=== PATIENT | male | born 1950 | race Caucasian/White ===

== ENCOUNTER 2018-02-06 19:15 | Inpatient (IN) | payer MEDICARE ==
[~2018-02-06] VITALS: Ht 188 cm; Wt 98.0 kg
[2018-02-06 19:59] LABS: BASO % 0 % (0-3); EOS % 0 % (0-3); HEMATOCRIT 47.8 % (39.0-53.0); HEMOGLOBIN 16.7 g/dL (13.0-17.5); LYMPH # 1.2 x10^3/uL (1.0-4.8); LYMPH % 8 % (24-48); MEAN CORPUSCULAR HEMOGLOBIN 32 pg (25-35); MEAN CORPUSCULAR HGB CONC 35 g/dL (31-37); MEAN CORPUSCULAR VOLUME 90 fL (79-100); MONO # 1.7 x10^3/uL (0.0-1.1); MONO % 11 % (0-9); NEUT % 81 % (31-73); PLATELET COUNT 239 x10^3/uL (140-400); RED CELL DISTRIBUTION WIDTH 13.9 % (11.5-14.5); WHITE BLOOD COUNT 14.9 x10^3/uL (4.0-11.0)
--- NOTE | 2018-02-06 19:59 | PHYS DOC ---
Past Medical History Past Medical History: Diabetes-Type II, GERD Past Surgical History: Appendectomy Alcohol Use: None Drug Use: Marijuana Adult General Chief Complaint Chief Complaint: BLOOD SUGAR PROBLEM HPI HPI Patient is a 67 year old male who presents with weakness, hypotension. The patient lives in [place] by himself. His neighbor came to check on him and found the patient to be extraordinarily weak and unable to move around his house. The patient states he has been ill over the last 4 days with vomiting. He denies hematemesis. He does not have abdominal pain. Denies fever or chills. Currently, he complains of profound weakness. He is uncertain if he has had fever or chills. The patient states he has "borderline" diabetes but has not been treated with medications. He states he has not seen a doctor in 5 or 6 years. Currently on no meds. Review of Systems Review of Systems Constitutional: Denies fever or chills Eyes: Denies change in visual acuity, redness, or eye pain HENT: Denies nasal congestion or sore throat Respiratory: Denies cough or shortness of breath Cardiovascular: No additional information not addressed in HPI GI: Denies abdominal pain : Denies dysuria Musculoskeletal: Denies back pain Integument: Denies rash or skin lesions Neurologic: Denies headache, or focal neuro complaints Endocrine: Denies polyuria All other systems were reviewed and found to be within normal limits, except as documented in this note. Current Medications Current Medications Current Medications Medications (Trade) Dose Ordered Sig/Gricel Start Time Stop Time Status Last Admin Dose Admin Insulin Human Regular 150 unit/ Sodium Chloride 151.5 ml @ 0 mls/hr CONT PRN PRN 02/06/18 21:00 Potassium Chloride/Water 50 ml @ 25 mls/hr Q1H 02/06/18 21:00 02/06/18 21:16 DC Sodium Chloride 1,000 ml @ 1,000 mls/hr 1X ONCE 02/06/18 20:00 02/06/18 20:59 DC 02/06/18 19:59 1,000 MLS/HR Allergies Allergies Allergies Coded Allergies Type Severity Reaction Last Updated Verified No Known Drug Allergies 02/06/18 No Physical Exam Physical Exam Constitutional: Chronically ill appearing, thin, disheveled male HENT: Sunken eyes, thin face, pale, atraumatic, bilateral external ears normal, dry mucous membranes Eyes: PERRLA, EOMI, conjunctiva pale Neck: Normal range of motion Cardiovascular: regular tachycardic rhythm, early harsh diastolic murmur heard loudest at LSB and apex 3/6 Lungs & Thorax: Bilateral breath sounds clear to auscultation Abdomen: Bowel sounds normal, soft, no tenderness Skin: Warm, dry, no erythema, no rash Extremities: No tenderness, no edema Neurologic: Alert and oriented X 3 Psychologic: Affect normal Current Patient Data Vital Signs Vital Signs Date Time Temp Pulse Resp B/P (MAP) Pulse Ox O2 Delivery O2 Flow Rate FiO2 02/06/18 21:00 113 18 106/68 (81) 95 2.0 02/06/18 19:41 Nasal Cannula 02/06/18 19:28 98.1 98.1 Lab Values Laboratory Tests Test 02/06/18 19:30 02/06/18 21:00 White Blood Count 14.9 x10^3/uL (4.0-11.0) H Red Blood Count 5.30 x10^6/uL (4.30-5.70) Hemoglobin 16.7 g/dL (13.0-17.5) Hematocrit 47.8 % (39.0-53.0) Mean Corpuscular Volume 90 fL (79-100) Mean Corpuscular Hemoglobin 32 pg (25-35) Mean Corpuscular Hemoglobin Concent 35 g/dL (31-37) Red Cell Distribution Width 13.9 % (11.5-14.5) Platelet Count 239 x10^3/uL (140-400) Neutrophils (%) (Auto) 81 % (31-73) H Lymphocytes (%) (Auto) 8 % (24-48) L Monocytes (%) (Auto) 11 % (0-9) H Eosinophils (%) (Auto) 0 % (0-3) Basophils (%) (Auto) 0 % (0-3) Neutrophils # (Auto) 12.0 x10^3uL (1.8-7.7) H Lymphocytes # (Auto) 1.2 x10^3/uL (1.0-4.8) Monocytes # (Auto) 1.7 x10^3/uL (0.0-1.1) H Eosinophils # (Auto) 0.0 x10^3/uL (0.0-0.7) Basophils # (Auto) 0.0 x10^3/uL (0.0-0.2) Segmented Neutrophils % 30 % (35-66) L Band Neutrophils % 44 % (0-9) H Lymphocytes % 7 % (24-48) L Atypical Lymphocytes % (Manual) 1 % (0-0) H Monocytes % 17 % (0-10) H Metamyelocytes % 1 % (0-0) H Toxic Granulation Mod Toxic Vacuolation Slight Platelet Estimate Adequate (ADEQUATE) Sodium Level 130 mmol/L (136-145) L Potassium Level 3.0 mmol/L (3.5-5.1) L Chloride Level 73 mmol/L (98-107) L Carbon Dioxide Level 32 mmol/L (21-32) Anion Gap 25 (6-14) H Blood Urea Nitrogen 97 mg/dL (8-26) H Creatinine 7.5 mg/dL (0.7-1.3) H Estimated GFR (Cockcroft-Gault) 7.3 Glucose Level 569 mg/dL (70-99) *H Lactic Acid Level 11.4 mmol/L (0.4-2.0) *H Calcium Level 9.9 mg/dL (8.5-10.1) Phosphorus Level 12.3 mg/dL (2.6-4.7) H Total Bilirubin 1.0 mg/dL (0.2-1.0) Direct Bilirubin 0.2 mg/dL (0.0-0.2) Aspartate Amino Transferase (AST) 16 U/L (15-37) Alanine Aminotransferase (ALT) 20 U/L (16-63) Alkaline Phosphatase 86 U/L (46-116) Troponin I Quantitative 0.389 ng/mL (0.000-0.055) CV-Ziu-K-Type Natriuretic Peptide 8182 pg/mL (0-124) H Total Protein 9.2 g/dL (6.4-8.2) H Albumin 3.0 g/dL (3.4-5.0) L Lipase 194 U/L (73-393) Glucose (Fingerstick) 474 mg/dL (70-99) H Laboratory Tests 02/06/18 19:30 Laboratory Tests 02/06/18 19:30 EKG EKG Sinus Tachy No STEMI Interpretation Time: 19:25 Radiology/Procedures Radiology/Procedures [] Course & Med Decision Making Course & Med Decision Making Pertinent Labs and Imaging studies reviewed. (See chart for details) 19:40: Patient is seen and examined. He has no acute complaints right now but appears very ill. He is tachycardic. He has had some intermittent hypotension. He received 1 L of normal saline via EMS and route. An additional liter is ordered. Broad workup is ordered. He also had blood glucose reading over 500 per EMS. Patient is not currently treated for diabetes. He is incidentally noted to have a diastolic murmur during the physical exam as well. In the ER, patient was found to have DKA. He also had elevation of his troponin but no acute STEMI on EKG. He had elevated BNP. As noted above he was found to have a diastolic heart murmur. In the ER, he was ordered to have 3 L normal saline. Insulin drip was started. Potassium replacement was also ordered. He was placed on empiric antibiotics, vancomycin and Zosyn. Patient has acute elevation of creatinine that is new. His BUNs was also elevated but the patient was not clinically uremic. No indication at the present time for acute or emergent dialysis. Patient is admitted to the intensive care unit. Consults placed for cardiology and nephrology to evaluate the patient tomorrow morning. I spoke to Dr. Perdomo about admitting this patient and he agreed to admit the patient to the ICU. Prior to admission and I spoke to the patient and explained his diagnoses and answered all of his questions. Dragon Disclaimer Dragon Disclaimer This electronic medical record was generated, in whole or in part, using a voice recognition dictation system. Departure Departure Referrals: UNKNOWN PCP NAME (PCP) MILTON CAGLE DO Feb 06, 2018 19:59
[2018-02-06] MEDS ORDERED: IV NORMAL SALINE 1000ML BAG 1,000 ML IV ONE ×2 (20:00→21:30)
[2018-02-06 20:18] LABS: CALCIUM 9.9 mg/dL (8.5-10.1); CREATININE 7.5 mg/dL (0.7-1.3); DIRECT BILIRUBIN 0.2 mg/dL (0.0-0.2); GFR 7.3; TOTAL PROTEIN 9.2 g/dL (6.4-8.2)
[2018-02-06 20:31] LABS: % ATYL 1 % (0-0); % BANDS 44 % (0-9); % LYMPHS 7 % (24-48); % METAS 1 % (0-0); % MONOS 17 % (0-10); % SEGS 30 % (35-66); PLT ESTIMATE ADEQUATE (ADEQUATE)
[2018-02-06 20:32] LABS: TOXIC GRANULATION MOD
[2018-02-06 20:33] LABS: TOXIC VACUOLATION SLIGHT
[2018-02-06] MEDS ORDERED: POTASSIUM CHLORIDE 20MEQ 50 ML IV SCH (21:00)
[2018-02-06] MEDS ORDERED: INSULIN REGULAR VIAL 150 UNIT in 0.9 % SODIUM CHLORIDE 150ML 150 ML IV PRN (21:00)
[2018-02-06] MEDS ORDERED: ACETAMINOPHEN 325 MG TABLET. PO PRN (21:15)
[2018-02-06] MEDS ORDERED: fentaNYL PF VIAL 100 MCG/2 ML VIAL IV PRN (21:15)
[2018-02-06 21:21] LABS: BASE EXCESS ABG 6 mmol/L (-3-3); CORRECTED PCO2 ABG 36 mmHg; CORRECTED PH ABG 7.53; CORRECTED PO2 ABG 74 mmHg; HCO3 ABG 29 mmol/L (21-28); PCO2 ABG 36 mmHg (35-46); PO2 ABG 75 mmHg (65-108); SAT O2 ABG 94 % (92-99)
[2018-02-06] MEDS: ONDANSETRON PF 4 MG/2 ML VIAL. IV PRN ×2 (21:27→23:49)
[2018-02-06] MEDS ORDERED: POTASSIUM CHLORIDE 20 MEQ/15 ML ORAL LIQUID. PO ONE (21:30)
[2018-02-06] MEDS ORDERED: PIP/TAZO PER PHARMACY MC PRN (21:30)
[2018-02-06] MEDS ORDERED: VANCOMYCIN PER PHARMACY MC PRN (21:30)
[2018-02-06] MEDS ORDERED: INSULIN,REGULAR 150 UNIT DRIP 150 ML IV ONE (21:45)
[2018-02-06] MEDS ORDERED: VANCOMYCIN 1.25 GM in IV NORMAL SALINE 250ML 250 ML IV ONE (22:00)
[2018-02-06] MEDS ORDERED: PIPERACILLIN/TAZOBACTAM 3.375 GM in IV NORMAL SALINE 50ML 50 ML IV ONE (22:00)
[2018-02-06] MEDS ORDERED: POTASSIUM CHLORIDE 40 MEQ in IV 1/2 NORMAL SALINE 500 ML IV ONE (22:00)
[2018-02-06 22:15] VITALS: BP 84/64
[2018-02-06 22:30] VITALS: BP 84/56
[2018-02-06] MEDS ORDERED: SODIUM PHOSPHATE 20 MMOL in IV DEXTROSE 5% 250 ML IV PRN (22:30)
[2018-02-06] MEDS: IV NORMAL SALINE 1000ML BAG 1,000 ML IV SCH (22:30)
[2018-02-06] MEDS: IV 1/2 NORMAL SALINE 1,000 ML IV SCH (22:30)
[2018-02-06] MEDS ORDERED: SODIUM PHOSPHATE 40 MMOL in IV NORMAL SALINE 500ML BAG 500 ML IV PRN (22:30)
[2018-02-06] MEDS ORDERED: SODIUM PHOSPHATE 10 MMOL in IV DEXTROSE 5% 250 ML IV PRN (22:30)
[2018-02-06 22:45] VITALS: BP 97/65
[2018-02-06 23:00] VITALS: BP 93/67
[2018-02-06 23:30] VITALS: BP 91/61
[2018-02-06] MEDS ORDERED: IV DEXTROSE 5% - 0.9 % NACL 1,000 ML IV SCH (23:45)
[2018-02-07] VITALS (24 sets, daily range): BP systolic 83–132; BP diastolic 55–74
--- NOTE | 2018-02-07 00:12 | RAD ---
Indication:weak and short of breath TECHNIQUE:Portable AP chest X-ray COMPARISON:None FINDINGS: Heart is normal in size. Bibasilar patchy opacities are seen. Otherwise, lungs are clear. No pneumothorax or pleural effusion. Visualized bony thorax within normal limits. IMPRESSION: Bibasilar patchy opacities may be secondary to aspiration, pneumonia or subsegmental atelectasis. Electronically signed by: Marcos Thomas DO (02/07/2018 12:09 AM) [facility]
[2018-02-07 01:27] LABS: CALCIUM 8.8 mg/dL (8.5-10.1); CREATININE 6.9 mg/dL (0.7-1.3); MAGNESIUM 2.7 mg/dL (1.8-2.4); POTASSIUM 3.5 mmol/L (3.5-5.1)
[2018-02-07] MEDS ORDERED: POTASSIUM CHLORIDE 40 MEQ in IV 1/2 NORMAL SALINE 500 ML IV ONE (02:00)
[2018-02-07] MEDS ORDERED: DEXTROSE 50% 25 GM / 50ML DISP.SYRIN. IV PRN (02:15)
[2018-02-07] MEDS: IV DEXTROSE 5 %-0.45 % NACL 1,000 ML IV SCH ×2 (02:30→03:15)
[2018-02-07] MEDS: IV 1/2 NORMAL SALINE 1,000 ML IV SCH (02:30)
[2018-02-07] MEDS: IV NORMAL SALINE 1000ML BAG 1,000 ML IV SCH ×5 (02:30→20:42)
[2018-02-07] MEDS ORDERED: INSULIN LISPRO 300 UNITS/3 ML INSULN.PEN. SQ ONE (02:30)
[2018-02-07] MEDS: METOCLOPRAMIDE HCL 10 MG/2 ML VIAL. IV PRN (03:15)
[2018-02-07] MEDS: PIPERACILLIN/TAZOBACTAM 2.25 GM in IV NORMAL SALINE 50ML 50 ML IV SCH ×3 (05:46→21:52)
--- NOTE | 2018-02-07 06:18 | EKG ---
[facility] [address] [place] [address] Test Date: 2018-02-06 Test Time: 19:22:29 Pat Name: SANJIV POPE Department: Room: 107 1 Gender: M Structural Rigger: : 1950 Requested By: MILTON CAGLE Order Number: [id number] Reading MD: Prakash Vasquez Measurements Intervals [place] Rate: 117 P: 62 LA: 134 QRS: 84 QRSD: 118 T: -73 QT: 336 QTc: 473 Interpretive Statements SINUS TACHYCARDIA LEFT ATRIAL ABNORMALITY LVH WITH REPOLARIZATION ABNORMALITY QRS(T) CONTOUR ABNORMALITY CONSIDER ANTEROSEPTAL MYOCARDIAL DAMAGE CONSIDER INFERIOR MYOCARDIAL DAMAGE ABNORMAL ECG RI6.01 No previous ECG available for comparison Electronically Signed On 02-08-2018 11:25:16 CDT by Prakash Vasquez
[2018-02-07 06:28] LABS: BASO % 0 % (0-3); EOS % 0 % (0-3); HEMATOCRIT 42.3 % (39.0-53.0); HEMOGLOBIN 14.6 g/dL (13.0-17.5); LYMPH % 7 % (24-48); MEAN CORPUSCULAR HEMOGLOBIN 31 pg (25-35); MEAN CORPUSCULAR HGB CONC 35 g/dL (31-37); MEAN CORPUSCULAR VOLUME 90 fL (79-100); MONO # 1.3 x10^3/uL (0.0-1.1); MONO % 9 % (0-9); NEUT # 12.2 x10^3uL (1.8-7.7); NEUT % 84 % (31-73); PLATELET COUNT 192 x10^3/uL (140-400); RED BLOOD COUNT 4.72 x10^6/uL (4.30-5.70); RED CELL DISTRIBUTION WIDTH 13.8 % (11.5-14.5); WHITE BLOOD COUNT 14.6 x10^3/uL (4.0-11.0)
[2018-02-07 07:02] LABS: ALBUMIN 2.5 g/dL (3.4-5.0); ALBUMIN/GLOBULIN RATIO 0.6 (1.0-1.7); CALCIUM 8.1 mg/dL (8.5-10.1); CREATININE 6.9 mg/dL (0.7-1.3); PHOSPHORUS 6.9 mg/dL (2.6-4.7); POTASSIUM 4.4 mmol/L (3.5-5.1); TOTAL BILIRUBIN 0.7 mg/dL (0.2-1.0); TOTAL PROTEIN 6.7 g/dL (6.4-8.2)
--- NOTE | 2018-02-07 07:51 | PDOC ---
Infectious Disease Note Vital Sign Vital Signs Vital Signs Date Time Temp Pulse Resp B/P (MAP) Pulse Ox O2 Delivery O2 Flow Rate FiO2 02/07/18 07:00 97 18 105/62 (76) 92 Nasal Cannula 2.0 02/07/18 04:00 98.5 98.5 Labs Lab Laboratory Tests Test 02/06/18 19:23 02/06/18 19:30 02/06/18 21:00 02/06/18 21:20 Glucose (Fingerstick) 510 mg/dL (70-99) 474 mg/dL (70-99) White Blood Count 14.9 x10^3/uL (4.0-11.0) Red Blood Count 5.30 x10^6/uL (4.30-5.70) Hemoglobin 16.7 g/dL (13.0-17.5) Hematocrit 47.8 % (39.0-53.0) Mean Corpuscular Volume 90 fL (79-100) Mean Corpuscular Hemoglobin 32 pg (25-35) Mean Corpuscular Hemoglobin Concent 35 g/dL (31-37) Red Cell Distribution Width 13.9 % (11.5-14.5) Platelet Count 239 x10^3/uL (140-400) Neutrophils (%) (Auto) 81 % (31-73) Lymphocytes (%) (Auto) 8 % (24-48) Monocytes (%) (Auto) 11 % (0-9) Eosinophils (%) (Auto) 0 % (0-3) Basophils (%) (Auto) 0 % (0-3) Neutrophils # (Auto) 12.0 x10^3uL (1.8-7.7) Lymphocytes # (Auto) 1.2 x10^3/uL (1.0-4.8) Monocytes # (Auto) 1.7 x10^3/uL (0.0-1.1) Eosinophils # (Auto) 0.0 x10^3/uL (0.0-0.7) Basophils # (Auto) 0.0 x10^3/uL (0.0-0.2) Segmented Neutrophils % 30 % (35-66) Band Neutrophils % 44 % (0-9) Lymphocytes % 7 % (24-48) Atypical Lymphocytes % (Manual) 1 % (0-0) Monocytes % 17 % (0-10) Metamyelocytes % 1 % (0-0) Toxic Granulation Mod Toxic Vacuolation Slight Platelet Estimate Adequate (ADEQUATE) Sodium Level 130 mmol/L (136-145) Potassium Level 3.0 mmol/L (3.5-5.1) Chloride Level 73 mmol/L (98-107) Carbon Dioxide Level 32 mmol/L (21-32) Anion Gap 25 (6-14) Blood Urea Nitrogen 97 mg/dL (8-26) Creatinine 7.5 mg/dL (0.7-1.3) Estimated GFR (Cockcroft-Gault) 7.3 Glucose Level 569 mg/dL (70-99) Lactic Acid Level 11.4 mmol/L (0.4-2.0) Calcium Level 9.9 mg/dL (8.5-10.1) Phosphorus Level 12.3 mg/dL (2.6-4.7) Total Bilirubin 1.0 mg/dL (0.2-1.0) Direct Bilirubin 0.2 mg/dL (0.0-0.2) Aspartate Amino Transf (AST/SGOT) 16 U/L (15-37) Alanine Aminotransferase (ALT/SGPT) 20 U/L (16-63) Alkaline Phosphatase 86 U/L (46-116) Troponin I Quantitative 0.389 ng/mL (0.000-0.055) ZL-Xko-Z-Type Natriuretic Peptide 8182 pg/mL (0-124) Total Protein 9.2 g/dL (6.4-8.2) Albumin 3.0 g/dL (3.4-5.0) Lipase 194 U/L (73-393) O2 Saturation 94 % (92-99) Arterial Blood pH 7.52 (7.35-7.45) Arterial Blood pH (Temp corrected) 7.53 Arterial Blood pCO2 at Patient Temp 36 mmHg (35-46) Arterial Blood pCO2 (Temp correct) 36 mmHg Arterial Blood pO2 at Patient Temp 75 mmHg (65-108) Arterial Blood pO2 (Temp corrected) 74 mmHg Arterial Blood HCO3 29 mmol/L (21-28) Arterial Blood Base Excess 6 mmol/L (-3-3) FiO2 32.0 Test 02/06/18 22:13 02/06/18 23:14 02/06/18 23:20 02/07/18 00:19 Glucose (Fingerstick) 416 mg/dL (70-99) 294 mg/dL (70-99) 230 mg/dL (70-99) Lactic Acid Level 4.2 mmol/L (0.4-2.0) Test 02/07/18 01:05 02/07/18 02:33 02/07/18 03:59 02/07/18 06:05 Sodium Level 133 mmol/L (136-145) 135 mmol/L (136-145) Potassium Level 3.5 mmol/L (3.5-5.1) 4.4 mmol/L (3.5-5.1) Chloride Level 85 mmol/L (98-107) 89 mmol/L (98-107) Carbon Dioxide Level 34 mmol/L (21-32) 29 mmol/L (21-32) Anion Gap 14 (6-14) 17 (6-14) Blood Urea Nitrogen 96 mg/dL (8-26) 100 mg/dL (8-26) Creatinine 6.9 mg/dL (0.7-1.3) 6.9 mg/dL (0.7-1.3) Estimated GFR (Cockcroft-Gault) 8.0 8.0 Glucose Level 213 mg/dL (70-99) 211 mg/dL (70-99) Calcium Level 8.8 mg/dL (8.5-10.1) 8.1 mg/dL (8.5-10.1) Magnesium Level 2.7 mg/dL (1.8-2.4) Glucose (Fingerstick) 156 mg/dL (70-99) 121 mg/dL (70-99) White Blood Count 14.6 x10^3/uL (4.0-11.0) Red Blood Count 4.72 x10^6/uL (4.30-5.70) Hemoglobin 14.6 g/dL (13.0-17.5) Hematocrit 42.3 % (39.0-53.0) Mean Corpuscular Volume 90 fL (79-100) Mean Corpuscular Hemoglobin 31 pg (25-35) Mean Corpuscular Hemoglobin Concent 35 g/dL (31-37) Red Cell Distribution Width 13.8 % (11.5-14.5) Platelet Count 192 x10^3/uL (140-400) Neutrophils (%) (Auto) 84 % (31-73) Lymphocytes (%) (Auto) 7 % (24-48) Monocytes (%) (Auto) 9 % (0-9) Eosinophils (%) (Auto) 0 % (0-3) Basophils (%) (Auto) 0 % (0-3) Neutrophils # (Auto) 12.2 x10^3uL (1.8-7.7) Lymphocytes # (Auto) 1.0 x10^3/uL (1.0-4.8) Monocytes # (Auto) 1.3 x10^3/uL (0.0-1.1) Eosinophils # (Auto) 0.0 x10^3/uL (0.0-0.7) Basophils # (Auto) 0.0 x10^3/uL (0.0-0.2) BUN/Creatinine Ratio 14 (6-20) Phosphorus Level 6.9 mg/dL (2.6-4.7) Total Bilirubin 0.7 mg/dL (0.2-1.0) Aspartate Amino Transf (AST/SGOT) 18 U/L (15-37) Alanine Aminotransferase (ALT/SGPT) 15 U/L (16-63) Alkaline Phosphatase 67 U/L (46-116) Troponin I Quantitative 0.384 ng/mL (0.000-0.055) Total Protein 6.7 g/dL (6.4-8.2) Albumin 2.5 g/dL (3.4-5.0) Albumin/Globulin Ratio 0.6 (1.0-1.7) Objective Assessment Lactic acidosis Sepsis with hypotension Metabolic alklosis sec to vomiting DM with high anion gap CAR Severe dehydration Leukocytosis Plan Plan of Care bc fluids zosyn vanc x 1 supportive care OCTAVIO GARCIA MD Feb 07, 2018 07:51
[2018-02-07 07:52] LABS: CHOLESTEROL/HDL RATIO 5.3
[2018-02-07] MEDS: INSULIN LISPRO 300 UNITS/3 ML INSULN.PEN. SQ SCH ×3 (07:58→17:29)
[2018-02-07 08:27] LABS: BILIRUBIN,URINE MODERATE (NEG); CLARITY,URINE TURBID; NITRITE,URINE NEGATIVE (NEG); PROTEIN,URINE 30 mg/dL (NEG-TRACE); UROBILINOGEN,URINE 0.2 mg/dL (0.2 mg/dL)
[2018-02-07 08:49] LABS: BACTERIA,URINE MOD /HPF (0-FEW); COLOR,URINE AMBER; SQUAMOUS EPITHELIAL CELL,UR FEW /LPF
[2018-02-07] MEDS ORDERED: MAGNESIUM SULFATE 4GM 100 ML IV SCH (09:00)
--- NOTE | 2018-02-07 09:21 | PDOC2 ---
CARDIAC CONSULT DATE OF CONSULT Date of Consult DATE: 02/07/18 TIME: 0820 REASON FOR CONSULT Reason for Consult: NSTEMI, CHF, diastolic murmur REFERRING PHYSICIAN Referring Physician: Fullbright SOURCE Source: Chart review, Patient HISTORY OF PRESENT ILLNESS HISTORY OF PRESENT ILLNESS This is a pleasant 67 yo male admitted for significant weakness and vomiting. Reports that he has not been feeling good in the last 1-2 weeks. He has been having some chest congestion but no significant coughing and also feeling body aches. No associated recorded fever but has been feeling intermittent chills. This weekend he got so weak that he drops to the floor and takes him 20-30 minutes before he could get up. He tries to eat and drink but he vomits. He initially started having vomiting with initial diarrhea this last weekend but no further diarrhea but his vomiting continues. He does not take any medications but has increased his intake of vit C supplement. He has not seen a physician in the last 6 years. He said that he had the same episode but milder about a yr ago but decided to treat himself and got better. He has DM but does not take any meds for this,. Denies any recreational drug use except marijuana. Denies any palpiations, chest pain or significant SOA. He was so weak yesterday and he was on the floor and was able to get up on his chair. His neighbor finally checked on him and he was noted to be so weak and help was called. Denies any CAD, VTE, or any arrhythmias. PAST MEDICAL HISTORY GI: GERD Endocrine: Diabetes (2) PAST SURGICAL HISTORY Past Surgical History: Other (anal abscess I & D. Left shoulder abscess with I & D) SOCIAL HISTORY Smoke: Quit (remotely) ALCOHOL: none Drugs: Marijuana Lives: Alone CURRENT MEDICATIONS CURRENT MEDICATIONS Current Medications Medications (Trade) Dose Ordered Sig/Gricel Route PRN Reason Start Time Stop Time Status Last Admin Dose Admin Sodium Chloride 1,000 ml @ 1,000 mls/hr 1X ONCE IV 02/06/18 20:00 02/06/18 20:59 DC 02/06/18 19:59 Potassium Chloride (KCl Oral Soln) 40 meq 1X ONCE PO 02/06/18 21:30 02/06/18 21:31 DC 02/06/18 21:22 Insulin Human Regular 150 ml @ 9.1 mls/hr 1X ONCE IV 02/06/18 21:45 02/07/18 14:17 02/06/18 21:24 Potassium Chloride 40 meq/ Sodium Chloride 520 ml @ 130 mls/hr 1X ONCE IV 02/06/18 22:00 02/07/18 02:00 DC 02/06/18 22:30 Potassium Chloride 40 meq/ Sodium Chloride 520 ml @ 130 mls/hr 1X ONCE IV 02/07/18 02:00 02/07/18 05:59 DC 02/07/18 01:39 Ondansetron HCl (Zofran) 4 mg PRN Q8HRS PRN IV NAUSEA/VOMITING 02/06/18 21:15 02/07/18 21:14 02/06/18 23:49 Sodium Chloride 1,000 ml @ 1,000 mls/hr 1X ONCE IV 02/06/18 21:30 02/06/18 22:29 DC 02/06/18 21:32 Piperacillin Sod/ Tazobactam Sod 3.375 gm/Sodium Chloride 50 ml @ 100 mls/hr 1X ONCE IV 02/06/18 22:00 02/06/18 22:29 DC 02/06/18 21:33 Vancomycin HCl 1.25 gm/Sodium Chloride 250 ml @ 166.667 mls/hr 1X ONCE IV 02/06/18 22:00 02/06/18 23:29 DC 02/06/18 22:30 Piperacillin Sod/ Tazobactam Sod 2.25 gm/Sodium Chloride 50 ml @ 100 mls/hr Q8HRS IV 02/07/18 06:00 02/07/18 05:46 Dextrose/Sodium Chloride 1,000 ml @ 250 mls/hr Q4H IV 02/06/18 23:45 02/07/18 03:21 DC 02/06/18 23:30 Sodium Chloride 1,000 ml @ 100 mls/hr Q10H IV 02/07/18 03:00 02/07/18 03:15 Metoclopramide HCl (Reglan Vial) 5 mg PRN Q6HRS PRN IV NAUSEA/VOMITING 02/07/18 03:00 02/07/18 03:15 Insulin Human Lispro (HumaLOG) 0-7 UNITS TIDWMEALS SQ 02/07/18 08:00 02/07/18 07:58 ALLERGIES ALLERGIES: Coded Allergies: No Known Drug Allergies (Unverified , 10/23/18) ROS Review of System 14 point ROS evaluated with pertinent positives noted per HPI PHYSICAL EXAM General: Alert, Oriented X3, Cooperative, No acute distress HEENT: Atraumatic, Mucous membr. moist/pink Lungs: Other (diminished bases) Heart: Regular rate (SR), Normal S1, Normal S2, Other (3/6 systolic murmur to LLS border) Abdomen: Soft, No tenderness Extremities: No cyanosis, No edema Skin: No significant lesion Neuro: Normal speech, Sensation intact Psych/Mental Status: Mental status NL, Mood NL MUSCULOSKELETAL: Osteoarthritic changes both hands VITALS VITALS Vital Signs Date Time Temp Pulse Resp B/P (MAP) Pulse Ox O2 Delivery O2 Flow Rate FiO2 02/07/18 08:00 Nasal Cannula 2.0 02/07/18 08:00 98.1 94 21 94/62 (73) 94 98.1 LABS Lab: Laboratory Tests Test 02/06/18 19:23 02/06/18 19:30 02/06/18 21:00 02/06/18 21:20 Glucose (Fingerstick) 510 mg/dL (70-99) 474 mg/dL (70-99) White Blood Count 14.9 x10^3/uL (4.0-11.0) Red Blood Count 5.30 x10^6/uL (4.30-5.70) Hemoglobin 16.7 g/dL (13.0-17.5) Hematocrit 47.8 % (39.0-53.0) Mean Corpuscular Volume 90 fL (79-100) Mean Corpuscular Hemoglobin 32 pg (25-35) Mean Corpuscular Hemoglobin Concent 35 g/dL (31-37) Red Cell Distribution Width 13.9 % (11.5-14.5) Platelet Count 239 x10^3/uL (140-400) Neutrophils (%) (Auto) 81 % (31-73) Lymphocytes (%) (Auto) 8 % (24-48) Monocytes (%) (Auto) 11 % (0-9) Eosinophils (%) (Auto) 0 % (0-3) Basophils (%) (Auto) 0 % (0-3) Neutrophils # (Auto) 12.0 x10^3uL (1.8-7.7) Lymphocytes # (Auto) 1.2 x10^3/uL (1.0-4.8) Monocytes # (Auto) 1.7 x10^3/uL (0.0-1.1) Eosinophils # (Auto) 0.0 x10^3/uL (0.0-0.7) Basophils # (Auto) 0.0 x10^3/uL (0.0-0.2) Segmented Neutrophils % 30 % (35-66) Band Neutrophils % 44 % (0-9) Lymphocytes % 7 % (24-48) Atypical Lymphocytes % (Manual) 1 % (0-0) Monocytes % 17 % (0-10) Metamyelocytes % 1 % (0-0) Toxic Granulation Mod Toxic Vacuolation Slight Platelet Estimate Adequate (ADEQUATE) Sodium Level 130 mmol/L (136-145) Potassium Level 3.0 mmol/L (3.5-5.1) Chloride Level 73 mmol/L (98-107) Carbon Dioxide Level 32 mmol/L (21-32) Anion Gap 25 (6-14) Blood Urea Nitrogen 97 mg/dL (8-26) Creatinine 7.5 mg/dL (0.7-1.3) Estimated GFR (Cockcroft-Gault) 7.3 Glucose Level 569 mg/dL (70-99) Lactic Acid Level 11.4 mmol/L (0.4-2.0) Calcium Level 9.9 mg/dL (8.5-10.1) Phosphorus Level 12.3 mg/dL (2.6-4.7) Total Bilirubin 1.0 mg/dL (0.2-1.0) Direct Bilirubin 0.2 mg/dL (0.0-0.2) Aspartate Amino Transf (AST/SGOT) 16 U/L (15-37) Alanine Aminotransferase (ALT/SGPT) 20 U/L (16-63) Alkaline Phosphatase 86 U/L (46-116) Troponin I Quantitative 0.389 ng/mL (0.000-0.055) IH-Ibk-Z-Type Natriuretic Peptide 8182 pg/mL (0-124) Total Protein 9.2 g/dL (6.4-8.2) Albumin 3.0 g/dL (3.4-5.0) Lipase 194 U/L (73-393) O2 Saturation 94 % (92-99) Arterial Blood pH 7.52 (7.35-7.45) Arterial Blood pH (Temp corrected) 7.53 Arterial Blood pCO2 at Patient Temp 36 mmHg (35-46) Arterial Blood pCO2 (Temp correct) 36 mmHg Arterial Blood pO2 at Patient Temp 75 mmHg (65-108) Arterial Blood pO2 (Temp corrected) 74 mmHg Arterial Blood HCO3 29 mmol/L (21-28) Arterial Blood Base Excess 6 mmol/L (-3-3) FiO2 32.0 Test 02/06/18 22:13 02/06/18 23:14 02/06/18 23:20 02/07/18 00:19 Glucose (Fingerstick) 416 mg/dL (70-99) 294 mg/dL (70-99) 230 mg/dL (70-99) Lactic Acid Level 4.2 mmol/L (0.4-2.0) Test 02/07/18 01:05 02/07/18 02:33 02/07/18 03:59 02/07/18 06:03 Sodium Level 133 mmol/L (136-145) Potassium Level 3.5 mmol/L (3.5-5.1) Chloride Level 85 mmol/L (98-107) Carbon Dioxide Level 34 mmol/L (21-32) Anion Gap 14 (6-14) Blood Urea Nitrogen 96 mg/dL (8-26) Creatinine 6.9 mg/dL (0.7-1.3) Estimated GFR (Cockcroft-Gault) 8.0 Glucose Level 213 mg/dL (70-99) Calcium Level 8.8 mg/dL (8.5-10.1) Magnesium Level 2.7 mg/dL (1.8-2.4) Glucose (Fingerstick) 156 mg/dL (70-99) 121 mg/dL (70-99) Acetone Level Sm pos (NEG) Test 02/07/18 06:05 02/07/18 07:40 02/07/18 07:55 White Blood Count 14.6 x10^3/uL (4.0-11.0) Red Blood Count 4.72 x10^6/uL (4.30-5.70) Hemoglobin 14.6 g/dL (13.0-17.5) Hematocrit 42.3 % (39.0-53.0) Mean Corpuscular Volume 90 fL (79-100) Mean Corpuscular Hemoglobin 31 pg (25-35) Mean Corpuscular Hemoglobin Concent 35 g/dL (31-37) Red Cell Distribution Width 13.8 % (11.5-14.5) Platelet Count 192 x10^3/uL (140-400) Neutrophils (%) (Auto) 84 % (31-73) Lymphocytes (%) (Auto) 7 % (24-48) Monocytes (%) (Auto) 9 % (0-9) Eosinophils (%) (Auto) 0 % (0-3) Basophils (%) (Auto) 0 % (0-3) Neutrophils # (Auto) 12.2 x10^3uL (1.8-7.7) Lymphocytes # (Auto) 1.0 x10^3/uL (1.0-4.8) Monocytes # (Auto) 1.3 x10^3/uL (0.0-1.1) Eosinophils # (Auto) 0.0 x10^3/uL (0.0-0.7) Basophils # (Auto) 0.0 x10^3/uL (0.0-0.2) Sodium Level 135 mmol/L (136-145) Potassium Level 4.4 mmol/L (3.5-5.1) Chloride Level 89 mmol/L (98-107) Carbon Dioxide Level 29 mmol/L (21-32) Anion Gap 17 (6-14) Blood Urea Nitrogen 100 mg/dL (8-26) Creatinine 6.9 mg/dL (0.7-1.3) Estimated GFR (Cockcroft-Gault) 8.0 BUN/Creatinine Ratio 14 (6-20) Glucose Level 211 mg/dL (70-99) Calcium Level 8.1 mg/dL (8.5-10.1) Phosphorus Level 6.9 mg/dL (2.6-4.7) Total Bilirubin 0.7 mg/dL (0.2-1.0) Aspartate Amino Transf (AST/SGOT) 18 U/L (15-37) Alanine Aminotransferase (ALT/SGPT) 15 U/L (16-63) Alkaline Phosphatase 67 U/L (46-116) Troponin I Quantitative 0.384 ng/mL (0.000-0.055) Total Protein 6.7 g/dL (6.4-8.2) Albumin 2.5 g/dL (3.4-5.0) Albumin/Globulin Ratio 0.6 (1.0-1.7) Triglycerides Level 276 mg/dL (0-150) Cholesterol Level 126 mg/dL (0-200) LDL Cholesterol, Calculated 47 mg/dL (0-100) VLDL Cholesterol, Calculated 55 mg/dL (0-40) Non-HDL Cholesterol Calculated 102 mg/dL (0-129) HDL Cholesterol 24 mg/dL (40-60) Cholesterol/HDL Ratio 5.3 Thyroid Stimulating Hormone (TSH) 3.630 uIU/mL (0.358-3.74) Urine Collection Type Unknown Urine Color [place]ka Urine Clarity Turbid Urine pH 5.0 Urine Specific [place] 1.025 Urine Protein 30 mg/dL (NEG-TRACE) Urine Glucose (UA) 100 mg/dL (NEG) Urine Ketones (Stick) Trace mg/dL (NEG) Urine Blood Large (NEG) Urine Nitrite Negative (NEG) Urine Bilirubin Moderate (NEG) Urine Urobilinogen Dipstick 0.2 mg/dL (0.2 mg/dL) Urine Leukocyte Esterase Trace (NEG) Urine RBC 3-5 /HPF (0-2) Urine WBC 11-20 /HPF (0-4) Urine Squamous Epithelial Cells Few /LPF Urine Bacteria Mod /HPF (0-FEW) Urine Mucus Marked /LPF Glucose (Fingerstick) 245 mg/dL (70-99) ASSESSMENT/PLAN ASSESSMENT/PLAN 1. Sepsis with possible pneumonia 2. Severe CAR; significant volume depletion. No acute CHF 3. Uncontrolled DM2 4. NSTEMI: Trop peaked at 0.38, EKG SR with LVH/LV strain. No cardiac symptoms. Suspect type 2 demand mediated 5. Marijuana use Recommendations 1. Continue with IVF. No significant arrhythmias so far. TTE today 2. ID consult. DM therapy optimization per PCP 3. TSH, lipids, supportive care. 4. Consult nephrology. 5. ASA. Marijuana cessation, Supportive care. CARLOS MOFFETT APRN Feb 07, 2018 09:21
[2018-02-07] MEDS: ASPIRIN ENTERIC COATED 81 MG TABLET.DR. PO SCH (09:26)
--- NOTE | 2018-02-07 11:53 | PDOC2 ---
CONSULT Date of Consult Date of Consult DATE: 02/07/18 TIME: 11:44 Reason for Consult Reason for Consult: CAR Referring Physician Referring Physician: KELSI Identification/Chief Complaint Chief Complaint N/V Source Source: Chart review, Patient History of Present Illness Reason for Visit: THIS IS A 67 YR OLD WITH WEAKNESS AND SEVERAL DAY HX OF N/V. APPARENTLY HAS THIS ISSUE INTERMITTENTLY. HE DOES NOT SEE DOCTORS. HYPERGLYCEMIA NOTED. STATED THAT HE HAS A SEVERAL DAY HX OF INCREASING UO AND THEN HE HAD DECREASED UO WHEN N/V STARTED. CR OF 6.9 WITH SOME HYPOKALEMIA AND ALKALOSIS. NO KNOW CKD HX BUT APPARENTLY HAD GLOMERULONEPHRITIS AT AGE 17. HAS NOT REALLY SEEN ANY DOCTORS SINCE. STATES THAT HIS KIDNEYS RECOVERED. NO OTHER PERTINENT HX NOTED. URINE VERY CONCENTRATED. NO NEPHROTOXIN EXPOSURE Past Medical History Cardiovascular: HTN GI: GERD Endocrine: Diabetes (2) Past Surgical History Past Surgical History: Other (anal abscess I & D. Left shoulder abscess with I & D) Social History Quit (remotely) ALCOHOL: none Drugs: Marijuana Lives: Alone Current Problem List Problem List Problems Medical Problems: (1) Acute renal failure Status: Acute (2) CHF (congestive heart failure) Status: Acute (3) DKA (diabetic ketoacidoses) Status: Acute (4) Heart murmur Status: Acute (5) NSTEMI (non-ST elevated myocardial infarction) Status: Acute Current Medications Current Medications Current Medications Sodium Chloride 1,000 ml @ 1,000 mls/hr 1X ONCE IV Last administered on 02/06at 19:59; Start 02/06/18 at 20:00; Stop 02/06/18 at 20:59; Status DC Insulin Human Regular 150 unit/ Sodium Chloride 151.5 ml @ 0 mls/hr CONT PRN PRN IV PER PROTOCOL; Start 02/06/18 at 21:00 Potassium Chloride (KCl Oral Soln) 40 meq 1X ONCE PO Last administered on at 21:22; Start 02/06/18 at 21:30; Stop 02/06/18 at 21:31; Status DC Potassium Chloride/Water 50 ml @ 25 mls/hr Q1H IV ; Start 02/06/18 at 21:00; Stop 02/06/18 at 21:16; Status DC Insulin Human Regular 150 ml @ 9.1 mls/hr 1X ONCE IV Last administered on at 21:24; Start 02/06/18 at 21:45; Stop 02/07/18 at 14:17 Potassium Chloride 40 meq/ Sodium Chloride 520 ml @ 130 mls/hr 1X ONCE IV Last administered on 02/06/18at 22:30; Start 02/06/18 at 22:00; Stop 02/07/18 at 02:00; Status DC Potassium Chloride 40 meq/ Sodium Chloride 520 ml @ 130 mls/hr 1X ONCE IV Last administered on 02/07/18at 01:39; Start 02/07/18 at 02:00; Stop 02/07/18 at 05:59; Status DC Ondansetron HCl (Zofran) 4 mg PRN Q8HRS PRN IV NAUSEA/VOMITING Last administered on 02/06/18at 23:49; Start 02/06/18 at 21:15; Stop 02/07/18 at 21 :14 Fentanyl Citrate (Fentanyl 2ml Vial) 50 mcg PRN Q2HR PRN IV PAIN; Start at 21:15; Stop 02/07/18 at 21:14 Acetaminophen (Tylenol) 650 mg PRN Q4HRS PRN PO FEVER; Start 02/06/18 at 21:15 ; Stop 02/07/18 at 21:14 Vancomycin HCl (Vanco Per Pharmacy) 1 each PRN DAILY PRN MC SEE COMMENTS; Start 02/06/18 at 21:30; Stop 02/07/18 at 07:52; Status DC Piperacillin Sod/ Tazobactam Sod (Zosyn Per Pharmacy) 1 each PRN DAILY PRN MC SEE COMMENTS; Start 02/06/18 at 21:30 Sodium Chloride 1,000 ml @ 1,000 mls/hr 1X ONCE IV Last administered on 02/06at 21:32; Start 02/06/18 at 21:30; Stop 02/06/18 at 22:29; Status DC Piperacillin Sod/ Tazobactam Sod 3.375 gm/Sodium Chloride 50 ml @ 100 mls/hr 1X ONCE IV Last administered on 02/06/18at 21:33; Start 02/06/18 at 22:00; Stop 02/06/18 at 22:29; Status DC Vancomycin HCl 1.25 gm/Sodium Chloride 250 ml @ 166.667 mls/hr 1X ONCE IV Last administered on 02/06/18at 22:30; Start 02/06/18 at 22:00; Stop 02/06/18 at 23:29; Status DC Piperacillin Sod/ Tazobactam Sod 2.25 gm/Sodium Chloride 50 ml @ 100 mls/hr Q8HRS IV Last administered on 02/07/18at 05:46; Start 02/07/18 at 06:00 Sodium Chloride 1,000 ml @ 250 mls/hr Q4H IV ; Start 02/06/18 at 22:30; Stop 02/07/18 at 03:21; Status DC Sodium Chloride 1,000 ml @ 250 mls/hr Q4H IV ; Start 02/06/18 at 22:30; Stop 02/07/18 at 06:10; Status DC Dextrose/Sodium Chloride 1,000 ml @ 250 mls/hr Q4H IV ; Start 02/06/18 at 22: 30; Stop 02/07/18 at 03:21; Status DC Magnesium Sulfate/ Dextrose 100 ml @ 25 mls/hr DAILY IV ; Start 02/07/18 at 09 :00; Stop 02/10/18 at 08:59 Sodium Phosphate 40 mmol/Sodium Chloride 513.3333 ml @ 83.3 mls/hr 1X PRN PRN IV SEE COMMENTS; Start 02/06/18 at 22:30 Sodium Phosphate 20 mmol/Dextrose 256.6667 ml @ 62.5 mls/hr 1X PRN PRN IV SEE COMMENTS; Start 02/06/18 at 22:30 Sodium Phosphate 10 mmol/Dextrose 253.3333 ml @ 62.5 mls/hr 1X PRN PRN IV SEE COMMENTS; Start 02/06/18 at 22:30 Dextrose/Sodium Chloride 1,000 ml @ 250 mls/hr Q4H IV Last administered on at 23:30; Start 02/06/18 at 23:45; Stop 02/07/18 at 03:21; Status DC Sodium Chloride 1,000 ml @ 200 mls/hr Q5H IV Last administered on 02/07/18at 03:15; Start 02/07/18 at 03:00 Metoclopramide HCl (Reglan Vial) 5 mg PRN Q6HRS PRN IV NAUSEA/VOMITING Last administered on 02/07/18at 03:15; Start 02/07/18 at 03:00 Insulin Human Lispro (HumaLOG) 0-7 UNITS TIDWMEALS SQ Last administered on at 07:58; Start 02/07/18 at 08:00 Dextrose (Dextrose 50%-Water Syringe) 12.5 gm PRN Q15MIN PRN IV SEE COMMENTS; Start 02/07/18 at 02:15 Insulin Human Lispro (HumaLOG) 4 units 1X ONCE SQ ; Start 02/07/18 at 02:30; Stop 02/07/18 at 02:31; Status Cancel Aspirin (Ecotrin) 81 mg DAILYWBKFT PO ; Start 02/07/18 at 10:00 Allergies Allergies: Coded Allergies: No Known Drug Allergies (Unverified , 02/06/18) ROS General: YES: Fatigue, Malaise, Appetite PSYCHOLOGICAL ROS: YES: Anxiety, Depression Eyes: Yes Decreased vision HEENT: YES: Heacaches Respiratory: YES: Cough Cardiovascular: yes Lt Headedness Gastrointestinal: Yes Nausea, Yes Vomiting Genitourinary: YES Frequency Musculoskeletal: Yes Muscular Weakness Neurological: Yes Weakness Skin: Yes Dry Skin Physical Exam General: Alert, Oriented X3, Cooperative, No acute distress HEENT: Atraumatic, PERRLA, Other (DRY ORAL MUCOSA) Lungs: Clear to auscultation, Normal air movement Heart: Regular rate Abdomen: Normal bowel sounds, Soft, No tenderness Extremities: No clubbing, Normal pulses Skin: No breakdown, No significant lesion Neuro: Normal speech, Cranial nerves 3-12 NL Psych/Mental Status: Mental status NL, Mood NL MUSCULOSKELETAL: No joint tenderness, No deformity Vitals VITALS Vital Signs Date Time Temp Pulse Resp B/P (MAP) Pulse Ox O2 Delivery O2 Flow Rate FiO2 02/07/18 11:00 98 11 125/74 (91) 94 Nasal Cannula 2.0 02/07/18 08:00 98.1 98.1 Labs Labs Laboratory Tests Test 02/06/18 19:23 02/06/18 19:30 02/06/18 21:00 02/06/18 21:20 Glucose (Fingerstick) 510 mg/dL (70-99) 474 mg/dL (70-99) White Blood Count 14.9 x10^3/uL (4.0-11.0) Red Blood Count 5.30 x10^6/uL (4.30-5.70) Hemoglobin 16.7 g/dL (13.0-17.5) Hematocrit 47.8 % (39.0-53.0) Mean Corpuscular Volume 90 fL (79-100) Mean Corpuscular Hemoglobin 32 pg (25-35) Mean Corpuscular Hemoglobin Concent 35 g/dL (31-37) Red Cell Distribution Width 13.9 % (11.5-14.5) Platelet Count 239 x10^3/uL (140-400) Neutrophils (%) (Auto) 81 % (31-73) Lymphocytes (%) (Auto) 8 % (24-48) Monocytes (%) (Auto) 11 % (0-9) Eosinophils (%) (Auto) 0 % (0-3) Basophils (%) (Auto) 0 % (0-3) Neutrophils # (Auto) 12.0 x10^3uL (1.8-7.7) Lymphocytes # (Auto) 1.2 x10^3/uL (1.0-4.8) Monocytes # (Auto) 1.7 x10^3/uL (0.0-1.1) Eosinophils # (Auto) 0.0 x10^3/uL (0.0-0.7) Basophils # (Auto) 0.0 x10^3/uL (0.0-0.2) Segmented Neutrophils % 30 % (35-66) Band Neutrophils % 44 % (0-9) Lymphocytes % 7 % (24-48) Atypical Lymphocytes % (Manual) 1 % (0-0) Monocytes % 17 % (0-10) Metamyelocytes % 1 % (0-0) Toxic Granulation Mod Toxic Vacuolation Slight Platelet Estimate Adequate (ADEQUATE) Sodium Level 130 mmol/L (136-145) Potassium Level 3.0 mmol/L (3.5-5.1) Chloride Level 73 mmol/L (98-107) Carbon Dioxide Level 32 mmol/L (21-32) Anion Gap 25 (6-14) Blood Urea Nitrogen 97 mg/dL (8-26) Creatinine 7.5 mg/dL (0.7-1.3) Estimated GFR (Cockcroft-Gault) 7.3 Glucose Level 569 mg/dL (70-99) Lactic Acid Level 11.4 mmol/L (0.4-2.0) Calcium Level 9.9 mg/dL (8.5-10.1) Phosphorus Level 12.3 mg/dL (2.6-4.7) Total Bilirubin 1.0 mg/dL (0.2-1.0) Direct Bilirubin 0.2 mg/dL (0.0-0.2) Aspartate Amino Transf (AST/SGOT) 16 U/L (15-37) Alanine Aminotransferase (ALT/SGPT) 20 U/L (16-63) Alkaline Phosphatase 86 U/L (46-116) Troponin I Quantitative 0.389 ng/mL (0.000-0.055) BF-Unv-N-Type Natriuretic Peptide 8182 pg/mL (0-124) Total Protein 9.2 g/dL (6.4-8.2) Albumin 3.0 g/dL (3.4-5.0) Lipase 194 U/L (73-393) O2 Saturation 94 % (92-99) Arterial Blood pH 7.52 (7.35-7.45) Arterial Blood pH (Temp corrected) 7.53 Arterial Blood pCO2 at Patient Temp 36 mmHg (35-46) Arterial Blood pCO2 (Temp correct) 36 mmHg Arterial Blood pO2 at Patient Temp 75 mmHg (65-108) Arterial Blood pO2 (Temp corrected) 74 mmHg Arterial Blood HCO3 29 mmol/L (21-28) Arterial Blood Base Excess 6 mmol/L (-3-3) FiO2 32.0 Test 02/06/18 22:13 02/06/18 23:14 02/06/18 23:20 02/07/18 00:19 Glucose (Fingerstick) 416 mg/dL (70-99) 294 mg/dL (70-99) 230 mg/dL (70-99) Lactic Acid Level 4.2 mmol/L (0.4-2.0) Test 02/07/18 01:05 02/07/18 02:33 02/07/18 03:59 02/07/18 06:03 Sodium Level 133 mmol/L (136-145) Potassium Level 3.5 mmol/L (3.5-5.1) Chloride Level 85 mmol/L (98-107) Carbon Dioxide Level 34 mmol/L (21-32) Anion Gap 14 (6-14) Blood Urea Nitrogen 96 mg/dL (8-26) Creatinine 6.9 mg/dL (0.7-1.3) Estimated GFR (Cockcroft-Gault) 8.0 Glucose Level 213 mg/dL (70-99) Calcium Level 8.8 mg/dL (8.5-10.1) Magnesium Level 2.7 mg/dL (1.8-2.4) Glucose (Fingerstick) 156 mg/dL (70-99) 121 mg/dL (70-99) Acetone Level Sm pos (NEG) Test 02/07/18 06:05 02/07/18 07:40 02/07/18 07:55 White Blood Count 14.6 x10^3/uL (4.0-11.0) Red Blood Count 4.72 x10^6/uL (4.30-5.70) Hemoglobin 14.6 g/dL (13.0-17.5) Hematocrit 42.3 % (39.0-53.0) Mean Corpuscular Volume 90 fL (79-100) Mean Corpuscular Hemoglobin 31 pg (25-35) Mean Corpuscular Hemoglobin Concent 35 g/dL (31-37) Red Cell Distribution Width 13.8 % (11.5-14.5) Platelet Count 192 x10^3/uL (140-400) Neutrophils (%) (Auto) 84 % (31-73) Lymphocytes (%) (Auto) 7 % (24-48) Monocytes (%) (Auto) 9 % (0-9) Eosinophils (%) (Auto) 0 % (0-3) Basophils (%) (Auto) 0 % (0-3) Neutrophils # (Auto) 12.2 x10^3uL (1.8-7.7) Lymphocytes # (Auto) 1.0 x10^3/uL (1.0-4.8) Monocytes # (Auto) 1.3 x10^3/uL (0.0-1.1) Eosinophils # (Auto) 0.0 x10^3/uL (0.0-0.7) Basophils # (Auto) 0.0 x10^3/uL (0.0-0.2) Sodium Level 135 mmol/L (136-145) Potassium Level 4.4 mmol/L (3.5-5.1) Chloride Level 89 mmol/L (98-107) Carbon Dioxide Level 29 mmol/L (21-32) Anion Gap 17 (6-14) Blood Urea Nitrogen 100 mg/dL (8-26) Creatinine 6.9 mg/dL (0.7-1.3) Estimated GFR (Cockcroft-Gault) 8.0 BUN/Creatinine Ratio 14 (6-20) Glucose Level 211 mg/dL (70-99) Calcium Level 8.1 mg/dL (8.5-10.1) Phosphorus Level 6.9 mg/dL (2.6-4.7) Total Bilirubin 0.7 mg/dL (0.2-1.0) Aspartate Amino Transf (AST/SGOT) 18 U/L (15-37) Alanine Aminotransferase (ALT/SGPT) 15 U/L (16-63) Alkaline Phosphatase 67 U/L (46-116) Creatine Kinase 210 U/L (39-308) Troponin I Quantitative 0.384 ng/mL (0.000-0.055) Total Protein 6.7 g/dL (6.4-8.2) Albumin 2.5 g/dL (3.4-5.0) Albumin/Globulin Ratio 0.6 (1.0-1.7) Triglycerides Level 276 mg/dL (0-150) Cholesterol Level 126 mg/dL (0-200) LDL Cholesterol, Calculated 47 mg/dL (0-100) VLDL Cholesterol, Calculated 55 mg/dL (0-40) Non-HDL Cholesterol Calculated 102 mg/dL (0-129) HDL Cholesterol 24 mg/dL (40-60) Cholesterol/HDL Ratio 5.3 Thyroid Stimulating Hormone (TSH) 3.630 uIU/mL (0.358-3.74) Urine Collection Type Unknown Urine Color Bianka Urine Clarity Turbid Urine pH 5.0 Urine Specific [place] 1.025 Urine Protein 30 mg/dL (NEG-TRACE) Urine Glucose (UA) 100 mg/dL (NEG) Urine Ketones (Stick) Trace mg/dL (NEG) Urine Blood Large (NEG) Urine Nitrite Negative (NEG) Urine Bilirubin Moderate (NEG) Urine Urobilinogen Dipstick 0.2 mg/dL (0.2 mg/dL) Urine Leukocyte Esterase Trace (NEG) Urine RBC 3-5 /HPF (0-2) Urine WBC 11-20 /HPF (0-4) Urine Squamous Epithelial Cells Few /LPF Urine Bacteria Mod /HPF (0-FEW) Urine Mucus Marked /LPF Glucose (Fingerstick) 245 mg/dL (70-99) Laboratory Tests Test 02/06/18 19:23 02/06/18 19:30 02/06/18 21:00 02/06/18 21:20 Glucose (Fingerstick) 510 mg/dL (70-99) 474 mg/dL (70-99) White Blood Count 14.9 x10^3/uL (4.0-11.0) Red Blood Count 5.30 x10^6/uL (4.30-5.70) Hemoglobin 16.7 g/dL (13.0-17.5) Hematocrit 47.8 % (39.0-53.0) Mean Corpuscular Volume 90 fL (79-100) Mean Corpuscular Hemoglobin 32 pg (25-35) Mean Corpuscular Hemoglobin Concent 35 g/dL (31-37) Red Cell Distribution Width 13.9 % (11.5-14.5) Platelet Count 239 x10^3/uL (140-400) Neutrophils (%) (Auto) 81 % (31-73) Lymphocytes (%) (Auto) 8 % (24-48) Monocytes (%) (Auto) 11 % (0-9) Eosinophils (%) (Auto) 0 % (0-3) Basophils (%) (Auto) 0 % (0-3) Neutrophils # (Auto) 12.0 x10^3uL (1.8-7.7) Lymphocytes # (Auto) 1.2 x10^3/uL (1.0-4.8) Monocytes # (Auto) 1.7 x10^3/uL (0.0-1.1) Eosinophils # (Auto) 0.0 x10^3/uL (0.0-0.7) Basophils # (Auto) 0.0 x10^3/uL (0.0-0.2) Segmented Neutrophils % 30 % (35-66) Band Neutrophils % 44 % (0-9) Lymphocytes % 7 % (24-48) Atypical Lymphocytes % (Manual) 1 % (0-0) Monocytes % 17 % (0-10) Metamyelocytes % 1 % (0-0) Toxic Granulation Mod Toxic Vacuolation Slight Platelet Estimate Adequate (ADEQUATE) Sodium Level 130 mmol/L (136-145) Potassium Level 3.0 mmol/L (3.5-5.1) Chloride Level 73 mmol/L (98-107) Carbon Dioxide Level 32 mmol/L (21-32) Anion Gap 25 (6-14) Blood Urea Nitrogen 97 mg/dL (8-26) Creatinine 7.5 mg/dL (0.7-1.3) Estimated GFR (Cockcroft-Gault) 7.3 Glucose Level 569 mg/dL (70-99) Lactic Acid Level 11.4 mmol/L (0.4-2.0) Calcium Level 9.9 mg/dL (8.5-10.1) Phosphorus Level 12.3 mg/dL (2.6-4.7) Total Bilirubin 1.0 mg/dL (0.2-1.0) Direct Bilirubin 0.2 mg/dL (0.0-0.2) Aspartate Amino Transf (AST/SGOT) 16 U/L (15-37) Alanine Aminotransferase (ALT/SGPT) 20 U/L (16-63) Alkaline Phosphatase 86 U/L (46-116) Troponin I Quantitative 0.389 ng/mL (0.000-0.055) XP-Saj-D-Type Natriuretic Peptide 8182 pg/mL (0-124) Total Protein 9.2 g/dL (6.4-8.2) Albumin 3.0 g/dL (3.4-5.0) Lipase 194 U/L (73-393) O2 Saturation 94 % (92-99) Arterial Blood pH 7.52 (7.35-7.45) Arterial Blood pH (Temp corrected) 7.53 Arterial Blood pCO2 at Patient Temp 36 mmHg (35-46) Arterial Blood pCO2 (Temp correct) 36 mmHg Arterial Blood pO2 at Patient Temp 75 mmHg (65-108) Arterial Blood pO2 (Temp corrected) 74 mmHg Arterial Blood HCO3 29 mmol/L (21-28) Arterial Blood Base Excess 6 mmol/L (-3-3) FiO2 32.0 Test 02/06/18 22:13 02/06/18 23:14 02/06/18 23:20 02/07/18 00:19 Glucose (Fingerstick) 416 mg/dL (70-99) 294 mg/dL (70-99) 230 mg/dL (70-99) Lactic Acid Level 4.2 mmol/L (0.4-2.0) Test 02/07/18 01:05 02/07/18 02:33 02/07/18 03:59 02/07/18 06:03 Sodium Level 133 mmol/L (136-145) Potassium Level 3.5 mmol/L (3.5-5.1) Chloride Level 85 mmol/L (98-107) Carbon Dioxide Level 34 mmol/L (21-32) Anion Gap 14 (6-14) Blood Urea Nitrogen 96 mg/dL (8-26) Creatinine 6.9 mg/dL (0.7-1.3) Estimated GFR (Cockcroft-Gault) 8.0 Glucose Level 213 mg/dL (70-99) Calcium Level 8.8 mg/dL (8.5-10.1) Magnesium Level 2.7 mg/dL (1.8-2.4) Glucose (Fingerstick) 156 mg/dL (70-99) 121 mg/dL (70-99) Acetone Level Sm pos (NEG) Test 02/07/18 06:05 02/07/18 07:40 02/07/18 07:55 White Blood Count 14.6 x10^3/uL (4.0-11.0) Red Blood Count 4.72 x10^6/uL (4.30-5.70) Hemoglobin 14.6 g/dL (13.0-17.5) Hematocrit 42.3 % (39.0-53.0) Mean Corpuscular Volume 90 fL (79-100) Mean Corpuscular Hemoglobin 31 pg (25-35) Mean Corpuscular Hemoglobin Concent 35 g/dL (31-37) Red Cell Distribution Width 13.8 % (11.5-14.5) Platelet Count 192 x10^3/uL (140-400) Neutrophils (%) (Auto) 84 % (31-73) Lymphocytes (%) (Auto) 7 % (24-48) Monocytes (%) (Auto) 9 % (0-9) Eosinophils (%) (Auto) 0 % (0-3) Basophils (%) (Auto) 0 % (0-3) Neutrophils # (Auto) 12.2 x10^3uL (1.8-7.7) Lymphocytes # (Auto) 1.0 x10^3/uL (1.0-4.8) Monocytes # (Auto) 1.3 x10^3/uL (0.0-1.1) Eosinophils # (Auto) 0.0 x10^3/uL (0.0-0.7) Basophils # (Auto) 0.0 x10^3/uL (0.0-0.2) Sodium Level 135 mmol/L (136-145) Potassium Level 4.4 mmol/L (3.5-5.1) Chloride Level 89 mmol/L (98-107) Carbon Dioxide Level 29 mmol/L (21-32) Anion Gap 17 (6-14) Blood Urea Nitrogen 100 mg/dL (8-26) Creatinine 6.9 mg/dL (0.7-1.3) Estimated GFR (Cockcroft-Gault) 8.0 BUN/Creatinine Ratio 14 (6-20) Glucose Level 211 mg/dL (70-99) Calcium Level 8.1 mg/dL (8.5-10.1) Phosphorus Level 6.9 mg/dL (2.6-4.7) Total Bilirubin 0.7 mg/dL (0.2-1.0) Aspartate Amino Transf (AST/SGOT) 18 U/L (15-37) Alanine Aminotransferase (ALT/SGPT) 15 U/L (16-63) Alkaline Phosphatase 67 U/L (46-116) Creatine Kinase 210 U/L (39-308) Troponin I Quantitative 0.384 ng/mL (0.000-0.055) Total Protein 6.7 g/dL (6.4-8.2) Albumin 2.5 g/dL (3.4-5.0) Albumin/Globulin Ratio 0.6 (1.0-1.7) Triglycerides Level 276 mg/dL (0-150) Cholesterol Level 126 mg/dL (0-200) LDL Cholesterol, Calculated 47 mg/dL (0-100) VLDL Cholesterol, Calculated 55 mg/dL (0-40) Non-HDL Cholesterol Calculated 102 mg/dL (0-129) HDL Cholesterol 24 mg/dL (40-60) Cholesterol/HDL Ratio 5.3 Thyroid Stimulating Hormone (TSH) 3.630 uIU/mL (0.358-3.74) Urine Collection Type Unknown Urine Color Bianka Urine Clarity Turbid Urine pH 5.0 Urine Specific [place] 1.025 Urine Protein 30 mg/dL (NEG-TRACE) Urine Glucose (UA) 100 mg/dL (NEG) Urine Ketones (Stick) Trace mg/dL (NEG) Urine Blood Large (NEG) Urine Nitrite Negative (NEG) Urine Bilirubin Moderate (NEG) Urine Urobilinogen Dipstick 0.2 mg/dL (0.2 mg/dL) Urine Leukocyte Esterase Trace (NEG) Urine RBC 3-5 /HPF (0-2) Urine WBC 11-20 /HPF (0-4) Urine Squamous Epithelial Cells Few /LPF Urine Bacteria Mod /HPF (0-FEW) Urine Mucus Marked /LPF Glucose (Fingerstick) 245 mg/dL (70-99) Assessment/Plan Assessment/Plan IMP [id number] ANURIA PROB SEPSIS LACTIC ACIDOSIS LEUCOCYTOSIS REMOTE HX OF GN AT AGE 17-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
--- NOTE | 2018-02-07 13:21 | RAD ---
Renal ultrasound History: Acute kidney injury. Comparison: None. Technique: Transabdominal imaging was performed of the kidneys and bladder. Findings: Right kidney measures 12.6 cm in length. Right kidney is without evidence of obstruction or stone. Left kidney measures 11.5 cm in length. Left kidney is without evidence of obstruction or stone. Parenchymal echogenicity of both kidneys appears appropriate. Bladder is collapsed around Melchor catheter, limiting evaluation of bladder wall. Incidental note is made of mildly increased echogenicity of the liver, however with fatty liver disease. Impression: 1. Unremarkable renal ultrasound. 2. Incidental note is made of echogenic liver, likely representing fatty liver disease. Electronically signed by: Ronald Hernández MD (02/07/2018 1:18 PM) [id number]
--- NOTE | 2018-02-07 14:15 | CARD ---
MR#: [id number] Date of Study: 02/07/2018 Ordering Physician: LB DOLAN, Referring Physician: LB DOLAN, Tech: Meg Mendoza APPROVED REPORT EXAM: Two-dimensional and M-mode echocardiogram with Doppler and color Doppler. Other Information Quality : AverageHR: 110bpm INDICATION Elevated Troponin 2D DIMENSIONS RVDd2.6 (2.9-3.5cm)Left Atrium(2D)3.3 (1.6-4.0cm) IVSd2.4 (0.7-1.1cm)Aortic Root(2D)3.6 (2.0-3.7cm) LVDd4.8 (3.9-5.9cm)LVOT Diameter2.1 (1.8-2.4cm) PWd1.2 (0.7-1.1cm)LVDs3.9 (2.5-4.0cm) FS (%) 17.7 %SV38.9 ml Aortic Valve AoV Peak Aden.200.2cm/sAoV VTI33.0cm AO Peak GR.16.0mmHgLVOT VTI 20.90cm AO Mean GR.10mmHg Mitral Valve MV E Ddioqlpz14.0cm/sMV DECEL [id number] MV A Lkmxswnk323.3cm/sE/A Ratio0.7 TDI Lateral E' P. V10.35cm/sMedial E' P. V6.93cm/s E/Lateral E'6.6E/Medial E'9.8 Tricuspid Valve RAP [id number] Pulmonary Vein S1 Kjmvuhpe21.6cm/sS2 Cnevbjhb33.54cm/s D2 Dkroiftz86.5cm/sPVa [id number] LEFT VENTRICLE The left ventricle is normal size. There is borderline concentric left ventricular hypertrophy. The l eft ventricular systolic function is normal. The Ejection Fraction is 55-60%. There is normal LV segm ental wall motion. Transmitral Doppler flow pattern is Grade I-abnormal relaxation pattern. RIGHT VENTRICLE The right ventricle is normal size. There is normal right ventricular wall thickness. The right ventr icular systolic function is normal. ATRIA The left atrium size is normal. The right atrium size is normal. The interatrial septum is intact wit h no evidence for an atrial septal defect or patent foramen ovale as noted on 2-D or Doppler imaging. AORTIC VALVE The aortic valve is normal in structure and function. Doppler and Color Flow revealed trace aortic re gurgitation. There is no significant aortic valvular stenosis. MITRAL VALVE The mitral valve is normal in structure and function. Doppler and Color-flow revealed trace mitral re gurgitation. TRICUSPID VALVE The tricuspid valve is not well visualized. Doppler and Color Flow revealed trace tricuspid regurgita tion. There is no tricuspid valve stenosis. PULMONIC VALVE The pulmonic valve is not well visualized. Doppler and Color Flow revealed no pulmonic valvular regur gitation. GREAT VESSELS The aortic root is normal in size. The IVC is dilated and collapses >50% with inspiration. PERICARDIAL EFFUSION There is small left pleural effusion. There is no evidence of significant pericardial effusion. Critical Notification Critical Value: No <Conclusion> The left ventricular systolic function is normal. The Ejection Fraction is 55-60%. There is normal LV segmental wall motion. Transmitral Doppler flow pattern is Grade I-abnormal relaxation pattern. Trace mitral regurgitation. Trace tricuspid regurgitation. There is no evidence of significant pericardial effusion. Signed by : Prakash Vasquez, Electronically Approved : 02/07/2018 14:14:45
--- NOTE | 2018-02-07 15:56 | PDOC2 ---
GI CONSULT Reason For Consult: N/v, hiccups HPI: HPI: 67 y/o male in ICU. Tells me was ill at home x 4 days with vomiting, weakness, and falls - he thinks precipitated by taking too much vitamin C. Admitted w/ possible sepsis, CAR (Cr 7.5), hyperglycemia (glucose >500, known DM), lactic acidosis (improved), hypotension (better), and NSTEMI. He says he's vomited once since arrival. H/o GERD that is untreated. Sometimes he gets into a "spiral" of increased heartburn, and then had vomiting, and then gets the hiccups. No dysphagia. No hematemesis, hematochezia, or melena. No stools for a few days - last stool was loose but typically no issues w/ diarrhea or constipation. He denies weight loss but other documentation suggests this. No previous EGD or colonoscopy. No GB, liver, pancreas, or PUD history. Fatty liver suspected on renal ultrasound. No regular NSAID use. Does use marijuana daily. Says DM is diet-controlled and he doesn't check glucose at home very often but when he does, it's around 140. Has Reglan IV PRN. PMH: PMH: GERD, DM, I&Ds (shoulder, "around anus") FH: Family History: No pertinent hx (denies GI cancers) Social History: Smoke: Quit ALCOHOL: rare ("one shot a year") Drugs: Marijuana (daily) ROS: GEN: Denies fevers, chills, sweats HEENT: Denies blurred vision, sore throat CV: Denies chest pain RESP: Denies shortness of air, cough GI: Per HPI : Denies hematuria, dysuria ENDO: ?weight loss NEURO: Denies confusion, dizziness MSK: +weakness SKIN: Denies jaundice, pruritus Vitals: Vitals: Vital Signs Date Time Temp Pulse Resp B/P (MAP) Pulse Ox O2 Delivery O2 Flow Rate FiO2 02/07/18 15:01 36 95 02/07/18 15:00 98 117/69 (85) Nasal Cannula 2.0 02/07/18 12:00 98.7 98.7 Labs: Labs: Laboratory Tests Test 02/06/18 19:23 02/06/18 19:30 02/06/18 21:00 02/06/18 21:20 Glucose (Fingerstick) 510 mg/dL (70-99) 474 mg/dL (70-99) White Blood Count 14.9 x10^3/uL (4.0-11.0) Red Blood Count 5.30 x10^6/uL (4.30-5.70) Hemoglobin 16.7 g/dL (13.0-17.5) Hematocrit 47.8 % (39.0-53.0) Mean Corpuscular Volume 90 fL (79-100) Mean Corpuscular Hemoglobin 32 pg (25-35) Mean Corpuscular Hemoglobin Concent 35 g/dL (31-37) Red Cell Distribution Width 13.9 % (11.5-14.5) Platelet Count 239 x10^3/uL (140-400) Neutrophils (%) (Auto) 81 % (31-73) Lymphocytes (%) (Auto) 8 % (24-48) Monocytes (%) (Auto) 11 % (0-9) Eosinophils (%) (Auto) 0 % (0-3) Basophils (%) (Auto) 0 % (0-3) Neutrophils # (Auto) 12.0 x10^3uL (1.8-7.7) Lymphocytes # (Auto) 1.2 x10^3/uL (1.0-4.8) Monocytes # (Auto) 1.7 x10^3/uL (0.0-1.1) Eosinophils # (Auto) 0.0 x10^3/uL (0.0-0.7) Basophils # (Auto) 0.0 x10^3/uL (0.0-0.2) Segmented Neutrophils % 30 % (35-66) Band Neutrophils % 44 % (0-9) Lymphocytes % 7 % (24-48) Atypical Lymphocytes % (Manual) 1 % (0-0) Monocytes % 17 % (0-10) Metamyelocytes % 1 % (0-0) Toxic Granulation Mod Toxic Vacuolation Slight Platelet Estimate Adequate (ADEQUATE) Sodium Level 130 mmol/L (136-145) Potassium Level 3.0 mmol/L (3.5-5.1) Chloride Level 73 mmol/L (98-107) Carbon Dioxide Level 32 mmol/L (21-32) Anion Gap 25 (6-14) Blood Urea Nitrogen 97 mg/dL (8-26) Creatinine 7.5 mg/dL (0.7-1.3) Estimated GFR (Cockcroft-Gault) 7.3 Glucose Level 569 mg/dL (70-99) Lactic Acid Level 11.4 mmol/L (0.4-2.0) Calcium Level 9.9 mg/dL (8.5-10.1) Phosphorus Level 12.3 mg/dL (2.6-4.7) Total Bilirubin 1.0 mg/dL (0.2-1.0) Direct Bilirubin 0.2 mg/dL (0.0-0.2) Aspartate Amino Transf (AST/SGOT) 16 U/L (15-37) Alanine Aminotransferase (ALT/SGPT) 20 U/L (16-63) Alkaline Phosphatase 86 U/L (46-116) Troponin I Quantitative 0.389 ng/mL (0.000-0.055) LK-Akk-W-Type Natriuretic Peptide 8182 pg/mL (0-124) Total Protein 9.2 g/dL (6.4-8.2) Albumin 3.0 g/dL (3.4-5.0) Lipase 194 U/L (73-393) O2 Saturation 94 % (92-99) Arterial Blood pH 7.52 (7.35-7.45) Arterial Blood pH (Temp corrected) 7.53 Arterial Blood pCO2 at Patient Temp 36 mmHg (35-46) Arterial Blood pCO2 (Temp correct) 36 mmHg Arterial Blood pO2 at Patient Temp 75 mmHg (65-108) Arterial Blood pO2 (Temp corrected) 74 mmHg Arterial Blood HCO3 29 mmol/L (21-28) Arterial Blood Base Excess 6 mmol/L (-3-3) FiO2 32.0 Test 02/06/18 22:13 02/06/18 23:14 02/06/18 23:20 02/07/18 00:19 Glucose (Fingerstick) 416 mg/dL (70-99) 294 mg/dL (70-99) 230 mg/dL (70-99) Lactic Acid Level 4.2 mmol/L (0.4-2.0) Test 02/07/18 01:05 02/07/18 02:33 02/07/18 03:59 02/07/18 06:03 Sodium Level 133 mmol/L (136-145) Potassium Level 3.5 mmol/L (3.5-5.1) Chloride Level 85 mmol/L (98-107) Carbon Dioxide Level 34 mmol/L (21-32) Anion Gap 14 (6-14) Blood Urea Nitrogen 96 mg/dL (8-26) Creatinine 6.9 mg/dL (0.7-1.3) Estimated GFR (Cockcroft-Gault) 8.0 Glucose Level 213 mg/dL (70-99) Calcium Level 8.8 mg/dL (8.5-10.1) Magnesium Level 2.7 mg/dL (1.8-2.4) Glucose (Fingerstick) 156 mg/dL (70-99) 121 mg/dL (70-99) Acetone Level Sm pos (NEG) Test 02/07/18 06:05 02/07/18 07:40 02/07/18 07:55 02/07/18 12:53 White Blood Count 14.6 x10^3/uL (4.0-11.0) Red Blood Count 4.72 x10^6/uL (4.30-5.70) Hemoglobin 14.6 g/dL (13.0-17.5) Hematocrit 42.3 % (39.0-53.0) Mean Corpuscular Volume 90 fL (79-100) Mean Corpuscular Hemoglobin 31 pg (25-35) Mean Corpuscular Hemoglobin Concent 35 g/dL (31-37) Red Cell Distribution Width 13.8 % (11.5-14.5) Platelet Count 192 x10^3/uL (140-400) Neutrophils (%) (Auto) 84 % (31-73) Lymphocytes (%) (Auto) 7 % (24-48) Monocytes (%) (Auto) 9 % (0-9) Eosinophils (%) (Auto) 0 % (0-3) Basophils (%) (Auto) 0 % (0-3) Neutrophils # (Auto) 12.2 x10^3uL (1.8-7.7) Lymphocytes # (Auto) 1.0 x10^3/uL (1.0-4.8) Monocytes # (Auto) 1.3 x10^3/uL (0.0-1.1) Eosinophils # (Auto) 0.0 x10^3/uL (0.0-0.7) Basophils # (Auto) 0.0 x10^3/uL (0.0-0.2) Sodium Level 135 mmol/L (136-145) Potassium Level 4.4 mmol/L (3.5-5.1) Chloride Level 89 mmol/L (98-107) Carbon Dioxide Level 29 mmol/L (21-32) Anion Gap 17 (6-14) Blood Urea Nitrogen 100 mg/dL (8-26) Creatinine 6.9 mg/dL (0.7-1.3) Estimated GFR (Cockcroft-Gault) 8.0 BUN/Creatinine Ratio 14 (6-20) Glucose Level 211 mg/dL (70-99) Calcium Level 8.1 mg/dL (8.5-10.1) Phosphorus Level 6.9 mg/dL (2.6-4.7) Total Bilirubin 0.7 mg/dL (0.2-1.0) Aspartate Amino Transf (AST/SGOT) 18 U/L (15-37) Alanine Aminotransferase (ALT/SGPT) 15 U/L (16-63) Alkaline Phosphatase 67 U/L (46-116) Creatine Kinase 210 U/L (39-308) Troponin I Quantitative 0.384 ng/mL (0.000-0.055) Total Protein 6.7 g/dL (6.4-8.2) Albumin 2.5 g/dL (3.4-5.0) Albumin/Globulin Ratio 0.6 (1.0-1.7) Triglycerides Level 276 mg/dL (0-150) Cholesterol Level 126 mg/dL (0-200) LDL Cholesterol, Calculated 47 mg/dL (0-100) VLDL Cholesterol, Calculated 55 mg/dL (0-40) Non-HDL Cholesterol Calculated 102 mg/dL (0-129) HDL Cholesterol 24 mg/dL (40-60) Cholesterol/HDL Ratio 5.3 Thyroid Stimulating Hormone (TSH) 3.630 uIU/mL (0.358-3.74) Urine Collection Type Unknown Urine Color Bianka Urine Clarity Turbid Urine pH 5.0 Urine Specific Hawley 1.025 Urine Protein 30 mg/dL (NEG-TRACE) Urine Glucose (UA) 100 mg/dL (NEG) Urine Ketones (Stick) Trace mg/dL (NEG) Urine Blood Large (NEG) Urine Nitrite Negative (NEG) Urine Bilirubin Moderate (NEG) Urine Urobilinogen Dipstick 0.2 mg/dL (0.2 mg/dL) Urine Leukocyte Esterase Trace (NEG) Urine RBC 3-5 /HPF (0-2) Urine WBC 11-20 /HPF (0-4) Urine Squamous Epithelial Cells Few /LPF Urine Bacteria Mod /HPF (0-FEW) Urine Mucus Marked /LPF Glucose (Fingerstick) 245 mg/dL (70-99) 182 mg/dL (70-99) Allergies: Coded Allergies: No Known Drug Allergies (Unverified , 02/06/18) Medications: Current Medications Medications (Trade) Dose Ordered Sig/Gricel Route PRN Reason Start Time Stop Time Status Last Admin Dose Admin Sodium Chloride 1,000 ml @ 1,000 mls/hr 1X ONCE IV 02/06/18 20:00 02/06/18 20:59 DC 02/06/18 19:59 Potassium Chloride (KCl Oral Soln) 40 meq 1X ONCE PO 02/06/18 21:30 02/06/18 21:31 DC 02/06/18 21:22 Insulin Human Regular 150 ml @ 9.1 mls/hr 1X ONCE IV 02/06/18 21:45 02/07/18 14:17 DC 02/06/18 21:24 Potassium Chloride 40 meq/ Sodium Chloride 520 ml @ 130 mls/hr 1X ONCE IV 02/06/18 22:00 02/07/18 02:00 DC 02/06/18 22:30 Potassium Chloride 40 meq/ Sodium Chloride 520 ml @ 130 mls/hr 1X ONCE IV 02/07/18 02:00 02/07/18 05:59 DC 02/07/18 01:39 Ondansetron HCl (Zofran) 4 mg PRN Q8HRS PRN IV NAUSEA/VOMITING 02/06/18 21:15 02/07/18 21:14 02/06/18 23:49 Fentanyl Citrate (Fentanyl 2ml Vial) 50 mcg PRN Q2HR PRN IV PAIN 02/06/18 21:15 02/07/18 21:14 02/07/18 15:01 Sodium Chloride 1,000 ml @ 1,000 mls/hr 1X ONCE IV 02/06/18 21:30 02/06/18 22:29 DC 02/06/18 21:32 Piperacillin Sod/ Tazobactam Sod 3.375 gm/Sodium Chloride 50 ml @ 100 mls/hr 1X ONCE IV 02/06/18 22:00 02/06/18 22:29 DC 02/06/18 21:33 Vancomycin HCl 1.25 gm/Sodium Chloride 250 ml @ 166.667 mls/hr 1X ONCE IV 02/06/18 22:00 02/06/18 23:29 DC 02/06/18 22:30 Piperacillin Sod/ Tazobactam Sod 2.25 gm/Sodium Chloride 50 ml @ 100 mls/hr Q8HRS IV 02/07/18 06:00 02/07/18 15:01 Dextrose/Sodium Chloride 1,000 ml @ 250 mls/hr Q4H IV 02/06/18 23:45 02/07/18 03:21 DC 02/06/18 23:30 Sodium Chloride 1,000 ml @ 200 mls/hr Q5H IV 02/07/18 03:00 02/07/18 11:57 Metoclopramide HCl (Reglan Vial) 5 mg PRN Q6HRS PRN IV NAUSEA/VOMITING 02/07/18 03:00 02/07/18 03:15 Insulin Human Lispro (HumaLOG) 0-7 UNITS TIDWMEALS SQ 02/07/18 08:00 02/07/18 07:58 Imaging: Imaging: CXR IMPRESSION: Bibasilar patchy opacities may be secondary to aspiration, pneumonia or subsegmental atelectasis. Renal US Impression: 1. Unremarkable renal ultrasound. 2. Incidental note is made of echogenic liver, likely representing fatty liver disease. Echocardiogram <Conclusion> The left ventricular systolic function is normal. The Ejection Fraction is 55-60%. There is normal LV segmental wall motion. Transmitral Doppler flow pattern is Grade I-abnormal relaxation pattern. Trace mitral regurgitation. Trace tricuspid regurgitation. There is no evidence of significant pericardial effusion. PE: GEN: looks ill HEENT: Atraumatic, PERRL LUNGS: NC, tachypneic HEART: tachycardic ABD: quiet, soft, non-tender, ?some distention EXTREMITY: No edema SKIN: No jaundice NEURO/PSYCH: A & O 3 A/P: A/P: Possible sepsis, CAR, NSTEMI Uncontrolled DM w/ n/v and hiccups GERD CRC screen - none Marijuana use -- N/v probably a combination of renal failure, DM, and GERD. Will add PPI. SETH CABELLO Feb 07, 2018 15:56
[2018-02-07] MEDS ORDERED: ZOLPIDEM 5 MG TABLET. PO PRN (17:00)
[2018-02-07] MEDS: PANTOPRAZOLE IV PUSH 40 MG VIAL. IVP SCH (17:27)
--- NOTE | 2018-02-07 22:23 | HP ---
ADMIT DATE: 02/06/2018 CHIEF COMPLAINT: Hyperglycemia, weakness, hypotension. HISTORY OF PRESENT ILLNESS: The patient is a pleasant 67-year-old male who lives in ____ [place] by himself. He has been quite weak. His neighbor came to check and he was found extremely weak and unable to get around the house. This has been occurring for about 4 days. He has been having some vomiting. He tried taking some home meds, but that did not seem to work. Food made it worse. He is not sure whether he had fever. He thinks he is a borderline diabetic, but has not seen a doctor in 6 years. While in the ER, we discovered that the patient is quite diabetic with glucose of 510. He has got an elevated anion gap, metabolic acidosis consistent with diabetic ketoacidosis (his anion gap is 25). The patient has been admitted for acute diabetic ketoacidosis and it should be noted that he also has an acute renal failure with a BUN of greater than 100 and creatinine of 7.5. He also has a bump in his troponin, which we will be consulting Cardiology for. The patient is ____ the ICU. PAST MEDICAL HISTORY: Noncompliance, "borderline diabetes, "GERD, appendectomy. ALLERGIES: None. FAMILY HISTORY: Diabetes. SOCIAL HISTORY: He lives alone. Does not drink, smoke or take drugs. MEDICATIONS: Reviewed, please refer to MRAD. REVIEW OF SYSTEMS: GENERAL: He complains of weakness. SKIN: No bruising, hair changes or rashes. EYES: No blurred, double or loss of vision. NOSE AND THROAT: He complains of little bit of a sore throat. HEART: No history of palpitations, chest pain or shortness of breath on exertion. LUNGS: Denies cough, hemoptysis, wheezing or shortness of breath. GASTROINTESTINAL: He complains of some nausea. GENITOURINARY: No history of frequency, urgency, hesitancy or nocturia. NEUROLOGIC: He complains of some visual changes. PSYCHIATRIC: No history of panic, anxiety or depression. ENDOCRINE: No history of heat or cold intolerance, polyuria or polydipsia. EXTREMITIES: Denies muscle weakness, joint pain, pain on walking or stiffness. PHYSICAL EXAMINATION: VITAL SIGNS: Temperature afebrile, pulse 88, respirations 18, blood pressure 108/63. GENERAL: He is awake, but very weak. HEART: Tachycardic, S1, S2. LUNGS: Demonstrates slight crackles. ABDOMEN: Soft, tender. No organomegaly. EXTREMITIES: 1+ edema. SKIN: No rashes. ENDOCRINE: No thyromegaly. LYMPHATICS: No cervical nodes. HEMATOPOIETIC: No bruising. LABORATORY DATA: Anion gap is 25. Troponin is 0.389. BUN is greater than 100, creatinine 7.9. ASSESSMENT: 1. [id number] renal failure. 2. Diabetic ketoacidosis, 3. Elevated troponin, suspect that is secondary to his creatinine. 4. Leukocytosis. PLAN: The patient has been admitted to the ICU. Insulin drip, IV fluids. Consult Cardiology, consult GI, consult Nephrology. Frequent labs. DKA protocol. LONG-TERM PROGNOSIS: Guarded. POLINA STANFORD DO DR: NATHALIE/blade JOB#: [id number] / [id number]
[2018-02-08] VITALS (14 sets, daily range): BP systolic 97–116; BP diastolic 49–65
[2018-02-08] MEDS: IV NORMAL SALINE 1000ML BAG 1,000 ML IV SCH ×5 (02:16→20:35)
[2018-02-08] MEDS ORDERED: MAGNESIUM SULFATE 4GM 100 ML IV PRN (05:00)
[2018-02-08] MEDS: PIPERACILLIN/TAZOBACTAM 2.25 GM in IV NORMAL SALINE 50ML 50 ML IV SCH ×3 (05:50→21:29)
[2018-02-08 06:32] LABS: BASO % 0 % (0-3); EOS % 0 % (0-3); HEMATOCRIT 35.7 % (39.0-53.0); HEMOGLOBIN 12.2 g/dL (13.0-17.5); LYMPH # 0.8 x10^3/uL (1.0-4.8); LYMPH % 6 % (24-48); MEAN CORPUSCULAR HEMOGLOBIN 31 pg (25-35); MEAN CORPUSCULAR HGB CONC 34 g/dL (31-37); MEAN CORPUSCULAR VOLUME 91 fL (79-100); MONO # 1.2 x10^3/uL (0.0-1.1); MONO % 10 % (0-9); NEUT # 10.1 x10^3uL (1.8-7.7); NEUT % 84 % (31-73); PLATELET COUNT 170 x10^3/uL (140-400); RED BLOOD COUNT 3.91 x10^6/uL (4.30-5.70); RED CELL DISTRIBUTION WIDTH 13.8 % (11.5-14.5); WHITE BLOOD COUNT 12.1 x10^3/uL (4.0-11.0)
[2018-02-08 06:53] LABS: CALCIUM 7.2 mg/dL (8.5-10.1); CREATININE 5.2 mg/dL (0.7-1.3); GFR 11.2; PHOSPHORUS 5.8 mg/dL (2.6-4.7); POTASSIUM 3.5 mmol/L (3.5-5.1)
[2018-02-08] MEDS: PANTOPRAZOLE IV PUSH 40 MG VIAL. IVP SCH (08:02)
[2018-02-08] MEDS: LACTOBACILLUS RHAMNOSUS GG 1 CAPSULE. PO SCH ×2 (08:02→20:35)
[2018-02-08] MEDS: ASPIRIN ENTERIC COATED 81 MG TABLET.DR. PO SCH (08:02)
--- NOTE | 2018-02-08 08:08 | PDOC ---
Infectious Disease Note Subjective Subjective pt is feeling little better ROS ROS no n/v/d/sob Vital Sign Vital Signs Vital Signs Date Time Temp Pulse Resp B/P (MAP) Pulse Ox O2 Delivery O2 Flow Rate FiO2 02/08/18 06:31 85 17 97/49 (65) 94 Nasal Cannula 2.0 02/08/18 01:00 97.8 97.8 Physical Exam PHYSICAL EXAM heent nad neck supple no LN lungs clear heart s1s2 rr abd soft nt , no organomegaly ext nad parts washer nad skin no rash Labs Lab Laboratory Tests Test 02/07/18 12:53 02/07/18 17:08 02/07/18 20:39 02/08/18 05:55 Glucose (Fingerstick) 182 mg/dL (70-99) 173 mg/dL (70-99) 204 mg/dL (70-99) White Blood Count 12.1 x10^3/uL (4.0-11.0) Red Blood Count 3.91 x10^6/uL (4.30-5.70) Hemoglobin 12.2 g/dL (13.0-17.5) Hematocrit 35.7 % (39.0-53.0) Mean Corpuscular Volume 91 fL (79-100) Mean Corpuscular Hemoglobin 31 pg (25-35) Mean Corpuscular Hemoglobin Concent 34 g/dL (31-37) Red Cell Distribution Width 13.8 % (11.5-14.5) Platelet Count 170 x10^3/uL (140-400) Neutrophils (%) (Auto) 84 % (31-73) Lymphocytes (%) (Auto) 6 % (24-48) Monocytes (%) (Auto) 10 % (0-9) Eosinophils (%) (Auto) 0 % (0-3) Basophils (%) (Auto) 0 % (0-3) Neutrophils # (Auto) 10.1 x10^3uL (1.8-7.7) Lymphocytes # (Auto) 0.8 x10^3/uL (1.0-4.8) Monocytes # (Auto) 1.2 x10^3/uL (0.0-1.1) Eosinophils # (Auto) 0.0 x10^3/uL (0.0-0.7) Basophils # (Auto) 0.0 x10^3/uL (0.0-0.2) Sodium Level 138 mmol/L (136-145) Potassium Level 3.5 mmol/L (3.5-5.1) Chloride Level 98 mmol/L (98-107) Carbon Dioxide Level 23 mmol/L (21-32) Anion Gap 17 (6-14) Blood Urea Nitrogen 96 mg/dL (8-26) Creatinine 5.2 mg/dL (0.7-1.3) Estimated GFR (Cockcroft-Gault) 11.2 Glucose Level 218 mg/dL (70-99) Calcium Level 7.2 mg/dL (8.5-10.1) Phosphorus Level 5.8 mg/dL (2.6-4.7) Micro Microbiology 02/06/18 Blood Culture - Preliminary, Resulted NO GROWTH AFTER 1 DAY Objective Assessment Lactic acidosis Sepsis with hypotension Metabolic alklosis sec to vomiting DM with high anion gap CAR Severe dehydration Leukocytosis Plan Plan of Care bc fluids zosyn vanc x 1 supportive care OCTAVIO GARCIA MD Feb 08, 2018 08:08
[2018-02-08] MEDS: INSULIN LISPRO 300 UNITS/3 ML INSULN.PEN. SQ SCH ×3 (08:10→18:08)
[2018-02-08] MEDS: chlorproMAZINE 25 MG in IV DEXTROSE 5% 50 ML IV PRN (08:26)
--- NOTE | 2018-02-08 09:18 | PDOC ---
CARDIO Progress Notes Date and Time Date of Service 02/08/2018 Time of Evaluation 0840 Subjective Subjective: No Chest Pain, No shortness of breath, No Palpitations, Other (was not able to sleep well due to hiccups) Vitals Vitals Vital Signs Date Time Temp Pulse Resp B/P (MAP) Pulse Ox O2 Delivery O2 Flow Rate FiO2 02/08/18 08:00 Room Air 02/08/18 06:31 85 17 97/49 (65) 94 2.0 02/08/18 01:00 97.8 97.8 Weight Weight [ ] Input and Output Intake and Output Intake and Output 02/08/18 07:00 Intake Total 7586.14 ml Output Total 2665 ml Balance 4921.14 ml Intake Oral 1600 ml IV Total 5986.14 ml Output Urine Total 2665 ml Laboratory Labs Laboratory Tests Test 02/07/18 12:53 02/07/18 17:08 02/07/18 20:39 02/08/18 05:55 Glucose (Fingerstick) 182 mg/dL (70-99) 173 mg/dL (70-99) 204 mg/dL (70-99) White Blood Count 12.1 x10^3/uL (4.0-11.0) Red Blood Count 3.91 x10^6/uL (4.30-5.70) Hemoglobin 12.2 g/dL (13.0-17.5) Hematocrit 35.7 % (39.0-53.0) Mean Corpuscular Volume 91 fL (79-100) Mean Corpuscular Hemoglobin 31 pg (25-35) Mean Corpuscular Hemoglobin Concent 34 g/dL (31-37) Red Cell Distribution Width 13.8 % (11.5-14.5) Platelet Count 170 x10^3/uL (140-400) Neutrophils (%) (Auto) 84 % (31-73) Lymphocytes (%) (Auto) 6 % (24-48) Monocytes (%) (Auto) 10 % (0-9) Eosinophils (%) (Auto) 0 % (0-3) Basophils (%) (Auto) 0 % (0-3) Neutrophils # (Auto) 10.1 x10^3uL (1.8-7.7) Lymphocytes # (Auto) 0.8 x10^3/uL (1.0-4.8) Monocytes # (Auto) 1.2 x10^3/uL (0.0-1.1) Eosinophils # (Auto) 0.0 x10^3/uL (0.0-0.7) Basophils # (Auto) 0.0 x10^3/uL (0.0-0.2) Sodium Level 138 mmol/L (136-145) Potassium Level 3.5 mmol/L (3.5-5.1) Chloride Level 98 mmol/L (98-107) Carbon Dioxide Level 23 mmol/L (21-32) Anion Gap 17 (6-14) Blood Urea Nitrogen 96 mg/dL (8-26) Creatinine 5.2 mg/dL (0.7-1.3) Estimated GFR (Cockcroft-Gault) 11.2 Glucose Level 218 mg/dL (70-99) Calcium Level 7.2 mg/dL (8.5-10.1) Phosphorus Level 5.8 mg/dL (2.6-4.7) Test 02/08/18 08:06 Glucose (Fingerstick) 205 mg/dL (70-99) Microbiology Micro Microbiology 02/06/18 Blood Culture - Preliminary, Resulted NO GROWTH AFTER 1 DAY Physical Exam HEENT: Neck Supple W Full Motion Chest: Symmetric LUNGS: Other (diminished bases) Heart: S1S2, RRR (SR without significant ectopies) Abdomen: Soft N/T Extremities: No Calf Tenderness Neurology: alert, oriented, follow commands Assessment Assessment 1. Sepsis with possible pneumonia: ID following 2. severe CAR: nephrology following 3. Uncontrolled DM2: LDL 47, HDL 27 4. NSTEMI: Trop peaked at 0.38, EKG SR with LVH/LV strain. No cardiac symptoms. Suspect type 2 demand mediated. EF and WM nml 5. Marijuana use Recommendations 1. Continue with nephrology recommendation 2. ASA. Marijuana cessation. 3. Follow up in office as outpt and will consider for outpt stress test. Will follow along peripherally CARLOS MOFFETT APRN Feb 08, 2018 09:18
--- NOTE | 2018-02-08 11:28 | PDOC ---
Objective: Objective: Reviewed w/ RN - vomited after hiccups but denies vomiting and abd pain - now on Thorazine and drowsy. Vital Signs: Vital Signs Date Time Temp Pulse Resp B/P (MAP) Pulse Ox O2 Delivery O2 Flow Rate FiO2 02/08/18 09:00 102 18 100/60 (73) 95 Room Air 02/08/18 08:00 98.4 98.4 02/08/18 07:00 2.0 Labs: Laboratory Tests Test 02/07/18 12:53 02/07/18 17:08 02/07/18 20:39 02/08/18 05:55 Glucose (Fingerstick) 182 mg/dL 173 mg/dL 204 mg/dL White Blood Count 12.1 x10^3/uL Red Blood Count 3.91 x10^6/uL Hemoglobin 12.2 g/dL Hematocrit 35.7 % Mean Corpuscular Volume 91 fL Mean Corpuscular Hemoglobin 31 pg Mean Corpuscular Hemoglobin Concent 34 g/dL Red Cell Distribution Width 13.8 % Platelet Count 170 x10^3/uL Neutrophils (%) (Auto) 84 % Lymphocytes (%) (Auto) 6 % Monocytes (%) (Auto) 10 % Eosinophils (%) (Auto) 0 % Basophils (%) (Auto) 0 % Neutrophils # (Auto) 10.1 x10^3uL Lymphocytes # (Auto) 0.8 x10^3/uL Monocytes # (Auto) 1.2 x10^3/uL Eosinophils # (Auto) 0.0 x10^3/uL Basophils # (Auto) 0.0 x10^3/uL Sodium Level 138 mmol/L Potassium Level 3.5 mmol/L Chloride Level 98 mmol/L Carbon Dioxide Level 23 mmol/L Anion Gap 17 Blood Urea Nitrogen 96 mg/dL Creatinine 5.2 mg/dL Estimated GFR (Cockcroft-Gault) 11.2 Glucose Level 218 mg/dL Calcium Level 7.2 mg/dL Phosphorus Level 5.8 mg/dL Test 02/08/18 08:06 Glucose (Fingerstick) 205 mg/dL BLOOD CULTURE Preliminary NO GROWTH AFTER 1 DAY PE: GEN: NAD LUNGS: room air HEART: tachycardic ABD: stable appearance, quiet, non-tender NEURO/PSYCH: did not waken during exam A/P: Vomiting, hiccups ?sepsis, DM (?gastroparesis), CAR (Cr better at 5.2) GERD, +marijuana -- Thorazine helping? Can change to PO PPI when able. Check KUB. Outpt 'scopes. SETH CABELLO Feb 08, 2018 11:28
--- NOTE | 2018-02-08 11:32 | PDOC ---
Renal-Progress Notes Subjective Notes Notes STILL TIRED History of Present Illness Hx of present illness NO CHANGE Vitals Vitals Vital Signs Date Time Temp Pulse Resp B/P (MAP) Pulse Ox O2 Delivery O2 Flow Rate FiO2 02/08/18 09:00 102 18 100/60 (73) 95 Room Air 02/08/18 08:00 98.4 98.4 02/08/18 07:00 2.0 Weight Weight [ ] I.O. Intake and Output Intake and Output 02/08/18 07:00 Intake Total 7586.14 ml Output Total 2665 ml Balance 4921.14 ml Intake Oral 1600 ml IV Total 5986.14 ml Output Urine Total 2665 ml Labs Labs Laboratory Tests Test 02/07/18 12:53 02/07/18 17:08 02/07/18 20:39 02/08/18 05:55 Glucose (Fingerstick) 182 mg/dL (70-99) 173 mg/dL (70-99) 204 mg/dL (70-99) White Blood Count 12.1 x10^3/uL (4.0-11.0) Red Blood Count 3.91 x10^6/uL (4.30-5.70) Hemoglobin 12.2 g/dL (13.0-17.5) Hematocrit 35.7 % (39.0-53.0) Mean Corpuscular Volume 91 fL (79-100) Mean Corpuscular Hemoglobin 31 pg (25-35) Mean Corpuscular Hemoglobin Concent 34 g/dL (31-37) Red Cell Distribution Width 13.8 % (11.5-14.5) Platelet Count 170 x10^3/uL (140-400) Neutrophils (%) (Auto) 84 % (31-73) Lymphocytes (%) (Auto) 6 % (24-48) Monocytes (%) (Auto) 10 % (0-9) Eosinophils (%) (Auto) 0 % (0-3) Basophils (%) (Auto) 0 % (0-3) Neutrophils # (Auto) 10.1 x10^3uL (1.8-7.7) Lymphocytes # (Auto) 0.8 x10^3/uL (1.0-4.8) Monocytes # (Auto) 1.2 x10^3/uL (0.0-1.1) Eosinophils # (Auto) 0.0 x10^3/uL (0.0-0.7) Basophils # (Auto) 0.0 x10^3/uL (0.0-0.2) Sodium Level 138 mmol/L (136-145) Potassium Level 3.5 mmol/L (3.5-5.1) Chloride Level 98 mmol/L (98-107) Carbon Dioxide Level 23 mmol/L (21-32) Anion Gap 17 (6-14) Blood Urea Nitrogen 96 mg/dL (8-26) Creatinine 5.2 mg/dL (0.7-1.3) Estimated GFR (Cockcroft-Gault) 11.2 Glucose Level 218 mg/dL (70-99) Calcium Level 7.2 mg/dL (8.5-10.1) Phosphorus Level 5.8 mg/dL (2.6-4.7) Test 02/08/18 08:06 Glucose (Fingerstick) 205 mg/dL (70-99) Micro Micro Microbiology 02/06/18 Blood Culture - Preliminary, Resulted NO GROWTH AFTER 1 DAY Review of Systems Constitutional: yes: weakness, alert, oriented Ears/Nose/Throat: Yes: no symptom reported Eyes: Yes: no symptom reported Pulmonary: Yes no symptom reported Cardiovascular: Yes no symptom reported Genitourinary: Yes: no symptom reported Skin: Yes no symptom reported Psychiatric/Neurological: Yes: no symptom reported Endocrine: Yes: no symptom reported Physical Exam General Appearance: no apparent distress Skin: warm Respiratory: decreased breath sounds Heart: S1S2 Abdomen: soft, bowel sounds present Genitourinary: bladder flat Neurology: alert, oriented, follow commands Assessment Assessment IMP DEHYDRATION CAR-IMPROVING WITH CR DOWN TO 5.2 SONO NEG FOR MORPHOLOGICAL CHANGES ?SEPSIS HYPOTENSION PLAN ABX CONT WITH IVF'S NGUYỄN ARCE MD Feb 08, 2018 11:32
--- NOTE | 2018-02-08 12:29 | PDOC ---
PROGRESS NOTES Chief Complaint Chief Complaint Lactic acidosis Sepsis with hypotension DKA Metabolic alkalosis secondary to vomiting Elevated troponin, suspect that is secondary to his creatinine Acute on chronic renal failure Severe dehydration Leukocytosis History of Present Illness History of Present Illness Pt seen and examined in ICU Pt sitting upright in bed, ill appearing Discussed with RN Vitals Vitals Vital Signs Date Time Temp Pulse Resp B/P (MAP) Pulse Ox O2 Delivery O2 Flow Rate FiO2 02/08/18 12:00 98.7 95 21 100/55 (70) 94 Room Air 98.7 02/08/18 07:00 2.0 Physical Exam General: Alert, Oriented X3, Cooperative, mild distress Heart: Regular rate, Normal S1, Normal S2, No murmurs Lungs: Clear Abdomen: Normal bowel sounds, Soft, No tenderness Extremities: No clubbing, No cyanosis, No edema, Normal pulses Skin: No rashes, No breakdown, No significant lesion Labs LABS Laboratory Tests Test 02/07/18 12:53 02/07/18 17:08 02/07/18 20:39 02/08/18 05:55 Glucose (Fingerstick) 182 mg/dL (70-99) 173 mg/dL (70-99) 204 mg/dL (70-99) White Blood Count 12.1 x10^3/uL (4.0-11.0) Red Blood Count 3.91 x10^6/uL (4.30-5.70) Hemoglobin 12.2 g/dL (13.0-17.5) Hematocrit 35.7 % (39.0-53.0) Mean Corpuscular Volume 91 fL (79-100) Mean Corpuscular Hemoglobin 31 pg (25-35) Mean Corpuscular Hemoglobin Concent 34 g/dL (31-37) Red Cell Distribution Width 13.8 % (11.5-14.5) Platelet Count 170 x10^3/uL (140-400) Neutrophils (%) (Auto) 84 % (31-73) Lymphocytes (%) (Auto) 6 % (24-48) Monocytes (%) (Auto) 10 % (0-9) Eosinophils (%) (Auto) 0 % (0-3) Basophils (%) (Auto) 0 % (0-3) Neutrophils # (Auto) 10.1 x10^3uL (1.8-7.7) Lymphocytes # (Auto) 0.8 x10^3/uL (1.0-4.8) Monocytes # (Auto) 1.2 x10^3/uL (0.0-1.1) Eosinophils # (Auto) 0.0 x10^3/uL (0.0-0.7) Basophils # (Auto) 0.0 x10^3/uL (0.0-0.2) Sodium Level 138 mmol/L (136-145) Potassium Level 3.5 mmol/L (3.5-5.1) Chloride Level 98 mmol/L (98-107) Carbon Dioxide Level 23 mmol/L (21-32) Anion Gap 17 (6-14) Blood Urea Nitrogen 96 mg/dL (8-26) Creatinine 5.2 mg/dL (0.7-1.3) Estimated GFR (Cockcroft-Gault) 11.2 Glucose Level 218 mg/dL (70-99) Calcium Level 7.2 mg/dL (8.5-10.1) Phosphorus Level 5.8 mg/dL (2.6-4.7) Test 02/08/18 08:06 Glucose (Fingerstick) 205 mg/dL (70-99) Review of Systems Review of Systems Pt c/o hiccups and vomiting secondary to hiccups, as well as fatigue and weakness. Pt denies VALLEJO, fevers, chills, CP, SOB, or N/D. Assessment and Plan Assessmemt and Plan Problems Medical Problems: (1) Acute renal failure Status: Acute (2) CHF (congestive heart failure) Status: Acute (3) DKA (diabetic ketoacidoses) Status: Acute (4) Heart murmur Status: Acute (5) NSTEMI (non-ST elevated myocardial infarction) Status: Acute Assessment: Lactic acidosis Sepsis with hypotension DKA Metabolic alkalosis secondary to vomiting Elevated troponin, suspect that is secondary to his creatinine Acute on chronic renal failure Severe dehydration Leukocytosis Plan: ICU monitoring IVF, follow Cr DKA protocol Home meds Labs Thorazine prn for hiccups Continue PPI per GI Appreciate subspecialist input PT/OT DVT ppx Comment Review of Relevant I have reviewed the following items luz (where applicable) has been applied. Labs Laboratory Tests Test 02/06/18 19:23 02/06/18 19:30 02/06/18 21:00 02/06/18 21:20 Glucose (Fingerstick) 510 mg/dL (70-99) 474 mg/dL (70-99) White Blood Count 14.9 x10^3/uL (4.0-11.0) Red Blood Count 5.30 x10^6/uL (4.30-5.70) Hemoglobin 16.7 g/dL (13.0-17.5) Hematocrit 47.8 % (39.0-53.0) Mean Corpuscular Volume 90 fL (79-100) Mean Corpuscular Hemoglobin 32 pg (25-35) Mean Corpuscular Hemoglobin Concent 35 g/dL (31-37) Red Cell Distribution Width 13.9 % (11.5-14.5) Platelet Count 239 x10^3/uL (140-400) Neutrophils (%) (Auto) 81 % (31-73) Lymphocytes (%) (Auto) 8 % (24-48) Monocytes (%) (Auto) 11 % (0-9) Eosinophils (%) (Auto) 0 % (0-3) Basophils (%) (Auto) 0 % (0-3) Neutrophils # (Auto) 12.0 x10^3uL (1.8-7.7) Lymphocytes # (Auto) 1.2 x10^3/uL (1.0-4.8) Monocytes # (Auto) 1.7 x10^3/uL (0.0-1.1) Eosinophils # (Auto) 0.0 x10^3/uL (0.0-0.7) Basophils # (Auto) 0.0 x10^3/uL (0.0-0.2) Segmented Neutrophils % 30 % (35-66) Band Neutrophils % 44 % (0-9) Lymphocytes % 7 % (24-48) Atypical Lymphocytes % (Manual) 1 % (0-0) Monocytes % 17 % (0-10) Metamyelocytes % 1 % (0-0) Toxic Granulation Mod Toxic Vacuolation Slight Platelet Estimate Adequate (ADEQUATE) Sodium Level 130 mmol/L (136-145) Potassium Level 3.0 mmol/L (3.5-5.1) Chloride Level 73 mmol/L (98-107) Carbon Dioxide Level 32 mmol/L (21-32) Anion Gap 25 (6-14) Blood Urea Nitrogen 97 mg/dL (8-26) Creatinine 7.5 mg/dL (0.7-1.3) Estimated GFR (Cockcroft-Gault) 7.3 Glucose Level 569 mg/dL (70-99) Lactic Acid Level 11.4 mmol/L (0.4-2.0) Calcium Level 9.9 mg/dL (8.5-10.1) Phosphorus Level 12.3 mg/dL (2.6-4.7) Total Bilirubin 1.0 mg/dL (0.2-1.0) Direct Bilirubin 0.2 mg/dL (0.0-0.2) Aspartate Amino Transf (AST/SGOT) 16 U/L (15-37) Alanine Aminotransferase (ALT/SGPT) 20 U/L (16-63) Alkaline Phosphatase 86 U/L (46-116) Troponin I Quantitative 0.389 ng/mL (0.000-0.055) CQ-Dzi-M-Type Natriuretic Peptide 8182 pg/mL (0-124) Total Protein 9.2 g/dL (6.4-8.2) Albumin 3.0 g/dL (3.4-5.0) Lipase 194 U/L (73-393) O2 Saturation 94 % (92-99) Arterial Blood pH 7.52 (7.35-7.45) Arterial Blood pH (Temp corrected) 7.53 Arterial Blood pCO2 at Patient Temp 36 mmHg (35-46) Arterial Blood pCO2 (Temp correct) 36 mmHg Arterial Blood pO2 at Patient Temp 75 mmHg (65-108) Arterial Blood pO2 (Temp corrected) 74 mmHg Arterial Blood HCO3 29 mmol/L (21-28) Arterial Blood Base Excess 6 mmol/L (-3-3) FiO2 32.0 Test 02/06/18 22:13 02/06/18 22:15 02/06/18 23:14 02/06/18 23:20 Glucose (Fingerstick) 416 mg/dL (70-99) 294 mg/dL (70-99) Nasal Screen MRSA (PCR) Negative (Negative) Lactic Acid Level 4.2 mmol/L (0.4-2.0) Test 02/07/18 00:19 02/07/18 01:05 02/07/18 02:33 02/07/18 03:59 Glucose (Fingerstick) 230 mg/dL (70-99) 156 mg/dL (70-99) 121 mg/dL (70-99) Sodium Level 133 mmol/L (136-145) Potassium Level 3.5 mmol/L (3.5-5.1) Chloride Level 85 mmol/L (98-107) Carbon Dioxide Level 34 mmol/L (21-32) Anion Gap 14 (6-14) Blood Urea Nitrogen 96 mg/dL (8-26) Creatinine 6.9 mg/dL (0.7-1.3) Estimated GFR (Cockcroft-Gault) 8.0 Glucose Level 213 mg/dL (70-99) Calcium Level 8.8 mg/dL (8.5-10.1) Magnesium Level 2.7 mg/dL (1.8-2.4) Test 02/07/18 06:03 02/07/18 06:05 02/07/18 07:40 02/07/18 07:55 Acetone Level Sm pos (NEG) White Blood Count 14.6 x10^3/uL (4.0-11.0) Red Blood Count 4.72 x10^6/uL (4.30-5.70) Hemoglobin 14.6 g/dL (13.0-17.5) Hematocrit 42.3 % (39.0-53.0) Mean Corpuscular Volume 90 fL (79-100) Mean Corpuscular Hemoglobin 31 pg (25-35) Mean Corpuscular Hemoglobin Concent 35 g/dL (31-37) Red Cell Distribution Width 13.8 % (11.5-14.5) Platelet Count 192 x10^3/uL (140-400) Neutrophils (%) (Auto) 84 % (31-73) Lymphocytes (%) (Auto) 7 % (24-48) Monocytes (%) (Auto) 9 % (0-9) Eosinophils (%) (Auto) 0 % (0-3) Basophils (%) (Auto) 0 % (0-3) Neutrophils # (Auto) 12.2 x10^3uL (1.8-7.7) Lymphocytes # (Auto) 1.0 x10^3/uL (1.0-4.8) Monocytes # (Auto) 1.3 x10^3/uL (0.0-1.1) Eosinophils # (Auto) 0.0 x10^3/uL (0.0-0.7) Basophils # (Auto) 0.0 x10^3/uL (0.0-0.2) Sodium Level 135 mmol/L (136-145) Potassium Level 4.4 mmol/L (3.5-5.1) Chloride Level 89 mmol/L (98-107) Carbon Dioxide Level 29 mmol/L (21-32) Anion Gap 17 (6-14) Blood Urea Nitrogen 100 mg/dL (8-26) Creatinine 6.9 mg/dL (0.7-1.3) Estimated GFR (Cockcroft-Gault) 8.0 BUN/Creatinine Ratio 14 (6-20) Glucose Level 211 mg/dL (70-99) Calcium Level 8.1 mg/dL (8.5-10.1) Phosphorus Level 6.9 mg/dL (2.6-4.7) Total Bilirubin 0.7 mg/dL (0.2-1.0) Aspartate Amino Transf (AST/SGOT) 18 U/L (15-37) Alanine Aminotransferase (ALT/SGPT) 15 U/L (16-63) Alkaline Phosphatase 67 U/L (46-116) Creatine Kinase 210 U/L (39-308) Troponin I Quantitative 0.384 ng/mL (0.000-0.055) Total Protein 6.7 g/dL (6.4-8.2) Albumin 2.5 g/dL (3.4-5.0) Albumin/Globulin Ratio 0.6 (1.0-1.7) Triglycerides Level 276 mg/dL (0-150) Cholesterol Level 126 mg/dL (0-200) LDL Cholesterol, Calculated 47 mg/dL (0-100) VLDL Cholesterol, Calculated 55 mg/dL (0-40) Non-HDL Cholesterol Calculated 102 mg/dL (0-129) HDL Cholesterol 24 mg/dL (40-60) Cholesterol/HDL Ratio 5.3 Thyroid Stimulating Hormone (TSH) 3.630 uIU/mL (0.358-3.74) Urine Collection Type Unknown Urine Color Bianka Urine Clarity Turbid Urine pH 5.0 Urine Specific [place] 1.025 Urine Protein 30 mg/dL (NEG-TRACE) Urine Glucose (UA) 100 mg/dL (NEG) Urine Ketones (Stick) Trace mg/dL (NEG) Urine Blood Large (NEG) Urine Nitrite Negative (NEG) Urine Bilirubin Moderate (NEG) Urine Urobilinogen Dipstick 0.2 mg/dL (0.2 mg/dL) Urine Leukocyte Esterase Trace (NEG) Urine RBC 3-5 /HPF (0-2) Urine WBC 11-20 /HPF (0-4) Urine Squamous Epithelial Cells Few /LPF Urine Bacteria Mod /HPF (0-FEW) Urine Mucus Marked /LPF Glucose (Fingerstick) 245 mg/dL (70-99) Test 02/07/18 12:53 02/07/18 17:08 02/07/18 20:39 02/08/18 05:55 Glucose (Fingerstick) 182 mg/dL (70-99) 173 mg/dL (70-99) 204 mg/dL (70-99) White Blood Count 12.1 x10^3/uL (4.0-11.0) Red Blood Count 3.91 x10^6/uL (4.30-5.70) Hemoglobin 12.2 g/dL (13.0-17.5) Hematocrit 35.7 % (39.0-53.0) Mean Corpuscular Volume 91 fL (79-100) Mean Corpuscular Hemoglobin 31 pg (25-35) Mean Corpuscular Hemoglobin Concent 34 g/dL (31-37) Red Cell Distribution Width 13.8 % (11.5-14.5) Platelet Count 170 x10^3/uL (140-400) Neutrophils (%) (Auto) 84 % (31-73) Lymphocytes (%) (Auto) 6 % (24-48) Monocytes (%) (Auto) 10 % (0-9) Eosinophils (%) (Auto) 0 % (0-3) Basophils (%) (Auto) 0 % (0-3) Neutrophils # (Auto) 10.1 x10^3uL (1.8-7.7) Lymphocytes # (Auto) 0.8 x10^3/uL (1.0-4.8) Monocytes # (Auto) 1.2 x10^3/uL (0.0-1.1) Eosinophils # (Auto) 0.0 x10^3/uL (0.0-0.7) Basophils # (Auto) 0.0 x10^3/uL (0.0-0.2) Sodium Level 138 mmol/L (136-145) Potassium Level 3.5 mmol/L (3.5-5.1) Chloride Level 98 mmol/L (98-107) Carbon Dioxide Level 23 mmol/L (21-32) Anion Gap 17 (6-14) Blood Urea Nitrogen 96 mg/dL (8-26) Creatinine 5.2 mg/dL (0.7-1.3) Estimated GFR (Cockcroft-Gault) 11.2 Glucose Level 218 mg/dL (70-99) Calcium Level 7.2 mg/dL (8.5-10.1) Phosphorus Level 5.8 mg/dL (2.6-4.7) Test 02/08/18 08:06 Glucose (Fingerstick) 205 mg/dL (70-99) Laboratory Tests Test 02/07/18 12:53 02/07/18 17:08 02/07/18 20:39 02/08/18 05:55 Glucose (Fingerstick) 182 mg/dL (70-99) 173 mg/dL (70-99) 204 mg/dL (70-99) White Blood Count 12.1 x10^3/uL (4.0-11.0) Red Blood Count 3.91 x10^6/uL (4.30-5.70) Hemoglobin 12.2 g/dL (13.0-17.5) Hematocrit 35.7 % (39.0-53.0) Mean Corpuscular Volume 91 fL (79-100) Mean Corpuscular Hemoglobin 31 pg (25-35) Mean Corpuscular Hemoglobin Concent 34 g/dL (31-37) Red Cell Distribution Width 13.8 % (11.5-14.5) Platelet Count 170 x10^3/uL (140-400) Neutrophils (%) (Auto) 84 % (31-73) Lymphocytes (%) (Auto) 6 % (24-48) Monocytes (%) (Auto) 10 % (0-9) Eosinophils (%) (Auto) 0 % (0-3) Basophils (%) (Auto) 0 % (0-3) Neutrophils # (Auto) 10.1 x10^3uL (1.8-7.7) Lymphocytes # (Auto) 0.8 x10^3/uL (1.0-4.8) Monocytes # (Auto) 1.2 x10^3/uL (0.0-1.1) Eosinophils # (Auto) 0.0 x10^3/uL (0.0-0.7) Basophils # (Auto) 0.0 x10^3/uL (0.0-0.2) Sodium Level 138 mmol/L (136-145) Potassium Level 3.5 mmol/L (3.5-5.1) Chloride Level 98 mmol/L (98-107) Carbon Dioxide Level 23 mmol/L (21-32) Anion Gap 17 (6-14) Blood Urea Nitrogen 96 mg/dL (8-26) Creatinine 5.2 mg/dL (0.7-1.3) Estimated GFR (Cockcroft-Gault) 11.2 Glucose Level 218 mg/dL (70-99) Calcium Level 7.2 mg/dL (8.5-10.1) Phosphorus Level 5.8 mg/dL (2.6-4.7) Test 02/08/18 08:06 Glucose (Fingerstick) 205 mg/dL (70-99) Microbiology 02/06/18 Blood Culture - Preliminary, Resulted NO GROWTH AFTER 1 DAY Medications Current Medications Sodium Chloride 1,000 ml @ 1,000 mls/hr 1X ONCE IV Last administered on 02/06at 19:59; Start 02/06/18 at 20:00; Stop 02/06/18 at 20:59; Status DC Insulin Human Regular 150 unit/ Sodium Chloride 151.5 ml @ 0 mls/hr CONT PRN PRN IV PER PROTOCOL; Start 02/06/18 at 21:00 Potassium Chloride (KCl Oral Soln) 40 meq 1X ONCE PO Last administered on at 21:22; Start 02/06/18 at 21:30; Stop 02/06/18 at 21:31; Status DC Potassium Chloride/Water 50 ml @ 25 mls/hr Q1H IV ; Start 02/06/18 at 21:00; Stop 02/06/18 at 21:16; Status DC Insulin Human Regular 150 ml @ 9.1 mls/hr 1X ONCE IV Last administered on at 21:24; Start 02/06/18 at 21:45; Stop 02/07/18 at 14:17; Status DC Potassium Chloride 40 meq/ Sodium Chloride 520 ml @ 130 mls/hr 1X ONCE IV Last administered on 02/06/18at 22:30; Start 02/06/18 at 22:00; Stop 02/07/18 at 02:00; Status DC Potassium Chloride 40 meq/ Sodium Chloride 520 ml @ 130 mls/hr 1X ONCE IV Last administered on 02/07/18at 01:39; Start 02/07/18 at 02:00; Stop 02/07/18 at 05:59; Status DC Ondansetron HCl (Zofran) 4 mg PRN Q8HRS PRN IV NAUSEA/VOMITING Last administered on 02/06/18at 23:49; Start 02/06/18 at 21:15; Stop 02/07/18 at 21 :14; Status DC Fentanyl Citrate (Fentanyl 2ml Vial) 50 mcg PRN Q2HR PRN IV PAIN Last administered on 02/07/18at 15:01; Start 02/06/18 at 21:15; Stop 02/07/18 at 21 :14; Status DC Acetaminophen (Tylenol) 650 mg PRN Q4HRS PRN PO FEVER; Start 02/06/18 at 21:15 ; Stop 02/07/18 at 21:14; Status DC Vancomycin HCl (Vanco Per Pharmacy) 1 each PRN DAILY PRN MC SEE COMMENTS; Start 02/06/18 at 21:30; Stop 02/07/18 at 07:52; Status DC Piperacillin Sod/ Tazobactam Sod (Zosyn Per Pharmacy) 1 each PRN DAILY PRN MC SEE COMMENTS; Start 02/06/18 at 21:30 Sodium Chloride 1,000 ml @ 1,000 mls/hr 1X ONCE IV Last administered on 02/06at 21:32; Start 02/06/18 at 21:30; Stop 02/06/18 at 22:29; Status DC Piperacillin Sod/ Tazobactam Sod 3.375 gm/Sodium Chloride 50 ml @ 100 mls/hr 1X ONCE IV Last administered on 02/06/18at 21:33; Start 02/06/18 at 22:00; Stop 02/06/18 at 22:29; Status DC Vancomycin HCl 1.25 gm/Sodium Chloride 250 ml @ 166.667 mls/hr 1X ONCE IV Last administered on 02/06/18at 22:30; Start 02/06/18 at 22:00; Stop 02/06/18 at 23:29; Status DC Piperacillin Sod/ Tazobactam Sod 2.25 gm/Sodium Chloride 50 ml @ 100 mls/hr Q8HRS IV Last administered on 02/08/18at 05:50; Start 02/07/18 at 06:00 Sodium Chloride 1,000 ml @ 250 mls/hr Q4H IV ; Start 02/06/18 at 22:30; Stop 02/07/18 at 03:21; Status DC Sodium Chloride 1,000 ml @ 250 mls/hr Q4H IV ; Start 02/06/18 at 22:30; Stop 02/07/18 at 06:10; Status DC Dextrose/Sodium Chloride 1,000 ml @ 250 mls/hr Q4H IV ; Start 02/06/18 at 22: 30; Stop 02/07/18 at 03:21; Status DC Magnesium Sulfate/ Dextrose 100 ml @ 25 mls/hr DAILY IV ; Start 02/07/18 at 09 :00; Stop 02/08/18 at 04:48; Status DC Sodium Phosphate 40 mmol/Sodium Chloride 513.3333 ml @ 83.3 mls/hr 1X PRN PRN IV SEE COMMENTS; Start 02/06/18 at 22:30 Sodium Phosphate 20 mmol/Dextrose 256.6667 ml @ 62.5 mls/hr 1X PRN PRN IV SEE COMMENTS; Start 02/06/18 at 22:30 Sodium Phosphate 10 mmol/Dextrose 253.3333 ml @ 62.5 mls/hr 1X PRN PRN IV SEE COMMENTS; Start 02/06/18 at 22:30 Dextrose/Sodium Chloride 1,000 ml @ 250 mls/hr Q4H IV Last administered on at 23:30; Start 02/06/18 at 23:45; Stop 02/07/18 at 03:21; Status DC Sodium Chloride 1,000 ml @ 200 mls/hr Q5H IV Last administered on 02/08/18at 09:31; Start 02/07/18 at 03:00 Metoclopramide HCl (Reglan Vial) 5 mg PRN Q6HRS PRN IV NAUSEA/VOMITING Last administered on 02/07/18at 03:15; Start 02/07/18 at 03:00 Insulin Human Lispro (HumaLOG) 0-7 UNITS TIDWMEALS SQ Last administered on at 08:10; Start 02/07/18 at 08:00 Dextrose (Dextrose 50%-Water Syringe) 12.5 gm PRN Q15MIN PRN IV SEE COMMENTS; Start 02/07/18 at 02:15 Insulin Human Lispro (HumaLOG) 4 units 1X ONCE SQ ; Start 02/07/18 at 02:30; Stop 02/07/18 at 02:31; Status Cancel Aspirin (Ecotrin) 81 mg DAILYWBKFT PO Last administered on 02/08/18at 08:02; Start 02/07/18 at 10:00 Pantoprazole Sodium (PROTONIX VIAL for IV PUSH) 40 mg DAILYAC IVP Last administered on 02/08/18at 08:02; Start 02/07/18 at 16:30 Chlorpromazine HCl (Thorazine) 25 mg PRN Q6HRS PRN IV HICCUPS Last administered on 02/08/18at 02:08; Start 02/07/18 at 17:00; Stop 02/08/18 at 05 :07; Status DC Zolpidem Tartrate (Ambien) 5 mg PRN QHS PRN PO INSOMNIA, MAY REPEAT IN 1HR; Start 02/07/18 at 17:00 Magnesium Sulfate/ Dextrose 100 ml @ 25 mls/hr PRN DAILY PRN IV SEE COMMENTS; Start 02/08/18 at 05:00 Chlorpromazine HCl 25 mg/Dextrose 50 ml @ 100 mls/hr PRN Q6HRS PRN IV HICCUPS Last administered on 02/08/18at 08:26; Start 02/08/18 at 05:15 Lactobacillus Rhamnosus (Culturelle) 1 cap BID PO Last administered on at 08:02; Start 02/08/18 at 09:00 Vitals/I & O Vital Sign - Last 24 Hours 02/07/18 02/07/18 02/07/18 02/07/18 13:00 14:00 15:00 15:01 Pulse 98 98 98 Resp 20 18 31 36 B/P (MAP) 132/68 (89) 110/69 (83) 117/69 (85) Pulse Ox 98 95 95 95 O2 Delivery Nasal Cannula Nasal Cannula Nasal Cannula O2 Flow Rate 2.0 2.0 2.0 02/07/18 02/07/18 02/07/18 02/07/18 15:46 16:00 16:00 17:00 Temp 98.7 98.7 Pulse 78 98 Resp 18 21 33 B/P (MAP) 107/69 (82) 120/70 (87) Pulse Ox 95 94 95 O2 Delivery Nasal Cannula Nasal Cannula Nasal Cannula Nasal Cannula O2 Flow Rate 2.0 2.0 2.0 2.0 02/07/18 02/07/18 02/07/18 02/07/18 18:00 19:40 20:03 20:26 Temp 99.0 99.0 Pulse 125 116 109 Resp 20 24 21 B/P (MAP) 98/60 (73) 108/63 (78) 109/62 (78) Pulse Ox 93 94 94 O2 Delivery Nasal Cannula Nasal Cannula Nasal Cannula Nasal Cannula O2 Flow Rate 2.0 2.0 2.0 2.0 02/07/18 02/07/18 02/07/18 02/07/18 21:11 22:12 23:13 23:52 Pulse 110 107 107 Resp 24 B/P (MAP) 99/60 (73) 107/58 (74) 111/63 (79) Pulse Ox 95 95 95 O2 Delivery Nasal Cannula Nasal Cannula Nasal Cannula Nasal Cannula O2 Flow Rate 2.0 2.0 2.0 2.0 02/08/18 02/08/18 02/08/18 02/08/18 00:03 01:00 02:17 03:23 Temp 97.8 97.8 Pulse 88 100 101 102 Resp 24 14 17 22 B/P (MAP) 112/60 (77) 106/61 (76) 109/65 (80) 116/59 (78) Pulse Ox 96 96 94 95 O2 Delivery Nasal Cannula Nasal Cannula Nasal Cannula Nasal Cannula O2 Flow Rate 2.0 2.0 2.0 2.0 02/08/18 02/08/18 02/08/18 02/08/18 03:33 04:25 05:17 06:31 Pulse 106 98 85 Resp 20 20 17 B/P (MAP) 99/55 (70) 97/56 (70) 97/49 (65) Pulse Ox 96 94 94 O2 Delivery Nasal Cannula Nasal Cannula Nasal Cannula Nasal Cannula O2 Flow Rate 2.0 2.0 2.0 2.0 02/08/18 02/08/18 02/08/18 02/08/18 07:00 08:00 08:00 09:00 Temp 98.4 98.4 Pulse 104 96 102 Resp 22 24 18 B/P (MAP) 98/62 (74) 100/56 (71) 100/60 (73) Pulse Ox 96 93 95 O2 Delivery Nasal Cannula Room Air Room Air Room Air O2 Flow Rate 2.0 02/08/18 12:00 Temp 98.7 98.7 Pulse 95 Resp 21 B/P (MAP) 100/55 (70) Pulse Ox 94 O2 Delivery Room Air Intake and Output 02/07/18 02/07/18 02/08/18 15:00 23:00 07:00 Intake Total 4231.14 ml 3355 ml Output Total 515 ml 850 ml 1300 ml Balance -515 ml 3381.14 ml 2055 ml Nutrition Consultation Dietary Evaluation: Recommendations by RD: Protein supplementation Comments: Advance diet as able to ADA/soft/textures per pt tolerance Add Glucerna TID when diet advanced Expected Outcomes/Goals: diet advancement Malnutrition Findings: Food and Nutrition Intake (Sev: <50% est energy req 5days Weight Status: Overweight POLINA STANFORD III DO Feb 08, 2018 12:29
--- NOTE | 2018-02-08 17:10 | RAD ---
KUB, 02/08/2018: HISTORY: Vomiting, hiccups There is mild gaseous distention of the stomach. There is moderate gaseous distention of multiple small bowel loops. Very little colonic gas is seen. The lower pelvis was not completely included on this study. No abnormal abdominal calcifications are seen. Bibasilar atelectasis/infiltrate is again noted. IMPRESSION: Moderate gaseous distention of multiple small bowel loops suggesting small bowel obstruction. CT scanning is suggested for further evaluation. Electronically signed by: Rebel Candelario MD (02/08/2018 5:07 PM) [facility]
[2018-02-08] MEDS: fentaNYL PF VIAL 100 MCG/2 ML VIAL IV PRN (21:28)
--- NOTE | 2018-02-09 00:25 | CONS ---
DATE OF CONSULTATION: 02/07/2018 REQUESTING PHYSICIAN: Dr. Morataya. REASON FOR CONSULTATION: Sepsis. HISTORY OF PRESENT ILLNESS: This is a 67-year-old gentleman who lives by himself, who has not seen a physician for at least 5-6 years, was found by neighbors to be extremely weak, unable to get up and unable to do anything. The patient says he has been vomiting for the last 3 days and unable to keep anything down. The patient was brought in and was found to have hypotension, leukocytosis and lactic acidosis up to 11.4. The patient had high blood sugar and extremely high BUN and creatinine. The patient has been admitted, started on fluids, supportive care and antibiotics, one dose of vancomycin and Zosyn. The patient is alert, awake. The patient says he does not like to go to the doctor. He denied any chest pain, shortness of breath or abdominal pain. PAST MEDICAL HISTORY: Positive for borderline diabetes and gastroesophageal reflux disease. Has had appendicectomy and noncompliance in terms of, he does not go to see a physician. SOCIAL HISTORY: Negative for alcohol use or drug use or smoking cigarettes. He does smoke marijuana. CURRENT MEDICATIONS: Reviewed. REVIEW OF SYSTEMS: As per the HPI. The patient is on Zosyn and one dose of vancomycin was given. ALLERGIES: No known drug allergies. PHYSICAL EXAMINATION: GENERAL: On examination, alert and oriented gentleman, not in any distress. VITAL SIGNS: Vitals are stable. Afebrile. HEENT: NAD. NECK: Supple. No JVP, no lymphadenopathy. LUNGS: Clear. HEART: S1, S2 regular. ABDOMEN: Benign. EXTREMITIES: No edema or cyanosis. SKIN EXAMINATION: Unremarkable. NEUROLOGIC: The patient is neurologically intact, as he moves all the extremities and able to answer appropriately. LABORATORY DATA: White count is 14.6, platelets are normal. BUN and creatinine are 96 and 6.9. Urinalysis showed 11-20 wbc's. His blood culture was taken. His chest x-ray had shown bibasilar opacity, possible aspiration. IMPRESSION: 1. Lactic acidosis. 2. Sepsis with hypotension. 3. Metabolic alkalosis secondary to vomiting. 4. Diabetes with high anion gap. 5. Acute kidney injury. 6. Severe dehydration. 7. Leukocytosis. RECOMMENDATIONS: We will follow the cultures, fluids. I would not give any more vancomycin, continue Zosyn, supportive care and we will continue to follow. Thank you very much, Dr. Morataya, for giving me the opportunity to participate in this patient's care. OCTAVIO GARCIA MD DR: RASHEL/blade JOB#: [id number] / [id number]
[2018-02-09] MEDS: chlorproMAZINE 25 MG in IV DEXTROSE 5% 50 ML IV PRN ×2 (00:28→23:34)
[2018-02-09 03:00] VITALS: BP 106/59
[2018-02-09] MEDS: IV NORMAL SALINE 1000ML BAG 1,000 ML IV SCH ×4 (03:57→20:31)
[2018-02-09 04:57] LABS: BASO % 0 % (0-3); EOS % 0 % (0-3); HEMOGLOBIN 11.7 g/dL (13.0-17.5); LYMPH # 1.2 x10^3/uL (1.0-4.8); LYMPH % 10 % (24-48); MEAN CORPUSCULAR HEMOGLOBIN 31 pg (25-35); MEAN CORPUSCULAR HGB CONC 34 g/dL (31-37); MEAN CORPUSCULAR VOLUME 91 fL (79-100); MONO # 1.1 x10^3/uL (0.0-1.1); MONO % 9 % (0-9); NEUT # 9.7 x10^3uL (1.8-7.7); NEUT % 81 % (31-73); PLATELET COUNT 170 x10^3/uL (140-400); RED BLOOD COUNT 3.74 x10^6/uL (4.30-5.70); RED CELL DISTRIBUTION WIDTH 13.8 % (11.5-14.5)
[2018-02-09 05:23] LABS: CALCIUM 7.1 mg/dL (8.5-10.1); CREATININE 3.5 mg/dL (0.7-1.3); GFR 17.6; POTASSIUM 3.4 mmol/L (3.5-5.1)
[2018-02-09] MEDS: PIPERACILLIN/TAZOBACTAM 2.25 GM in IV NORMAL SALINE 50ML 50 ML IV SCH ×3 (06:26→21:14)
[2018-02-09 08:00] VITALS: BP 111/59
[2018-02-09] MEDS: PANTOPRAZOLE IV PUSH 40 MG VIAL. IVP SCH (09:16)
[2018-02-09] MEDS: ASPIRIN ENTERIC COATED 81 MG TABLET.DR. PO SCH (09:16)
[2018-02-09] MEDS: LACTOBACILLUS RHAMNOSUS GG 1 CAPSULE. PO SCH ×2 (09:16→21:00)
[2018-02-09] MEDS: INSULIN LISPRO 300 UNITS/3 ML INSULN.PEN. SQ SCH ×3 (09:17→17:00)
[2018-02-09] MEDS ORDERED: DEXTROSE 50% 25 GM / 50ML DISP.SYRIN. IV PRN (09:45)
[2018-02-09] MEDS: GLIMEPIRIDE 2 MG TABLET. PO SCH (09:50)
--- NOTE | 2018-02-09 10:19 | PDOC ---
Infectious Disease Note Subjective Subjective pt is feeling little better ROS ROS no n/v/d/sob Vital Sign Vital Signs Vital Signs Date Time Temp Pulse Resp B/P (MAP) Pulse Ox O2 Delivery O2 Flow Rate FiO2 02/09/18 09:39 Room Air 02/09/18 08:00 99.0 101 20 111/59 (76) 94 99.0 02/08/18 07:00 2.0 Physical Exam PHYSICAL EXAM GENERAL: On examination, alert and oriented gentleman, not in any distress. VITAL SIGNS: Vitals are stable. Afebrile. HEENT: NAD. NECK: Supple. No JVP, no lymphadenopathy. LUNGS: Clear. HEART: S1, S2 regular. ABDOMEN: Benign. EXTREMITIES: No edema or cyanosis. SKIN EXAMINATION: Unremarkable. NEUROLOGIC: The patient is neurologically intact, as he moves all the extremities and able to answer appropriately. Labs Lab Laboratory Tests Test 02/08/18 12:25 02/08/18 16:48 02/08/18 20:39 02/09/18 03:24 Glucose (Fingerstick) 185 mg/dL (70-99) 171 mg/dL (70-99) 128 mg/dL (70-99) Sodium Level 141 mmol/L (136-145) Potassium Level 3.4 mmol/L (3.5-5.1) Chloride Level 103 mmol/L (98-107) Carbon Dioxide Level 23 mmol/L (21-32) Anion Gap 15 (6-14) Blood Urea Nitrogen 77 mg/dL (8-26) Creatinine 3.5 mg/dL (0.7-1.3) Estimated GFR (Cockcroft-Gault) 17.6 Glucose Level 148 mg/dL (70-99) Calcium Level 7.1 mg/dL (8.5-10.1) Test 02/09/18 03:34 02/09/18 08:00 White Blood Count 12.0 x10^3/uL (4.0-11.0) Red Blood Count 3.74 x10^6/uL (4.30-5.70) Hemoglobin 11.7 g/dL (13.0-17.5) Hematocrit 34.0 % (39.0-53.0) Mean Corpuscular Volume 91 fL (79-100) Mean Corpuscular Hemoglobin 31 pg (25-35) Mean Corpuscular Hemoglobin Concent 34 g/dL (31-37) Red Cell Distribution Width 13.8 % (11.5-14.5) Platelet Count 170 x10^3/uL (140-400) Neutrophils (%) (Auto) 81 % (31-73) Lymphocytes (%) (Auto) 10 % (24-48) Monocytes (%) (Auto) 9 % (0-9) Eosinophils (%) (Auto) 0 % (0-3) Basophils (%) (Auto) 0 % (0-3) Neutrophils # (Auto) 9.7 x10^3uL (1.8-7.7) Lymphocytes # (Auto) 1.2 x10^3/uL (1.0-4.8) Monocytes # (Auto) 1.1 x10^3/uL (0.0-1.1) Eosinophils # (Auto) 0.0 x10^3/uL (0.0-0.7) Basophils # (Auto) 0.0 x10^3/uL (0.0-0.2) Glucose (Fingerstick) 147 mg/dL (70-99) Micro Microbiology 02/06/18 Blood Culture - Preliminary, Resulted NO GROWTH AFTER 1 DAY urine culture neg Objective Assessment Lactic acidosis Sepsis with hypotension Metabolic alklosis sec to vomiting DM with high anion gap CAR Severe dehydration Leukocytosis Plan Plan of Care fluids zosyn vanc x 1 supportive care d/c contreras pt/ot OCTAVIO GARCIA MD Feb 09, 2018 10:19
--- NOTE | 2018-02-09 11:25 | PDOC ---
Renal-Progress Notes Subjective Notes Notes BETTER History of Present Illness Hx of present illness STABLE Vitals Vitals Vital Signs Date Time Temp Pulse Resp B/P (MAP) Pulse Ox O2 Delivery O2 Flow Rate FiO2 02/09/18 09:39 Room Air 02/09/18 08:00 99.0 101 20 111/59 (76) 94 99.0 02/08/18 07:00 2.0 Weight Weight [ ] I.O. Intake and Output Intake and Output 02/09/18 07:00 Intake Total 3180 ml Output Total 3100 ml Balance 80 ml Intake Oral 1630 ml IV Total 1550 ml Output Urine Total 3100 ml Labs Labs Laboratory Tests Test 02/08/18 12:25 02/08/18 16:48 02/08/18 20:39 02/09/18 03:24 Glucose (Fingerstick) 185 mg/dL (70-99) 171 mg/dL (70-99) 128 mg/dL (70-99) Sodium Level 141 mmol/L (136-145) Potassium Level 3.4 mmol/L (3.5-5.1) Chloride Level 103 mmol/L (98-107) Carbon Dioxide Level 23 mmol/L (21-32) Anion Gap 15 (6-14) Blood Urea Nitrogen 77 mg/dL (8-26) Creatinine 3.5 mg/dL (0.7-1.3) Estimated GFR (Cockcroft-Gault) 17.6 Glucose Level 148 mg/dL (70-99) Calcium Level 7.1 mg/dL (8.5-10.1) Test 02/09/18 03:34 02/09/18 08:00 White Blood Count 12.0 x10^3/uL (4.0-11.0) Red Blood Count 3.74 x10^6/uL (4.30-5.70) Hemoglobin 11.7 g/dL (13.0-17.5) Hematocrit 34.0 % (39.0-53.0) Mean Corpuscular Volume 91 fL (79-100) Mean Corpuscular Hemoglobin 31 pg (25-35) Mean Corpuscular Hemoglobin Concent 34 g/dL (31-37) Red Cell Distribution Width 13.8 % (11.5-14.5) Platelet Count 170 x10^3/uL (140-400) Neutrophils (%) (Auto) 81 % (31-73) Lymphocytes (%) (Auto) 10 % (24-48) Monocytes (%) (Auto) 9 % (0-9) Eosinophils (%) (Auto) 0 % (0-3) Basophils (%) (Auto) 0 % (0-3) Neutrophils # (Auto) 9.7 x10^3uL (1.8-7.7) Lymphocytes # (Auto) 1.2 x10^3/uL (1.0-4.8) Monocytes # (Auto) 1.1 x10^3/uL (0.0-1.1) Eosinophils # (Auto) 0.0 x10^3/uL (0.0-0.7) Basophils # (Auto) 0.0 x10^3/uL (0.0-0.2) Glucose (Fingerstick) 147 mg/dL (70-99) Micro Micro Microbiology 02/06/18 Blood Culture - Preliminary, Resulted NO GROWTH AFTER 2 DAYS 02/07/18 Urine Culture - Final, Complete 02/07/18 Urine Culture Result 1 (ELIAZAR) - Final, Complete Review of Systems Constitutional: yes: weakness, alert, oriented Ears/Nose/Throat: Yes: no symptom reported Eyes: Yes: no symptom reported Pulmonary: Yes no symptom reported Cardiovascular: Yes no symptom reported Genitourinary: Yes: no symptom reported Skin: Yes no symptom reported Psychiatric/Neurological: Yes: no symptom reported Endocrine: Yes: no symptom reported Physical Exam General Appearance: no apparent distress Skin: warm Respiratory: decreased breath sounds Heart: S1S2 Abdomen: soft, bowel sounds present Genitourinary: bladder flat Neurology: alert, oriented, follow commands Assessment Assessment IMP DEHYDRATION CAR-IMPROVING WITH CR DOWN TO 3.5 SONO NEG FOR MORPHOLOGICAL CHANGES ?SEPSIS HYPOTENSION PLAN ABX CONT WITH IVF'S NGUYỄN ARCE MD Feb 09, 2018 11:25
[2018-02-09] MEDS ORDERED: PANTOPRAZOLE 40 MG TABLET.DR. PO SCH (11:30)
[2018-02-09 11:45] VITALS: BP 125/72
--- NOTE | 2018-02-09 12:45 | PDOC ---
PROGRESS NOTES Chief Complaint Chief Complaint Lactic acidosis sec ot DKA and severe dehydration KNown DM with high likelihood of undiagnosed gastroparesis Sepsis with hypotension - responded to IVF - t.o ICU 02/08 s/p DKA Metabolic alkalosis secondary to vomiting Elevated troponin, NSTEMI, demand ischemia Acute on chronic renal failure - creat 5 on admit Leukocytosis, reactive History of Present Illness History of Present Illness transferred out of ICU 02/08/18, was there because of creatinine 5, severe dehydration with vomiting,and sepsis with HYPOTENSION Known diabetes not on pills or insulin, unknown hemoglobin A1c but was in DKA on admission Creatinine 5 on admission now down to 3. IV fluids running at 200 mL an hour per renal Contreras in for close monitoring of urine output with very good urine output Labs are improving, hemoglobin 11, WBC 12. Potassium 3.4. Anion gap still elevated but down to 15. Hypotension is better. ID on board because of the sepsis, lactic acidosis etc. PLAN: check hemoglobin A1c Would start glimepiride 1 tablet once a day No metformin because of kidney function Avoid nephrotoxins PT OT-I do believe he self-pay We'll continue 200 mL normal saline per renal Recheck BMP again tomorrow IV antibiotics per ID Most likely will just be here over the weekend Troponin peaked at 0.38-N STEMI/demand ischemia by cardiology No further cardiac workup plans Improving overall MAintain contreras for UO monitoring Vitals Vitals Vital Signs Date Time Temp Pulse Resp B/P (MAP) Pulse Ox O2 Delivery O2 Flow Rate FiO2 02/09/18 11:45 97.9 103 24 125/72 (89) 94 Room Air 97.9 02/09/18 08:00 2.0 Physical Exam Physical Exam GENERAL: On examination, alert and oriented gentleman, not in any distress. VITAL SIGNS: Vitals are stable. Afebrile. HEENT: NAD. NECK: Supple. No JVP, no lymphadenopathy. LUNGS: Clear. HEART: S1, S2 regular. ABDOMEN: Benign. EXTREMITIES: No edema or cyanosis. SKIN EXAMINATION: Unremarkable. NEUROLOGIC: The patient is neurologically intact, as he moves all the extremities and able to answer appropriately. General: Alert, Oriented X3, Cooperative, mild distress Heart: Regular rate, Normal S1, Normal S2, No murmurs Lungs: Clear Abdomen: Normal bowel sounds, Soft, No tenderness Extremities: No clubbing, No cyanosis, No edema, Normal pulses Skin: No rashes, No breakdown, No significant lesion Labs LABS Laboratory Tests Test 02/08/18 16:48 02/08/18 20:39 02/09/18 03:24 02/09/18 03:34 Glucose (Fingerstick) 171 mg/dL (70-99) 128 mg/dL (70-99) Sodium Level 141 mmol/L (136-145) Potassium Level 3.4 mmol/L (3.5-5.1) Chloride Level 103 mmol/L (98-107) Carbon Dioxide Level 23 mmol/L (21-32) Anion Gap 15 (6-14) Blood Urea Nitrogen 77 mg/dL (8-26) Creatinine 3.5 mg/dL (0.7-1.3) Estimated GFR (Cockcroft-Gault) 17.6 Glucose Level 148 mg/dL (70-99) Calcium Level 7.1 mg/dL (8.5-10.1) White Blood Count 12.0 x10^3/uL (4.0-11.0) Red Blood Count 3.74 x10^6/uL (4.30-5.70) Hemoglobin 11.7 g/dL (13.0-17.5) Hematocrit 34.0 % (39.0-53.0) Mean Corpuscular Volume 91 fL (79-100) Mean Corpuscular Hemoglobin 31 pg (25-35) Mean Corpuscular Hemoglobin Concent 34 g/dL (31-37) Red Cell Distribution Width 13.8 % (11.5-14.5) Platelet Count 170 x10^3/uL (140-400) Neutrophils (%) (Auto) 81 % (31-73) Lymphocytes (%) (Auto) 10 % (24-48) Monocytes (%) (Auto) 9 % (0-9) Eosinophils (%) (Auto) 0 % (0-3) Basophils (%) (Auto) 0 % (0-3) Neutrophils # (Auto) 9.7 x10^3uL (1.8-7.7) Lymphocytes # (Auto) 1.2 x10^3/uL (1.0-4.8) Monocytes # (Auto) 1.1 x10^3/uL (0.0-1.1) Eosinophils # (Auto) 0.0 x10^3/uL (0.0-0.7) Basophils # (Auto) 0.0 x10^3/uL (0.0-0.2) Test 02/09/18 08:00 02/09/18 11:53 Glucose (Fingerstick) 147 mg/dL (70-99) 199 mg/dL (70-99) Review of Systems Review of Systems A 14 point ROS was completed with the following noted as positive: Other systems reviewed and negative. \CONSTITUTIONAL: No fever or chills EYES: No recent changes SKIN: No rash or itching CARDIOVASCULAR: No chest pain, syncope, palpitations, or edema RESPIRATORY: No SOB or cough GASTROINTESTINAL: No nausea, vomiting or abdominal pain NEUROLOGICAL: No headaches or weakness ENDOCRINE: No cold or heat intolerance GENITOURINARY: No urgency or frequency of urination MUSCULOSKELETAL: No back pain or joint pain LYMPHATICS: No enlarged lymph nodes PSYCHIATRIC: No anxiety or depression Assessment and Plan Assessmemt and Plan Problems Medical Problems: (1) Acute renal failure Status: Acute (2) CHF (congestive heart failure) Status: Acute (3) DKA (diabetic ketoacidoses) Status: Acute (4) Heart murmur Status: Acute (5) NSTEMI (non-ST elevated myocardial infarction) Status: Acute Comment Review of Relevant I have reviewed the following items luz (where applicable) has been applied. Labs Laboratory Tests Test 02/07/18 12:53 02/07/18 17:08 02/07/18 20:39 02/08/18 05:55 Glucose (Fingerstick) 182 mg/dL (70-99) 173 mg/dL (70-99) 204 mg/dL (70-99) White Blood Count 12.1 x10^3/uL (4.0-11.0) Red Blood Count 3.91 x10^6/uL (4.30-5.70) Hemoglobin 12.2 g/dL (13.0-17.5) Hematocrit 35.7 % (39.0-53.0) Mean Corpuscular Volume 91 fL (79-100) Mean Corpuscular Hemoglobin 31 pg (25-35) Mean Corpuscular Hemoglobin Concent 34 g/dL (31-37) Red Cell Distribution Width 13.8 % (11.5-14.5) Platelet Count 170 x10^3/uL (140-400) Neutrophils (%) (Auto) 84 % (31-73) Lymphocytes (%) (Auto) 6 % (24-48) Monocytes (%) (Auto) 10 % (0-9) Eosinophils (%) (Auto) 0 % (0-3) Basophils (%) (Auto) 0 % (0-3) Neutrophils # (Auto) 10.1 x10^3uL (1.8-7.7) Lymphocytes # (Auto) 0.8 x10^3/uL (1.0-4.8) Monocytes # (Auto) 1.2 x10^3/uL (0.0-1.1) Eosinophils # (Auto) 0.0 x10^3/uL (0.0-0.7) Basophils # (Auto) 0.0 x10^3/uL (0.0-0.2) Sodium Level 138 mmol/L (136-145) Potassium Level 3.5 mmol/L (3.5-5.1) Chloride Level 98 mmol/L (98-107) Carbon Dioxide Level 23 mmol/L (21-32) Anion Gap 17 (6-14) Blood Urea Nitrogen 96 mg/dL (8-26) Creatinine 5.2 mg/dL (0.7-1.3) Estimated GFR (Cockcroft-Gault) 11.2 Glucose Level 218 mg/dL (70-99) Calcium Level 7.2 mg/dL (8.5-10.1) Phosphorus Level 5.8 mg/dL (2.6-4.7) Test 02/08/18 08:06 02/08/18 12:25 02/08/18 16:48 02/08/18 20:39 Glucose (Fingerstick) 205 mg/dL (70-99) 185 mg/dL (70-99) 171 mg/dL (70-99) 128 mg/dL (70-99) Test 02/09/18 03:24 02/09/18 03:34 02/09/18 08:00 02/09/18 11:53 Sodium Level 141 mmol/L (136-145) Potassium Level 3.4 mmol/L (3.5-5.1) Chloride Level 103 mmol/L (98-107) Carbon Dioxide Level 23 mmol/L (21-32) Anion Gap 15 (6-14) Blood Urea Nitrogen 77 mg/dL (8-26) Creatinine 3.5 mg/dL (0.7-1.3) Estimated GFR (Cockcroft-Gault) 17.6 Glucose Level 148 mg/dL (70-99) Calcium Level 7.1 mg/dL (8.5-10.1) White Blood Count 12.0 x10^3/uL (4.0-11.0) Red Blood Count 3.74 x10^6/uL (4.30-5.70) Hemoglobin 11.7 g/dL (13.0-17.5) Hematocrit 34.0 % (39.0-53.0) Mean Corpuscular Volume 91 fL (79-100) Mean Corpuscular Hemoglobin 31 pg (25-35) Mean Corpuscular Hemoglobin Concent 34 g/dL (31-37) Red Cell Distribution Width 13.8 % (11.5-14.5) Platelet Count 170 x10^3/uL (140-400) Neutrophils (%) (Auto) 81 % (31-73) Lymphocytes (%) (Auto) 10 % (24-48) Monocytes (%) (Auto) 9 % (0-9) Eosinophils (%) (Auto) 0 % (0-3) Basophils (%) (Auto) 0 % (0-3) Neutrophils # (Auto) 9.7 x10^3uL (1.8-7.7) Lymphocytes # (Auto) 1.2 x10^3/uL (1.0-4.8) Monocytes # (Auto) 1.1 x10^3/uL (0.0-1.1) Eosinophils # (Auto) 0.0 x10^3/uL (0.0-0.7) Basophils # (Auto) 0.0 x10^3/uL (0.0-0.2) Glucose (Fingerstick) 147 mg/dL (70-99) 199 mg/dL (70-99) Laboratory Tests Test 02/08/18 16:48 02/08/18 20:39 02/09/18 03:24 02/09/18 03:34 Glucose (Fingerstick) 171 mg/dL (70-99) 128 mg/dL (70-99) Sodium Level 141 mmol/L (136-145) Potassium Level 3.4 mmol/L (3.5-5.1) Chloride Level 103 mmol/L (98-107) Carbon Dioxide Level 23 mmol/L (21-32) Anion Gap 15 (6-14) Blood Urea Nitrogen 77 mg/dL (8-26) Creatinine 3.5 mg/dL (0.7-1.3) Estimated GFR (Cockcroft-Gault) 17.6 Glucose Level 148 mg/dL (70-99) Calcium Level 7.1 mg/dL (8.5-10.1) White Blood Count 12.0 x10^3/uL (4.0-11.0) Red Blood Count 3.74 x10^6/uL (4.30-5.70) Hemoglobin 11.7 g/dL (13.0-17.5) Hematocrit 34.0 % (39.0-53.0) Mean Corpuscular Volume 91 fL (79-100) Mean Corpuscular Hemoglobin 31 pg (25-35) Mean Corpuscular Hemoglobin Concent 34 g/dL (31-37) Red Cell Distribution Width 13.8 % (11.5-14.5) Platelet Count 170 x10^3/uL (140-400) Neutrophils (%) (Auto) 81 % (31-73) Lymphocytes (%) (Auto) 10 % (24-48) Monocytes (%) (Auto) 9 % (0-9) Eosinophils (%) (Auto) 0 % (0-3) Basophils (%) (Auto) 0 % (0-3) Neutrophils # (Auto) 9.7 x10^3uL (1.8-7.7) Lymphocytes # (Auto) 1.2 x10^3/uL (1.0-4.8) Monocytes # (Auto) 1.1 x10^3/uL (0.0-1.1) Eosinophils # (Auto) 0.0 x10^3/uL (0.0-0.7) Basophils # (Auto) 0.0 x10^3/uL (0.0-0.2) Test 02/09/18 08:00 02/09/18 11:53 Glucose (Fingerstick) 147 mg/dL (70-99) 199 mg/dL (70-99) Microbiology 02/06/18 Blood Culture - Preliminary, Resulted NO GROWTH AFTER 2 DAYS 10/24/18 Urine Culture - Final, Complete 02/07/18 Urine Culture Result 1 (ELIAZAR) - Final, Complete Medications Current Medications Sodium Chloride 1,000 ml @ 1,000 mls/hr 1X ONCE IV Last administered on 02/06at 19:59; Start 02/06/18 at 20:00; Stop 02/06/18 at 20:59; Status DC Insulin Human Regular 150 unit/ Sodium Chloride 151.5 ml @ 0 mls/hr CONT PRN PRN IV PER PROTOCOL; Start 02/06/18 at 21:00; Stop 02/09/18 at 09:34; Status DC Potassium Chloride (KCl Oral Soln) 40 meq 1X ONCE PO Last administered on at 21:22; Start 02/06/18 at 21:30; Stop 02/06/18 at 21:31; Status DC Potassium Chloride/Water 50 ml @ 25 mls/hr Q1H IV ; Start 02/06/18 at 21:00; Stop 02/06/18 at 21:16; Status DC Insulin Human Regular 150 ml @ 9.1 mls/hr 1X ONCE IV Last administered on at 21:24; Start 02/06/18 at 21:45; Stop 02/07/18 at 14:17; Status DC Potassium Chloride 40 meq/ Sodium Chloride 520 ml @ 130 mls/hr 1X ONCE IV Last administered on 02/06/18at 22:30; Start 02/06/18 at 22:00; Stop 02/07/18 at 02:00; Status DC Potassium Chloride 40 meq/ Sodium Chloride 520 ml @ 130 mls/hr 1X ONCE IV Last administered on 02/07/18at 01:39; Start 02/07/18 at 02:00; Stop 02/07/18 at 05:59; Status DC Ondansetron HCl (Zofran) 4 mg PRN Q8HRS PRN IV NAUSEA/VOMITING Last administered on 02/06/18at 23:49; Start 02/06/18 at 21:15; Stop 02/07/18 at 21 :14; Status DC Fentanyl Citrate (Fentanyl 2ml Vial) 50 mcg PRN Q2HR PRN IV PAIN Last administered on 02/07/18at 15:01; Start 02/06/18 at 21:15; Stop 02/07/18 at 21 :14; Status DC Acetaminophen (Tylenol) 650 mg PRN Q4HRS PRN PO FEVER; Start 02/06/18 at 21:15 ; Stop 02/07/18 at 21:14; Status DC Vancomycin HCl (Vanco Per Pharmacy) 1 each PRN DAILY PRN MC SEE COMMENTS; Start 02/06/18 at 21:30; Stop 02/07/18 at 07:52; Status DC Piperacillin Sod/ Tazobactam Sod (Zosyn Per Pharmacy) 1 each PRN DAILY PRN MC SEE COMMENTS; Start 02/06/18 at 21:30 Sodium Chloride 1,000 ml @ 1,000 mls/hr 1X ONCE IV Last administered on 02/06at 21:32; Start 02/06/18 at 21:30; Stop 02/06/18 at 22:29; Status DC Piperacillin Sod/ Tazobactam Sod 3.375 gm/Sodium Chloride 50 ml @ 100 mls/hr 1X ONCE IV Last administered on 02/06/18at 21:33; Start 02/06/18 at 22:00; Stop 02/06/18 at 22:29; Status DC Vancomycin HCl 1.25 gm/Sodium Chloride 250 ml @ 166.667 mls/hr 1X ONCE IV Last administered on 02/06/18at 22:30; Start 02/06/18 at 22:00; Stop 02/06/18 at 23:29; Status DC Piperacillin Sod/ Tazobactam Sod 2.25 gm/Sodium Chloride 50 ml @ 100 mls/hr Q8HRS IV Last administered on 02/09/18at 06:26; Start 02/07/18 at 06:00 Sodium Chloride 1,000 ml @ 250 mls/hr Q4H IV ; Start 02/06/18 at 22:30; Stop 02/07/18 at 03:21; Status DC Sodium Chloride 1,000 ml @ 250 mls/hr Q4H IV ; Start 02/06/18 at 22:30; Stop 02/07/18 at 06:10; Status DC Dextrose/Sodium Chloride 1,000 ml @ 250 mls/hr Q4H IV ; Start 02/06/18 at 22: 30; Stop 02/07/18 at 03:21; Status DC Magnesium Sulfate/ Dextrose 100 ml @ 25 mls/hr DAILY IV ; Start 02/07/18 at 09 :00; Stop 02/08/18 at 04:48; Status DC Sodium Phosphate 40 mmol/Sodium Chloride 513.3333 ml @ 83.3 mls/hr 1X PRN PRN IV SEE COMMENTS; Start 02/06/18 at 22:30 Sodium Phosphate 20 mmol/Dextrose 256.6667 ml @ 62.5 mls/hr 1X PRN PRN IV SEE COMMENTS; Start 02/06/18 at 22:30 Sodium Phosphate 10 mmol/Dextrose 253.3333 ml @ 62.5 mls/hr 1X PRN PRN IV SEE COMMENTS; Start 02/06/18 at 22:30 Dextrose/Sodium Chloride 1,000 ml @ 250 mls/hr Q4H IV Last administered on at 23:30; Start 02/06/18 at 23:45; Stop 02/07/18 at 03:21; Status DC Sodium Chloride 1,000 ml @ 200 mls/hr Q5H IV Last administered on 02/09/18at 09:15; Start 02/07/18 at 03:00 Metoclopramide HCl (Reglan Vial) 5 mg PRN Q6HRS PRN IV NAUSEA/VOMITING Last administered on 02/07/18at 03:15; Start 02/07/18 at 03:00 Insulin Human Lispro (HumaLOG) 0-7 UNITS TIDWMEALS SQ Last administered on at 18:08; Start 02/07/18 at 08:00; Stop 02/09/18 at 09:34; Status DC Dextrose (Dextrose 50%-Water Syringe) 12.5 gm PRN Q15MIN PRN IV SEE COMMENTS; Start 02/07/18 at 02:15 Insulin Human Lispro (HumaLOG) 4 units 1X ONCE SQ ; Start 02/07/18 at 02:30; Stop 02/07/18 at 02:31; Status Cancel Aspirin (Ecotrin) 81 mg DAILYWBKFT PO Last administered on 02/09/18at 09:16; Start 02/07/18 at 10:00 Pantoprazole Sodium (PROTONIX VIAL for IV PUSH) 40 mg DAILYAC IVP Last administered on 02/09/18at 09:16; Start 02/07/18 at 16:30; Stop 02/09/18 at 09 :34; Status DC Chlorpromazine HCl (Thorazine) 25 mg PRN Q6HRS PRN IV HICCUPS Last administered on 02/08/18at 02:08; Start 02/07/18 at 17:00; Stop 02/08/18 at 05 :07; Status DC Zolpidem Tartrate (Ambien) 5 mg PRN QHS PRN PO INSOMNIA, MAY REPEAT IN 1HR; Start 02/07/18 at 17:00 Magnesium Sulfate/ Dextrose 100 ml @ 25 mls/hr PRN DAILY PRN IV SEE COMMENTS; Start 02/08/18 at 05:00 Chlorpromazine HCl 25 mg/Dextrose 50 ml @ 100 mls/hr PRN Q6HRS PRN IV HICCUPS Last administered on 02/09/18at 00:28; Start 02/08/18 at 05:15 Lactobacillus Rhamnosus (Culturelle) 1 cap BID PO Last administered on at 09:16; Start 02/08/18 at 09:00 Fentanyl Citrate (Fentanyl 2ml Vial) 50 mcg PRN Q2HR PRN IV SEVERE PAIN Last administered on 02/08/18at 21:28; Start 02/08/18 at 21:00 Pantoprazole Sodium (Protonix) 40 mg DAILYAC PO ; Start 02/09/18 at 11:30 Insulin Human Lispro (HumaLOG) 0-9 UNITS TIDWMEALS SQ ; Start 02/09/18 at 12:00 Dextrose (Dextrose 50%-Water Syringe) 12.5 gm PRN Q15MIN PRN IV SEE COMMENTS; Start 02/09/18 at 09:45 Glimepiride (Amaryl) 2 mg DAILY PO Last administered on 02/09/18at 09:50; Start 02/09/18 at 09:45 Vitals/I & O Vital Sign - Last 24 Hours 02/08/18 02/08/18 02/08/18 02/08/18 15:51 19:50 20:00 21:28 Temp 97.9 98.7 97.9 98.7 Pulse 91 94 Resp 20 16 B/P (MAP) 111/58 (75) 99/59 (72) Pulse Ox 96 94 O2 Delivery Room Air Room Air Room Air Room Air 02/08/18 02/08/18 02/09/18 02/09/18 23:02 23:31 03:00 08:00 Temp 98.9 99.9 99.0 98.9 99.9 99.0 Pulse 96 101 101 Resp 16 18 20 B/P (MAP) 110/61 (77) 106/59 (75) 111/59 (76) Pulse Ox 94 95 94 O2 Delivery Room Air Room Air Room Air Room Air 02/09/18 02/09/18 02/09/18 08:00 09:39 11:45 Temp 97.9 97.9 Pulse 103 Resp 24 B/P (MAP) 125/72 (89) Pulse Ox 94 O2 Delivery Room Air Room Air Room Air O2 Flow Rate 2.0 Intake and Output 02/08/18 02/08/18 02/09/18 15:00 23:00 07:00 Intake Total 1600 ml 1200 ml 380 ml Output Total 1450 ml 1650 ml Balance 150 ml 1200 ml -1270 ml Nutrition Consultation Dietary Evaluation: Recommendations by RD: Protein supplementation Comments: added renal to diet restrictions - K 3.4, Bun 77, cr 3.5, GF 17.6 changed Glucerna supplement to Nepro bid Expected Outcomes/Goals: diet advancement - met new goal: to meet > 75% est nutr needs Malnutrition Findings: Food and Nutrition Intake (Sev: <50% est energy req 5days Weight Status: Overweight VANESSA OVALLE MD Feb 09, 2018 12:45
--- NOTE | 2018-02-09 14:03 | PDOC ---
Subjective: Subjective: Burning esophagus pain after Glucerna and juice. Still has hiccups. No vomiting or abd pain, also doesn't think more distended. Says sat on the commode for two hours but did not stool. Objective: Objective: Reviewed w/ RN earlier - abd looks distended. Vital Signs: Vital Signs Date Time Temp Pulse Resp B/P (MAP) Pulse Ox O2 Delivery O2 Flow Rate FiO2 02/09/18 11:45 97.9 103 24 125/72 (89) 94 Room Air 97.9 02/09/18 08:00 2.0 Labs: Laboratory Tests Test 02/08/18 16:48 02/08/18 20:39 02/09/18 03:24 02/09/18 03:34 Glucose (Fingerstick) 171 mg/dL 128 mg/dL Sodium Level 141 mmol/L Potassium Level 3.4 mmol/L Chloride Level 103 mmol/L Carbon Dioxide Level 23 mmol/L Anion Gap 15 Blood Urea Nitrogen 77 mg/dL Creatinine 3.5 mg/dL Estimated GFR (Cockcroft-Gault) 17.6 Glucose Level 148 mg/dL Calcium Level 7.1 mg/dL White Blood Count 12.0 x10^3/uL Red Blood Count 3.74 x10^6/uL Hemoglobin 11.7 g/dL Hematocrit 34.0 % Mean Corpuscular Volume 91 fL Mean Corpuscular Hemoglobin 31 pg Mean Corpuscular Hemoglobin Concent 34 g/dL Red Cell Distribution Width 13.8 % Platelet Count 170 x10^3/uL Neutrophils (%) (Auto) 81 % Lymphocytes (%) (Auto) 10 % Monocytes (%) (Auto) 9 % Eosinophils (%) (Auto) 0 % Basophils (%) (Auto) 0 % Neutrophils # (Auto) 9.7 x10^3uL Lymphocytes # (Auto) 1.2 x10^3/uL Monocytes # (Auto) 1.1 x10^3/uL Eosinophils # (Auto) 0.0 x10^3/uL Basophils # (Auto) 0.0 x10^3/uL Test 02/09/18 08:00 02/09/18 11:53 Glucose (Fingerstick) 147 mg/dL 199 mg/dL Blood and urine cultures neg. Imaging: KUB 02/08 IMPRESSION: Moderate gaseous distention of multiple small bowel loops suggesting small bowel obstruction. CT scanning is suggested for further evaluation. PE: GEN: NAD LUNGS: clear HEART: tachycardic ABD: round - more distended? quiet NEURO/PSYCH: A & O 3 A/P: Hiccups GERD Abd distention CAR, DM -- Chest CT A/P r/o SBO. SETH CABELLO Feb 09, 2018 14:03
[2018-02-09 15:31] VITALS: BP 137/66
--- NOTE | 2018-02-09 16:28 | RAD ---
PQRS Compliance statement: One or more of the following individualized dose reduction techniques were utilized for this examination: 1. Automated exposure control. 2. Adjustment of the mA and/or kV according to patient size. 3. Use of iterative reconstruction technique. Indication:ABD DISTENTION, ABD PAIN
NO CONTRAST PER ORDER TECHNIQUE: CT abdomen and pelvis without IV contrast with multiplanar reformats. COMPARISON: None FINDINGS: Limited evaluation of solid abdominal and pelvic organs due to lack of IV contrast. Heart is normal in size. No pericardial or pleural effusion. Patchy consolidations are seen in the left lower lobe with air bronchograms. Subsegmental atelectasis is seen in the right lung base. Small amount of central pneumobilia is seen. 1.7 x 1.4 cm well-circumscribed low attenuating lesion is seen in the segment 2 of the liver demonstrating fluid density. 1 cm subcapsular segment IVb lesion is seen which is too small to characterize. 2.1 x 1.7 cm area of low-attenuation is seen in the segment 4A/4B junction along the ligamentum falciform recess (series 2 image 23). Noncontrast appearance of the spleen, pancreas, adrenals within normal limits. No nephrolithiasis or hydronephrosis. No free pelvic fluid or ascites. The colon is decompressed with diffuse dilation of the small bowel loops with air-fluid levels. The represented to bowel loop measures approximately 6 cm in diameter. There is a 2.8 cm stone in the distal small bowel loops. Gallbladder is decompressed. Trace amount of emphysema is seen in the gallbladder fossa. Shotty mesenteric lymph nodes are seen, nonspecific most likely reactive. Shotty lymph nodes are seen along the right external iliac chain, nonspecific likely reactive. No pneumoperitoneum or pneumatosis intestinalis. Urinary bladder is decompressed Melchor catheter. The prostate and seminal vesicles show no large mass. Small left inguinal fat-containing hernia. No suspicious bony lesion. IMPRESSION: 1. Findings of compatible with gallstone ileus with large gallbladder stone in the distal small bowel loops in the right lower quadrant causing small bowel obstruction. 2. Decompressed gallbladder with trace amount of emphysema in the gallbladder fossa and small amount of central pneumobilia. 3. Patchy opacity with consolidation in the left lower lobe likely subsegmental atelectasis or pneumonia. 4. 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 Nonemergent MRI of the abdomen with IV contrast recommended for better evaluation. Electronically signed by: Marcos Thomas DO (02/09/2018 4:25 PM) [facility]
--- NOTE | 2018-02-09 17:21 | RAD ---
Indication: NG tube placement check TECHNIQUE: Single upright AP view of the abdomen COMPARISON: CT abdomen pelvis from the same day FINDINGS: NG tube is seen with its tear in the body of the stomach. Dilated small bowel loops are redemonstrated. Clear lung bases. Elevated left hemidiaphragm, nonspecific. Visualized bones are within normal limits. IMPRESSION: 1. NG tube with its tip in the body of the stomach. 2. Small bowel obstruction. Electronically signed by: Marcos Thomas DO (02/09/2018 5:18 PM) [facility]
[2018-02-09 18:12] LABS: HEMOGLOBIN A1C 7.6 % (4.8-5.6)
[2018-02-09] MEDS: fentaNYL PF VIAL 100 MCG/2 ML VIAL IV PRN ×2 (20:29→23:14)
[2018-02-09] MEDS: METOCLOPRAMIDE HCL 10 MG/2 ML VIAL. IV PRN (20:29)
[2018-02-09 20:36] VITALS: BP 108/63
--- NOTE | 2018-02-09 22:05 | PDOC2 ---
CONSULT Date of Consult Date of Consult DATE: 02/09/18 TIME: 21:57 Reason for Consult Reason for Consult: gallstone ileus Referring Physician Referring Physician: Propray Identification/Chief Complaint Chief Complaint NGT and abd pain Source Source: Chart review, Patient History of Present Illness Reason for Visit: 67 yo M with severe uncontrolled DM presents with weakness, fatigue, N/V, minimal bowel output. CT scan demonstrates gallstone ileus. Seen in hospital room. Main c/o currently is NGT. Some abd pain. Past Medical History Cardiovascular: HTN GI: GERD Endocrine: Diabetes (2) Past Surgical History Past Surgical History: Other (anal abscess I & D. Left shoulder abscess with I & D) Family History Family History: No Significant Social History Quit ALCOHOL: rare ("one shot a year") Drugs: Marijuana (daily) Lives: Alone Current Problem List Problem List Problems Medical Problems: (1) Acute renal failure Status: Acute (2) CHF (congestive heart failure) Status: Acute (3) DKA (diabetic ketoacidoses) Status: Acute (4) Heart murmur Status: Acute (5) NSTEMI (non-ST elevated myocardial infarction) Status: Acute Current Medications Current Medications Current Medications Sodium Chloride 1,000 ml @ 1,000 mls/hr 1X ONCE IV Last administered on 02/06at 19:59; Start 02/06/18 at 20:00; Stop 02/06/18 at 20:59; Status DC Insulin Human Regular 150 unit/ Sodium Chloride 151.5 ml @ 0 mls/hr CONT PRN PRN IV PER PROTOCOL; Start 02/06/18 at 21:00; Stop 02/09/18 at 09:34; Status DC Potassium Chloride (KCl Oral Soln) 40 meq 1X ONCE PO Last administered on at 21:22; Start 02/06/18 at 21:30; Stop 02/06/18 at 21:31; Status DC Potassium Chloride/Water 50 ml @ 25 mls/hr Q1H IV ; Start 02/06/18 at 21:00; Stop 02/06/18 at 21:16; Status DC Insulin Human Regular 150 ml @ 9.1 mls/hr 1X ONCE IV Last administered on at 21:24; Start 02/06/18 at 21:45; Stop 02/07/18 at 14:17; Status DC Potassium Chloride 40 meq/ Sodium Chloride 520 ml @ 130 mls/hr 1X ONCE IV Last administered on 02/06/18at 22:30; Start 02/06/18 at 22:00; Stop 02/07/18 at 02:00; Status DC Potassium Chloride 40 meq/ Sodium Chloride 520 ml @ 130 mls/hr 1X ONCE IV Last administered on 02/07/18at 01:39; Start 02/07/18 at 02:00; Stop 02/07/18 at 05:59; Status DC Ondansetron HCl (Zofran) 4 mg PRN Q8HRS PRN IV NAUSEA/VOMITING Last administered on 02/06/18at 23:49; Start 02/06/18 at 21:15; Stop 02/07/18 at 21 :14; Status DC Fentanyl Citrate (Fentanyl 2ml Vial) 50 mcg PRN Q2HR PRN IV PAIN Last administered on 02/07/18at 15:01; Start 02/06/18 at 21:15; Stop 02/07/18 at 21 :14; Status DC Acetaminophen (Tylenol) 650 mg PRN Q4HRS PRN PO FEVER; Start 02/06/18 at 21:15 ; Stop 02/07/18 at 21:14; Status DC Vancomycin HCl (Vanco Per Pharmacy) 1 each PRN DAILY PRN MC SEE COMMENTS; Start 02/06/18 at 21:30; Stop 02/07/18 at 07:52; Status DC Piperacillin Sod/ Tazobactam Sod (Zosyn Per Pharmacy) 1 each PRN DAILY PRN MC SEE COMMENTS; Start 02/06/18 at 21:30 Sodium Chloride 1,000 ml @ 1,000 mls/hr 1X ONCE IV Last administered on 02/06at 21:32; Start 02/06/18 at 21:30; Stop 02/06/18 at 22:29; Status DC Piperacillin Sod/ Tazobactam Sod 3.375 gm/Sodium Chloride 50 ml @ 100 mls/hr 1X ONCE IV Last administered on 02/06/18at 21:33; Start 02/06/18 at 22:00; Stop 02/06/18 at 22:29; Status DC Vancomycin HCl 1.25 gm/Sodium Chloride 250 ml @ 166.667 mls/hr 1X ONCE IV Last administered on 02/06/18at 22:30; Start 02/06/18 at 22:00; Stop 02/06/18 at 23:29; Status DC Piperacillin Sod/ Tazobactam Sod 2.25 gm/Sodium Chloride 50 ml @ 100 mls/hr Q8HRS IV Last administered on 02/09/18at 21:14; Start 02/07/18 at 06:00 Sodium Chloride 1,000 ml @ 250 mls/hr Q4H IV ; Start 02/06/18 at 22:30; Stop 02/07/18 at 03:21; Status DC Sodium Chloride 1,000 ml @ 250 mls/hr Q4H IV ; Start 02/06/18 at 22:30; Stop 02/07/18 at 06:10; Status DC Dextrose/Sodium Chloride 1,000 ml @ 250 mls/hr Q4H IV ; Start 02/06/18 at 22: 30; Stop 02/07/18 at 03:21; Status DC Magnesium Sulfate/ Dextrose 100 ml @ 25 mls/hr DAILY IV ; Start 02/07/18 at 09 :00; Stop 02/08/18 at 04:48; Status DC Sodium Phosphate 40 mmol/Sodium Chloride 513.3333 ml @ 83.3 mls/hr 1X PRN PRN IV SEE COMMENTS; Start 02/06/18 at 22:30 Sodium Phosphate 20 mmol/Dextrose 256.6667 ml @ 62.5 mls/hr 1X PRN PRN IV SEE COMMENTS; Start 02/06/18 at 22:30 Sodium Phosphate 10 mmol/Dextrose 253.3333 ml @ 62.5 mls/hr 1X PRN PRN IV SEE COMMENTS; Start 02/06/18 at 22:30 Dextrose/Sodium Chloride 1,000 ml @ 250 mls/hr Q4H IV Last administered on at 23:30; Start 02/06/18 at 23:45; Stop 02/07/18 at 03:21; Status DC Sodium Chloride 1,000 ml @ 200 mls/hr Q5H IV Last administered on 02/09/18at 20:31; Start 02/07/18 at 03:00 Metoclopramide HCl (Reglan Vial) 5 mg PRN Q6HRS PRN IV NAUSEA/VOMITING Last administered on 02/09/18at 20:29; Start 02/07/18 at 03:00 Insulin Human Lispro (HumaLOG) 0-7 UNITS TIDWMEALS SQ Last administered on at 18:08; Start 02/07/18 at 08:00; Stop 02/09/18 at 09:34; Status DC Dextrose (Dextrose 50%-Water Syringe) 12.5 gm PRN Q15MIN PRN IV SEE COMMENTS; Start 02/07/18 at 02:15 Insulin Human Lispro (HumaLOG) 4 units 1X ONCE SQ ; Start 02/07/18 at 02:30; Stop 02/07/18 at 02:31; Status Cancel Aspirin (Ecotrin) 81 mg DAILYWBKFT PO Last administered on 02/09/18at 09:16; Start 02/07/18 at 10:00 Pantoprazole Sodium (PROTONIX VIAL for IV PUSH) 40 mg DAILYAC IVP Last administered on 02/09/18at 09:16; Start 02/07/18 at 16:30; Stop 02/09/18 at 09 :34; Status DC Chlorpromazine HCl (Thorazine) 25 mg PRN Q6HRS PRN IV HICCUPS Last administered on 02/08/18at 02:08; Start 02/07/18 at 17:00; Stop 02/08/18 at 05 :07; Status DC Zolpidem Tartrate (Ambien) 5 mg PRN QHS PRN PO INSOMNIA, MAY REPEAT IN 1HR; Start 02/07/18 at 17:00 Magnesium Sulfate/ Dextrose 100 ml @ 25 mls/hr PRN DAILY PRN IV SEE COMMENTS; Start 02/08/18 at 05:00 Chlorpromazine HCl 25 mg/Dextrose 50 ml @ 100 mls/hr PRN Q6HRS PRN IV HICCUPS Last administered on 02/09/18at 00:28; Start 02/08/18 at 05:15 Lactobacillus Rhamnosus (Culturelle) 1 cap BID PO Last administered on at 09:16; Start 02/08/18 at 09:00 Fentanyl Citrate (Fentanyl 2ml Vial) 50 mcg PRN Q2HR PRN IV SEVERE PAIN Last administered on 02/09/18at 20:29; Start 02/08/18 at 21:00 Pantoprazole Sodium (Protonix) 40 mg DAILYAC PO ; Start 02/09/18 at 11:30; Stop 02/09/18 at 15:51; Status DC Insulin Human Lispro (HumaLOG) 0-9 UNITS TIDWMEALS SQ ; Start 02/09/18 at 12:00 Dextrose (Dextrose 50%-Water Syringe) 12.5 gm PRN Q15MIN PRN IV SEE COMMENTS; Start 02/09/18 at 09:45 Glimepiride (Amaryl) 2 mg DAILY PO Last administered on 02/09/18at 09:50; Start 02/09/18 at 09:45 Pantoprazole Sodium (PROTONIX VIAL for IV PUSH) 40 mg DAILYAC IVP ; Start 02/10 at 07:30 Allergies Allergies: Coded Allergies: No Known Drug Allergies (Unverified , 02/06/18) ROS Gastrointestinal: Yes Nausea, Yes Vomiting, Yes Abdominal Pain, Yes Constipation Physical Exam General: Alert, Cooperative, mild distress HEENT: Atraumatic, Other (NGT in place) Abdomen: Soft, Other (distention, mild TTP) Extremities: No clubbing, No cyanosis Skin: No rashes, No breakdown Neuro: Normal speech, Sensation intact Psych/Mental Status: Mental status NL, Mood NL Vitals VITALS Vital Signs Date Time Temp Pulse Resp B/P (MAP) Pulse Ox O2 Delivery O2 Flow Rate FiO2 02/09/18 21:00 Room Air 02/09/18 20:36 98.1 99 20 108/63 (78) 96 98.1 02/09/18 08:00 2.0 Labs Labs Laboratory Tests Test 02/08/18 05:55 02/08/18 08:06 02/08/18 12:25 02/08/18 16:48 White Blood Count 12.1 x10^3/uL (4.0-11.0) Red Blood Count 3.91 x10^6/uL (4.30-5.70) Hemoglobin 12.2 g/dL (13.0-17.5) Hematocrit 35.7 % (39.0-53.0) Mean Corpuscular Volume 91 fL (79-100) Mean Corpuscular Hemoglobin 31 pg (25-35) Mean Corpuscular Hemoglobin Concent 34 g/dL (31-37) Red Cell Distribution Width 13.8 % (11.5-14.5) Platelet Count 170 x10^3/uL (140-400) Neutrophils (%) (Auto) 84 % (31-73) Lymphocytes (%) (Auto) 6 % (24-48) Monocytes (%) (Auto) 10 % (0-9) Eosinophils (%) (Auto) 0 % (0-3) Basophils (%) (Auto) 0 % (0-3) Neutrophils # (Auto) 10.1 x10^3uL (1.8-7.7) Lymphocytes # (Auto) 0.8 x10^3/uL (1.0-4.8) Monocytes # (Auto) 1.2 x10^3/uL (0.0-1.1) Eosinophils # (Auto) 0.0 x10^3/uL (0.0-0.7) Basophils # (Auto) 0.0 x10^3/uL (0.0-0.2) Sodium Level 138 mmol/L (136-145) Potassium Level 3.5 mmol/L (3.5-5.1) Chloride Level 98 mmol/L (98-107) Carbon Dioxide Level 23 mmol/L (21-32) Anion Gap 17 (6-14) Blood Urea Nitrogen 96 mg/dL (8-26) Creatinine 5.2 mg/dL (0.7-1.3) Estimated GFR (Cockcroft-Gault) 11.2 Glucose Level 218 mg/dL (70-99) Calcium Level 7.2 mg/dL (8.5-10.1) Phosphorus Level 5.8 mg/dL (2.6-4.7) Glucose (Fingerstick) 205 mg/dL (70-99) 185 mg/dL (70-99) 171 mg/dL (70-99) Test 02/08/18 20:39 02/09/18 03:24 02/09/18 03:34 02/09/18 08:00 Glucose (Fingerstick) 128 mg/dL (70-99) 147 mg/dL (70-99) Sodium Level 141 mmol/L (136-145) Potassium Level 3.4 mmol/L (3.5-5.1) Chloride Level 103 mmol/L (98-107) Carbon Dioxide Level 23 mmol/L (21-32) Anion Gap 15 (6-14) Blood Urea Nitrogen 77 mg/dL (8-26) Creatinine 3.5 mg/dL (0.7-1.3) Estimated GFR (Cockcroft-Gault) 17.6 Glucose Level 148 mg/dL (70-99) Calcium Level 7.1 mg/dL (8.5-10.1) White Blood Count 12.0 x10^3/uL (4.0-11.0) Red Blood Count 3.74 x10^6/uL (4.30-5.70) Hemoglobin 11.7 g/dL (13.0-17.5) Hematocrit 34.0 % (39.0-53.0) Mean Corpuscular Volume 91 fL (79-100) Mean Corpuscular Hemoglobin 31 pg (25-35) Mean Corpuscular Hemoglobin Concent 34 g/dL (31-37) Red Cell Distribution Width 13.8 % (11.5-14.5) Platelet Count 170 x10^3/uL (140-400) Neutrophils (%) (Auto) 81 % (31-73) Lymphocytes (%) (Auto) 10 % (24-48) Monocytes (%) (Auto) 9 % (0-9) Eosinophils (%) (Auto) 0 % (0-3) Basophils (%) (Auto) 0 % (0-3) Neutrophils # (Auto) 9.7 x10^3uL (1.8-7.7) Lymphocytes # (Auto) 1.2 x10^3/uL (1.0-4.8) Monocytes # (Auto) 1.1 x10^3/uL (0.0-1.1) Eosinophils # (Auto) 0.0 x10^3/uL (0.0-0.7) Basophils # (Auto) 0.0 x10^3/uL (0.0-0.2) Hemoglobin A1c 7.6 % (4.8-5.6) Test 02/09/18 11:53 02/09/18 16:48 02/09/18 21:31 Glucose (Fingerstick) 199 mg/dL (70-99) 161 mg/dL (70-99) 127 mg/dL (70-99) Laboratory Tests Test 02/09/18 03:24 02/09/18 03:34 02/09/18 08:00 02/09/18 11:53 Sodium Level 141 mmol/L (136-145) Potassium Level 3.4 mmol/L (3.5-5.1) Chloride Level 103 mmol/L (98-107) Carbon Dioxide Level 23 mmol/L (21-32) Anion Gap 15 (6-14) Blood Urea Nitrogen 77 mg/dL (8-26) Creatinine 3.5 mg/dL (0.7-1.3) Estimated GFR (Cockcroft-Gault) 17.6 Glucose Level 148 mg/dL (70-99) Calcium Level 7.1 mg/dL (8.5-10.1) White Blood Count 12.0 x10^3/uL (4.0-11.0) Red Blood Count 3.74 x10^6/uL (4.30-5.70) Hemoglobin 11.7 g/dL (13.0-17.5) Hematocrit 34.0 % (39.0-53.0) Mean Corpuscular Volume 91 fL (79-100) Mean Corpuscular Hemoglobin 31 pg (25-35) Mean Corpuscular Hemoglobin Concent 34 g/dL (31-37) Red Cell Distribution Width 13.8 % (11.5-14.5) Platelet Count 170 x10^3/uL (140-400) Neutrophils (%) (Auto) 81 % (31-73) Lymphocytes (%) (Auto) 10 % (24-48) Monocytes (%) (Auto) 9 % (0-9) Eosinophils (%) (Auto) 0 % (0-3) Basophils (%) (Auto) 0 % (0-3) Neutrophils # (Auto) 9.7 x10^3uL (1.8-7.7) Lymphocytes # (Auto) 1.2 x10^3/uL (1.0-4.8) Monocytes # (Auto) 1.1 x10^3/uL (0.0-1.1) Eosinophils # (Auto) 0.0 x10^3/uL (0.0-0.7) Basophils # (Auto) 0.0 x10^3/uL (0.0-0.2) Hemoglobin A1c 7.6 % (4.8-5.6) Glucose (Fingerstick) 147 mg/dL (70-99) 199 mg/dL (70-99) Test 02/09/18 16:48 02/09/18 21:31 Glucose (Fingerstick) 161 mg/dL (70-99) 127 mg/dL (70-99) Images Images CT c/w gallstone ileus Assessment/Plan Assessment/Plan Gallstone ileus agree with fluid resuscitation and NGT placement will plan laparoscopic versus open enterotomy with removal of gallstone in AM. Will not plan to address biliary system, given patient's multiple other medical issues, including: uncontrolled DM, elevated troponin and renal failure. Pt does represent a poor surgical candidate, but must have bowel obstruction resolved. R/R/B/A d/w pt. Risks, including, but not limited to: bleeding, infection, damage to surrounding structures, risk of anesthesia, risk of open. He appears to understand, his questions are answered and he elects to proceed. Thanks for consult! JAYDEN ROWLEY MD Feb 09, 2018 22:05
[2018-02-10] VITALS (12 sets, daily range): BP systolic 121–160; BP diastolic 58–89
[2018-02-10] MEDS: IV NORMAL SALINE 1000ML BAG 1,000 ML IV SCH ×3 (02:35→15:33)
[2018-02-10 03:36] LABS: BASO % 0 % (0-3); EOS # 0.1 x10^3/uL (0.0-0.7); EOS % 1 % (0-3); HEMATOCRIT 37.2 % (39.0-53.0); HEMOGLOBIN 12.7 g/dL (13.0-17.5); LYMPH # 1.3 x10^3/uL (1.0-4.8); LYMPH % 12 % (24-48); MEAN CORPUSCULAR HEMOGLOBIN 31 pg (25-35); MEAN CORPUSCULAR HGB CONC 34 g/dL (31-37); MEAN CORPUSCULAR VOLUME 91 fL (79-100); MONO # 1.3 x10^3/uL (0.0-1.1); MONO % 11 % (0-9); NEUT # 8.8 x10^3uL (1.8-7.7); NEUT % 76 % (31-73); PLATELET COUNT 186 x10^3/uL (140-400); RED BLOOD COUNT 4.09 x10^6/uL (4.30-5.70); RED CELL DISTRIBUTION WIDTH 13.7 % (11.5-14.5); WHITE BLOOD COUNT 11.5 x10^3/uL (4.0-11.0)
--- NOTE | 2018-02-10 03:42 | RAD ---
INDICATION: ng placement COMPARISON: February 09, 2018 IMPRESSION: Abdomen: Single view of abdomen obtained. There is a single enteric tube identified with tip at left upper quadrant of the abdomen laterally at expected location of stomach. Air-filled dilated loops of bowel are seen in the partially visualized abdomen and could be from ileus or obstruction. Some patchy opacities are seen at the lung bases. Electronically signed by: Jayden Peters MD (02/10/2018 3:39 AM) [id number]
[2018-02-10 03:52] LABS: ALBUMIN 1.9 g/dL (3.4-5.0); CREATININE 2.2 mg/dL (0.7-1.3); GFR 30.1; PHOSPHORUS 3.4 mg/dL (2.6-4.7); POTASSIUM 3.5 mmol/L (3.5-5.1)
[2018-02-10] MEDS: PIPERACILLIN/TAZOBACTAM 2.25 GM in IV NORMAL SALINE 50ML 50 ML IV SCH ×2 (05:10→14:00)
[2018-02-10] MEDS: INSULIN LISPRO 300 UNITS/3 ML INSULN.PEN. SQ SCH ×3 (08:00→17:00)
[2018-02-10] MEDS: ASPIRIN ENTERIC COATED 81 MG TABLET.DR. PO SCH (08:00)
--- NOTE | 2018-02-10 08:47 | PDOC ---
SURGICAL PROGRESS NOTE Subjective some pain feels miserable no flatus in several days + hiccups Vital Signs Vital Signs Date Time Temp Pulse Resp B/P (MAP) Pulse Ox O2 Delivery O2 Flow Rate FiO2 02/10/18 08:12 98.5 90 19 132/74 (93) 95 Room Air 98.5 02/09/18 08:00 2.0 I&O Intake and Output 02/10/18 07:00 Intake Total 720 ml Output Total 6575 ml Balance -5855 ml Intake Oral 720 ml Output Urine Total 4675 ml Gastric Drainage Total 1800 ml Emesis 100 ml General: Cooperative, No acute distress HEENT: Other (NG present ) Abdomen: Soft, Other (distended, tender across upper abdomen) Labs Laboratory Tests Test 02/08/18 12:25 02/08/18 16:48 02/08/18 20:39 02/09/18 03:24 Glucose (Fingerstick) 185 mg/dL (70-99) 171 mg/dL (70-99) 128 mg/dL (70-99) Sodium Level 141 mmol/L (136-145) Potassium Level 3.4 mmol/L (3.5-5.1) Chloride Level 103 mmol/L (98-107) Carbon Dioxide Level 23 mmol/L (21-32) Anion Gap 15 (6-14) Blood Urea Nitrogen 77 mg/dL (8-26) Creatinine 3.5 mg/dL (0.7-1.3) Estimated GFR (Cockcroft-Gault) 17.6 Glucose Level 148 mg/dL (70-99) Calcium Level 7.1 mg/dL (8.5-10.1) Test 02/09/18 03:34 02/09/18 08:00 02/09/18 11:53 02/09/18 16:48 White Blood Count 12.0 x10^3/uL (4.0-11.0) Red Blood Count 3.74 x10^6/uL (4.30-5.70) Hemoglobin 11.7 g/dL (13.0-17.5) Hematocrit 34.0 % (39.0-53.0) Mean Corpuscular Volume 91 fL (79-100) Mean Corpuscular Hemoglobin 31 pg (25-35) Mean Corpuscular Hemoglobin Concent 34 g/dL (31-37) Red Cell Distribution Width 13.8 % (11.5-14.5) Platelet Count 170 x10^3/uL (140-400) Neutrophils (%) (Auto) 81 % (31-73) Lymphocytes (%) (Auto) 10 % (24-48) Monocytes (%) (Auto) 9 % (0-9) Eosinophils (%) (Auto) 0 % (0-3) Basophils (%) (Auto) 0 % (0-3) Neutrophils # (Auto) 9.7 x10^3uL (1.8-7.7) Lymphocytes # (Auto) 1.2 x10^3/uL (1.0-4.8) Monocytes # (Auto) 1.1 x10^3/uL (0.0-1.1) Eosinophils # (Auto) 0.0 x10^3/uL (0.0-0.7) Basophils # (Auto) 0.0 x10^3/uL (0.0-0.2) Hemoglobin A1c 7.6 % (4.8-5.6) Glucose (Fingerstick) 147 mg/dL (70-99) 199 mg/dL (70-99) 161 mg/dL (70-99) Test 02/09/18 21:31 02/10/18 03:15 02/10/18 07:14 Glucose (Fingerstick) 127 mg/dL (70-99) 114 mg/dL (70-99) White Blood Count 11.5 x10^3/uL (4.0-11.0) Red Blood Count 4.09 x10^6/uL (4.30-5.70) Hemoglobin 12.7 g/dL (13.0-17.5) Hematocrit 37.2 % (39.0-53.0) Mean Corpuscular Volume 91 fL (79-100) Mean Corpuscular Hemoglobin 31 pg (25-35) Mean Corpuscular Hemoglobin Concent 34 g/dL (31-37) Red Cell Distribution Width 13.7 % (11.5-14.5) Platelet Count 186 x10^3/uL (140-400) Neutrophils (%) (Auto) 76 % (31-73) Lymphocytes (%) (Auto) 12 % (24-48) Monocytes (%) (Auto) 11 % (0-9) Eosinophils (%) (Auto) 1 % (0-3) Basophils (%) (Auto) 0 % (0-3) Neutrophils # (Auto) 8.8 x10^3uL (1.8-7.7) Lymphocytes # (Auto) 1.3 x10^3/uL (1.0-4.8) Monocytes # (Auto) 1.3 x10^3/uL (0.0-1.1) Eosinophils # (Auto) 0.1 x10^3/uL (0.0-0.7) Basophils # (Auto) 0.0 x10^3/uL (0.0-0.2) Sodium Level 143 mmol/L (136-145) Potassium Level 3.5 mmol/L (3.5-5.1) Chloride Level 106 mmol/L (98-107) Carbon Dioxide Level 24 mmol/L (21-32) Anion Gap 13 (6-14) Blood Urea Nitrogen 52 mg/dL (8-26) Creatinine 2.2 mg/dL (0.7-1.3) Estimated GFR (Cockcroft-Gault) 30.1 Glucose Level 121 mg/dL (70-99) Calcium Level 8.0 mg/dL (8.5-10.1) Phosphorus Level 3.4 mg/dL (2.6-4.7) Albumin 1.9 g/dL (3.4-5.0) Laboratory Tests Test 02/09/18 11:53 02/09/18 16:48 02/09/18 21:31 02/10/18 03:15 Glucose (Fingerstick) 199 mg/dL (70-99) 161 mg/dL (70-99) 127 mg/dL (70-99) White Blood Count 11.5 x10^3/uL (4.0-11.0) Red Blood Count 4.09 x10^6/uL (4.30-5.70) Hemoglobin 12.7 g/dL (13.0-17.5) Hematocrit 37.2 % (39.0-53.0) Mean Corpuscular Volume 91 fL (79-100) Mean Corpuscular Hemoglobin 31 pg (25-35) Mean Corpuscular Hemoglobin Concent 34 g/dL (31-37) Red Cell Distribution Width 13.7 % (11.5-14.5) Platelet Count 186 x10^3/uL (140-400) Neutrophils (%) (Auto) 76 % (31-73) Lymphocytes (%) (Auto) 12 % (24-48) Monocytes (%) (Auto) 11 % (0-9) Eosinophils (%) (Auto) 1 % (0-3) Basophils (%) (Auto) 0 % (0-3) Neutrophils # (Auto) 8.8 x10^3uL (1.8-7.7) Lymphocytes # (Auto) 1.3 x10^3/uL (1.0-4.8) Monocytes # (Auto) 1.3 x10^3/uL (0.0-1.1) Eosinophils # (Auto) 0.1 x10^3/uL (0.0-0.7) Basophils # (Auto) 0.0 x10^3/uL (0.0-0.2) Sodium Level 143 mmol/L (136-145) Potassium Level 3.5 mmol/L (3.5-5.1) Chloride Level 106 mmol/L (98-107) Carbon Dioxide Level 24 mmol/L (21-32) Anion Gap 13 (6-14) Blood Urea Nitrogen 52 mg/dL (8-26) Creatinine 2.2 mg/dL (0.7-1.3) Estimated GFR (Cockcroft-Gault) 30.1 Glucose Level 121 mg/dL (70-99) Calcium Level 8.0 mg/dL (8.5-10.1) Phosphorus Level 3.4 mg/dL (2.6-4.7) Albumin 1.9 g/dL (3.4-5.0) Test 02/10/18 07:14 Glucose (Fingerstick) 114 mg/dL (70-99) Problem List Problems Medical Problems: (1) Acute renal failure Status: Acute (2) CHF (congestive heart failure) Status: Acute (3) DKA (diabetic ketoacidoses) Status: Acute (4) Heart murmur Status: Acute (5) NSTEMI (non-ST elevated myocardial infarction) Status: Acute Assessment/Plan gallstone ileus plans for surgery today to remove stone NAHUM ALVAREZ APRN Feb 10, 2018 08:47
[2018-02-10] MEDS: LACTOBACILLUS RHAMNOSUS GG 1 CAPSULE. PO SCH ×2 (09:00→21:00)
[2018-02-10] MEDS: GLIMEPIRIDE 2 MG TABLET. PO SCH (09:00)
[2018-02-10] MEDS: PANTOPRAZOLE IV PUSH 40 MG VIAL. IVP SCH (09:01)
[2018-02-10] MEDS ORDERED: ROCURONIUM 50 MG/5 ML VIAL. ONE (09:29)
[2018-02-10] MEDS ORDERED: DEXAMETHASONE SOD PHOS 20 MG/5 ML VIAL. ONE (09:29)
[2018-02-10] MEDS ORDERED: LIDOCAINE 2% PF Vial for OR 5 ML VIAL. ONE (09:29)
[2018-02-10] MEDS ORDERED: fentaNYL PF VIAL 100 MCG/2 ML VIAL ONE ×3 (09:29→15:03)
[2018-02-10] MEDS ORDERED: PROPOFOL 20 ML IV ONE (09:29)
[2018-02-10] MEDS ORDERED: ONDANSETRON PF 4 MG/2 ML VIAL. ONE (09:29)
--- NOTE | 2018-02-10 09:57 | PDOC ---
Infectious Disease Note Subjective Subjective Not feeling well NPO for surgery N/V and hiccups have settled down for the moment NGT in place Mild abdominal pain No flatus or BM No F/C/S ROS ROS per HPI otherwise neg Vital Sign Vital Signs Vital Signs Date Time Temp Pulse Resp B/P (MAP) Pulse Ox O2 Delivery O2 Flow Rate FiO2 02/10/18 08:12 98.5 90 19 132/74 (93) 95 Room Air 98.5 02/09/18 08:00 2.0 Physical Exam PHYSICAL EXAM GENERAL: Lying down, NAD HEENT: NGT. Oral cavity pink, dry LUNGS: Clear. HEART: S1, S2 regular. ABDOMEN: Obese, hypoactive BS, soft EXTREMITIES: No edema or cyanosis. SKIN: without rash NEUROLOGIC: Awake and responds appropriately PIV Labs Lab Laboratory Tests Test 02/09/18 11:53 02/09/18 16:48 02/09/18 21:31 02/10/18 03:15 Glucose (Fingerstick) 199 mg/dL (70-99) 161 mg/dL (70-99) 127 mg/dL (70-99) White Blood Count 11.5 x10^3/uL (4.0-11.0) Red Blood Count 4.09 x10^6/uL (4.30-5.70) Hemoglobin 12.7 g/dL (13.0-17.5) Hematocrit 37.2 % (39.0-53.0) Mean Corpuscular Volume 91 fL (79-100) Mean Corpuscular Hemoglobin 31 pg (25-35) Mean Corpuscular Hemoglobin Concent 34 g/dL (31-37) Red Cell Distribution Width 13.7 % (11.5-14.5) Platelet Count 186 x10^3/uL (140-400) Neutrophils (%) (Auto) 76 % (31-73) Lymphocytes (%) (Auto) 12 % (24-48) Monocytes (%) (Auto) 11 % (0-9) Eosinophils (%) (Auto) 1 % (0-3) Basophils (%) (Auto) 0 % (0-3) Neutrophils # (Auto) 8.8 x10^3uL (1.8-7.7) Lymphocytes # (Auto) 1.3 x10^3/uL (1.0-4.8) Monocytes # (Auto) 1.3 x10^3/uL (0.0-1.1) Eosinophils # (Auto) 0.1 x10^3/uL (0.0-0.7) Basophils # (Auto) 0.0 x10^3/uL (0.0-0.2) Sodium Level 143 mmol/L (136-145) Potassium Level 3.5 mmol/L (3.5-5.1) Chloride Level 106 mmol/L (98-107) Carbon Dioxide Level 24 mmol/L (21-32) Anion Gap 13 (6-14) Blood Urea Nitrogen 52 mg/dL (8-26) Creatinine 2.2 mg/dL (0.7-1.3) Estimated GFR (Cockcroft-Gault) 30.1 Glucose Level 121 mg/dL (70-99) Calcium Level 8.0 mg/dL (8.5-10.1) Phosphorus Level 3.4 mg/dL (2.6-4.7) Albumin 1.9 g/dL (3.4-5.0) Test 02/10/18 07:14 Glucose (Fingerstick) 114 mg/dL (70-99) IMPRESSION: 1. Findings of compatible with gallstone ileus with large gallbladder stone in the distal small bowel loops in the right lower quadrant causing small bowel obstruction. 2. Decompressed gallbladder with trace amount of emphysema in the gallbladder fossa and small amount of central pneumobilia. 3. Patchy opacity with consolidation in the left lower lobe likely subsegmental atelectasis or pneumonia. 4. 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 Nonemergent MRI of the abdomen with IV contrast recommended for better evaluation. Micro 02/06/18 Blood Culture - Preliminary, Resulted NO GROWTH AFTER 3 DAYS URINE CULTURE RES 1 Final No growth Objective Assessment Gallstone ileus Lactic acidosis Sepsis with hypotension Metabolic alkalosis sec to vomiting DM with high anion gap CAR - improving Severe dehydration Leukocytosis - trending down Plan Plan of Care Continue Zosyn One time dose vanc 02/06 Await surgery Patient seen and examined. Chart reviewed in detail.case discussed with [employer]LET [employer]> Agree with above plan. HELEN HEATH APRN Feb 10, 2018 09:57 SOL KAPADIA MD Feb 10, 2018 22:44
--- NOTE | 2018-02-10 09:59 | PDOC ---
SUBJECTIVE ROS Not feeling good, Constant Hiccups, plans for surgery today for gallstone ileus OBJECTIVE Vital Signs Vital Signs Date Time Temp Pulse Resp B/P (MAP) Pulse Ox O2 Delivery O2 Flow Rate FiO2 02/10/18 08:12 98.5 90 19 132/74 (93) 95 Room Air 98.5 02/09/18 08:00 2.0 I & 0 Intake and Output 02/10/18 07:00 Intake Total 720 ml Output Total 6575 ml Balance -5855 ml Intake Oral 720 ml Output Urine Total 4675 ml Gastric Drainage Total 1800 ml Emesis 100 ml PHYSICAL EXAM Physical Exam General Appearance: Mild distress, Continuous Hiccups HEENT- NGT + Skin: No rash Respiratory: decreased breath sounds Heart: S1S2 Abdomen: soft, Genitourinary: Melchor+ Neurology: alert, oriented, follow commands DIAGNOSIS/ASSESSMENT Assessment & Plan CAR-Likely Dehydration / Improving ftrom 7.5--.2.2 E-Lytes stable, UOP Good US Unremarkable Sepsis with hypotension/Metabolic alkalosis sec to vomiting Resolved DM - managed by primary Gallstone ileus plans for surgery today to remove stone DW Pt and RN at bedside COMMENT/RELEVANT DATA Meds Current Medications Medications (Trade) Dose Ordered Sig/Gricel Start Time Stop Time Status Last Admin Dose Admin Acetaminophen (Tylenol) 650 mg PRN Q4HRS PRN 02/06/18 21:15 02/07/18 21:14 DC Aspirin (Ecotrin) 81 mg [id number] 02/07/18 10:00 02/09/18 09:16 81 MG Chlorpromazine HCl 25 mg/Dextrose 50 ml @ 100 mls/hr PRN Q6HRS PRN 02/08/18 05:15 02/09/18 23:34 100 MLS/HR Chlorpromazine HCl (Thorazine) 25 mg PRN Q6HRS PRN 02/07/18 17:00 02/08/18 05:07 DC 02/08/18 02:08 25 MG Dexamethasone Sodium Phosphate (Decadron) 20 mg STK-MED ONCE 02/10/18 09:29 02/10/18 09:30 DC Dextrose (Dextrose 50%-Water Syringe) 12.5 gm PRN Q15MIN PRN 02/09/18 09:45 Dextrose/Sodium Chloride 1,000 ml @ 250 mls/hr Q4H 02/06/18 23:45 02/07/18 03:21 DC 02/06/18 23:30 250 MLS/HR Fentanyl Citrate (Fentanyl 2ml Vial) 100 mcg STK-MED ONCE 02/10/18 09:29 02/10/18 09:30 DC Glimepiride (Amaryl) 2 mg DAILY 02/09/18 09:45 02/09/18 09:50 2 MG Insulin Human Lispro (HumaLOG) 0-9 UNITS TIDWMEALS 02/09/18 12:00 Insulin Human Regular 150 ml @ 9.1 mls/hr 1X ONCE 02/06/18 21:45 02/07/18 14:17 DC 02/06/18 21:24 8.3 MLS/HR Insulin Human Regular 150 unit/ Sodium Chloride 151.5 ml @ 0 mls/hr CONT PRN PRN 02/06/18 21:00 02/09/18 09:34 DC Lactobacillus Rhamnosus (Culturelle) 1 cap BID 02/08/18 09:00 02/09/18 09:16 1 CAP Lidocaine HCl (Lidocaine Pf 2% Vial) 5 ml STK-MED ONCE 02/10/18 09:29 02/10/18 09:30 DC Magnesium Sulfate/ Dextrose 100 ml @ 25 mls/hr PRN DAILY PRN 02/08/18 05:00 Metoclopramide HCl (Reglan Vial) 5 mg PRN Q6HRS PRN 02/07/18 03:00 02/09/18 20:29 5 MG Ondansetron HCl (Zofran) 4 mg STK-MED ONCE 02/10/18 09:29 02/10/18 09:30 DC Pantoprazole Sodium (PROTONIX VIAL for IV PUSH) 40 mg DAILYAC 02/10/18 07:30 02/10/18 09:01 40 MG Pantoprazole Sodium (Protonix) 40 mg DAILYAC 02/09/18 11:30 02/09/18 15:51 DC Piperacillin Sod/ Tazobactam Sod (Zosyn Per Pharmacy) 1 each PRN DAILY PRN 02/06/18 21:30 Piperacillin Sod/ Tazobactam Sod 2.25 gm/Sodium Chloride 50 ml @ 100 mls/hr Q8HRS 02/07/18 06:00 02/10/18 05:10 100 MLS/HR Piperacillin Sod/ Tazobactam Sod 3.375 gm/Sodium Chloride 50 ml @ 100 mls/hr 1X ONCE 02/06/18 22:00 02/06/18 22:29 DC 02/06/18 21:33 100 MLS/HR Potassium Chloride 40 meq/ Sodium Chloride 520 ml @ 130 mls/hr 1X ONCE 02/07/18 02:00 02/07/18 05:59 DC 02/07/18 01:39 130 MLS/HR Potassium Chloride/Water 50 ml @ 25 mls/hr Q1H 02/06/18 21:00 02/06/18 21:16 DC Potassium Chloride (KCl Oral Soln) 40 meq 1X ONCE 02/06/18 21:30 02/06/18 21:31 DC 02/06/18 21:22 40 MEQ Propofol 20 ml @ As Directed STK-MED ONCE 02/10/18 09:29 02/10/18 09:30 DC Rocuronium [place] (Zemuron) 50 mg STK-MED ONCE 02/10/18 09:29 02/10/18 09:30 DC Sodium Chloride 1,000 ml @ 200 mls/hr Q5H 02/07/18 03:00 02/10/18 09:01 200 MLS/HR Sodium Phosphate 10 mmol/Dextrose 253.3333 ml @ 62.5 mls/hr 1X PRN PRN 02/06/18 22:30 Sodium Phosphate 20 mmol/Dextrose 256.6667 ml @ 62.5 mls/hr 1X PRN PRN 02/06/18 22:30 Sodium Phosphate 40 mmol/Sodium Chloride 513.3333 ml @ 83.3 mls/hr 1X PRN PRN 02/06/18 22:30 Vancomycin HCl (Vanco Per Pharmacy) 1 each PRN DAILY PRN 02/06/18 21:30 02/07/18 07:52 DC Vancomycin HCl 1.25 gm/Sodium Chloride 250 ml @ 166.667 mls/hr 1X ONCE 02/06/18 22:00 02/06/18 23:29 DC 02/06/18 22:30 166.667 MLS/HR Zolpidem Tartrate (Ambien) 5 mg PRN QHS PRN 02/07/18 17:00 Lab Laboratory Tests Test 02/09/18 11:53 02/09/18 16:48 02/09/18 21:31 02/10/18 03:15 Glucose (Fingerstick) 199 mg/dL (70-99) 161 mg/dL (70-99) 127 mg/dL (70-99) White Blood Count 11.5 x10^3/uL (4.0-11.0) Red Blood Count 4.09 x10^6/uL (4.30-5.70) Hemoglobin 12.7 g/dL (13.0-17.5) Hematocrit 37.2 % (39.0-53.0) Mean Corpuscular Volume 91 fL (79-100) Mean Corpuscular Hemoglobin 31 pg (25-35) Mean Corpuscular Hemoglobin Concent 34 g/dL (31-37) Red Cell Distribution Width 13.7 % (11.5-14.5) Platelet Count 186 x10^3/uL (140-400) Neutrophils (%) (Auto) 76 % (31-73) Lymphocytes (%) (Auto) 12 % (24-48) Monocytes (%) (Auto) 11 % (0-9) Eosinophils (%) (Auto) 1 % (0-3) Basophils (%) (Auto) 0 % (0-3) Neutrophils # (Auto) 8.8 x10^3uL (1.8-7.7) Lymphocytes # (Auto) 1.3 x10^3/uL (1.0-4.8) Monocytes # (Auto) 1.3 x10^3/uL (0.0-1.1) Eosinophils # (Auto) 0.1 x10^3/uL (0.0-0.7) Basophils # (Auto) 0.0 x10^3/uL (0.0-0.2) Sodium Level 143 mmol/L (136-145) Potassium Level 3.5 mmol/L (3.5-5.1) Chloride Level 106 mmol/L (98-107) Carbon Dioxide Level 24 mmol/L (21-32) Anion Gap 13 (6-14) Blood Urea Nitrogen 52 mg/dL (8-26) Creatinine 2.2 mg/dL (0.7-1.3) Estimated GFR (Cockcroft-Gault) 30.1 Glucose Level 121 mg/dL (70-99) Calcium Level 8.0 mg/dL (8.5-10.1) Phosphorus Level 3.4 mg/dL (2.6-4.7) Albumin 1.9 g/dL (3.4-5.0) Test 02/10/18 07:14 Glucose (Fingerstick) 114 mg/dL (70-99) Results All relevant outside records, renal labs, imaging studies, telemetry/EKG's were reviewed. GWYN HONG MD Feb 10, 2018 09:59
[2018-02-10] MEDS ORDERED: LIDOCAINE 2% PF 2ML VIAL. ONE (10:29)
[2018-02-10] MEDS ORDERED: BUPIVAC MPF-EPI 0.5%-1:200000 30 ML VIAL. ONE (10:31)
[2018-02-10] MEDS ORDERED: SUCCINYLCHOLINE 200 MG/10 ML VIAL. ONE (10:38)
[2018-02-10] MEDS ORDERED: chlorproMAZINE 12.5 MG in IV DEXTROSE 5% 50 ML IV ONE (10:45)
--- NOTE | 2018-02-10 12:24 | PDOC ---
PROGRESS NOTES Chief Complaint Chief Complaint GAll stone ileus Lactic acidosis sec ot DKA and severe dehydration KNown DM with high likelihood of undiagnosed gastroparesis Sepsis with hypotension - responded to IVF - t.o ICU 02/08 s/p DKA Metabolic alkalosis secondary to vomiting Elevated troponin, NSTEMI, demand ischemia Acute on chronic renal failure - creat 5 on admit Leukocytosis, reactive History of Present Illness History of Present Illness NOw having gallstone surgery to remove stones Most likely will transfer to ICU postop Sugars much better Earlier entry transferred out of ICU 02/08/18, was there because of creatinine 5, severe dehydration with vomiting,and sepsis with HYPOTENSION Known diabetes not on pills or insulin, unknown hemoglobin A1c but was in DKA on admission Creatinine 5 on admission now down to 3. IV fluids running at 200 mL an hour per renal Contreras in for close monitoring of urine output with very good urine output Labs are improving, hemoglobin 11, WBC 12. Potassium 3.4. Anion gap still elevated but down to 15. Hypotension is better. ID on board because of the sepsis, lactic acidosis etc. PLAN: ICU ost op Check post op labs check hemoglobin A1c I did start glimepiride 1 tablet once a day No metformin because of kidney function Avoid nephrotoxins PT OT-I do believe he self-pay IV antibiotics per ID Troponin peaked at 0.38-N STEMI/demand ischemia by cardiology No further cardiac workup plans MAintain contreras for UO monitoring Vitals Vitals Vital Signs Date Time Temp Pulse Resp B/P (MAP) Pulse Ox O2 Delivery O2 Flow Rate FiO2 02/10/18 10:48 98.8 99 20 148/73 94 Room Air 98.8 02/09/18 08:00 2.0 Physical Exam Physical Exam GENERAL: Lying down, NAD HEENT: NGT. Oral cavity pink, dry LUNGS: Clear. HEART: S1, S2 regular. ABDOMEN: Obese, hypoactive BS, soft EXTREMITIES: No edema or cyanosis. SKIN: without rash NEUROLOGIC: Awake and responds appropriately PIV General: Cooperative, No acute distress Heart: Regular rate, Normal S1, Normal S2, No murmurs Lungs: Clear Abdomen: Soft, Other (distended, tender across upper abdomen) Extremities: No clubbing, No cyanosis Skin: No rashes, No breakdown Labs LABS Laboratory Tests Test 02/09/18 16:48 02/09/18 21:31 02/10/18 03:15 02/10/18 07:14 Glucose (Fingerstick) 161 mg/dL (70-99) 127 mg/dL (70-99) 114 mg/dL (70-99) White Blood Count 11.5 x10^3/uL (4.0-11.0) Red Blood Count 4.09 x10^6/uL (4.30-5.70) Hemoglobin 12.7 g/dL (13.0-17.5) Hematocrit 37.2 % (39.0-53.0) Mean Corpuscular Volume 91 fL (79-100) Mean Corpuscular Hemoglobin 31 pg (25-35) Mean Corpuscular Hemoglobin Concent 34 g/dL (31-37) Red Cell Distribution Width 13.7 % (11.5-14.5) Platelet Count 186 x10^3/uL (140-400) Neutrophils (%) (Auto) 76 % (31-73) Lymphocytes (%) (Auto) 12 % (24-48) Monocytes (%) (Auto) 11 % (0-9) Eosinophils (%) (Auto) 1 % (0-3) Basophils (%) (Auto) 0 % (0-3) Neutrophils # (Auto) 8.8 x10^3uL (1.8-7.7) Lymphocytes # (Auto) 1.3 x10^3/uL (1.0-4.8) Monocytes # (Auto) 1.3 x10^3/uL (0.0-1.1) Eosinophils # (Auto) 0.1 x10^3/uL (0.0-0.7) Basophils # (Auto) 0.0 x10^3/uL (0.0-0.2) Sodium Level 143 mmol/L (136-145) Potassium Level 3.5 mmol/L (3.5-5.1) Chloride Level 106 mmol/L (98-107) Carbon Dioxide Level 24 mmol/L (21-32) Anion Gap 13 (6-14) Blood Urea Nitrogen 52 mg/dL (8-26) Creatinine 2.2 mg/dL (0.7-1.3) Estimated GFR (Cockcroft-Gault) 30.1 Glucose Level 121 mg/dL (70-99) Calcium Level 8.0 mg/dL (8.5-10.1) Phosphorus Level 3.4 mg/dL (2.6-4.7) Albumin 1.9 g/dL (3.4-5.0) Review of Systems Review of Systems Out having surgery Assessment and Plan Assessmemt and Plan Problems Medical Problems: (1) Acute renal failure Status: Acute (2) CHF (congestive heart failure) Status: Acute (3) DKA (diabetic ketoacidoses) Status: Acute (4) Heart murmur Status: Acute (5) NSTEMI (non-ST elevated myocardial infarction) Status: Acute Comment Review of Relevant I have reviewed the following items luz (where applicable) has been applied. Labs Laboratory Tests Test 02/08/18 12:25 02/08/18 16:48 02/08/18 20:39 02/09/18 03:24 Glucose (Fingerstick) 185 mg/dL (70-99) 171 mg/dL (70-99) 128 mg/dL (70-99) Sodium Level 141 mmol/L (136-145) Potassium Level 3.4 mmol/L (3.5-5.1) Chloride Level 103 mmol/L (98-107) Carbon Dioxide Level 23 mmol/L (21-32) Anion Gap 15 (6-14) Blood Urea Nitrogen 77 mg/dL (8-26) Creatinine 3.5 mg/dL (0.7-1.3) Estimated GFR (Cockcroft-Gault) 17.6 Glucose Level 148 mg/dL (70-99) Calcium Level 7.1 mg/dL (8.5-10.1) Test 02/09/18 03:34 02/09/18 08:00 02/09/18 11:53 02/09/18 16:48 White Blood Count 12.0 x10^3/uL (4.0-11.0) Red Blood Count 3.74 x10^6/uL (4.30-5.70) Hemoglobin 11.7 g/dL (13.0-17.5) Hematocrit 34.0 % (39.0-53.0) Mean Corpuscular Volume 91 fL (79-100) Mean Corpuscular Hemoglobin 31 pg (25-35) Mean Corpuscular Hemoglobin Concent 34 g/dL (31-37) Red Cell Distribution Width 13.8 % (11.5-14.5) Platelet Count 170 x10^3/uL (140-400) Neutrophils (%) (Auto) 81 % (31-73) Lymphocytes (%) (Auto) 10 % (24-48) Monocytes (%) (Auto) 9 % (0-9) Eosinophils (%) (Auto) 0 % (0-3) Basophils (%) (Auto) 0 % (0-3) Neutrophils # (Auto) 9.7 x10^3uL (1.8-7.7) Lymphocytes # (Auto) 1.2 x10^3/uL (1.0-4.8) Monocytes # (Auto) 1.1 x10^3/uL (0.0-1.1) Eosinophils # (Auto) 0.0 x10^3/uL (0.0-0.7) Basophils # (Auto) 0.0 x10^3/uL (0.0-0.2) Hemoglobin A1c 7.6 % (4.8-5.6) Glucose (Fingerstick) 147 mg/dL (70-99) 199 mg/dL (70-99) 161 mg/dL (70-99) Test 02/09/18 21:31 02/10/18 03:15 02/10/18 07:14 Glucose (Fingerstick) 127 mg/dL (70-99) 114 mg/dL (70-99) White Blood Count 11.5 x10^3/uL (4.0-11.0) Red Blood Count 4.09 x10^6/uL (4.30-5.70) Hemoglobin 12.7 g/dL (13.0-17.5) Hematocrit 37.2 % (39.0-53.0) Mean Corpuscular Volume 91 fL (79-100) Mean Corpuscular Hemoglobin 31 pg (25-35) Mean Corpuscular Hemoglobin Concent 34 g/dL (31-37) Red Cell Distribution Width 13.7 % (11.5-14.5) Platelet Count 186 x10^3/uL (140-400) Neutrophils (%) (Auto) 76 % (31-73) Lymphocytes (%) (Auto) 12 % (24-48) Monocytes (%) (Auto) 11 % (0-9) Eosinophils (%) (Auto) 1 % (0-3) Basophils (%) (Auto) 0 % (0-3) Neutrophils # (Auto) 8.8 x10^3uL (1.8-7.7) Lymphocytes # (Auto) 1.3 x10^3/uL (1.0-4.8) Monocytes # (Auto) 1.3 x10^3/uL (0.0-1.1) Eosinophils # (Auto) 0.1 x10^3/uL (0.0-0.7) Basophils # (Auto) 0.0 x10^3/uL (0.0-0.2) Sodium Level 143 mmol/L (136-145) Potassium Level 3.5 mmol/L (3.5-5.1) Chloride Level 106 mmol/L (98-107) Carbon Dioxide Level 24 mmol/L (21-32) Anion Gap 13 (6-14) Blood Urea Nitrogen 52 mg/dL (8-26) Creatinine 2.2 mg/dL (0.7-1.3) Estimated GFR (Cockcroft-Gault) 30.1 Glucose Level 121 mg/dL (70-99) Calcium Level 8.0 mg/dL (8.5-10.1) Phosphorus Level 3.4 mg/dL (2.6-4.7) Albumin 1.9 g/dL (3.4-5.0) Laboratory Tests Test 02/09/18 16:48 02/09/18 21:31 02/10/18 03:15 02/10/18 07:14 Glucose (Fingerstick) 161 mg/dL (70-99) 127 mg/dL (70-99) 114 mg/dL (70-99) White Blood Count 11.5 x10^3/uL (4.0-11.0) Red Blood Count 4.09 x10^6/uL (4.30-5.70) Hemoglobin 12.7 g/dL (13.0-17.5) Hematocrit 37.2 % (39.0-53.0) Mean Corpuscular Volume 91 fL (79-100) Mean Corpuscular Hemoglobin 31 pg (25-35) Mean Corpuscular Hemoglobin Concent 34 g/dL (31-37) Red Cell Distribution Width 13.7 % (11.5-14.5) Platelet Count 186 x10^3/uL (140-400) Neutrophils (%) (Auto) 76 % (31-73) Lymphocytes (%) (Auto) 12 % (24-48) Monocytes (%) (Auto) 11 % (0-9) Eosinophils (%) (Auto) 1 % (0-3) Basophils (%) (Auto) 0 % (0-3) Neutrophils # (Auto) 8.8 x10^3uL (1.8-7.7) Lymphocytes # (Auto) 1.3 x10^3/uL (1.0-4.8) Monocytes # (Auto) 1.3 x10^3/uL (0.0-1.1) Eosinophils # (Auto) 0.1 x10^3/uL (0.0-0.7) Basophils # (Auto) 0.0 x10^3/uL (0.0-0.2) Sodium Level 143 mmol/L (136-145) Potassium Level 3.5 mmol/L (3.5-5.1) Chloride Level 106 mmol/L (98-107) Carbon Dioxide Level 24 mmol/L (21-32) Anion Gap 13 (6-14) Blood Urea Nitrogen 52 mg/dL (8-26) Creatinine 2.2 mg/dL (0.7-1.3) Estimated GFR (Cockcroft-Gault) 30.1 Glucose Level 121 mg/dL (70-99) Calcium Level 8.0 mg/dL (8.5-10.1) Phosphorus Level 3.4 mg/dL (2.6-4.7) Albumin 1.9 g/dL (3.4-5.0) Microbiology 02/06/18 Blood Culture - Preliminary, Resulted NO GROWTH AFTER 3 DAYS 02/07/18 Urine Culture - Final, Complete 02/07/18 Urine Culture Result 1 (ELIAZAR) - Final, Complete Medications Current Medications Sodium Chloride 1,000 ml @ 1,000 mls/hr 1X ONCE IV Last administered on 02/06at 19:59; Start 02/06/18 at 20:00; Stop 02/06/18 at 20:59; Status DC Insulin Human Regular 150 unit/ Sodium Chloride 151.5 ml @ 0 mls/hr CONT PRN PRN IV PER PROTOCOL; Start 02/06/18 at 21:00; Stop 02/09/18 at 09:34; Status DC Potassium Chloride (KCl Oral Soln) 40 meq 1X ONCE PO Last administered on at 21:22; Start 02/06/18 at 21:30; Stop 02/06/18 at 21:31; Status DC Potassium Chloride/Water 50 ml @ 25 mls/hr Q1H IV ; Start 02/06/18 at 21:00; Stop 02/06/18 at 21:16; Status DC Insulin Human Regular 150 ml @ 9.1 mls/hr 1X ONCE IV Last administered on at 21:24; Start 02/06/18 at 21:45; Stop 02/07/18 at 14:17; Status DC Potassium Chloride 40 meq/ Sodium Chloride 520 ml @ 130 mls/hr 1X ONCE IV Last administered on 02/06/18at 22:30; Start 02/06/18 at 22:00; Stop 02/07/18 at 02:00; Status DC Potassium Chloride 40 meq/ Sodium Chloride 520 ml @ 130 mls/hr 1X ONCE IV Last administered on 02/07/18at 01:39; Start 02/07/18 at 02:00; Stop 02/07/18 at 05:59; Status DC Ondansetron HCl (Zofran) 4 mg PRN Q8HRS PRN IV NAUSEA/VOMITING Last administered on 02/06/18at 23:49; Start 02/06/18 at 21:15; Stop 02/07/18 at 21 :14; Status DC Fentanyl Citrate (Fentanyl 2ml Vial) 50 mcg PRN Q2HR PRN IV PAIN Last administered on 02/07/18at 15:01; Start 02/06/18 at 21:15; Stop 02/07/18 at 21 :14; Status DC Acetaminophen (Tylenol) 650 mg PRN Q4HRS PRN PO FEVER; Start 02/06/18 at 21:15 ; Stop 02/07/18 at 21:14; Status DC Vancomycin HCl (Vanco Per Pharmacy) 1 each PRN DAILY PRN MC SEE COMMENTS; Start 02/06/18 at 21:30; Stop 02/07/18 at 07:52; Status DC Piperacillin Sod/ Tazobactam Sod (Zosyn Per Pharmacy) 1 each PRN DAILY PRN MC SEE COMMENTS; Start 02/06/18 at 21:30 Sodium Chloride 1,000 ml @ 1,000 mls/hr 1X ONCE IV Last administered on 02/06at 21:32; Start 02/06/18 at 21:30; Stop 02/06/18 at 22:29; Status DC Piperacillin Sod/ Tazobactam Sod 3.375 gm/Sodium Chloride 50 ml @ 100 mls/hr 1X ONCE IV Last administered on 02/06/18at 21:33; Start 02/06/18 at 22:00; Stop 02/06/18 at 22:29; Status DC Vancomycin HCl 1.25 gm/Sodium Chloride 250 ml @ 166.667 mls/hr 1X ONCE IV Last administered on 02/06/18at 22:30; Start 02/06/18 at 22:00; Stop 02/06/18 at 23:29; Status DC Piperacillin Sod/ Tazobactam Sod 2.25 gm/Sodium Chloride 50 ml @ 100 mls/hr Q8HRS IV Last administered on 02/10/18at 05:10; Start 02/07/18 at 06:00 Sodium Chloride 1,000 ml @ 250 mls/hr Q4H IV ; Start 02/06/18 at 22:30; Stop 02/07/18 at 03:21; Status DC Sodium Chloride 1,000 ml @ 250 mls/hr Q4H IV ; Start 02/06/18 at 22:30; Stop 02/07/18 at 06:10; Status DC Dextrose/Sodium Chloride 1,000 ml @ 250 mls/hr Q4H IV ; Start 02/06/18 at 22: 30; Stop 02/07/18 at 03:21; Status DC Magnesium Sulfate/ Dextrose 100 ml @ 25 mls/hr DAILY IV ; Start 02/07/18 at 09 :00; Stop 02/08/18 at 04:48; Status DC Sodium Phosphate 40 mmol/Sodium Chloride 513.3333 ml @ 83.3 mls/hr 1X PRN PRN IV SEE COMMENTS; Start 02/06/18 at 22:30 Sodium Phosphate 20 mmol/Dextrose 256.6667 ml @ 62.5 mls/hr 1X PRN PRN IV SEE COMMENTS; Start 02/06/18 at 22:30 Sodium Phosphate 10 mmol/Dextrose 253.3333 ml @ 62.5 mls/hr 1X PRN PRN IV SEE COMMENTS; Start 02/06/18 at 22:30 Dextrose/Sodium Chloride 1,000 ml @ 250 mls/hr Q4H IV Last administered on at 23:30; Start 02/06/18 at 23:45; Stop 02/07/18 at 03:21; Status DC Sodium Chloride 1,000 ml @ 200 mls/hr Q5H IV Last administered on 02/10/18at 09:01; Start 02/07/18 at 03:00 Metoclopramide HCl (Reglan Vial) 5 mg PRN Q6HRS PRN IV NAUSEA/VOMITING Last administered on 02/09/18at 20:29; Start 02/07/18 at 03:00 Insulin Human Lispro (HumaLOG) 0-7 UNITS TIDWMEALS SQ Last administered on at 18:08; Start 02/07/18 at 08:00; Stop 02/09/18 at 09:34; Status DC Dextrose (Dextrose 50%-Water Syringe) 12.5 gm PRN Q15MIN PRN IV SEE COMMENTS; Start 02/07/18 at 02:15 Insulin Human Lispro (HumaLOG) 4 units 1X ONCE SQ ; Start 02/07/18 at 02:30; Stop 02/07/18 at 02:31; Status Cancel Aspirin (Ecotrin) 81 mg DAILYWBKFT PO Last administered on 02/09/18at 09:16; Start 02/07/18 at 10:00 Pantoprazole Sodium (PROTONIX VIAL for IV PUSH) 40 mg DAILYAC IVP Last administered on 02/09/18at 09:16; Start 02/07/18 at 16:30; Stop 02/09/18 at 09 :34; Status DC Chlorpromazine HCl (Thorazine) 25 mg PRN Q6HRS PRN IV HICCUPS Last administered on 02/08/18at 02:08; Start 02/07/18 at 17:00; Stop 02/08/18 at 05 :07; Status DC Zolpidem Tartrate (Ambien) 5 mg PRN QHS PRN PO INSOMNIA, MAY REPEAT IN 1HR; Start 02/07/18 at 17:00 Magnesium Sulfate/ Dextrose 100 ml @ 25 mls/hr PRN DAILY PRN IV SEE COMMENTS; Start 02/08/18 at 05:00 Chlorpromazine HCl 25 mg/Dextrose 50 ml @ 100 mls/hr PRN Q6HRS PRN IV HICCUPS Last administered on 02/09/18at 23:34; Start 02/08/18 at 05:15 Lactobacillus Rhamnosus (Culturelle) 1 cap BID PO Last administered on at 09:16; Start 02/08/18 at 09:00 Fentanyl Citrate (Fentanyl 2ml Vial) 50 mcg PRN Q2HR PRN IV SEVERE PAIN Last administered on 02/09/18at 23:14; Start 02/08/18 at 21:00 Pantoprazole Sodium (Protonix) 40 mg DAILYAC PO ; Start 02/09/18 at 11:30; Stop 02/09/18 at 15:51; Status DC Insulin Human Lispro (HumaLOG) 0-9 UNITS TIDWMEALS SQ ; Start 02/09/18 at 12:00 Dextrose (Dextrose 50%-Water Syringe) 12.5 gm PRN Q15MIN PRN IV SEE COMMENTS; Start 02/09/18 at 09:45 Glimepiride (Amaryl) 2 mg DAILY PO Last administered on 02/09/18at 09:50; Start 02/09/18 at 09:45 Pantoprazole Sodium (PROTONIX VIAL for IV PUSH) 40 mg DAILYAC IVP Last administered on 02/10/18at 09:01; Start 02/10/18 at 07:30 Propofol 20 ml @ As Directed STK-MED ONCE IV ; Start 02/10/18 at 09:29; Stop 02/10/18 at 09:30; Status DC Dexamethasone Sodium Phosphate (Decadron) 20 mg STK-MED ONCE .ROUTE ; Start at 09:29; Stop 02/10/18 at 09:30; Status DC Lidocaine HCl (Lidocaine Pf 2% Vial) 5 ml STK-MED ONCE .ROUTE ; Start 02/10/18 at 09:29; Stop 02/10/18 at 09:30; Status DC Ondansetron HCl (Zofran) 4 mg STK-MED ONCE .ROUTE ; Start 02/10/18 at 09:29; Stop 02/10/18 at 09:30; Status DC Rocuronium [place] (Zemuron) 50 mg STK-MED ONCE .ROUTE ; Start 02/10/18 at 09: 29; Stop 02/10/18 at 09:30; Status DC Fentanyl Citrate (Fentanyl 2ml Vial) 100 mcg STK-MED ONCE .ROUTE ; Start at 09:29; Stop 02/10/18 at 09:30; Status DC Lidocaine HCl (Xylocaine-Mpf 2% Vial) 2 ml STK-MED ONCE .ROUTE ; Start at 10:29; Stop 02/10/18 at 10:30; Status DC Succinylcholine Chloride (Anectine) 200 mg STK-MED ONCE .ROUTE ; Start at 10:38; Stop 02/10/18 at 10:39; Status DC Chlorpromazine HCl 12.5 mg/ Dextrose 50.5 ml @ 100 mls/hr 1X ONCE IV ; Start 02/10/18 at 10:45; Stop 02/10/18 at 11:15; Status DC Bupivacaine HCl/ Epinephrine Bitart (Sensorcain-Mpf Epi 0.5%-[id number]) 30 ml STK -MED ONCE .ROUTE ; Start 02/10/18 at 10:31; Stop 02/10/18 at 11:31; Status DC Vitals/I & O Vital Sign - Last 24 Hours 02/09/18 02/09/18 02/09/18 02/09/18 15:31 20:00 20:29 20:36 Temp 97.7 98.1 97.7 98.1 Pulse 67 99 Resp 20 20 B/P (MAP) 137/66 (89) 108/63 (78) Pulse Ox 96 96 O2 Delivery Room Air Room Air Room Air Room Air 02/09/18 02/09/18 02/10/18 02/10/18 23:14 23:44 00:00 04:00 Temp 98.1 97.8 98.1 97.8 Pulse 103 103 Resp 18 18 B/P (MAP) 126/72 (90) 124/70 (88) Pulse Ox 98 96 O2 Delivery Room Air Room Air Room Air Room Air 02/10/18 02/10/18 02/10/18 08:00 08:12 10:48 Temp 98.5 98.8 98.5 98.8 Pulse 90 99 Resp 19 20 B/P (MAP) 132/74 (93) 148/73 Pulse Ox 95 94 O2 Delivery Room Air Room Air Room Air Intake and Output 02/09/18 02/09/18 02/10/18 15:00 23:00 07:00 Intake Total 720 ml 0 ml Output Total 950 ml 2175 ml 3450 ml Balance -950 ml -1455 ml -3450 ml Nutrition Consultation Dietary Evaluation: Recommendations by RD: Protein supplementation Comments: added renal to diet restrictions - K 3.4, Bun 77, cr 3.5, GF 17.6 changed Glucerna supplement to Nepro bid Expected Outcomes/Goals: diet advancement - met new goal: to meet > 75% est nutr needs Malnutrition Findings: Food and Nutrition Intake (Sev: <50% est energy req 5days Weight Status: Overweight VANESSA OVALLE MD Feb 10, 2018 12:24
--- NOTE | 2018-02-10 12:41 | PDOC ---
SURGICAL PROGRESS NOTE Subjective 67 yo M with gallstone ileus Mild improvement in symptoms NGT with bilious aspirate KUB with SBO D/w pt, risks, benefits and alternatives d/w pt. Risks, including, but not limited to: bleeding, infection, damage to surrounding structures, risk of anesthesia He is at high risk for perioperative complications, given comorbidity. However, given bowel obstruction, need to proceed with surgery. D/w multiple surgeons Pt appears to understand, his questions are answered and he elects to proceed. Vital Signs Vital Signs Date Time Temp Pulse Resp B/P (MAP) Pulse Ox O2 Delivery O2 Flow Rate FiO2 02/10/18 10:48 98.8 99 20 148/73 94 Room Air 98.8 02/09/18 08:00 2.0 I&O Intake and Output 02/10/18 07:00 Intake Total 720 ml Output Total 6575 ml Balance -5855 ml Intake Oral 720 ml Output Urine Total 4675 ml Gastric Drainage Total 1800 ml Emesis 100 ml Labs Laboratory Tests Test 02/08/18 16:48 02/08/18 20:39 02/09/18 03:24 02/09/18 03:34 Glucose (Fingerstick) 171 mg/dL (70-99) 128 mg/dL (70-99) Sodium Level 141 mmol/L (136-145) Potassium Level 3.4 mmol/L (3.5-5.1) Chloride Level 103 mmol/L (98-107) Carbon Dioxide Level 23 mmol/L (21-32) Anion Gap 15 (6-14) Blood Urea Nitrogen 77 mg/dL (8-26) Creatinine 3.5 mg/dL (0.7-1.3) Estimated GFR (Cockcroft-Gault) 17.6 Glucose Level 148 mg/dL (70-99) Calcium Level 7.1 mg/dL (8.5-10.1) White Blood Count 12.0 x10^3/uL (4.0-11.0) Red Blood Count 3.74 x10^6/uL (4.30-5.70) Hemoglobin 11.7 g/dL (13.0-17.5) Hematocrit 34.0 % (39.0-53.0) Mean Corpuscular Volume 91 fL (79-100) Mean Corpuscular Hemoglobin 31 pg (25-35) Mean Corpuscular Hemoglobin Concent 34 g/dL (31-37) Red Cell Distribution Width 13.8 % (11.5-14.5) Platelet Count 170 x10^3/uL (140-400) Neutrophils (%) (Auto) 81 % (31-73) Lymphocytes (%) (Auto) 10 % (24-48) Monocytes (%) (Auto) 9 % (0-9) Eosinophils (%) (Auto) 0 % (0-3) Basophils (%) (Auto) 0 % (0-3) Neutrophils # (Auto) 9.7 x10^3uL (1.8-7.7) Lymphocytes # (Auto) 1.2 x10^3/uL (1.0-4.8) Monocytes # (Auto) 1.1 x10^3/uL (0.0-1.1) Eosinophils # (Auto) 0.0 x10^3/uL (0.0-0.7) Basophils # (Auto) 0.0 x10^3/uL (0.0-0.2) Hemoglobin A1c 7.6 % (4.8-5.6) Test 02/09/18 08:00 02/09/18 11:53 02/09/18 16:48 02/09/18 21:31 Glucose (Fingerstick) 147 mg/dL (70-99) 199 mg/dL (70-99) 161 mg/dL (70-99) 127 mg/dL (70-99) Test 02/10/18 03:15 02/10/18 07:14 White Blood Count 11.5 x10^3/uL (4.0-11.0) Red Blood Count 4.09 x10^6/uL (4.30-5.70) Hemoglobin 12.7 g/dL (13.0-17.5) Hematocrit 37.2 % (39.0-53.0) Mean Corpuscular Volume 91 fL (79-100) Mean Corpuscular Hemoglobin 31 pg (25-35) Mean Corpuscular Hemoglobin Concent 34 g/dL (31-37) Red Cell Distribution Width 13.7 % (11.5-14.5) Platelet Count 186 x10^3/uL (140-400) Neutrophils (%) (Auto) 76 % (31-73) Lymphocytes (%) (Auto) 12 % (24-48) Monocytes (%) (Auto) 11 % (0-9) Eosinophils (%) (Auto) 1 % (0-3) Basophils (%) (Auto) 0 % (0-3) Neutrophils # (Auto) 8.8 x10^3uL (1.8-7.7) Lymphocytes # (Auto) 1.3 x10^3/uL (1.0-4.8) Monocytes # (Auto) 1.3 x10^3/uL (0.0-1.1) Eosinophils # (Auto) 0.1 x10^3/uL (0.0-0.7) Basophils # (Auto) 0.0 x10^3/uL (0.0-0.2) Sodium Level 143 mmol/L (136-145) Potassium Level 3.5 mmol/L (3.5-5.1) Chloride Level 106 mmol/L (98-107) Carbon Dioxide Level 24 mmol/L (21-32) Anion Gap 13 (6-14) Blood Urea Nitrogen 52 mg/dL (8-26) Creatinine 2.2 mg/dL (0.7-1.3) Estimated GFR (Cockcroft-Gault) 30.1 Glucose Level 121 mg/dL (70-99) Calcium Level 8.0 mg/dL (8.5-10.1) Phosphorus Level 3.4 mg/dL (2.6-4.7) Albumin 1.9 g/dL (3.4-5.0) Glucose (Fingerstick) 114 mg/dL (70-99) Laboratory Tests Test 02/09/18 16:48 02/09/18 21:31 02/10/18 03:15 02/10/18 07:14 Glucose (Fingerstick) 161 mg/dL (70-99) 127 mg/dL (70-99) 114 mg/dL (70-99) White Blood Count 11.5 x10^3/uL (4.0-11.0) Red Blood Count 4.09 x10^6/uL (4.30-5.70) Hemoglobin 12.7 g/dL (13.0-17.5) Hematocrit 37.2 % (39.0-53.0) Mean Corpuscular Volume 91 fL (79-100) Mean Corpuscular Hemoglobin 31 pg (25-35) Mean Corpuscular Hemoglobin Concent 34 g/dL (31-37) Red Cell Distribution Width 13.7 % (11.5-14.5) Platelet Count 186 x10^3/uL (140-400) Neutrophils (%) (Auto) 76 % (31-73) Lymphocytes (%) (Auto) 12 % (24-48) Monocytes (%) (Auto) 11 % (0-9) Eosinophils (%) (Auto) 1 % (0-3) Basophils (%) (Auto) 0 % (0-3) Neutrophils # (Auto) 8.8 x10^3uL (1.8-7.7) Lymphocytes # (Auto) 1.3 x10^3/uL (1.0-4.8) Monocytes # (Auto) 1.3 x10^3/uL (0.0-1.1) Eosinophils # (Auto) 0.1 x10^3/uL (0.0-0.7) Basophils # (Auto) 0.0 x10^3/uL (0.0-0.2) Sodium Level 143 mmol/L (136-145) Potassium Level 3.5 mmol/L (3.5-5.1) Chloride Level 106 mmol/L (98-107) Carbon Dioxide Level 24 mmol/L (21-32) Anion Gap 13 (6-14) Blood Urea Nitrogen 52 mg/dL (8-26) Creatinine 2.2 mg/dL (0.7-1.3) Estimated GFR (Cockcroft-Gault) 30.1 Glucose Level 121 mg/dL (70-99) Calcium Level 8.0 mg/dL (8.5-10.1) Phosphorus Level 3.4 mg/dL (2.6-4.7) Albumin 1.9 g/dL (3.4-5.0) Problem List Problems Medical Problems: (1) Acute renal failure Status: Acute (2) CHF (congestive heart failure) Status: Acute (3) DKA (diabetic ketoacidoses) Status: Acute (4) Heart murmur Status: Acute (5) NSTEMI (non-ST elevated myocardial infarction) Status: Acute JAYDEN ROWLEY MD Feb 10, 2018 12:41
[2018-02-10] MEDS ORDERED: cefOXitin SODIUM 2 GM in IV DEXTROSE 5% 100ML 100 ML IV SCH (12:45)
[2018-02-10] MEDS ORDERED: METOPROLOL TARTRATE 5 MG/5 ML VIAL. IVP ONE (12:46)
[2018-02-10] MEDS ORDERED: ePHEDrine PF IN SALINE 50 MG/5 ML DISP.SYRIN IV ONE (13:51)
[2018-02-10] MEDS ORDERED: DESFLURANE 61 TO 120 MINUTES IH ONE ×2 (14:04→14:12)
[2018-02-10] MEDS ORDERED: NEOSTIGMINE METHYLSULFATE 5 MG/5 ML SYRINGE. ONE (14:05)
[2018-02-10] MEDS ORDERED: GLYCOPYRROLATE 1 MG/5 ML VIAL. ONE (14:05)
[2018-02-10] MEDS ORDERED: PHENYLEPHRINE in 0.9% NACL PF 1 MG/10 ML SYRINGE. IV ONE (14:13)
[2018-02-10] MEDS ORDERED: IV RINGERS,LACTATED 1000ML 1,000 ML IV SCH (15:27)
[2018-02-10] MEDS ORDERED: MORPHINE SULFATE 2 MG/ML VIAL. IV PRN (15:30)
[2018-02-10] MEDS ORDERED: PROCHLORPERAZINE 10 MG/2 ML VIAL. IV PRN (15:30)
[2018-02-10] MEDS ORDERED: LIDOCAINE 1% PF 2 ML VIAL. ID PRN (15:30)
[2018-02-10] MEDS ORDERED: HYDROmorphone 2 MG/ML VIAL IV PRN (15:30)
[2018-02-10] MEDS ORDERED: fentaNYL PF VIAL 100 MCG/2 ML VIAL IV PRN ×2 (15:30)
[2018-02-10] MEDS ORDERED: 0.9 % SODIUM CHLORIDE 10 ML DISP.SYRIN. IV PRN (15:45)
[2018-02-10] MEDS ORDERED: NALOXONE 0.4 MG/ML VIAL. IV PRN (15:45)
--- NOTE | 2018-02-10 15:45 | PDOC4 ---
OPERATIVE NOTE Date: Date: Feb 10, 2018 Pre-Op Diagnosis: gallstone ileus Post-Op Diagnosis: same Procedure Performed: laparoscopic assisted adhesiolysis and enterotomy with removal of impacted gallstone in terminal ileum Surgeon: Álvaro Rowley Anesthesia Type: GETA plus local Blood Loss: 60 Specimans Obtained: gallstone Findings: impacted gallstone in terminal ileum associated with previous scar tissue from suspected open appendectomy Complications: none Operative Note: After obtaining informed consent, patient was taken to OR, induced under GETA and prepped in the usual fashion. Patient is noted to have transverse scar in RLQ, c/w open appendectomy. 5 mm port placed LUQ and LLQ under laparoscopic guidance. Abdominal cavity was explored. 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 Small bowel noted to be distended, but completely viable. Extensive adhesions noted in RLQ, c/w open appendectomy. Appendix was not visualized. Adhesions mobilized using laparoscopic sharp technique. Hard mass noted in distal small bowel. Transverse scar reopened using cautery. Additional lysis of adhesions was performed, allowing terminal ileum to be eviscerated. Overlying hard mass was longitudinally opened using cautery and large gallstone evacuated and sent to pathology. Bowel noted to be completely viable. Attempts at closure in a transverse manner unsuccessful, secondary to scarring, but enterotomy closed with 3 0 PDS and 3 0 vicryl. No evidence of leakage and completely viable. Copious irrigation. Bowel returned to abdominal cavity. Posterior fascia closed with 0 vicryl. Anterior fascia closed with 0 looped PDS. Skin repaired with 3 0 vicryl and 4 0 monocryl. Pneumoperitoneum reestablished and laparoscopic identified no additional pathology. Ports removed without bleeding. Skin repaired with 4 0 monocryl. Dressing applied. Patient tolerated procedure well and sent to PACU in stable condition. All counts correct. No immediate complications. Wound class is 3. JAYDEN ROWLEY MD Feb 10, 2018 15:45
[2018-02-10] MEDS: ENOXAPARIN 40 MG/0.4 ML SYRINGE. SQ SCH (16:00)
[2018-02-10] MEDS: IV RINGERS,LACTATED 1000ML 1,000 ML IV SCH (16:18)
[2018-02-10] MEDS: MORPHINE SULFATE/PF 30 ML IV PRN (16:19)
--- NOTE | 2018-02-10 21:50 | PDOC ---
GI PROGRESS NOTES Date Date/Time DATE: 02/10/18 TIME: 21:47 Subjective Subjective in icu- NGT in place- Objective Vitals Vital Signs Date Time Temp Pulse Resp B/P (MAP) Pulse Ox O2 Delivery O2 Flow Rate FiO2 02/10/18 20:00 99.4 109 17 121/89 (100) 96 Room Air 99.4 02/10/18 20:00 02/10/18 19:00 112 18 154/85 (108) 95 Room Air 02/10/18 18:00 106 18 145/58 (87) 95 Room Air 02/10/18 17:00 107 20 160/59 (92) 96 Room Air 02/10/18 16:49 18 Room Air 02/10/18 16:19 20 Room Air 02/10/18 16:00 98.0 105 20 158/70 (99) 95 Room Air 98.0 02/10/18 16:00 105 152/87 (108) 02/10/18 15:09 98.2 92 14 156/62 96 Room Air 98.2 02/10/18 15:05 Non-Rebreather 6.0 02/10/18 14:54 90 12 158/60 95 Room Air 02/10/18 14:39 88 12 162/60 95 Room Air 02/10/18 14:24 98.1 96 12 125/68 98 Simple Mask 8 98.1 02/10/18 14:24 Mask 8 02/10/18 10:48 98.8 99 20 148/73 94 Room Air 98.8 02/10/18 08:12 98.5 90 19 132/74 (93) 95 Room Air 98.5 02/10/18 08:00 Room Air 02/10/18 04:00 97.8 103 18 124/70 (88) 96 Room Air 97.8 02/10/18 00:00 98.1 103 18 126/72 (90) 98 Room Air 98.1 02/09/18 23:44 Room Air 02/09/18 23:14 Room Air Labs Labs Laboratory Tests Test 02/10/18 03:15 02/10/18 07:14 02/10/18 14:51 White Blood Count 11.5 x10^3/uL (4.0-11.0) Red Blood Count 4.09 x10^6/uL (4.30-5.70) Hemoglobin 12.7 g/dL (13.0-17.5) Hematocrit 37.2 % (39.0-53.0) Mean Corpuscular Volume 91 fL (79-100) Mean Corpuscular Hemoglobin 31 pg (25-35) Mean Corpuscular Hemoglobin Concent 34 g/dL (31-37) Red Cell Distribution Width 13.7 % (11.5-14.5) Platelet Count 186 x10^3/uL (140-400) Neutrophils (%) (Auto) 76 % (31-73) Lymphocytes (%) (Auto) 12 % (24-48) Monocytes (%) (Auto) 11 % (0-9) Eosinophils (%) (Auto) 1 % (0-3) Basophils (%) (Auto) 0 % (0-3) Neutrophils # (Auto) 8.8 x10^3uL (1.8-7.7) Lymphocytes # (Auto) 1.3 x10^3/uL (1.0-4.8) Monocytes # (Auto) 1.3 x10^3/uL (0.0-1.1) Eosinophils # (Auto) 0.1 x10^3/uL (0.0-0.7) Basophils # (Auto) 0.0 x10^3/uL (0.0-0.2) Sodium Level 143 mmol/L (136-145) Potassium Level 3.5 mmol/L (3.5-5.1) Chloride Level 106 mmol/L (98-107) Carbon Dioxide Level 24 mmol/L (21-32) Anion Gap 13 (6-14) Blood Urea Nitrogen 52 mg/dL (8-26) Creatinine 2.2 mg/dL (0.7-1.3) Estimated GFR (Cockcroft-Gault) 30.1 Glucose Level 121 mg/dL (70-99) Calcium Level 8.0 mg/dL (8.5-10.1) Phosphorus Level 3.4 mg/dL (2.6-4.7) Albumin 1.9 g/dL (3.4-5.0) Glucose (Fingerstick) 114 mg/dL (70-99) 120 mg/dL (70-99) Physical Exam Physical Exam chest- clear abd- soft mildly tender, decreased bowle sounds Assessment Assessment Gallstone ileus- improved after NGT placed, although he relates it was uncomfortable Continue present plans- will defer to surgery BEHZAD MAGUIRE MD Feb 10, 2018 21:50
[2018-02-11] VITALS (23 sets, daily range): BP systolic 110–171; BP diastolic 49–85
[2018-02-11] MEDS: MORPHINE SULFATE/PF 30 ML IV PRN ×4 (00:14→19:27)
[2018-02-11] MEDS: PIPERACILLIN/TAZOBACTAM 2.25 GM in IV NORMAL SALINE 50ML 50 ML IV SCH ×3 (00:15→13:49)
[2018-02-11] MEDS: IV RINGERS,LACTATED 1000ML 1,000 ML IV SCH ×3 (03:50→22:58)
[2018-02-11 06:22] LABS: BASO % 0 % (0-3); EOS % 0 % (0-3); HEMATOCRIT 35.8 % (39.0-53.0); HEMOGLOBIN 12.2 g/dL (13.0-17.5); LYMPH # 1.1 x10^3/uL (1.0-4.8); LYMPH % 10 % (24-48); MEAN CORPUSCULAR HEMOGLOBIN 31 pg (25-35); MEAN CORPUSCULAR HGB CONC 34 g/dL (31-37); MEAN CORPUSCULAR VOLUME 91 fL (79-100); MONO % 10 % (0-9); NEUT # 8.4 x10^3uL (1.8-7.7); NEUT % 80 % (31-73); PLATELET COUNT 205 x10^3/uL (140-400); RED BLOOD COUNT 3.93 x10^6/uL (4.30-5.70); RED CELL DISTRIBUTION WIDTH 13.7 % (11.5-14.5); WHITE BLOOD COUNT 10.4 x10^3/uL (4.0-11.0)
[2018-02-11 06:35] LABS: ALBUMIN 1.7 g/dL (3.4-5.0); CALCIUM 7.8 mg/dL (8.5-10.1); CREATININE 1.6 mg/dL (0.7-1.3); GFR 43.5; PHOSPHORUS 3.1 mg/dL (2.6-4.7); POTASSIUM 3.6 mmol/L (3.5-5.1)
[2018-02-11] MEDS: INSULIN LISPRO 300 UNITS/3 ML INSULN.PEN. SQ SCH ×3 (07:56→17:00)
[2018-02-11] MEDS: ASPIRIN ENTERIC COATED 81 MG TABLET.DR. PO SCH (08:01)
[2018-02-11] MEDS: PANTOPRAZOLE IV PUSH 40 MG VIAL. IVP SCH (08:01)
[2018-02-11] MEDS: LACTOBACILLUS RHAMNOSUS GG 1 CAPSULE. PO SCH ×2 (08:01→20:12)
[2018-02-11] MEDS: GLIMEPIRIDE 2 MG TABLET. PO SCH (08:11)
--- NOTE | 2018-02-11 08:23 | PDOC ---
Infectious Disease Note Subjective Subjective s/p surgery. 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 Oral cavity pink, dry LUNGS: Clear. HEART: S1, S2 regular, tachy 120s ABDOMEN: Distended, BS quiet, soft, NT to light palpation. Dressing dry. : Melchor EXTREMITIES: No edema or cyanosis. SKIN: without rash NEUROLOGIC: Alert and responds appropriately PIV LUE-art line Labs Lab Laboratory Tests Test 02/10/18 14:51 02/11/18 06:10 Glucose (Fingerstick) 120 mg/dL (70-99) White Blood Count 10.4 x10^3/uL (4.0-11.0) Red Blood Count 3.93 x10^6/uL (4.30-5.70) Hemoglobin 12.2 g/dL (13.0-17.5) Hematocrit 35.8 % (39.0-53.0) Mean Corpuscular Volume 91 fL (79-100) Mean Corpuscular Hemoglobin 31 pg (25-35) Mean Corpuscular Hemoglobin Concent 34 g/dL (31-37) Red Cell Distribution Width 13.7 % (11.5-14.5) Platelet Count 205 x10^3/uL (140-400) Neutrophils (%) (Auto) 80 % (31-73) Lymphocytes (%) (Auto) 10 % (24-48) Monocytes (%) (Auto) 10 % (0-9) Eosinophils (%) (Auto) 0 % (0-3) Basophils (%) (Auto) 0 % (0-3) Neutrophils # (Auto) 8.4 x10^3uL (1.8-7.7) Lymphocytes # (Auto) 1.1 x10^3/uL (1.0-4.8) Monocytes # (Auto) 1.0 x10^3/uL (0.0-1.1) Eosinophils # (Auto) 0.0 x10^3/uL (0.0-0.7) Basophils # (Auto) 0.0 x10^3/uL (0.0-0.2) Sodium Level 146 mmol/L (136-145) Potassium Level 3.6 mmol/L (3.5-5.1) Chloride Level 108 mmol/L (98-107) Carbon Dioxide Level 26 mmol/L (21-32) Anion Gap 12 (6-14) Blood Urea Nitrogen 29 mg/dL (8-26) Creatinine 1.6 mg/dL (0.7-1.3) Estimated GFR (Cockcroft-Gault) 43.5 Glucose Level 135 mg/dL (70-99) Calcium Level 7.8 mg/dL (8.5-10.1) Phosphorus Level 3.1 mg/dL (2.6-4.7) Albumin 1.7 g/dL (3.4-5.0) Micro 02/06/18 Blood Culture - Preliminary, Resulted NO GROWTH AFTER 4 DAYS URINE CULTURE RES 1 Final No growth Objective Assessment Gallstone ileus s/p lap assisted adhesiolysis and enterotomy with removal of impacted gallstone in terminal ileum on 02/10. Lactic acidosis Sepsis with hypotension Metabolic alkalosis sec to vomiting DM with high anion gap CAR - improving Severe dehydration Leukocytosis - trending down Plan Plan of Care Continue Zosyn One time dose vanc 02/06 Dose steroids 02/10 Monitor labs/temp Supportive care D/w RN Patient seen and examined. Chart reviewed in detail. Case discussed with DEGREASING WHEEL OPERATOR. Agree with above Plan. HELEN HEATH APRN Feb 11, 2018 08:23 SOL KAPADIA MD Feb 11, 2018 19:14
--- NOTE | 2018-02-11 09:14 | PDOC ---
SURGICAL PROGRESS NOTE Subjective does feel better than preop no flatus yet NG is bothersome Vital Signs Vital Signs Date Time Temp Pulse Resp B/P (MAP) Pulse Ox O2 Delivery O2 Flow Rate FiO2 02/11/18 08:00 119 16 171/68 (102) 97 Nasal Cannula 2.0 02/11/18 07:00 98.9 98.9 I&O Intake and Output 02/11/18 07:00 Intake Total 2826 ml Output Total 5725 ml Balance -2899 ml Intake Oral 50 ml IV Total 2776 ml Output Urine Total 5125 ml Gastric Drainage Total 500 ml Estimated Blood Loss 100 ml General: Alert, Oriented X3, Cooperative, No acute distress HEENT: Other (NG present ) Abdomen: Soft, Other (dressing dry, abd soft, less distended ) Labs Laboratory Tests Test 02/09/18 11:53 02/09/18 16:48 02/09/18 21:31 02/10/18 03:15 Glucose (Fingerstick) 199 mg/dL (70-99) 161 mg/dL (70-99) 127 mg/dL (70-99) White Blood Count 11.5 x10^3/uL (4.0-11.0) Red Blood Count 4.09 x10^6/uL (4.30-5.70) Hemoglobin 12.7 g/dL (13.0-17.5) Hematocrit 37.2 % (39.0-53.0) Mean Corpuscular Volume 91 fL (79-100) Mean Corpuscular Hemoglobin 31 pg (25-35) Mean Corpuscular Hemoglobin Concent 34 g/dL (31-37) Red Cell Distribution Width 13.7 % (11.5-14.5) Platelet Count 186 x10^3/uL (140-400) Neutrophils (%) (Auto) 76 % (31-73) Lymphocytes (%) (Auto) 12 % (24-48) Monocytes (%) (Auto) 11 % (0-9) Eosinophils (%) (Auto) 1 % (0-3) Basophils (%) (Auto) 0 % (0-3) Neutrophils # (Auto) 8.8 x10^3uL (1.8-7.7) Lymphocytes # (Auto) 1.3 x10^3/uL (1.0-4.8) Monocytes # (Auto) 1.3 x10^3/uL (0.0-1.1) Eosinophils # (Auto) 0.1 x10^3/uL (0.0-0.7) Basophils # (Auto) 0.0 x10^3/uL (0.0-0.2) Sodium Level 143 mmol/L (136-145) Potassium Level 3.5 mmol/L (3.5-5.1) Chloride Level 106 mmol/L (98-107) Carbon Dioxide Level 24 mmol/L (21-32) Anion Gap 13 (6-14) Blood Urea Nitrogen 52 mg/dL (8-26) Creatinine 2.2 mg/dL (0.7-1.3) Estimated GFR (Cockcroft-Gault) 30.1 Glucose Level 121 mg/dL (70-99) Calcium Level 8.0 mg/dL (8.5-10.1) Phosphorus Level 3.4 mg/dL (2.6-4.7) Albumin 1.9 g/dL (3.4-5.0) Test 02/10/18 07:14 02/10/18 14:51 02/11/18 06:10 Glucose (Fingerstick) 114 mg/dL (70-99) 120 mg/dL (70-99) White Blood Count 10.4 x10^3/uL (4.0-11.0) Red Blood Count 3.93 x10^6/uL (4.30-5.70) Hemoglobin 12.2 g/dL (13.0-17.5) Hematocrit 35.8 % (39.0-53.0) Mean Corpuscular Volume 91 fL (79-100) Mean Corpuscular Hemoglobin 31 pg (25-35) Mean Corpuscular Hemoglobin Concent 34 g/dL (31-37) Red Cell Distribution Width 13.7 % (11.5-14.5) Platelet Count 205 x10^3/uL (140-400) Neutrophils (%) (Auto) 80 % (31-73) Lymphocytes (%) (Auto) 10 % (24-48) Monocytes (%) (Auto) 10 % (0-9) Eosinophils (%) (Auto) 0 % (0-3) Basophils (%) (Auto) 0 % (0-3) Neutrophils # (Auto) 8.4 x10^3uL (1.8-7.7) Lymphocytes # (Auto) 1.1 x10^3/uL (1.0-4.8) Monocytes # (Auto) 1.0 x10^3/uL (0.0-1.1) Eosinophils # (Auto) 0.0 x10^3/uL (0.0-0.7) Basophils # (Auto) 0.0 x10^3/uL (0.0-0.2) Sodium Level 146 mmol/L (136-145) Potassium Level 3.6 mmol/L (3.5-5.1) Chloride Level 108 mmol/L (98-107) Carbon Dioxide Level 26 mmol/L (21-32) Anion Gap 12 (6-14) Blood Urea Nitrogen 29 mg/dL (8-26) Creatinine 1.6 mg/dL (0.7-1.3) Estimated GFR (Cockcroft-Gault) 43.5 Glucose Level 135 mg/dL (70-99) Calcium Level 7.8 mg/dL (8.5-10.1) Phosphorus Level 3.1 mg/dL (2.6-4.7) Albumin 1.7 g/dL (3.4-5.0) Laboratory Tests Test 02/10/18 14:51 02/11/18 06:10 Glucose (Fingerstick) 120 mg/dL (70-99) White Blood Count 10.4 x10^3/uL (4.0-11.0) Red Blood Count 3.93 x10^6/uL (4.30-5.70) Hemoglobin 12.2 g/dL (13.0-17.5) Hematocrit 35.8 % (39.0-53.0) Mean Corpuscular Volume 91 fL (79-100) Mean Corpuscular Hemoglobin 31 pg (25-35) Mean Corpuscular Hemoglobin Concent 34 g/dL (31-37) Red Cell Distribution Width 13.7 % (11.5-14.5) Platelet Count 205 x10^3/uL (140-400) Neutrophils (%) (Auto) 80 % (31-73) Lymphocytes (%) (Auto) 10 % (24-48) Monocytes (%) (Auto) 10 % (0-9) Eosinophils (%) (Auto) 0 % (0-3) Basophils (%) (Auto) 0 % (0-3) Neutrophils # (Auto) 8.4 x10^3uL (1.8-7.7) Lymphocytes # (Auto) 1.1 x10^3/uL (1.0-4.8) Monocytes # (Auto) 1.0 x10^3/uL (0.0-1.1) Eosinophils # (Auto) 0.0 x10^3/uL (0.0-0.7) Basophils # (Auto) 0.0 x10^3/uL (0.0-0.2) Sodium Level 146 mmol/L (136-145) Potassium Level 3.6 mmol/L (3.5-5.1) Chloride Level 108 mmol/L (98-107) Carbon Dioxide Level 26 mmol/L (21-32) Anion Gap 12 (6-14) Blood Urea Nitrogen 29 mg/dL (8-26) Creatinine 1.6 mg/dL (0.7-1.3) Estimated GFR (Cockcroft-Gault) 43.5 Glucose Level 135 mg/dL (70-99) Calcium Level 7.8 mg/dL (8.5-10.1) Phosphorus Level 3.1 mg/dL (2.6-4.7) Albumin 1.7 g/dL (3.4-5.0) Problem List Problems Medical Problems: (1) Acute renal failure Status: Acute (2) CHF (congestive heart failure) Status: Acute (3) DKA (diabetic ketoacidoses) Status: Acute (4) Heart murmur Status: Acute (5) NSTEMI (non-ST elevated myocardial infarction) Status: Acute Assessment/Plan await return of bowel function,--NPO, NG for now NAHUM ALVAREZ APRN Feb 11, 2018 09:14
--- NOTE | 2018-02-11 13:28 | PDOC ---
PROGRESS NOTES Chief Complaint Chief Complaint Gall stone ileus Lactic acidosis sec to DKA and severe dehydration Known DM with high likelihood of undiagnosed gastroparesis Sepsis with hypotension - responded to IVF - t.o ICU 02/08 s/p DKA Metabolic alkalosis secondary to vomiting Elevated troponin, NSTEMI, demand ischemia Acute on chronic renal failure - creat 5 on admit Leukocytosis, reactive History of Present Illness History of Present Illness Pt seen and examined in ICU Sitting upright in chair, calm, cooperative, in NAD Discussed with RN Vitals Vitals Vital Signs Date Time Temp Pulse Resp B/P (MAP) Pulse Ox O2 Delivery O2 Flow Rate FiO2 02/11/18 09:44 14 02/11/18 09:00 110 140/59 (86) 94 Nasal Cannula 2.0 02/11/18 07:00 98.9 98.9 Physical Exam Physical Exam GENERAL: Sitting in chair, alert, conversing, NAD HEENT: NGT. Oral cavity pink, dry LUNGS: Clear. HEART: S1, S2 regular, tachy 120s ABDOMEN: Distended, BS quiet, soft, NT to light palpation. Dressing dry. : Melchor EXTREMITIES: No edema or cyanosis. SKIN: without rash NEUROLOGIC: Alert and responds appropriately PIV LUE-art line General: Alert, Oriented X3, Cooperative, No acute distress Heart: Regular rate, Normal S1, Normal S2, No murmurs, Other (tachycardic) Lungs: Clear Abdomen: Soft, No tenderness, Other (dressing dry, abd soft, less distended ) Extremities: No clubbing, No cyanosis Skin: No rashes, No breakdown Labs LABS Laboratory Tests Test 02/10/18 14:51 02/11/18 06:10 02/11/18 12:07 Glucose (Fingerstick) 120 mg/dL (70-99) 120 mg/dL (70-99) White Blood Count 10.4 x10^3/uL (4.0-11.0) Red Blood Count 3.93 x10^6/uL (4.30-5.70) Hemoglobin 12.2 g/dL (13.0-17.5) Hematocrit 35.8 % (39.0-53.0) Mean Corpuscular Volume 91 fL (79-100) Mean Corpuscular Hemoglobin 31 pg (25-35) Mean Corpuscular Hemoglobin Concent 34 g/dL (31-37) Red Cell Distribution Width 13.7 % (11.5-14.5) Platelet Count 205 x10^3/uL (140-400) Neutrophils (%) (Auto) 80 % (31-73) Lymphocytes (%) (Auto) 10 % (24-48) Monocytes (%) (Auto) 10 % (0-9) Eosinophils (%) (Auto) 0 % (0-3) Basophils (%) (Auto) 0 % (0-3) Neutrophils # (Auto) 8.4 x10^3uL (1.8-7.7) Lymphocytes # (Auto) 1.1 x10^3/uL (1.0-4.8) Monocytes # (Auto) 1.0 x10^3/uL (0.0-1.1) Eosinophils # (Auto) 0.0 x10^3/uL (0.0-0.7) Basophils # (Auto) 0.0 x10^3/uL (0.0-0.2) Sodium Level 146 mmol/L (136-145) Potassium Level 3.6 mmol/L (3.5-5.1) Chloride Level 108 mmol/L (98-107) Carbon Dioxide Level 26 mmol/L (21-32) Anion Gap 12 (6-14) Blood Urea Nitrogen 29 mg/dL (8-26) Creatinine 1.6 mg/dL (0.7-1.3) Estimated GFR (Cockcroft-Gault) 43.5 Glucose Level 135 mg/dL (70-99) Calcium Level 7.8 mg/dL (8.5-10.1) Phosphorus Level 3.1 mg/dL (2.6-4.7) Albumin 1.7 g/dL (3.4-5.0) Review of Systems Review of Systems Pt c/o occasional hiccups that are improving and a dry cough. He denies any fevers, chills, VALLEJO, CP, SOA, or N/V/D. Assessment and Plan Assessmemt and Plan Problems Medical Problems: (1) Acute renal failure Status: Acute (2) CHF (congestive heart failure) Status: Acute (3) DKA (diabetic ketoacidoses) Status: Acute (4) Heart murmur Status: Acute (5) NSTEMI (non-ST elevated myocardial infarction) Status: Acute Assessment: Gall stone ileus Lactic acidosis sec to DKA and severe dehydration Known DM with high likelihood of undiagnosed gastroparesis Sepsis with hypotension - responded to IVF - t.o ICU 02/08 s/p DKA Metabolic alkalosis secondary to vomiting Elevated troponin, NSTEMI, demand ischemia Acute on chronic renal failure - creat 5 on admit Leukocytosis, reactive Plan: ICU monitoring Labs PT/OT NG tube Home meds NPO per surgery DVT ppx Comment Review of Relevant I have reviewed the following items luz (where applicable) has been applied. Labs Laboratory Tests Test 02/09/18 16:48 02/09/18 21:31 02/10/18 03:15 02/10/18 07:14 Glucose (Fingerstick) 161 mg/dL (70-99) 127 mg/dL (70-99) 114 mg/dL (70-99) White Blood Count 11.5 x10^3/uL (4.0-11.0) Red Blood Count 4.09 x10^6/uL (4.30-5.70) Hemoglobin 12.7 g/dL (13.0-17.5) Hematocrit 37.2 % (39.0-53.0) Mean Corpuscular Volume 91 fL (79-100) Mean Corpuscular Hemoglobin 31 pg (25-35) Mean Corpuscular Hemoglobin Concent 34 g/dL (31-37) Red Cell Distribution Width 13.7 % (11.5-14.5) Platelet Count 186 x10^3/uL (140-400) Neutrophils (%) (Auto) 76 % (31-73) Lymphocytes (%) (Auto) 12 % (24-48) Monocytes (%) (Auto) 11 % (0-9) Eosinophils (%) (Auto) 1 % (0-3) Basophils (%) (Auto) 0 % (0-3) Neutrophils # (Auto) 8.8 x10^3uL (1.8-7.7) Lymphocytes # (Auto) 1.3 x10^3/uL (1.0-4.8) Monocytes # (Auto) 1.3 x10^3/uL (0.0-1.1) Eosinophils # (Auto) 0.1 x10^3/uL (0.0-0.7) Basophils # (Auto) 0.0 x10^3/uL (0.0-0.2) Sodium Level 143 mmol/L (136-145) Potassium Level 3.5 mmol/L (3.5-5.1) Chloride Level 106 mmol/L (98-107) Carbon Dioxide Level 24 mmol/L (21-32) Anion Gap 13 (6-14) Blood Urea Nitrogen 52 mg/dL (8-26) Creatinine 2.2 mg/dL (0.7-1.3) Estimated GFR (Cockcroft-Gault) 30.1 Glucose Level 121 mg/dL (70-99) Calcium Level 8.0 mg/dL (8.5-10.1) Phosphorus Level 3.4 mg/dL (2.6-4.7) Albumin 1.9 g/dL (3.4-5.0) Test 02/10/18 14:51 02/11/18 06:10 02/11/18 12:07 Glucose (Fingerstick) 120 mg/dL (70-99) 120 mg/dL (70-99) White Blood Count 10.4 x10^3/uL (4.0-11.0) Red Blood Count 3.93 x10^6/uL (4.30-5.70) Hemoglobin 12.2 g/dL (13.0-17.5) Hematocrit 35.8 % (39.0-53.0) Mean Corpuscular Volume 91 fL (79-100) Mean Corpuscular Hemoglobin 31 pg (25-35) Mean Corpuscular Hemoglobin Concent 34 g/dL (31-37) Red Cell Distribution Width 13.7 % (11.5-14.5) Platelet Count 205 x10^3/uL (140-400) Neutrophils (%) (Auto) 80 % (31-73) Lymphocytes (%) (Auto) 10 % (24-48) Monocytes (%) (Auto) 10 % (0-9) Eosinophils (%) (Auto) 0 % (0-3) Basophils (%) (Auto) 0 % (0-3) Neutrophils # (Auto) 8.4 x10^3uL (1.8-7.7) Lymphocytes # (Auto) 1.1 x10^3/uL (1.0-4.8) Monocytes # (Auto) 1.0 x10^3/uL (0.0-1.1) Eosinophils # (Auto) 0.0 x10^3/uL (0.0-0.7) Basophils # (Auto) 0.0 x10^3/uL (0.0-0.2) Sodium Level 146 mmol/L (136-145) Potassium Level 3.6 mmol/L (3.5-5.1) Chloride Level 108 mmol/L (98-107) Carbon Dioxide Level 26 mmol/L (21-32) Anion Gap 12 (6-14) Blood Urea Nitrogen 29 mg/dL (8-26) Creatinine 1.6 mg/dL (0.7-1.3) Estimated GFR (Cockcroft-Gault) 43.5 Glucose Level 135 mg/dL (70-99) Calcium Level 7.8 mg/dL (8.5-10.1) Phosphorus Level 3.1 mg/dL (2.6-4.7) Albumin 1.7 g/dL (3.4-5.0) Laboratory Tests Test 02/10/18 14:51 02/11/18 06:10 02/11/18 12:07 Glucose (Fingerstick) 120 mg/dL (70-99) 120 mg/dL (70-99) White Blood Count 10.4 x10^3/uL (4.0-11.0) Red Blood Count 3.93 x10^6/uL (4.30-5.70) Hemoglobin 12.2 g/dL (13.0-17.5) Hematocrit 35.8 % (39.0-53.0) Mean Corpuscular Volume 91 fL (79-100) Mean Corpuscular Hemoglobin 31 pg (25-35) Mean Corpuscular Hemoglobin Concent 34 g/dL (31-37) Red Cell Distribution Width 13.7 % (11.5-14.5) Platelet Count 205 x10^3/uL (140-400) Neutrophils (%) (Auto) 80 % (31-73) Lymphocytes (%) (Auto) 10 % (24-48) Monocytes (%) (Auto) 10 % (0-9) Eosinophils (%) (Auto) 0 % (0-3) Basophils (%) (Auto) 0 % (0-3) Neutrophils # (Auto) 8.4 x10^3uL (1.8-7.7) Lymphocytes # (Auto) 1.1 x10^3/uL (1.0-4.8) Monocytes # (Auto) 1.0 x10^3/uL (0.0-1.1) Eosinophils # (Auto) 0.0 x10^3/uL (0.0-0.7) Basophils # (Auto) 0.0 x10^3/uL (0.0-0.2) Sodium Level 146 mmol/L (136-145) Potassium Level 3.6 mmol/L (3.5-5.1) Chloride Level 108 mmol/L (98-107) Carbon Dioxide Level 26 mmol/L (21-32) Anion Gap 12 (6-14) Blood Urea Nitrogen 29 mg/dL (8-26) Creatinine 1.6 mg/dL (0.7-1.3) Estimated GFR (Cockcroft-Gault) 43.5 Glucose Level 135 mg/dL (70-99) Calcium Level 7.8 mg/dL (8.5-10.1) Phosphorus Level 3.1 mg/dL (2.6-4.7) Albumin 1.7 g/dL (3.4-5.0) Microbiology 02/06/18 Blood Culture - Preliminary, Resulted NO GROWTH AFTER 4 DAYS 02/07/18 Urine Culture - Final, Complete 02/07/18 Urine Culture Result 1 (ELIAZAR) - Final, Complete Medications Current Medications Sodium Chloride 1,000 ml @ 1,000 mls/hr 1X ONCE IV Last administered on 02/06at 19:59; Start 02/06/18 at 20:00; Stop 02/06/18 at 20:59; Status DC Insulin Human Regular 150 unit/ Sodium Chloride 151.5 ml @ 0 mls/hr CONT PRN PRN IV PER PROTOCOL; Start 02/06/18 at 21:00; Stop 02/09/18 at 09:34; Status DC Potassium Chloride (KCl Oral Soln) 40 meq 1X ONCE PO Last administered on at 21:22; Start 02/06/18 at 21:30; Stop 02/06/18 at 21:31; Status DC Potassium Chloride/Water 50 ml @ 25 mls/hr Q1H IV ; Start 02/06/18 at 21:00; Stop 02/06/18 at 21:16; Status DC Insulin Human Regular 150 ml @ 9.1 mls/hr 1X ONCE IV Last administered on at 21:24; Start 02/06/18 at 21:45; Stop 02/07/18 at 14:17; Status DC Potassium Chloride 40 meq/ Sodium Chloride 520 ml @ 130 mls/hr 1X ONCE IV Last administered on 02/06/18at 22:30; Start 02/06/18 at 22:00; Stop 02/07/18 at 02:00; Status DC Potassium Chloride 40 meq/ Sodium Chloride 520 ml @ 130 mls/hr 1X ONCE IV Last administered on 02/07/18at 01:39; Start 02/07/18 at 02:00; Stop 02/07/18 at 05:59; Status DC Ondansetron HCl (Zofran) 4 mg PRN Q8HRS PRN IV NAUSEA/VOMITING Last administered on 02/06/18at 23:49; Start 02/06/18 at 21:15; Stop 02/07/18 at 21 :14; Status DC Fentanyl Citrate (Fentanyl 2ml Vial) 50 mcg PRN Q2HR PRN IV PAIN Last administered on 02/07/18at 15:01; Start 02/06/18 at 21:15; Stop 02/07/18 at 21 :14; Status DC Acetaminophen (Tylenol) 650 mg PRN Q4HRS PRN PO FEVER; Start 02/06/18 at 21:15 ; Stop 02/07/18 at 21:14; Status DC Vancomycin HCl (Vanco Per Pharmacy) 1 each PRN DAILY PRN MC SEE COMMENTS; Start 02/06/18 at 21:30; Stop 02/07/18 at 07:52; Status DC Piperacillin Sod/ Tazobactam Sod (Zosyn Per Pharmacy) 1 each PRN DAILY PRN MC SEE COMMENTS; Start 02/06/18 at 21:30 Sodium Chloride 1,000 ml @ 1,000 mls/hr 1X ONCE IV Last administered on 02/06at 21:32; Start 02/06/18 at 21:30; Stop 02/06/18 at 22:29; Status DC Piperacillin Sod/ Tazobactam Sod 3.375 gm/Sodium Chloride 50 ml @ 100 mls/hr 1X ONCE IV Last administered on 02/06/18at 21:33; Start 02/06/18 at 22:00; Stop 02/06/18 at 22:29; Status DC Vancomycin HCl 1.25 gm/Sodium Chloride 250 ml @ 166.667 mls/hr 1X ONCE IV Last administered on 02/06/18at 22:30; Start 02/06/18 at 22:00; Stop 02/06/18 at 23:29; Status DC Piperacillin Sod/ Tazobactam Sod 2.25 gm/Sodium Chloride 50 ml @ 100 mls/hr Q8HRS IV Last administered on 02/11/18at 06:02; Start 02/07/18 at 06:00 Sodium Chloride 1,000 ml @ 250 mls/hr Q4H IV ; Start 02/06/18 at 22:30; Stop 02/07/18 at 03:21; Status DC Sodium Chloride 1,000 ml @ 250 mls/hr Q4H IV ; Start 02/06/18 at 22:30; Stop 02/07/18 at 06:10; Status DC Dextrose/Sodium Chloride 1,000 ml @ 250 mls/hr Q4H IV ; Start 02/06/18 at 22: 30; Stop 02/07/18 at 03:21; Status DC Magnesium Sulfate/ Dextrose 100 ml @ 25 mls/hr DAILY IV ; Start 02/07/18 at 09 :00; Stop 02/08/18 at 04:48; Status DC Sodium Phosphate 40 mmol/Sodium Chloride 513.3333 ml @ 83.3 mls/hr 1X PRN PRN IV SEE COMMENTS; Start 02/06/18 at 22:30 Sodium Phosphate 20 mmol/Dextrose 256.6667 ml @ 62.5 mls/hr 1X PRN PRN IV SEE COMMENTS; Start 02/06/18 at 22:30 Sodium Phosphate 10 mmol/Dextrose 253.3333 ml @ 62.5 mls/hr 1X PRN PRN IV SEE COMMENTS; Start 02/06/18 at 22:30 Dextrose/Sodium Chloride 1,000 ml @ 250 mls/hr Q4H IV Last administered on at 23:30; Start 02/06/18 at 23:45; Stop 02/07/18 at 03:21; Status DC Sodium Chloride 1,000 ml @ 200 mls/hr Q5H IV Last administered on 02/10/18at 09:01; Start 02/07/18 at 03:00; Stop 02/10/18 at 15:55; Status DC Metoclopramide HCl (Reglan Vial) 5 mg PRN Q6HRS PRN IV NAUSEA/VOMITING Last administered on 02/09/18at 20:29; Start 02/07/18 at 03:00 Insulin Human Lispro (HumaLOG) 0-7 UNITS TIDWMEALS SQ Last administered on at 18:08; Start 02/07/18 at 08:00; Stop 02/09/18 at 09:34; Status DC Dextrose (Dextrose 50%-Water Syringe) 12.5 gm PRN Q15MIN PRN IV SEE COMMENTS; Start 02/07/18 at 02:15; Stop 02/10/18 at 14:35; Status DC Insulin Human Lispro (HumaLOG) 4 units 1X ONCE SQ ; Start 02/07/18 at 02:30; Stop 02/07/18 at 02:31; Status Cancel Aspirin (Ecotrin) 81 mg DAILYWBKFT PO Last administered on 02/11/18at 08:01; Start 02/07/18 at 10:00 Pantoprazole Sodium (PROTONIX VIAL for IV PUSH) 40 mg DAILYAC IVP Last administered on 02/09/18at 09:16; Start 02/07/18 at 16:30; Stop 02/09/18 at 09 :34; Status DC Chlorpromazine HCl (Thorazine) 25 mg PRN Q6HRS PRN IV HICCUPS Last administered on 02/08/18at 02:08; Start 02/07/18 at 17:00; Stop 02/08/18 at 05 :07; Status DC Zolpidem Tartrate (Ambien) 5 mg PRN QHS PRN PO INSOMNIA, MAY REPEAT IN 1HR; Start 02/07/18 at 17:00 Magnesium Sulfate/ Dextrose 100 ml @ 25 mls/hr PRN DAILY PRN IV SEE COMMENTS; Start 02/08/18 at 05:00 Chlorpromazine HCl 25 mg/Dextrose 50 ml @ 100 mls/hr PRN Q6HRS PRN IV HICCUPS Last administered on 02/09/18at 23:34; Start 02/08/18 at 05:15 Lactobacillus Rhamnosus (Culturelle) 1 cap BID PO Last administered on at 08:01; Start 02/08/18 at 09:00 Fentanyl Citrate (Fentanyl 2ml Vial) 50 mcg PRN Q2HR PRN IV SEVERE PAIN Last administered on 02/09/18at 23:14; Start 02/08/18 at 21:00; Stop 02/10/18 at 15 :41; Status DC Pantoprazole Sodium (Protonix) 40 mg DAILYAC PO ; Start 02/09/18 at 11:30; Stop 02/09/18 at 15:51; Status DC Insulin Human Lispro (HumaLOG) 0-9 UNITS TIDWMEALS SQ ; Start 02/09/18 at 12:00 Dextrose (Dextrose 50%-Water Syringe) 12.5 gm PRN Q15MIN PRN IV SEE COMMENTS; Start 02/09/18 at 09:45 Glimepiride (Amaryl) 2 mg DAILY PO Last administered on 02/11/18at 08:11; Start 02/09/18 at 09:45 Pantoprazole Sodium (PROTONIX VIAL for IV PUSH) 40 mg DAILYAC IVP Last administered on 02/11/18at 08:01; Start 02/10/18 at 07:30 Propofol 20 ml @ As Directed STK-MED ONCE IV ; Start 02/10/18 at 09:29; Stop 02/10/18 at 09:30; Status DC Dexamethasone Sodium Phosphate (Decadron) 20 mg STK-MED ONCE .ROUTE ; Start at 09:29; Stop 02/10/18 at 09:30; Status DC Lidocaine HCl (Lidocaine Pf 2% Vial) 5 ml STK-MED ONCE .ROUTE ; Start 02/10/18 at 09:29; Stop 02/10/18 at 09:30; Status DC Ondansetron HCl (Zofran) 4 mg STK-MED ONCE .ROUTE ; Start 02/10/18 at 09:29; Stop 02/10/18 at 09:30; Status DC Rocuronium [place] (Zemuron) 50 mg STK-MED ONCE .ROUTE ; Start 02/10/18 at 09: 29; Stop 02/10/18 at 09:30; Status DC Fentanyl Citrate (Fentanyl 2ml Vial) 100 mcg STK-MED ONCE .ROUTE ; Start at 09:29; Stop 02/10/18 at 09:30; Status DC Lidocaine HCl (Xylocaine-Mpf 2% Vial) 2 ml STK-MED ONCE .ROUTE ; Start at 10:29; Stop 02/10/18 at 10:30; Status DC Succinylcholine Chloride (Anectine) 200 mg STK-MED ONCE .ROUTE ; Start at 10:38; Stop 02/10/18 at 10:39; Status DC Chlorpromazine HCl 12.5 mg/ Dextrose 50.5 ml @ 100 mls/hr 1X ONCE IV ; Start 02/10/18 at 10:45; Stop 02/10/18 at 11:15; Status DC Bupivacaine HCl/ Epinephrine Bitart (Sensorcain-Mpf Epi 0.5%-[id number]) 30 ml STK -MED ONCE .ROUTE Last administered on 02/10/18at 13:02; Start 02/10/18 at 10: 31; Stop 02/10/18 at 11:31; Status DC Cefoxitin Sodium 2 gm/Dextrose 100 ml @ 200 mls/hr 1X PREOP IV ; Start at 12:45; Status UNV Cefoxitin Sodium 100 ml @ 200 mls/hr ONCE ONCE IV Last administered on at 13:01; Start 02/10/18 at 12:45; Stop 02/10/18 at 13:14; Status DC Metoprolol Tartrate (Lopressor Vial) 5 mg STK-MED ONCE IVP ; Start 02/10/18 at 12:46; Stop 02/10/18 at 12:47; Status DC Ephedrine Sulfate (ePHEDrine PF IN SALINE SYRINGE) 50 mg STK-MED ONCE IV ; Start 02/10/18 at 13:51; Stop 02/10/18 at 13:52; Status DC Desflurane (Suprane) 60 ml STK-MED ONCE IH ; Start 02/10/18 at 14:04; Stop at 14:05; Status DC Glycopyrrolate (Robinul) 1 mg STK-MED ONCE .ROUTE ; Start 02/10/18 at 14:05; Stop 02/10/18 at 14:06; Status DC Neostigmine Methylsulfate (Neostigmine Methylsulfate) 5 mg STK-MED ONCE .ROUTE ; Start 02/10/18 at 14:05; Stop 02/10/18 at 14:06; Status DC Desflurane (Suprane) 60 ml STK-MED ONCE IH ; Start 02/10/18 at 14:12; Stop at 14:13; Status DC Phenylephrine HCl (PHENYLEPHRINE in 0.9% NACL PF) 1 mg STK-MED ONCE IV ; Start 02/10/18 at 14:13; Stop 02/10/18 at 14:14; Status DC Fentanyl Citrate (Fentanyl 2ml Vial) 100 mcg STK-MED ONCE .ROUTE ; Start at 15:03; Stop 02/10/18 at 15:04; Status DC Fentanyl Citrate (Fentanyl 2ml Vial) 25 mcg PRN Q5MIN PRN IV MILD PAIN; Start 02/10/18 at 15:30; Stop 02/10/18 at 15:40; Status DC Fentanyl Citrate (Fentanyl 2ml Vial) 50 mcg PRN Q5MIN PRN IV MODERATE TO SEVERE PAIN; Start 02/10/18 at 15:30; Stop 02/10/18 at 15:40; Status DC Morphine Sulfate (Morphine Sulfate) 1 mg PRN Q10MIN PRN IV SEVERE PAIN; Start 02/10/18 at 15:30; Stop 02/10/18 at 15:42; Status DC Ringer's Solution 1,000 ml @ 30 mls/hr Q24H IV ; Start 02/10/18 at 15:27; Stop 02/10/18 at 15:56; Status DC Lidocaine HCl (Xylocaine-Mpf 1% 2ml Vial) 2 ml PRN 1X PRN ID PRIOR TO IV START ; Start 02/10/18 at 15:30; Stop 02/11/18 at 15:29 Hydromorphone HCl (Dilaudid) 0.5 mg PRN Q10MIN PRN IV SEV PAIN, Second choice; Start 02/10/18 at 15:30; Stop 02/10/18 at 15:41; Status DC Prochlorperazine Edisylate (Compazine) 5 mg PACU PRN PRN IV NAUSEA, MRX1; Start 02/10/18 at 15:30; Stop 02/11/18 at 15:29 Enoxaparin Sodium (Lovenox 40mg Syringe) 40 mg Q24H SQ ; Start 02/10/18 at 16: 00 Sodium Chloride (Normal Saline Flush) 3 ml QSHIFT PRN IV AFTER MEDS AND BLOOD DRAWS; Start 02/10/18 at 15:45 Ringer's Solution 1,000 ml @ 100 mls/hr Q10H IV Last administered on at 09:45; Start 02/10/18 at 15:33 Naloxone HCl (Narcan) 0.4 mg PRN Q2MIN PRN IV SEE INSTRUCTIONS; Start at 15:45 Sodium Chloride 1,000 ml @ 25 mls/hr Q24H IV ; Start 02/10/18 at 15:33 Morphine Sulfate 30 ml @ 0 mls/hr CONT PRN PRN IV PER PROTOCOL Last administered on 02/11/18at 09:44; Start 02/10/18 at 15:45 Vitals/I & O Vital Sign - Last 24 Hours 02/10/18 02/10/18 02/10/18 02/10/18 14:24 14:24 14:39 14:54 Temp 98.1 98.1 Pulse 96 88 90 Resp 12 12 12 B/P (MAP) 125/68 162/60 158/60 Pulse Ox 98 95 95 O2 Delivery Mask Simple Mask Room Air Room Air O2 Flow Rate 8 8 02/10/18 02/10/18 02/10/18 02/10/18 15:05 15:09 16:00 16:00 Temp 98.2 98.0 98.2 98.0 Pulse 92 105 105 Resp 14 20 B/P (MAP) 156/62 152/87 (108) 158/70 (99) Pulse Ox 96 95 O2 Delivery Non-Rebreather Room Air Room Air O2 Flow Rate 6.0 02/10/18 02/10/18 02/10/18 02/10/18 16:19 17:00 18:00 19:00 Pulse 107 106 112 Resp 20 20 18 18 B/P (MAP) 160/59 (92) 145/58 (87) 154/85 (108) Pulse Ox 96 95 95 O2 Delivery Room Air Room Air Room Air Room Air 02/10/18 02/10/18 02/10/18 02/10/18 20:00 20:00 21:00 22:00 Temp 99.4 99.4 Pulse 109 106 113 Resp 17 18 18 B/P (MAP) 121/89 (100) 130/62 (84) 126/62 (83) Pulse Ox 96 95 94 O2 Delivery Room Air Room Air Room Air 02/10/18 02/10/18 02/10/18 02/11/18 23:00 23:59 23:59 01:00 Temp 98.7 98.7 Pulse 110 109 113 Resp 18 17 18 B/P (MAP) 126/60 (82) 121/89 (100) 128/69 (88) Pulse Ox 95 96 94 O2 Delivery Room Air Room Air Room Air 02/11/18 02/11/18 02/11/18 02/11/18 02:00 03:00 03:51 04:06 Pulse 116 114 Resp 18 18 16 B/P (MAP) 121/54 (76) 123/49 (73) Pulse Ox 94 95 92 O2 Delivery Room Air Room Air Nasal Cannula O2 Flow Rate 2.0 02/11/18 02/11/18 02/11/18 02/11/18 04:09 04:21 05:00 06:00 Temp 99.3 99.3 Pulse 120 112 116 Resp 18 23 22 16 B/P (MAP) 131/63 (85) 132/52 (78) 152/60 (90) Pulse Ox 96 96 96 95 O2 Delivery Nasal Cannula Nasal Cannula Nasal Cannula Nasal Cannula O2 Flow Rate 2.0 2.0 2.0 2.0 02/11/18 02/11/18 02/11/18 02/11/18 07:00 08:00 08:00 09:00 Temp 98.9 98.9 Pulse 116 119 110 Resp 16 16 16 B/P (MAP) 150/58 (88) 171/68 (102) 140/59 (86) Pulse Ox 98 97 94 O2 Delivery Nasal Cannula Nasal Cannula Nasal Cannula O2 Flow Rate 2.0 2.0 2.0 02/11/18 09:44 Resp 14 Intake and Output 02/10/18 02/10/18 02/11/18 15:00 23:00 07:00 Intake Total 1300 ml 150 ml 1376 ml Output Total 1300 ml 3050 ml 1375 ml Balance 0 ml -2900 ml 1 ml Nutrition Consultation Dietary Evaluation: Recommendations by RD: Protein supplementation Comments: added renal to diet restrictions - K 3.4, Bun 77, cr 3.5, GF 17.6 changed Glucerna supplement to Nepro bid Expected Outcomes/Goals: diet advancement - met new goal: to meet > 75% est nutr needs Malnutrition Findings: Food and Nutrition Intake (Sev: <50% est energy req 5days Weight Status: Overweight POLINA STANFORD III DO Feb 11, 2018 13:28
--- NOTE | 2018-02-11 13:46 | PDOC ---
SUBJECTIVE ROS s/p gallstone surgery Now in ICU, states feeling better, Mouth feeling dry OBJECTIVE Vital Signs Vital Signs Date Time Temp Pulse Resp B/P (MAP) Pulse Ox O2 Delivery O2 Flow Rate FiO2 02/11/18 09:44 14 02/11/18 09:00 110 140/59 (86) 94 Nasal Cannula 2.0 02/11/18 07:00 98.9 98.9 I & 0 Intake and Output 02/11/18 07:00 Intake Total 2826 ml Output Total 5725 ml Balance -2899 ml Intake Oral 50 ml IV Total 2776 ml Output Urine Total 5125 ml Gastric Drainage Total 500 ml Estimated Blood Loss 100 ml PHYSICAL EXAM Physical Exam General Appearance: NAD HEENT- om dry Skin: No rash Respiratory: decreased breath sounds Heart: S1S2 Abdomen: soft, Genitourinary: Melchor+ Neurology: alert, oriented, follow commands DIAGNOSIS/ASSESSMENT Assessment & Plan CAR-Likely Dehydration / Improving , peaked at 7.5 E-Lytes stable, UOP Good US Unremarkable Sepsis with hypotension/Metabolic alkalosis sec to vomiting Resolved DM - managed by primary Gallstone ileus s/p surgery. Now in ICU, feeling better Hypernatremia Mild Monitor DW Pt and RN COMMENT/RELEVANT DATA Meds Current Medications Medications (Trade) Dose Ordered Sig/Gricel Start Time Stop Time Status Last Admin Dose Admin Acetaminophen (Tylenol) 650 mg PRN Q4HRS PRN 02/06/18 21:15 02/07/18 21:14 DC Aspirin (Ecotrin) 81 mg DAILYWBKFT 02/07/18 10:00 02/11/18 08:01 81 MG Bupivacaine HCl/ Epinephrine Bitart (Sensorcain-Mpf Epi 0.5%-1:584634) 30 ml STK-MED ONCE 02/10/18 10:31 02/10/18 11:31 DC 02/10/18 13:02 6 ML Cefoxitin Sodium 100 ml @ 200 mls/hr ONCE ONCE 02/10/18 12:45 02/10/18 13:14 DC 02/10/18 13:01 200 MLS/HR Cefoxitin Sodium 2 gm/Dextrose 100 ml @ 200 mls/hr 1X PREOP 02/10/18 12:45 UNV Chlorpromazine HCl 12.5 mg/ Dextrose 50.5 ml @ 100 mls/hr 1X ONCE 02/10/18 10:45 10/27/18 11:15 DC Chlorpromazine HCl 25 mg/Dextrose 50 ml @ 100 mls/hr PRN Q6HRS PRN 02/08/18 05:15 02/09/18 23:34 100 MLS/HR Chlorpromazine HCl (Thorazine) 25 mg PRN Q6HRS PRN 02/07/18 17:00 02/08/18 05:07 DC 02/08/18 02:08 25 MG Desflurane (Suprane) 60 ml STK-MED ONCE 02/10/18 14:12 02/10/18 14:13 DC Dexamethasone Sodium Phosphate (Decadron) 20 mg STK-MED ONCE 02/10/18 09:29 02/10/18 09:30 DC Dextrose (Dextrose 50%-Water Syringe) 12.5 gm PRN Q15MIN PRN 02/09/18 09:45 Dextrose/Sodium Chloride 1,000 ml @ 250 mls/hr Q4H 02/06/18 23:45 02/07/18 03:21 DC 02/06/18 23:30 250 MLS/HR Enoxaparin Sodium (Lovenox 40mg Syringe) 40 mg Q24H 02/10/18 16:00 Ephedrine Sulfate (ePHEDrine PF IN SALINE SYRINGE) 50 mg STK-MED ONCE 02/10/18 13:51 02/10/18 13:52 DC Fentanyl Citrate (Fentanyl 2ml Vial) 50 mcg PRN Q5MIN PRN 02/10/18 15:30 02/10/18 15:40 DC Glimepiride (Amaryl) 2 mg DAILY 02/09/18 09:45 02/11/18 08:11 2 MG Glycopyrrolate (Robinul) 1 mg STK-MED ONCE 02/10/18 14:05 02/10/18 14:06 DC Hydromorphone HCl (Dilaudid) 0.5 mg PRN Q10MIN PRN 02/10/18 15:30 02/10/18 15:41 DC Insulin Human Lispro (HumaLOG) 0-9 UNITS TIDWMEALS 02/09/18 12:00 Insulin Human Regular 150 ml @ 9.1 mls/hr 1X ONCE 02/06/18 21:45 02/07/18 14:17 DC 02/06/18 21:24 8.3 MLS/HR Insulin Human Regular 150 unit/ Sodium Chloride 151.5 ml @ 0 mls/hr CONT PRN PRN 02/06/18 21:00 02/09/18 09:34 DC Lactobacillus Rhamnosus (Culturelle) 1 cap BID 02/08/18 09:00 02/11/18 08:01 1 CAP Lidocaine HCl (Lidocaine Pf 2% Vial) 5 ml STK-MED ONCE 02/10/18 09:29 02/10/18 09:30 DC Lidocaine HCl (Xylocaine-Mpf 1% 2ml Vial) 2 ml PRN 1X PRN 02/10/18 15:30 02/11/18 15:29 Lidocaine HCl (Xylocaine-Mpf 2% Vial) 2 ml STK-MED ONCE 02/10/18 10:29 02/10/18 10:30 DC Magnesium Sulfate/ Dextrose 100 ml @ 25 mls/hr PRN DAILY PRN 02/08/18 05:00 Metoclopramide HCl (Reglan Vial) 5 mg PRN Q6HRS PRN 02/07/18 03:00 02/09/18 20:29 5 MG Metoprolol Tartrate (Lopressor Vial) 5 mg STK-MED ONCE 02/10/18 12:46 02/10/18 12:47 DC Morphine Sulfate 30 ml @ 0 mls/hr CONT PRN PRN 02/10/18 15:45 02/11/18 09:44 0 MLS/HR Morphine Sulfate (Morphine Sulfate) 1 mg PRN Q10MIN PRN 02/10/18 15:30 02/10/18 15:42 DC Naloxone HCl (Narcan) 0.4 mg PRN Q2MIN PRN 02/10/18 15:45 Neostigmine Methylsulfate (Neostigmine Methylsulfate) 5 mg STK-MED ONCE 02/10/18 14:05 02/10/18 14:06 DC Ondansetron HCl (Zofran) 4 mg STK-MED ONCE 02/10/18 09:29 02/10/18 09:30 DC Pantoprazole Sodium (PROTONIX VIAL for IV PUSH) 40 mg DAILYAC 02/10/18 07:30 02/11/18 08:01 40 MG Pantoprazole Sodium (Protonix) 40 mg DAILYAC 02/09/18 11:30 02/09/18 15:51 DC Phenylephrine HCl (PHENYLEPHRINE in 0.9% NACL PF) 1 mg STK-MED ONCE 02/10/18 14:13 02/10/18 14:14 DC Piperacillin Sod/ Tazobactam Sod (Zosyn Per Pharmacy) 1 each PRN DAILY PRN 02/06/18 21:30 Piperacillin Sod/ Tazobactam Sod 2.25 gm/Sodium Chloride 50 ml @ 100 mls/hr Q8HRS 02/07/18 06:00 02/11/18 06:02 100 MLS/HR Piperacillin Sod/ Tazobactam Sod 3.375 gm/Sodium Chloride 50 ml @ 100 mls/hr 1X ONCE 02/06/18 22:00 02/06/18 22:29 DC 02/06/18 21:33 100 MLS/HR Potassium Chloride 40 meq/ Sodium Chloride 520 ml @ 130 mls/hr 1X ONCE 02/07/18 02:00 02/07/18 05:59 DC 02/07/18 01:39 130 MLS/HR Potassium Chloride/Water 50 ml @ 25 mls/hr Q1H 02/06/18 21:00 02/06/18 21:16 DC Potassium Chloride (KCl Oral Soln) 40 meq 1X ONCE 02/06/18 21:30 02/06/18 21:31 DC 02/06/18 21:22 40 MEQ Prochlorperazine Edisylate (Compazine) 5 mg PACU PRN PRN 02/10/18 15:30 02/11/18 15:29 Propofol 20 ml @ As Directed STK-MED ONCE 02/10/18 09:29 02/10/18 09:30 DC Ringer's Solution 1,000 ml @ 100 mls/hr Q10H 02/10/18 15:33 02/11/18 09:45 100 MLS/HR Rocuronium Melcroft (Zemuron) 50 mg STK-MED ONCE 02/10/18 09:29 02/10/18 09:30 DC Sodium Chloride 1,000 ml @ 25 mls/hr Q24H 02/10/18 15:33 Sodium Chloride (Normal Saline Flush) 3 ml QSHIFT PRN 02/10/18 15:45 Sodium Phosphate 10 mmol/Dextrose 253.3333 ml @ 62.5 mls/hr 1X PRN PRN 02/06/18 22:30 Sodium Phosphate 20 mmol/Dextrose 256.6667 ml @ 62.5 mls/hr 1X PRN PRN 02/06/18 22:30 Sodium Phosphate 40 mmol/Sodium Chloride 513.3333 ml @ 83.3 mls/hr 1X PRN PRN 02/06/18 22:30 Succinylcholine Chloride (Anectine) 200 mg STK-MED ONCE 02/10/18 10:38 02/10/18 10:39 DC Vancomycin HCl (Vanco Per Pharmacy) 1 each PRN DAILY PRN 02/06/18 21:30 02/07/18 07:52 DC Vancomycin HCl 1.25 gm/Sodium Chloride 250 ml @ 166.667 mls/hr 1X ONCE 02/06/18 22:00 02/06/18 23:29 DC 02/06/18 22:30 166.667 MLS/HR Zolpidem Tartrate (Ambien) 5 mg PRN QHS PRN 02/07/18 17:00 Lab Laboratory Tests Test 02/10/18 14:51 02/11/18 06:10 02/11/18 12:07 Glucose (Fingerstick) 120 mg/dL (70-99) 120 mg/dL (70-99) White Blood Count 10.4 x10^3/uL (4.0-11.0) Red Blood Count 3.93 x10^6/uL (4.30-5.70) Hemoglobin 12.2 g/dL (13.0-17.5) Hematocrit 35.8 % (39.0-53.0) Mean Corpuscular Volume 91 fL (79-100) Mean Corpuscular Hemoglobin 31 pg (25-35) Mean Corpuscular Hemoglobin Concent 34 g/dL (31-37) Red Cell Distribution Width 13.7 % (11.5-14.5) Platelet Count 205 x10^3/uL (140-400) Neutrophils (%) (Auto) 80 % (31-73) Lymphocytes (%) (Auto) 10 % (24-48) Monocytes (%) (Auto) 10 % (0-9) Eosinophils (%) (Auto) 0 % (0-3) Basophils (%) (Auto) 0 % (0-3) Neutrophils # (Auto) 8.4 x10^3uL (1.8-7.7) Lymphocytes # (Auto) 1.1 x10^3/uL (1.0-4.8) Monocytes # (Auto) 1.0 x10^3/uL (0.0-1.1) Eosinophils # (Auto) 0.0 x10^3/uL (0.0-0.7) Basophils # (Auto) 0.0 x10^3/uL (0.0-0.2) Sodium Level 146 mmol/L (136-145) Potassium Level 3.6 mmol/L (3.5-5.1) Chloride Level 108 mmol/L (98-107) Carbon Dioxide Level 26 mmol/L (21-32) Anion Gap 12 (6-14) Blood Urea Nitrogen 29 mg/dL (8-26) Creatinine 1.6 mg/dL (0.7-1.3) Estimated GFR (Cockcroft-Gault) 43.5 Glucose Level 135 mg/dL (70-99) Calcium Level 7.8 mg/dL (8.5-10.1) Phosphorus Level 3.1 mg/dL (2.6-4.7) Albumin 1.7 g/dL (3.4-5.0) Results All relevant outside records, renal labs, imaging studies, telemetry/EKG's were reviewed. GWYN HONG MD Feb 11, 2018 13:46
[2018-02-11] MEDS: ENOXAPARIN 40 MG/0.4 ML SYRINGE. SQ SCH (16:24)
[2018-02-11] MEDS: IV NORMAL SALINE 1000ML BAG 1,000 ML IV SCH (16:24)
[2018-02-11] MEDS: PIPERACILLIN/TAZOBACTAM 3.375 GM in IV NORMAL SALINE 50ML 50 ML IV SCH ×2 (18:03→23:00)
[2018-02-12] VITALS (17 sets, daily range): BP systolic 112–147; BP diastolic 60–79
[2018-02-12] MEDS: MORPHINE SULFATE/PF 30 ML IV PRN (02:29)
[2018-02-12] MEDS: PIPERACILLIN/TAZOBACTAM 3.375 GM in IV NORMAL SALINE 50ML 50 ML IV SCH ×3 (05:41→18:57)
[2018-02-12 05:46] LABS: BASO % 0 % (0-3); EOS # 0.2 x10^3/uL (0.0-0.7); EOS % 1 % (0-3); HEMATOCRIT 36.2 % (39.0-53.0); HEMOGLOBIN 12.4 g/dL (13.0-17.5); LYMPH # 1.3 x10^3/uL (1.0-4.8); LYMPH % 12 % (24-48); MEAN CORPUSCULAR HEMOGLOBIN 31 pg (25-35); MEAN CORPUSCULAR HGB CONC 34 g/dL (31-37); MEAN CORPUSCULAR VOLUME 91 fL (79-100); MONO % 9 % (0-9); NEUT # 8.2 x10^3uL (1.8-7.7); NEUT % 77 % (31-73); PLATELET COUNT 208 x10^3/uL (140-400); RED BLOOD COUNT 3.98 x10^6/uL (4.30-5.70); RED CELL DISTRIBUTION WIDTH 13.7 % (11.5-14.5); WHITE BLOOD COUNT 10.6 x10^3/uL (4.0-11.0)
[2018-02-12 05:59] LABS: ALBUMIN 1.7 g/dL (3.4-5.0); CALCIUM 8.3 mg/dL (8.5-10.1); CREATININE 1.3 mg/dL (0.7-1.3); GFR 55.2; PHOSPHORUS 2.8 mg/dL (2.6-4.7); POTASSIUM 3.7 mmol/L (3.5-5.1)
[2018-02-12] MEDS: IV RINGERS,LACTATED 1000ML 1,000 ML IV SCH ×3 (07:33→21:51)
[2018-02-12] MEDS: INSULIN LISPRO 300 UNITS/3 ML INSULN.PEN. SQ SCH ×3 (08:00→17:00)
[2018-02-12] MEDS: ASPIRIN ENTERIC COATED 81 MG TABLET.DR. PO SCH (08:00)
--- NOTE | 2018-02-12 08:01 | PDOC ---
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 Oral cavity pink, dry LUNGS: Clear. HEART: S1, S2 regular, tachy 120s ABDOMEN: Distended, BS quiet, soft, NT to light palpation. Dressing dry. : Melchor EXTREMITIES: No edema or cyanosis. SKIN: without rash NEUROLOGIC: Alert and responds appropriately PIV LUE-art line Medications: Inpatient Meds: Current Medications Medications (Trade) Dose Ordered Sig/Gricel Start Time Stop Time Status Last Admin Dose Admin Acetaminophen (Tylenol) 650 mg PRN Q4HRS PRN 02/06/18 21:15 02/07/18 21:14 DC Aspirin (Ecotrin) 81 mg DAILYWBKFT 02/07/18 10:00 02/11/18 08:01 81 MG Bupivacaine HCl/ Epinephrine Bitart (Sensorcain-Mpf Epi 0.5%-1:432896) 30 ml STK-MED ONCE 02/10/18 10:31 02/10/18 11:31 DC 02/10/18 13:02 6 ML Cefoxitin Sodium 100 ml @ 200 mls/hr ONCE ONCE 02/10/18 12:45 02/10/18 13:14 DC 02/10/18 13:01 200 MLS/HR Cefoxitin Sodium 2 gm/Dextrose 100 ml @ 200 mls/hr 1X PREOP 02/10/18 12:45 UNV Chlorpromazine HCl 12.5 mg/ Dextrose 50.5 ml @ 100 mls/hr 1X ONCE 02/10/18 10:45 02/10/18 11:15 DC Chlorpromazine HCl 25 mg/Dextrose 50 ml @ 100 mls/hr PRN Q6HRS PRN 02/08/18 05:15 02/09/18 23:34 100 MLS/HR Chlorpromazine HCl (Thorazine) 25 mg PRN Q6HRS PRN 02/07/18 17:00 02/08/18 05:07 DC 02/08/18 02:08 25 MG Desflurane (Suprane) 60 ml STK-MED ONCE 02/10/18 14:12 02/10/18 14:13 DC Dexamethasone Sodium Phosphate (Decadron) 20 mg STK-MED ONCE 02/10/18 09:29 02/10/18 09:30 DC Dextrose (Dextrose 50%-Water Syringe) 12.5 gm PRN Q15MIN PRN 02/09/18 09:45 Dextrose/Sodium Chloride 1,000 ml @ 250 mls/hr Q4H 02/06/18 23:45 02/07/18 03:21 DC 02/06/18 23:30 250 MLS/HR Enoxaparin Sodium (Lovenox 40mg Syringe) 40 mg Q24H 02/10/18 16:00 02/11/18 16:24 40 MG Ephedrine Sulfate (ePHEDrine PF IN SALINE SYRINGE) 50 mg STK-MED ONCE 02/10/18 13:51 02/10/18 13:52 DC Fentanyl Citrate (Fentanyl 2ml Vial) 50 mcg PRN Q5MIN PRN 02/10/18 15:30 02/10/18 15:40 DC Glimepiride (Amaryl) 2 mg DAILY 02/09/18 09:45 02/11/18 08:11 2 MG Glycopyrrolate (Robinul) 1 mg STK-MED ONCE 02/10/18 14:05 02/10/18 14:06 DC Hydromorphone HCl (Dilaudid) 0.5 mg PRN Q10MIN PRN 02/10/18 15:30 02/10/18 15:41 DC Insulin Human Lispro (HumaLOG) 0-9 UNITS TIDWMEALS 02/09/18 12:00 Insulin Human Regular 150 ml @ 9.1 mls/hr 1X ONCE 02/06/18 21:45 02/07/18 14:17 DC 02/06/18 21:24 8.3 MLS/HR Insulin Human Regular 150 unit/ Sodium Chloride 151.5 ml @ 0 mls/hr CONT PRN PRN 02/06/18 21:00 02/09/18 09:34 DC Lactobacillus Rhamnosus (Culturelle) 1 cap BID 02/08/18 09:00 02/11/18 08:01 1 CAP Lidocaine HCl (Lidocaine Pf 2% Vial) 5 ml STK-MED ONCE 02/10/18 09:29 02/10/18 09:30 DC Lidocaine HCl (Xylocaine-Mpf 1% 2ml Vial) 2 ml PRN 1X PRN 02/10/18 15:30 02/11/18 15:29 DC Lidocaine HCl (Xylocaine-Mpf 2% Vial) 2 ml STK-MED ONCE 02/10/18 10:29 02/10/18 10:30 DC Magnesium Sulfate/ Dextrose 100 ml @ 25 mls/hr PRN DAILY PRN 02/08/18 05:00 Metoclopramide HCl (Reglan Vial) 5 mg PRN Q6HRS PRN 02/07/18 03:00 02/09/18 20:29 5 MG Metoprolol Tartrate (Lopressor Vial) 5 mg STK-MED ONCE 02/10/18 12:46 02/10/18 12:47 DC Morphine Sulfate 30 ml @ 0 mls/hr CONT PRN PRN 02/10/18 15:45 02/12/18 02:29 0 MLS/HR Morphine Sulfate (Morphine Sulfate) 1 mg PRN Q10MIN PRN 02/10/18 15:30 02/10/18 15:42 DC Naloxone HCl (Narcan) 0.4 mg PRN Q2MIN PRN 02/10/18 15:45 Neostigmine Methylsulfate (Neostigmine Methylsulfate) 5 mg STK-MED ONCE 02/10/18 14:05 02/10/18 14:06 DC Ondansetron HCl (Zofran) 4 mg STK-MED ONCE 02/10/18 09:29 02/10/18 09:30 DC Pantoprazole Sodium (PROTONIX VIAL for IV PUSH) 40 mg DAILYAC 02/10/18 07:30 02/11/18 08:01 40 MG Pantoprazole Sodium (Protonix) 40 mg DAILYAC 02/09/18 11:30 02/09/18 15:51 DC Phenylephrine HCl (PHENYLEPHRINE in 0.9% NACL PF) 1 mg STK-MED ONCE 02/10/18 14:13 02/10/18 14:14 DC Piperacillin Sod/ Tazobactam Sod (Zosyn Per Pharmacy) 1 each PRN DAILY PRN 02/06/18 21:30 Piperacillin Sod/ Tazobactam Sod 2.25 gm/Sodium Chloride 50 ml @ 100 mls/hr Q8HRS 02/07/18 06:00 02/11/18 16:12 DC 02/11/18 13:49 100 MLS/HR Piperacillin Sod/ Tazobactam Sod 3.375 gm/Sodium Chloride 50 ml @ 100 mls/hr Q6HRS 02/11/18 18:00 02/12/18 05:41 100 MLS/HR Potassium Chloride 40 meq/ Sodium Chloride 520 ml @ 130 mls/hr 1X ONCE 02/07/18 02:00 02/07/18 05:59 DC 02/07/18 01:39 130 MLS/HR Potassium Chloride/Water 50 ml @ 25 mls/hr Q1H 02/06/18 21:00 02/06/18 21:16 DC Potassium Chloride (KCl Oral Soln) 40 meq 1X ONCE 02/06/18 21:30 02/06/18 21:31 DC 02/06/18 21:22 40 MEQ Prochlorperazine Edisylate (Compazine) 5 mg PACU PRN PRN 02/10/18 15:30 02/11/18 15:29 DC Propofol 20 ml @ As Directed STK-MED ONCE 02/10/18 09:29 02/10/18 09:30 DC Ringer's Solution 1,000 ml @ 100 mls/hr Q10H 02/10/18 15:33 02/11/18 22:58 100 MLS/HR Rocuronium Kell (Zemuron) 50 mg STK-MED ONCE 02/10/18 09:29 02/10/18 09:30 DC Sodium Chloride 1,000 ml @ 25 mls/hr Q24H 02/10/18 15:33 02/11/18 16:24 25 MLS/HR Sodium Chloride (Normal Saline Flush) 3 ml QSHIFT PRN 02/10/18 15:45 Sodium Phosphate 10 mmol/Dextrose 253.3333 ml @ 62.5 mls/hr 1X PRN PRN 02/06/18 22:30 Sodium Phosphate 20 mmol/Dextrose 256.6667 ml @ 62.5 mls/hr 1X PRN PRN 02/06/18 22:30 Sodium Phosphate 40 mmol/Sodium Chloride 513.3333 ml @ 83.3 mls/hr 1X PRN PRN 02/06/18 22:30 Succinylcholine Chloride (Anectine) 200 mg STK-MED ONCE 02/10/18 10:38 02/10/18 10:39 DC Vancomycin HCl (Vanco Per Pharmacy) 1 each PRN DAILY PRN 02/06/18 21:30 02/07/18 07:52 DC Vancomycin HCl 1.25 gm/Sodium Chloride 250 ml @ 166.667 mls/hr 1X ONCE 02/06/18 22:00 02/06/18 23:29 DC 02/06/18 22:30 166.667 MLS/HR Zolpidem Tartrate (Ambien) 5 mg PRN QHS PRN 02/07/18 17:00 Labs: Lab Laboratory Tests Test 02/11/18 12:07 02/11/18 17:07 02/11/18 21:15 02/12/18 05:30 Glucose (Fingerstick) 120 mg/dL (70-99) 106 mg/dL (70-99) 95 mg/dL (70-99) White Blood Count 10.6 x10^3/uL (4.0-11.0) Red Blood Count 3.98 x10^6/uL (4.30-5.70) Hemoglobin 12.4 g/dL (13.0-17.5) Hematocrit 36.2 % (39.0-53.0) Mean Corpuscular Volume 91 fL (79-100) Mean Corpuscular Hemoglobin 31 pg (25-35) Mean Corpuscular Hemoglobin Concent 34 g/dL (31-37) Red Cell Distribution Width 13.7 % (11.5-14.5) Platelet Count 208 x10^3/uL (140-400) Neutrophils (%) (Auto) 77 % (31-73) Lymphocytes (%) (Auto) 12 % (24-48) Monocytes (%) (Auto) 9 % (0-9) Eosinophils (%) (Auto) 1 % (0-3) Basophils (%) (Auto) 0 % (0-3) Neutrophils # (Auto) 8.2 x10^3uL (1.8-7.7) Lymphocytes # (Auto) 1.3 x10^3/uL (1.0-4.8) Monocytes # (Auto) 1.0 x10^3/uL (0.0-1.1) Eosinophils # (Auto) 0.2 x10^3/uL (0.0-0.7) Basophils # (Auto) 0.0 x10^3/uL (0.0-0.2) Sodium Level 145 mmol/L (136-145) Potassium Level 3.7 mmol/L (3.5-5.1) Chloride Level 105 mmol/L (98-107) Carbon Dioxide Level 32 mmol/L (21-32) Anion Gap 8 (6-14) Blood Urea Nitrogen 19 mg/dL (8-26) Creatinine 1.3 mg/dL (0.7-1.3) Estimated GFR (Cockcroft-Gault) 55.2 Glucose Level 79 mg/dL (70-99) Calcium Level 8.3 mg/dL (8.5-10.1) Phosphorus Level 2.8 mg/dL (2.6-4.7) Albumin 1.7 g/dL (3.4-5.0) Objective: Assessment: Gallstone ileus s/p lap assisted adhesiolysis and enterotomy with removal of impacted gallstone in terminal ileum on 02/10. Lactic acidosis Sepsis with hypotension Metabolic alkalosis sec to vomiting DM with high anion gap CAR - improving Severe dehydration Leukocytosis - resolved Plan: Plan of Care Continue Zosyn Dose steroids 02/10 Monitor labs/cults Supportive care d/w CAMILO GUTIERREZ MD Feb 12, 2018 08:01
[2018-02-12] MEDS: PANTOPRAZOLE IV PUSH 40 MG VIAL. IVP SCH (08:57)
[2018-02-12] MEDS: GLIMEPIRIDE 2 MG TABLET. PO SCH (09:00)
[2018-02-12] MEDS: LACTOBACILLUS RHAMNOSUS GG 1 CAPSULE. PO SCH ×2 (09:00→21:00)
--- NOTE | 2018-02-12 09:40 | PDOC ---
Subjective: Subjective: Denies pain - says belching and passing flatus. Says some water "went down the wrong pipe" earlier. 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 Wants NG out. Objective: Objective: Reviewed w/ RN - NG w/ 150cc bilious material this morning (but wasn't suctioning overnight). Had some nausea around 5:00 a.m. after ice chips. Vital Signs: Vital Signs Date Time Temp Pulse Resp B/P (MAP) Pulse Ox O2 Delivery O2 Flow Rate FiO2 02/12/18 08:00 98.0 103 20 120/60 (80) 96 Nasal Cannula 2.0 98.0 Labs: Laboratory Tests Test 02/11/18 12:07 02/11/18 17:07 02/11/18 21:15 02/12/18 05:30 Glucose (Fingerstick) 120 mg/dL 106 mg/dL 95 mg/dL White Blood Count 10.6 x10^3/uL Red Blood Count 3.98 x10^6/uL Hemoglobin 12.4 g/dL Hematocrit 36.2 % Mean Corpuscular Volume 91 fL Mean Corpuscular Hemoglobin 31 pg Mean Corpuscular Hemoglobin Concent 34 g/dL Red Cell Distribution Width 13.7 % Platelet Count 208 x10^3/uL Neutrophils (%) (Auto) 77 % Lymphocytes (%) (Auto) 12 % Monocytes (%) (Auto) 9 % Eosinophils (%) (Auto) 1 % Basophils (%) (Auto) 0 % Neutrophils # (Auto) 8.2 x10^3uL Lymphocytes # (Auto) 1.3 x10^3/uL Monocytes # (Auto) 1.0 x10^3/uL Eosinophils # (Auto) 0.2 x10^3/uL Basophils # (Auto) 0.0 x10^3/uL Sodium Level 145 mmol/L Potassium Level 3.7 mmol/L Chloride Level 105 mmol/L Carbon Dioxide Level 32 mmol/L Anion Gap 8 Blood Urea Nitrogen 19 mg/dL Creatinine 1.3 mg/dL Estimated GFR (Cockcroft-Gault) 55.2 Glucose Level 79 mg/dL Calcium Level 8.3 mg/dL Phosphorus Level 2.8 mg/dL Albumin 1.7 g/dL BLOOD CULTURE Final NO GROWTH AFTER 5 DAYS Imaging: CT A/P 02/09 IMPRESSION: 1. Findings of compatible with gallstone ileus with large gallbladder stone in the distal small bowel loops in the right lower quadrant causing small bowel obstruction. 2. Decompressed gallbladder with trace amount of emphysema in the gallbladder fossa and small amount of central pneumobilia. 3. Patchy opacity with consolidation in the left lower lobe likely subsegmental atelectasis or pneumonia. 4. 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 Nonemergent MRI of the abdomen with IV contrast recommended for better evaluation. KUB 02/09 IMPRESSION: 1. NG tube with its tip in the body of the stomach. 2. Small bowel obstruction. PE: GEN: NAD HEENT: NG bilious LUNGS: clear HEART: tachycardic ABD: some distention, non-tender NEURO/PSYCH: A & O 3 A/P: S/p laparoscopic YUNIOR and enterotomy w/ removal of impacted gallstone in TI CAR (resolved), DM (better) GERD - on PPI -- Continue per surgery. SETH CABELLO Feb 12, 2018 09:40
--- NOTE | 2018-02-12 10:08 | PDOC ---
SUBJECTIVE ROS Stable, no new concerns OBJECTIVE Vital Signs Vital Signs Date Time Temp Pulse Resp B/P (MAP) Pulse Ox O2 Delivery O2 Flow Rate FiO2 02/12/18 09:00 100 20 132/60 (84) 96 Nasal Cannula 2.0 02/12/18 08:00 98.0 98.0 I & 0 Intake and Output 02/12/18 07:00 Intake Total 2203 ml Output Total 2390 ml Balance -187 ml Intake Oral 0 ml IV Total 2203 ml Output Urine Total 2390 ml PHYSICAL EXAM Physical Exam General Appearance: NAD HEENT- om dry Skin: No rash Respiratory: decreased breath sounds Heart: S1S2 Abdomen: soft, Genitourinary: Melchor+ Neurology: alert, oriented, follow commands DIAGNOSIS/ASSESSMENT Assessment & Plan DIAGNOSIS/ASSESSMENT CAR-Likely Dehydration / Resolved , peaked at 7.5 E-Lytes stable, UOP Good US Unremarkable Sepsis with hypotension/Metabolic alkalosis sec to vomiting Resolved DM - managed by primary Gallstone ileus S/p laparoscopic YUNIOR and enterotomy w/ removal of impacted gallstone in TI Hypernatremia - resolved Will sign off COMMENT/RELEVANT DATA Meds Current Medications Medications (Trade) Dose Ordered Sig/Gricel Start Time Stop Time Status Last Admin Dose Admin Acetaminophen (Tylenol) 650 mg PRN Q4HRS PRN 02/06/18 21:15 02/07/18 21:14 DC Aspirin (Ecotrin) 81 mg [id number] 02/07/18 10:00 02/11/18 08:01 81 MG Bupivacaine HCl/ Epinephrine Bitart (Sensorcain-Mpf Epi 0.5%-1:[id number]) 30 ml STK-MED ONCE 02/10/18 10:31 02/10/18 11:31 DC 02/10/18 13:02 6 ML Cefoxitin Sodium 100 ml @ 200 mls/hr ONCE ONCE 02/10/18 12:45 02/10/18 13:14 DC 02/10/18 13:01 200 MLS/HR Cefoxitin Sodium 2 gm/Dextrose 100 ml @ 200 mls/hr 1X PREOP 02/10/18 12:45 UNV Chlorpromazine HCl 12.5 mg/ Dextrose 50.5 ml @ 100 mls/hr 1X ONCE 02/10/18 10:45 02/10/18 11:15 DC Chlorpromazine HCl 25 mg/Dextrose 50 ml @ 100 mls/hr PRN Q6HRS PRN 02/08/18 05:15 02/09/18 23:34 100 MLS/HR Chlorpromazine HCl (Thorazine) 25 mg PRN Q6HRS PRN 02/07/18 17:00 02/08/18 05:07 DC 02/08/18 02:08 25 MG Desflurane (Suprane) 60 ml STK-MED ONCE 02/10/18 14:12 02/10/18 14:13 DC Dexamethasone Sodium Phosphate (Decadron) 20 mg STK-MED ONCE 02/10/18 09:29 02/10/18 09:30 DC Dextrose (Dextrose 50%-Water Syringe) 12.5 gm PRN Q15MIN PRN 02/09/18 09:45 Dextrose/Sodium Chloride 1,000 ml @ 250 mls/hr Q4H 02/06/18 23:45 02/07/18 03:21 DC 02/06/18 23:30 250 MLS/HR Enoxaparin Sodium (Lovenox 40mg Syringe) 40 mg Q24H 02/10/18 16:00 02/11/18 16:24 40 MG Ephedrine Sulfate (ePHEDrine PF IN SALINE SYRINGE) 50 mg STK-MED ONCE 02/10/18 13:51 02/10/18 13:52 DC Fentanyl Citrate (Fentanyl 2ml Vial) 100 mcg STK-MED ONCE 02/10/18 15:00 02/12/18 08:17 DC Glimepiride (Amaryl) 2 mg DAILY 02/09/18 09:45 02/11/18 08:11 2 MG Glycopyrrolate (Robinul) 1 mg STK-MED ONCE 02/10/18 14:05 02/10/18 14:06 DC Hydromorphone HCl (Dilaudid) 0.5 mg PRN Q10MIN PRN 02/10/18 15:30 02/10/18 15:41 DC Insulin Human Lispro (HumaLOG) 0-9 UNITS TIDWMEALS 02/09/18 12:00 Insulin Human Regular 150 ml @ 9.1 mls/hr 1X ONCE 02/06/18 21:45 02/07/18 14:17 DC 02/06/18 21:24 8.3 MLS/HR Insulin Human Regular 150 unit/ Sodium Chloride 151.5 ml @ 0 mls/hr CONT PRN PRN 02/06/18 21:00 02/09/18 09:34 DC Lactobacillus Rhamnosus (Culturelle) 1 cap BID 02/08/18 09:00 02/11/18 08:01 1 CAP Lidocaine HCl (Lidocaine Pf 2% Vial) 5 ml STK-MED ONCE 02/10/18 09:29 02/10/18 09:30 DC Lidocaine HCl (Xylocaine-Mpf 1% 2ml Vial) 2 ml PRN 1X PRN 02/10/18 15:30 02/11/18 15:29 DC Lidocaine HCl (Xylocaine-Mpf 2% Vial) 2 ml STK-MED ONCE 02/10/18 10:29 02/10/18 10:30 DC Magnesium Sulfate/ Dextrose 100 ml @ 25 mls/hr PRN DAILY PRN 02/08/18 05:00 Metoclopramide HCl (Reglan Vial) 5 mg PRN Q6HRS PRN 02/07/18 03:00 02/09/18 20:29 5 MG Metoprolol Tartrate (Lopressor Vial) 5 mg STK-MED ONCE 02/10/18 12:46 02/10/18 12:47 DC Morphine Sulfate 30 ml @ 0 mls/hr CONT PRN PRN 02/10/18 15:45 02/12/18 02:29 0 MLS/HR Morphine Sulfate (Morphine Sulfate) 1 mg PRN Q10MIN PRN 02/10/18 15:30 02/10/18 15:42 DC Naloxone HCl (Narcan) 0.4 mg PRN Q2MIN PRN 02/10/18 15:45 Neostigmine Methylsulfate (Neostigmine Methylsulfate) 5 mg STK-MED ONCE 02/10/18 14:05 02/10/18 14:06 DC Ondansetron HCl (Zofran) 4 mg STK-MED ONCE 02/10/18 09:29 02/10/18 09:30 DC Pantoprazole Sodium (PROTONIX VIAL for IV PUSH) 40 mg DAILYAC 02/10/18 07:30 02/12/18 08:57 40 MG Pantoprazole Sodium (Protonix) 40 mg DAILYAC 02/09/18 11:30 02/09/18 15:51 DC Phenylephrine HCl (PHENYLEPHRINE in 0.9% NACL PF) 1 mg STK-MED ONCE 02/10/18 14:13 02/10/18 14:14 DC Piperacillin Sod/ Tazobactam Sod (Zosyn Per Pharmacy) 1 each PRN DAILY PRN 02/06/18 21:30 Piperacillin Sod/ Tazobactam Sod 2.25 gm/Sodium Chloride 50 ml @ 100 mls/hr Q8HRS 02/07/18 06:00 02/11/18 16:12 DC 02/11/18 13:49 100 MLS/HR Piperacillin Sod/ Tazobactam Sod 3.375 gm/Sodium Chloride 50 ml @ 100 mls/hr Q6HRS 02/11/18 18:00 02/12/18 05:41 100 MLS/HR Potassium Chloride 40 meq/ Sodium Chloride 520 ml @ 130 mls/hr 1X ONCE 02/07/18 02:00 02/07/18 05:59 DC 02/07/18 01:39 130 MLS/HR Potassium Chloride/Water 50 ml @ 25 mls/hr Q1H 02/06/18 21:00 02/06/18 21:16 DC Potassium Chloride (KCl Oral Soln) 40 meq 1X ONCE 02/06/18 21:30 02/06/18 21:31 DC 02/06/18 21:22 40 MEQ Prochlorperazine Edisylate (Compazine) 5 mg PACU PRN PRN 02/10/18 15:30 02/11/18 15:29 DC Propofol 20 ml @ As Directed STK-MED ONCE 02/10/18 09:29 02/10/18 09:30 DC Ringer's Solution 1,000 ml @ 100 mls/hr Q10H 02/10/18 15:33 02/12/18 07:33 100 MLS/HR Rocuronium [place] (Zemuron) 50 mg STK-MED ONCE 02/10/18 09:29 02/10/18 09:30 DC Sodium Chloride 1,000 ml @ 25 mls/hr Q24H 02/10/18 15:33 02/11/18 16:24 25 MLS/HR Sodium Chloride (Normal Saline Flush) 3 ml QSHIFT PRN 02/10/18 15:45 Sodium Phosphate 10 mmol/Dextrose 253.3333 ml @ 62.5 mls/hr 1X PRN PRN 02/06/18 22:30 Sodium Phosphate 20 mmol/Dextrose 256.6667 ml @ 62.5 mls/hr 1X PRN PRN 02/06/18 22:30 Sodium Phosphate 40 mmol/Sodium Chloride 513.3333 ml @ 83.3 mls/hr 1X PRN PRN 02/06/18 22:30 Succinylcholine Chloride (Anectine) 200 mg STK-MED ONCE 02/10/18 10:38 02/10/18 10:39 DC Vancomycin HCl (Vanco Per Pharmacy) 1 each PRN DAILY PRN 02/06/18 21:30 02/07/18 07:52 DC Vancomycin HCl 1.25 gm/Sodium Chloride 250 ml @ 166.667 mls/hr 1X ONCE 02/06/18 22:00 02/06/18 23:29 DC 02/06/18 22:30 166.667 MLS/HR Zolpidem Tartrate (Ambien) 5 mg PRN QHS PRN 02/07/18 17:00 Lab Laboratory Tests Test 02/11/18 12:07 02/11/18 17:07 02/11/18 21:15 02/12/18 05:30 Glucose (Fingerstick) 120 mg/dL (70-99) 106 mg/dL (70-99) 95 mg/dL (70-99) White Blood Count 10.6 x10^3/uL (4.0-11.0) Red Blood Count 3.98 x10^6/uL (4.30-5.70) Hemoglobin 12.4 g/dL (13.0-17.5) Hematocrit 36.2 % (39.0-53.0) Mean Corpuscular Volume 91 fL (79-100) Mean Corpuscular Hemoglobin 31 pg (25-35) Mean Corpuscular Hemoglobin Concent 34 g/dL (31-37) Red Cell Distribution Width 13.7 % (11.5-14.5) Platelet Count 208 x10^3/uL (140-400) Neutrophils (%) (Auto) 77 % (31-73) Lymphocytes (%) (Auto) 12 % (24-48) Monocytes (%) (Auto) 9 % (0-9) Eosinophils (%) (Auto) 1 % (0-3) Basophils (%) (Auto) 0 % (0-3) Neutrophils # (Auto) 8.2 x10^3uL (1.8-7.7) Lymphocytes # (Auto) 1.3 x10^3/uL (1.0-4.8) Monocytes # (Auto) 1.0 x10^3/uL (0.0-1.1) Eosinophils # (Auto) 0.2 x10^3/uL (0.0-0.7) Basophils # (Auto) 0.0 x10^3/uL (0.0-0.2) Sodium Level 145 mmol/L (136-145) Potassium Level 3.7 mmol/L (3.5-5.1) Chloride Level 105 mmol/L (98-107) Carbon Dioxide Level 32 mmol/L (21-32) Anion Gap 8 (6-14) Blood Urea Nitrogen 19 mg/dL (8-26) Creatinine 1.3 mg/dL (0.7-1.3) Estimated GFR (Cockcroft-Gault) 55.2 Glucose Level 79 mg/dL (70-99) Calcium Level 8.3 mg/dL (8.5-10.1) Phosphorus Level 2.8 mg/dL (2.6-4.7) Albumin 1.7 g/dL (3.4-5.0) Results All relevant outside records, renal labs, imaging studies, telemetry/EKG's were reviewed. GWYN HONG MD Feb 12, 2018 10:08
--- NOTE | 2018-02-12 10:43 | PDOC ---
SURGICAL PROGRESS NOTE Subjective resting reports + flatus no emesis Vital Signs Vital Signs Date Time Temp Pulse Resp B/P (MAP) Pulse Ox O2 Delivery O2 Flow Rate FiO2 02/12/18 10:00 100 20 138/60 (86) 96 Nasal Cannula 2.0 02/12/18 08:00 98.0 98.0 I&O Intake and Output 02/12/18 07:00 Intake Total 2203 ml Output Total 2390 ml Balance -187 ml Intake Oral 0 ml IV Total 2203 ml Output Urine Total 2390 ml General: Alert, Oriented X3, Cooperative, No acute distress Abdomen: Soft, Other (dressing dry, NTTP) Labs Laboratory Tests Test 02/10/18 14:51 02/11/18 06:10 02/11/18 12:07 02/11/18 17:07 Glucose (Fingerstick) 120 mg/dL (70-99) 120 mg/dL (70-99) 106 mg/dL (70-99) White Blood Count 10.4 x10^3/uL (4.0-11.0) Red Blood Count 3.93 x10^6/uL (4.30-5.70) Hemoglobin 12.2 g/dL (13.0-17.5) Hematocrit 35.8 % (39.0-53.0) Mean Corpuscular Volume 91 fL (79-100) Mean Corpuscular Hemoglobin 31 pg (25-35) Mean Corpuscular Hemoglobin Concent 34 g/dL (31-37) Red Cell Distribution Width 13.7 % (11.5-14.5) Platelet Count 205 x10^3/uL (140-400) Neutrophils (%) (Auto) 80 % (31-73) Lymphocytes (%) (Auto) 10 % (24-48) Monocytes (%) (Auto) 10 % (0-9) Eosinophils (%) (Auto) 0 % (0-3) Basophils (%) (Auto) 0 % (0-3) Neutrophils # (Auto) 8.4 x10^3uL (1.8-7.7) Lymphocytes # (Auto) 1.1 x10^3/uL (1.0-4.8) Monocytes # (Auto) 1.0 x10^3/uL (0.0-1.1) Eosinophils # (Auto) 0.0 x10^3/uL (0.0-0.7) Basophils # (Auto) 0.0 x10^3/uL (0.0-0.2) Sodium Level 146 mmol/L (136-145) Potassium Level 3.6 mmol/L (3.5-5.1) Chloride Level 108 mmol/L (98-107) Carbon Dioxide Level 26 mmol/L (21-32) Anion Gap 12 (6-14) Blood Urea Nitrogen 29 mg/dL (8-26) Creatinine 1.6 mg/dL (0.7-1.3) Estimated GFR (Cockcroft-Gault) 43.5 Glucose Level 135 mg/dL (70-99) Calcium Level 7.8 mg/dL (8.5-10.1) Phosphorus Level 3.1 mg/dL (2.6-4.7) Albumin 1.7 g/dL (3.4-5.0) Test 02/11/18 21:15 02/12/18 05:30 Glucose (Fingerstick) 95 mg/dL (70-99) White Blood Count 10.6 x10^3/uL (4.0-11.0) Red Blood Count 3.98 x10^6/uL (4.30-5.70) Hemoglobin 12.4 g/dL (13.0-17.5) Hematocrit 36.2 % (39.0-53.0) Mean Corpuscular Volume 91 fL (79-100) Mean Corpuscular Hemoglobin 31 pg (25-35) Mean Corpuscular Hemoglobin Concent 34 g/dL (31-37) Red Cell Distribution Width 13.7 % (11.5-14.5) Platelet Count 208 x10^3/uL (140-400) Neutrophils (%) (Auto) 77 % (31-73) Lymphocytes (%) (Auto) 12 % (24-48) Monocytes (%) (Auto) 9 % (0-9) Eosinophils (%) (Auto) 1 % (0-3) Basophils (%) (Auto) 0 % (0-3) Neutrophils # (Auto) 8.2 x10^3uL (1.8-7.7) Lymphocytes # (Auto) 1.3 x10^3/uL (1.0-4.8) Monocytes # (Auto) 1.0 x10^3/uL (0.0-1.1) Eosinophils # (Auto) 0.2 x10^3/uL (0.0-0.7) Basophils # (Auto) 0.0 x10^3/uL (0.0-0.2) Sodium Level 145 mmol/L (136-145) Potassium Level 3.7 mmol/L (3.5-5.1) Chloride Level 105 mmol/L (98-107) Carbon Dioxide Level 32 mmol/L (21-32) Anion Gap 8 (6-14) Blood Urea Nitrogen 19 mg/dL (8-26) Creatinine 1.3 mg/dL (0.7-1.3) Estimated GFR (Cockcroft-Gault) 55.2 Glucose Level 79 mg/dL (70-99) Calcium Level 8.3 mg/dL (8.5-10.1) Phosphorus Level 2.8 mg/dL (2.6-4.7) Albumin 1.7 g/dL (3.4-5.0) Laboratory Tests Test 02/11/18 12:07 02/11/18 17:07 02/11/18 21:15 02/12/18 05:30 Glucose (Fingerstick) 120 mg/dL (70-99) 106 mg/dL (70-99) 95 mg/dL (70-99) White Blood Count 10.6 x10^3/uL (4.0-11.0) Red Blood Count 3.98 x10^6/uL (4.30-5.70) Hemoglobin 12.4 g/dL (13.0-17.5) Hematocrit 36.2 % (39.0-53.0) Mean Corpuscular Volume 91 fL (79-100) Mean Corpuscular Hemoglobin 31 pg (25-35) Mean Corpuscular Hemoglobin Concent 34 g/dL (31-37) Red Cell Distribution Width 13.7 % (11.5-14.5) Platelet Count 208 x10^3/uL (140-400) Neutrophils (%) (Auto) 77 % (31-73) Lymphocytes (%) (Auto) 12 % (24-48) Monocytes (%) (Auto) 9 % (0-9) Eosinophils (%) (Auto) 1 % (0-3) Basophils (%) (Auto) 0 % (0-3) Neutrophils # (Auto) 8.2 x10^3uL (1.8-7.7) Lymphocytes # (Auto) 1.3 x10^3/uL (1.0-4.8) Monocytes # (Auto) 1.0 x10^3/uL (0.0-1.1) Eosinophils # (Auto) 0.2 x10^3/uL (0.0-0.7) Basophils # (Auto) 0.0 x10^3/uL (0.0-0.2) Sodium Level 145 mmol/L (136-145) Potassium Level 3.7 mmol/L (3.5-5.1) Chloride Level 105 mmol/L (98-107) Carbon Dioxide Level 32 mmol/L (21-32) Anion Gap 8 (6-14) Blood Urea Nitrogen 19 mg/dL (8-26) Creatinine 1.3 mg/dL (0.7-1.3) Estimated GFR (Cockcroft-Gault) 55.2 Glucose Level 79 mg/dL (70-99) Calcium Level 8.3 mg/dL (8.5-10.1) Phosphorus Level 2.8 mg/dL (2.6-4.7) Albumin 1.7 g/dL (3.4-5.0) Problem List Problems Medical Problems: (1) Acute renal failure Status: Acute (2) CHF (congestive heart failure) Status: Acute (3) DKA (diabetic ketoacidoses) Status: Acute (4) Heart murmur Status: Acute (5) NSTEMI (non-ST elevated myocardial infarction) Status: Acute Assessment/Plan s/p removal gallstone, ileus clamp NAHUM Lawrence APRN Feb 12, 2018 10:43
--- NOTE | 2018-02-12 12:12 | PDOC ---
PROGRESS NOTES Chief Complaint Chief Complaint Gall stone ileus s/p impacted gallstone removal and lysis of adhesions 02/10 Lactic acidosis sec to DKA and severe dehydration Known DM with high likelihood of undiagnosed gastroparesis Sepsis with hypotension - responded to IVF - t.o ICU 02/08 s/p DKA Metabolic alkalosis secondary to vomiting Elevated troponin, NSTEMI, demand ischemia Acute on chronic renal failure - creat 5 on admit Leukocytosis, reactive History of Present Illness History of Present Illness Pt seen and examined in ICU Sitting upright in bed with occasional hiccups Discussed with RN Vitals Vitals Vital Signs Date Time Temp Pulse Resp B/P (MAP) Pulse Ox O2 Delivery O2 Flow Rate FiO2 02/12/18 11:00 98 20 147/70 (95) 96 Nasal Cannula 2.0 02/12/18 08:00 98.0 98.0 Physical Exam Physical Exam GENERAL: Sitting upright in bed, alert, conversing, NAD HEENT: NGT. Oral cavity pink, dry LUNGS: Clear. HEART: S1, S2 regular ABDOMEN: Distended, BS quiet, soft, NT to light palpation. Dressing clean dry and intact. : Melchor EXTREMITIES: No edema or cyanosis. SKIN: without rash NEUROLOGIC: Alert and responds appropriately PIV LUE-art line General: Alert, Oriented X3, Cooperative, No acute distress Heart: Regular rate, Normal S1, Normal S2, No murmurs, Other (tachycardic) Lungs: Clear Abdomen: Soft, No tenderness, Other (dressing dry) Extremities: No clubbing, No cyanosis Skin: No rashes, No breakdown Labs LABS Laboratory Tests Test 02/11/18 12:07 02/11/18 17:07 02/11/18 21:15 02/12/18 05:30 Glucose (Fingerstick) 120 mg/dL (70-99) 106 mg/dL (70-99) 95 mg/dL (70-99) White Blood Count 10.6 x10^3/uL (4.0-11.0) Red Blood Count 3.98 x10^6/uL (4.30-5.70) Hemoglobin 12.4 g/dL (13.0-17.5) Hematocrit 36.2 % (39.0-53.0) Mean Corpuscular Volume 91 fL (79-100) Mean Corpuscular Hemoglobin 31 pg (25-35) Mean Corpuscular Hemoglobin Concent 34 g/dL (31-37) Red Cell Distribution Width 13.7 % (11.5-14.5) Platelet Count 208 x10^3/uL (140-400) Neutrophils (%) (Auto) 77 % (31-73) Lymphocytes (%) (Auto) 12 % (24-48) Monocytes (%) (Auto) 9 % (0-9) Eosinophils (%) (Auto) 1 % (0-3) Basophils (%) (Auto) 0 % (0-3) Neutrophils # (Auto) 8.2 x10^3uL (1.8-7.7) Lymphocytes # (Auto) 1.3 x10^3/uL (1.0-4.8) Monocytes # (Auto) 1.0 x10^3/uL (0.0-1.1) Eosinophils # (Auto) 0.2 x10^3/uL (0.0-0.7) Basophils # (Auto) 0.0 x10^3/uL (0.0-0.2) Sodium Level 145 mmol/L (136-145) Potassium Level 3.7 mmol/L (3.5-5.1) Chloride Level 105 mmol/L (98-107) Carbon Dioxide Level 32 mmol/L (21-32) Anion Gap 8 (6-14) Blood Urea Nitrogen 19 mg/dL (8-26) Creatinine 1.3 mg/dL (0.7-1.3) Estimated GFR (Cockcroft-Gault) 55.2 Glucose Level 79 mg/dL (70-99) Calcium Level 8.3 mg/dL (8.5-10.1) Phosphorus Level 2.8 mg/dL (2.6-4.7) Albumin 1.7 g/dL (3.4-5.0) Test 02/12/18 11:13 Glucose (Fingerstick) 82 mg/dL (70-99) Review of Systems Review of Systems Pt c/o occasional hiccups and passing flatus, but denies any fevers, chills, VALLEJO , CP, SOA, abd pain, or N/V. Assessment and Plan Assessmemt and Plan Problems Medical Problems: (1) Acute renal failure Status: Acute (2) CHF (congestive heart failure) Status: Acute (3) DKA (diabetic ketoacidoses) Status: Acute (4) Heart murmur Status: Acute (5) NSTEMI (non-ST elevated myocardial infarction) Status: Acute Assessment: Gall stone ileus s/p impacted gallstone removal and lysis of adhesions 02/10 Lactic acidosis sec to DKA and severe dehydration Known DM with high likelihood of undiagnosed gastroparesis Sepsis with hypotension - responded to IVF - t.o ICU 02/08 s/p DKA Metabolic alkalosis secondary to vomiting Elevated troponin, NSTEMI, demand ischemia Acute on chronic renal failure - creat 5 on admit Leukocytosis, reactive Plan: ICU monitoring Labs PT/OT NG tube Home meds Diet per surgery DVT ppx Comment Review of Relevant I have reviewed the following items luz (where applicable) has been applied. Labs Laboratory Tests Test 02/10/18 14:51 02/11/18 06:10 02/11/18 12:07 02/11/18 17:07 Glucose (Fingerstick) 120 mg/dL (70-99) 120 mg/dL (70-99) 106 mg/dL (70-99) White Blood Count 10.4 x10^3/uL (4.0-11.0) Red Blood Count 3.93 x10^6/uL (4.30-5.70) Hemoglobin 12.2 g/dL (13.0-17.5) Hematocrit 35.8 % (39.0-53.0) Mean Corpuscular Volume 91 fL (79-100) Mean Corpuscular Hemoglobin 31 pg (25-35) Mean Corpuscular Hemoglobin Concent 34 g/dL (31-37) Red Cell Distribution Width 13.7 % (11.5-14.5) Platelet Count 205 x10^3/uL (140-400) Neutrophils (%) (Auto) 80 % (31-73) Lymphocytes (%) (Auto) 10 % (24-48) Monocytes (%) (Auto) 10 % (0-9) Eosinophils (%) (Auto) 0 % (0-3) Basophils (%) (Auto) 0 % (0-3) Neutrophils # (Auto) 8.4 x10^3uL (1.8-7.7) Lymphocytes # (Auto) 1.1 x10^3/uL (1.0-4.8) Monocytes # (Auto) 1.0 x10^3/uL (0.0-1.1) Eosinophils # (Auto) 0.0 x10^3/uL (0.0-0.7) Basophils # (Auto) 0.0 x10^3/uL (0.0-0.2) Sodium Level 146 mmol/L (136-145) Potassium Level 3.6 mmol/L (3.5-5.1) Chloride Level 108 mmol/L (98-107) Carbon Dioxide Level 26 mmol/L (21-32) Anion Gap 12 (6-14) Blood Urea Nitrogen 29 mg/dL (8-26) Creatinine 1.6 mg/dL (0.7-1.3) Estimated GFR (Cockcroft-Gault) 43.5 Glucose Level 135 mg/dL (70-99) Calcium Level 7.8 mg/dL (8.5-10.1) Phosphorus Level 3.1 mg/dL (2.6-4.7) Albumin 1.7 g/dL (3.4-5.0) Test 02/11/18 21:15 02/12/18 05:30 02/12/18 11:13 Glucose (Fingerstick) 95 mg/dL (70-99) 82 mg/dL (70-99) White Blood Count 10.6 x10^3/uL (4.0-11.0) Red Blood Count 3.98 x10^6/uL (4.30-5.70) Hemoglobin 12.4 g/dL (13.0-17.5) Hematocrit 36.2 % (39.0-53.0) Mean Corpuscular Volume 91 fL (79-100) Mean Corpuscular Hemoglobin 31 pg (25-35) Mean Corpuscular Hemoglobin Concent 34 g/dL (31-37) Red Cell Distribution Width 13.7 % (11.5-14.5) Platelet Count 208 x10^3/uL (140-400) Neutrophils (%) (Auto) 77 % (31-73) Lymphocytes (%) (Auto) 12 % (24-48) Monocytes (%) (Auto) 9 % (0-9) Eosinophils (%) (Auto) 1 % (0-3) Basophils (%) (Auto) 0 % (0-3) Neutrophils # (Auto) 8.2 x10^3uL (1.8-7.7) Lymphocytes # (Auto) 1.3 x10^3/uL (1.0-4.8) Monocytes # (Auto) 1.0 x10^3/uL (0.0-1.1) Eosinophils # (Auto) 0.2 x10^3/uL (0.0-0.7) Basophils # (Auto) 0.0 x10^3/uL (0.0-0.2) Sodium Level 145 mmol/L (136-145) Potassium Level 3.7 mmol/L (3.5-5.1) Chloride Level 105 mmol/L (98-107) Carbon Dioxide Level 32 mmol/L (21-32) Anion Gap 8 (6-14) Blood Urea Nitrogen 19 mg/dL (8-26) Creatinine 1.3 mg/dL (0.7-1.3) Estimated GFR (Cockcroft-Gault) 55.2 Glucose Level 79 mg/dL (70-99) Calcium Level 8.3 mg/dL (8.5-10.1) Phosphorus Level 2.8 mg/dL (2.6-4.7) Albumin 1.7 g/dL (3.4-5.0) Laboratory Tests Test 02/11/18 12:07 02/11/18 17:07 02/11/18 21:15 02/12/18 05:30 Glucose (Fingerstick) 120 mg/dL (70-99) 106 mg/dL (70-99) 95 mg/dL (70-99) White Blood Count 10.6 x10^3/uL (4.0-11.0) Red Blood Count 3.98 x10^6/uL (4.30-5.70) Hemoglobin 12.4 g/dL (13.0-17.5) Hematocrit 36.2 % (39.0-53.0) Mean Corpuscular Volume 91 fL (79-100) Mean Corpuscular Hemoglobin 31 pg (25-35) Mean Corpuscular Hemoglobin Concent 34 g/dL (31-37) Red Cell Distribution Width 13.7 % (11.5-14.5) Platelet Count 208 x10^3/uL (140-400) Neutrophils (%) (Auto) 77 % (31-73) Lymphocytes (%) (Auto) 12 % (24-48) Monocytes (%) (Auto) 9 % (0-9) Eosinophils (%) (Auto) 1 % (0-3) Basophils (%) (Auto) 0 % (0-3) Neutrophils # (Auto) 8.2 x10^3uL (1.8-7.7) Lymphocytes # (Auto) 1.3 x10^3/uL (1.0-4.8) Monocytes # (Auto) 1.0 x10^3/uL (0.0-1.1) Eosinophils # (Auto) 0.2 x10^3/uL (0.0-0.7) Basophils # (Auto) 0.0 x10^3/uL (0.0-0.2) Sodium Level 145 mmol/L (136-145) Potassium Level 3.7 mmol/L (3.5-5.1) Chloride Level 105 mmol/L (98-107) Carbon Dioxide Level 32 mmol/L (21-32) Anion Gap 8 (6-14) Blood Urea Nitrogen 19 mg/dL (8-26) Creatinine 1.3 mg/dL (0.7-1.3) Estimated GFR (Cockcroft-Gault) 55.2 Glucose Level 79 mg/dL (70-99) Calcium Level 8.3 mg/dL (8.5-10.1) Phosphorus Level 2.8 mg/dL (2.6-4.7) Albumin 1.7 g/dL (3.4-5.0) Test 02/12/18 11:13 Glucose (Fingerstick) 82 mg/dL (70-99) Microbiology 02/06/18 Blood Culture - Final, Complete NO GROWTH AFTER 5 DAYS 02/07/18 Urine Culture - Final, Complete 02/07/18 Urine Culture Result 1 (ELIAZAR) - Final, Complete Medications Current Medications Sodium Chloride 1,000 ml @ 1,000 mls/hr 1X ONCE IV Last administered on 02/06at 19:59; Start 02/06/18 at 20:00; Stop 02/06/18 at 20:59; Status DC Insulin Human Regular 150 unit/ Sodium Chloride 151.5 ml @ 0 mls/hr CONT PRN PRN IV PER PROTOCOL; Start 02/06/18 at 21:00; Stop 02/09/18 at 09:34; Status DC Potassium Chloride (KCl Oral Soln) 40 meq 1X ONCE PO Last administered on at 21:22; Start 02/06/18 at 21:30; Stop 02/06/18 at 21:31; Status DC Potassium Chloride/Water 50 ml @ 25 mls/hr Q1H IV ; Start 02/06/18 at 21:00; Stop 02/06/18 at 21:16; Status DC Insulin Human Regular 150 ml @ 9.1 mls/hr 1X ONCE IV Last administered on at 21:24; Start 02/06/18 at 21:45; Stop 02/07/18 at 14:17; Status DC Potassium Chloride 40 meq/ Sodium Chloride 520 ml @ 130 mls/hr 1X ONCE IV Last administered on 02/06/18at 22:30; Start 02/06/18 at 22:00; Stop 02/07/18 at 02:00; Status DC Potassium Chloride 40 meq/ Sodium Chloride 520 ml @ 130 mls/hr 1X ONCE IV Last administered on 02/07/18at 01:39; Start 02/07/18 at 02:00; Stop 02/07/18 at 05:59; Status DC Ondansetron HCl (Zofran) 4 mg PRN Q8HRS PRN IV NAUSEA/VOMITING Last administered on 02/06/18at 23:49; Start 02/06/18 at 21:15; Stop 02/07/18 at 21 :14; Status DC Fentanyl Citrate (Fentanyl 2ml Vial) 50 mcg PRN Q2HR PRN IV PAIN Last administered on 02/07/18at 15:01; Start 02/06/18 at 21:15; Stop 02/07/18 at 21 :14; Status DC Acetaminophen (Tylenol) 650 mg PRN Q4HRS PRN PO FEVER; Start 02/06/18 at 21:15 ; Stop 02/07/18 at 21:14; Status DC Vancomycin HCl (Vanco Per Pharmacy) 1 each PRN DAILY PRN MC SEE COMMENTS; Start 02/06/18 at 21:30; Stop 02/07/18 at 07:52; Status DC Piperacillin Sod/ Tazobactam Sod (Zosyn Per Pharmacy) 1 each PRN DAILY PRN MC SEE COMMENTS; Start 02/06/18 at 21:30 Sodium Chloride 1,000 ml @ 1,000 mls/hr 1X ONCE IV Last administered on 02/06at 21:32; Start 02/06/18 at 21:30; Stop 02/06/18 at 22:29; Status DC Piperacillin Sod/ Tazobactam Sod 3.375 gm/Sodium Chloride 50 ml @ 100 mls/hr 1X ONCE IV Last administered on 02/06/18at 21:33; Start 02/06/18 at 22:00; Stop 02/06/18 at 22:29; Status DC Vancomycin HCl 1.25 gm/Sodium Chloride 250 ml @ 166.667 mls/hr 1X ONCE IV Last administered on 02/06/18at 22:30; Start 02/06/18 at 22:00; Stop 02/06/18 at 23:29; Status DC Piperacillin Sod/ Tazobactam Sod 2.25 gm/Sodium Chloride 50 ml @ 100 mls/hr Q8HRS IV Last administered on 02/11/18at 13:49; Start 02/07/18 at 06:00; Stop 02/11/18 at 16:12; Status DC Sodium Chloride 1,000 ml @ 250 mls/hr Q4H IV ; Start 02/06/18 at 22:30; Stop 02/07/18 at 03:21; Status DC Sodium Chloride 1,000 ml @ 250 mls/hr Q4H IV ; Start 02/06/18 at 22:30; Stop 02/07/18 at 06:10; Status DC Dextrose/Sodium Chloride 1,000 ml @ 250 mls/hr Q4H IV ; Start 02/06/18 at 22: 30; Stop 02/07/18 at 03:21; Status DC Magnesium Sulfate/ Dextrose 100 ml @ 25 mls/hr DAILY IV ; Start 02/07/18 at 09 :00; Stop 02/08/18 at 04:48; Status DC Sodium Phosphate 40 mmol/Sodium Chloride 513.3333 ml @ 83.3 mls/hr 1X PRN PRN IV SEE COMMENTS; Start 02/06/18 at 22:30 Sodium Phosphate 20 mmol/Dextrose 256.6667 ml @ 62.5 mls/hr 1X PRN PRN IV SEE COMMENTS; Start 02/06/18 at 22:30 Sodium Phosphate 10 mmol/Dextrose 253.3333 ml @ 62.5 mls/hr 1X PRN PRN IV SEE COMMENTS; Start 02/06/18 at 22:30 Dextrose/Sodium Chloride 1,000 ml @ 250 mls/hr Q4H IV Last administered on at 23:30; Start 02/06/18 at 23:45; Stop 02/07/18 at 03:21; Status DC Sodium Chloride 1,000 ml @ 200 mls/hr Q5H IV Last administered on 02/10/18at 09:01; Start 02/07/18 at 03:00; Stop 02/10/18 at 15:55; Status DC Metoclopramide HCl (Reglan Vial) 5 mg PRN Q6HRS PRN IV NAUSEA/VOMITING Last administered on 02/09/18at 20:29; Start 02/07/18 at 03:00 Insulin Human Lispro (HumaLOG) 0-7 UNITS TIDWMEALS SQ Last administered on at 18:08; Start 02/07/18 at 08:00; Stop 02/09/18 at 09:34; Status DC Dextrose (Dextrose 50%-Water Syringe) 12.5 gm PRN Q15MIN PRN IV SEE COMMENTS; Start 02/07/18 at 02:15; Stop 02/10/18 at 14:35; Status DC Insulin Human Lispro (HumaLOG) 4 units 1X ONCE SQ ; Start 02/07/18 at 02:30; Stop 02/07/18 at 02:31; Status Cancel Aspirin (Ecotrin) 81 mg DAILYWBKFT PO Last administered on 02/11/18at 08:01; Start 02/07/18 at 10:00 Pantoprazole Sodium (PROTONIX VIAL for IV PUSH) 40 mg DAILYAC IVP Last administered on 02/09/18at 09:16; Start 02/07/18 at 16:30; Stop 02/09/18 at 09 :34; Status DC Chlorpromazine HCl (Thorazine) 25 mg PRN Q6HRS PRN IV HICCUPS Last administered on 02/08/18at 02:08; Start 02/07/18 at 17:00; Stop 02/08/18 at 05 :07; Status DC Zolpidem Tartrate (Ambien) 5 mg PRN QHS PRN PO INSOMNIA, MAY REPEAT IN 1HR; Start 02/07/18 at 17:00 Magnesium Sulfate/ Dextrose 100 ml @ 25 mls/hr PRN DAILY PRN IV SEE COMMENTS; Start 02/08/18 at 05:00 Chlorpromazine HCl 25 mg/Dextrose 50 ml @ 100 mls/hr PRN Q6HRS PRN IV HICCUPS Last administered on 02/09/18at 23:34; Start 02/08/18 at 05:15 Lactobacillus Rhamnosus (Culturelle) 1 cap BID PO Last administered on at 08:01; Start 02/08/18 at 09:00 Fentanyl Citrate (Fentanyl 2ml Vial) 50 mcg PRN Q2HR PRN IV SEVERE PAIN Last administered on 02/09/18at 23:14; Start 02/08/18 at 21:00; Stop 02/10/18 at 15 :41; Status DC Pantoprazole Sodium (Protonix) 40 mg DAILYAC PO ; Start 02/09/18 at 11:30; Stop 02/09/18 at 15:51; Status DC Insulin Human Lispro (HumaLOG) 0-9 UNITS TIDWMEALS SQ ; Start 02/09/18 at 12:00 Dextrose (Dextrose 50%-Water Syringe) 12.5 gm PRN Q15MIN PRN IV SEE COMMENTS; Start 02/09/18 at 09:45 Glimepiride (Amaryl) 2 mg DAILY PO Last administered on 02/11/18at 08:11; Start 02/09/18 at 09:45 Pantoprazole Sodium (PROTONIX VIAL for IV PUSH) 40 mg DAILYAC IVP Last administered on 02/12/18at 08:57; Start 02/10/18 at 07:30 Propofol 20 ml @ As Directed STK-MED ONCE IV ; Start 02/10/18 at 09:29; Stop 02/10/18 at 09:30; Status DC Dexamethasone Sodium Phosphate (Decadron) 20 mg STK-MED ONCE .ROUTE ; Start at 09:29; Stop 02/10/18 at 09:30; Status DC Lidocaine HCl (Lidocaine Pf 2% Vial) 5 ml STK-MED ONCE .ROUTE ; Start 02/10/18 at 09:29; Stop 02/10/18 at 09:30; Status DC Ondansetron HCl (Zofran) 4 mg STK-MED ONCE .ROUTE ; Start 02/10/18 at 09:29; Stop 02/10/18 at 09:30; Status DC Rocuronium Orange (Zemuron) 50 mg STK-MED ONCE .ROUTE ; Start 02/10/18 at 09: 29; Stop 02/10/18 at 09:30; Status DC Fentanyl Citrate (Fentanyl 2ml Vial) 100 mcg STK-MED ONCE .ROUTE ; Start at 09:29; Stop 02/10/18 at 09:30; Status DC Lidocaine HCl (Xylocaine-Mpf 2% Vial) 2 ml STK-MED ONCE .ROUTE ; Start at 10:29; Stop 02/10/18 at 10:30; Status DC Succinylcholine Chloride (Anectine) 200 mg STK-MED ONCE .ROUTE ; Start at 10:38; Stop 02/10/18 at 10:39; Status DC Chlorpromazine HCl 12.5 mg/ Dextrose 50.5 ml @ 100 mls/hr 1X ONCE IV ; Start 02/10/18 at 10:45; Stop 02/10/18 at 11:15; Status DC Bupivacaine HCl/ Epinephrine Bitart (Sensorcain-Mpf Epi 0.5%-[id number]) 30 ml STK -MED ONCE .ROUTE Last administered on 02/10/18at 13:02; Start 02/10/18 at 10: 31; Stop 02/10/18 at 11:31; Status DC Cefoxitin Sodium 2 gm/Dextrose 100 ml @ 200 mls/hr 1X PREOP IV ; Start at 12:45; Status UNV Cefoxitin Sodium 100 ml @ 200 mls/hr ONCE ONCE IV Last administered on at 13:01; Start 02/10/18 at 12:45; Stop 02/10/18 at 13:14; Status DC Metoprolol Tartrate (Lopressor Vial) 5 mg STK-MED ONCE IVP ; Start 02/10/18 at 12:46; Stop 02/10/18 at 12:47; Status DC Ephedrine Sulfate (ePHEDrine PF IN SALINE SYRINGE) 50 mg STK-MED ONCE IV ; Start 02/10/18 at 13:51; Stop 02/10/18 at 13:52; Status DC Desflurane (Suprane) 60 ml STK-MED ONCE IH ; Start 02/10/18 at 14:04; Stop at 14:05; Status DC Glycopyrrolate (Robinul) 1 mg STK-MED ONCE .ROUTE ; Start 02/10/18 at 14:05; Stop 02/10/18 at 14:06; Status DC Neostigmine Methylsulfate (Neostigmine Methylsulfate) 5 mg STK-MED ONCE .ROUTE ; Start 02/10/18 at 14:05; Stop 02/10/18 at 14:06; Status DC Desflurane (Suprane) 60 ml STK-MED ONCE IH ; Start 02/10/18 at 14:12; Stop at 14:13; Status DC Phenylephrine HCl (PHENYLEPHRINE in 0.9% NACL PF) 1 mg STK-MED ONCE IV ; Start 02/10/18 at 14:13; Stop 02/10/18 at 14:14; Status DC Fentanyl Citrate (Fentanyl 2ml Vial) 100 mcg STK-MED ONCE .ROUTE ; Start at 15:03; Stop 02/10/18 at 15:04; Status DC Fentanyl Citrate (Fentanyl 2ml Vial) 25 mcg PRN Q5MIN PRN IV MILD PAIN; Start 02/10/18 at 15:30; Stop 02/10/18 at 15:40; Status DC Fentanyl Citrate (Fentanyl 2ml Vial) 50 mcg PRN Q5MIN PRN IV MODERATE TO SEVERE PAIN; Start 02/10/18 at 15:30; Stop 02/10/18 at 15:40; Status DC Morphine Sulfate (Morphine Sulfate) 1 mg PRN Q10MIN PRN IV SEVERE PAIN; Start 02/10/18 at 15:30; Stop 02/10/18 at 15:42; Status DC Ringer's Solution 1,000 ml @ 30 mls/hr Q24H IV ; Start 02/10/18 at 15:27; Stop 02/10/18 at 15:56; Status DC Lidocaine HCl (Xylocaine-Mpf 1% 2ml Vial) 2 ml PRN 1X PRN ID PRIOR TO IV START ; Start 02/10/18 at 15:30; Stop 02/11/18 at 15:29; Status DC Hydromorphone HCl (Dilaudid) 0.5 mg PRN Q10MIN PRN IV SEV PAIN, Second choice; Start 02/10/18 at 15:30; Stop 02/10/18 at 15:41; Status DC Prochlorperazine Edisylate (Compazine) 5 mg PACU PRN PRN IV NAUSEA, MRX1; Start 02/10/18 at 15:30; Stop 02/11/18 at 15:29; Status DC Enoxaparin Sodium (Lovenox 40mg Syringe) 40 mg Q24H SQ Last administered on at 16:24; Start 02/10/18 at 16:00 Sodium Chloride (Normal Saline Flush) 3 ml QSHIFT PRN IV AFTER MEDS AND BLOOD DRAWS; Start 02/10/18 at 15:45 Ringer's Solution 1,000 ml @ 100 mls/hr Q10H IV Last administered on at 07:33; Start 02/10/18 at 15:33 Naloxone HCl (Narcan) 0.4 mg PRN Q2MIN PRN IV SEE INSTRUCTIONS; Start at 15:45 Sodium Chloride 1,000 ml @ 25 mls/hr Q24H IV Last administered on 02/11/18at 16:24; Start 02/10/18 at 15:33 Morphine Sulfate 30 ml @ 0 mls/hr CONT PRN PRN IV PER PROTOCOL Last administered on 02/12/18at 02:29; Start 02/10/18 at 15:45 Piperacillin Sod/ Tazobactam Sod 3.375 gm/Sodium Chloride 50 ml @ 100 mls/hr Q6HRS IV Last administered on 02/12/18at 05:41; Start 02/11/18 at 18:00 Fentanyl Citrate (Fentanyl 2ml Vial) 100 mcg STK-MED ONCE .ROUTE ; Start at 15:00; Stop 02/12/18 at 08:17; Status DC Vitals/I & O Vital Sign - Last 24 Hours 02/11/18 02/11/18 02/11/18 02/11/18 13:00 14:00 15:00 16:00 Temp 98.1 98.1 Pulse 95 108 103 Resp 22 18 18 B/P (MAP) 129/74 (92) 112/68 (83) 119/67 (84) Pulse Ox 98 98 97 O2 Delivery Nasal Cannula Nasal Cannula Nasal Cannula Non-Rebreather O2 Flow Rate 2.0 2.0 2.0 6.0 02/11/18 02/11/18 02/11/18 02/11/18 16:00 17:00 18:00 19:00 Temp 98.1 99.2 98.1 99.2 Pulse 105 95 96 96 Resp 20 24 26 22 B/P (MAP) 138/72 (94) 132/76 (94) 133/77 (95) 132/68 (89) Pulse Ox 99 95 95 96 O2 Delivery Nasal Cannula Nasal Cannula Nasal Cannula Nasal Cannula O2 Flow Rate 2.0 2.0 2.0 2.0 02/11/18 02/11/18 02/11/18 02/11/18 19:20 19:27 20:00 20:00 Pulse 98 Resp 18 30 16 B/P (MAP) 132/70 (90) Pulse Ox 98 O2 Delivery Nasal Cannula Nasal Cannula Nasal Cannula Nasal Cannula O2 Flow Rate 2.0 2.0 2.0 2.0 02/11/18 02/11/18 02/11/18 02/12/18 21:00 22:00 23:00 00:00 Temp 98.4 98.4 Pulse 90 90 88 92 Resp 20 20 20 20 B/P (MAP) 116/70 (85) 110/65 (80) 131/65 (87) 129/79 (96) Pulse Ox 98 98 95 97 O2 Delivery Nasal Cannula Nasal Cannula Nasal Cannula Nasal Cannula O2 Flow Rate 2.0 2.0 2.0 2.0 02/12/18 02/12/18 02/12/18 02/12/18 00:00 01:00 02:00 03:00 Pulse 96 94 98 Resp 20 20 20 B/P (MAP) 115/69 (84) 115/69 (84) 112/75 (87) Pulse Ox 95 97 97 O2 Delivery Nasal Cannula Nasal Cannula Nasal Cannula Nasal Cannula O2 Flow Rate 2.0 2.0 2.0 2.0 02/12/18 02/12/18 02/12/18 02/12/18 04:00 04:06 05:00 06:04 Temp 98.6 98.6 Pulse 92 92 100 Resp 20 20 20 B/P (MAP) 118/62 (80) 116/67 (83) 127/69 (88) Pulse Ox 96 91 96 O2 Delivery Nasal Cannula Nasal Cannula Nasal Cannula Nasal Cannula O2 Flow Rate 2.0 2.0 2.0 2.0 02/12/18 02/12/18 02/12/18 02/12/18 07:00 08:00 08:00 09:00 Temp 98.0 98.0 Pulse 100 103 100 Resp 20 20 20 B/P (MAP) 119/60 (79) 120/60 (80) 132/60 (84) Pulse Ox 96 96 96 O2 Delivery Nasal Cannula Nasal Cannula Nasal Cannula Nasal Cannula O2 Flow Rate 2.0 2.0 2.0 2.0 02/12/18 02/12/18 10:00 11:00 Pulse 100 98 Resp 20 20 B/P (MAP) 138/60 (86) 147/70 (95) Pulse Ox 96 96 O2 Delivery Nasal Cannula Nasal Cannula O2 Flow Rate 2.0 2.0 Intake and Output 02/11/18 02/11/18 02/12/18 15:00 23:00 07:00 Intake Total 0 ml 1173 ml 1030 ml Output Total 1125 ml 580 ml 685 ml Balance -1125 ml 593 ml 345 ml Nutrition Consultation Dietary Evaluation: Recommendations by RD: Protein supplementation Comments: added renal to diet restrictions - K 3.4, Bun 77, cr 3.5, GF 17.6 changed Glucerna supplement to Nepro bid Expected Outcomes/Goals: diet advancement - met new goal: to meet > 75% est nutr needs Malnutrition Findings: Food and Nutrition Intake (Sev: <50% est energy req 5days Weight Status: Overweight POLINA STANFORD III DO Feb 12, 2018 12:12
[2018-02-12] MEDS ORDERED: MORPHINE SULFATE 2 MG/ML VIAL. IV PRN (15:00)
[2018-02-12] MEDS ORDERED: oxyCODONE/APAP 5/325 1 TAB TABLET PO PRN (15:00)
[2018-02-12] MEDS: IV NORMAL SALINE 1000ML BAG 1,000 ML IV SCH (15:33)
[2018-02-12] MEDS: ENOXAPARIN 40 MG/0.4 ML SYRINGE. SQ SCH (16:00)
[2018-02-13] VITALS (10 sets, daily range): BP systolic 103–133; BP diastolic 62–79
[2018-02-13] MEDS: PIPERACILLIN/TAZOBACTAM 3.375 GM in IV NORMAL SALINE 50ML 50 ML IV SCH ×4 (00:25→18:30)
[2018-02-13 05:12] LABS: BASO % 0 % (0-3); EOS # 0.1 x10^3/uL (0.0-0.7); EOS % 1 % (0-3); HEMATOCRIT 33.4 % (39.0-53.0); HEMOGLOBIN 11.7 g/dL (13.0-17.5); LYMPH # 1.4 x10^3/uL (1.0-4.8); LYMPH % 12 % (24-48); MEAN CORPUSCULAR HEMOGLOBIN 32 pg (25-35); MEAN CORPUSCULAR HGB CONC 35 g/dL (31-37); MEAN CORPUSCULAR VOLUME 90 fL (79-100); MONO # 1.1 x10^3/uL (0.0-1.1); MONO % 10 % (0-9); NEUT # 8.7 x10^3uL (1.8-7.7); NEUT % 77 % (31-73); PLATELET COUNT 229 x10^3/uL (140-400); RED BLOOD COUNT 3.71 x10^6/uL (4.30-5.70); RED CELL DISTRIBUTION WIDTH 13.9 % (11.5-14.5); WHITE BLOOD COUNT 11.3 x10^3/uL (4.0-11.0)
[2018-02-13 06:14] LABS: ALBUMIN 1.5 g/dL (3.4-5.0); CALCIUM 7.7 mg/dL (8.5-10.1); CREATININE 1.1 mg/dL (0.7-1.3); PHOSPHORUS 2.6 mg/dL (2.6-4.7); POTASSIUM 3.2 mmol/L (3.5-5.1)
[2018-02-13] MEDS: chlorproMAZINE 25 MG in IV DEXTROSE 5% 50 ML IV PRN (06:15)
--- NOTE | 2018-02-13 07:21 | PDOC ---
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 Vital Signs: Vital Signs Vital Signs Date Time Temp Pulse Resp B/P (MAP) Pulse Ox O2 Delivery O2 Flow Rate FiO2 02/13/18 04:00 99.4 99 120/68 (85) 96 Room Air 99.4 02/12/18 20:00 24 02/12/18 15:00 2.0 Physical Exam: PHYSICAL EXAM GENERAL:axox3 male in nad HEENT: NGT. Oral cavity pink, dry LUNGS: Clear. HEART: S1, S2,tachycardia ABDOMEN: Distended, BS quiet, soft, NT to light palpation. Dressing clean dry and intact. : Mel[place] EXTREMITIES: No edema or cyanosis. SKIN: without rash NEUROLOGIC: Alert and responds appropriately PIV LUE-art line Medications: Inpatient Meds: Current Medications Medications (Trade) Dose Ordered Sig/Gricel Start Time Stop Time Status Last Admin Dose Admin Acetaminophen (Tylenol) 650 mg PRN Q4HRS PRN 02/06/18 21:15 02/07/18 21:14 DC Aspirin (Ecotrin) 81 mg [id number] 02/07/18 10:00 02/11/18 08:01 81 MG Bupivacaine HCl/ Epinephrine Bitart (Sensorcain-Mpf Epi 0.5%-[id number]) 30 ml STK-MED ONCE 02/10/18 10:31 02/10/18 11:31 DC 02/10/18 13:02 6 ML Cefoxitin Sodium 100 ml @ 200 mls/hr ONCE ONCE 02/10/18 12:45 02/10/18 13:14 DC 02/10/18 13:01 200 MLS/HR Cefoxitin Sodium 2 gm/Dextrose 100 ml @ 200 mls/hr 1X PREOP 02/10/18 12:45 UNV Chlorpromazine HCl 12.5 mg/ Dextrose 50.5 ml @ 100 mls/hr 1X ONCE 02/10/18 10:45 02/10/18 11:15 DC Chlorpromazine HCl 25 mg/Dextrose 50 ml @ 100 mls/hr PRN Q6HRS PRN 02/08/18 05:15 02/13/18 06:15 100 MLS/HR Chlorpromazine HCl (Thorazine) 25 mg PRN Q6HRS PRN 02/07/18 17:00 02/08/18 05:07 DC 02/08/18 02:08 25 MG Desflurane (Suprane) 60 ml STK-MED ONCE 02/10/18 14:12 02/10/18 14:13 DC Dexamethasone Sodium Phosphate (Decadron) 20 mg STK-MED ONCE 02/10/18 09:29 02/10/18 09:30 DC Dextrose (Dextrose 50%-Water Syringe) 12.5 gm PRN Q15MIN PRN 02/09/18 09:45 Dextrose/Sodium Chloride 1,000 ml @ 250 mls/hr Q4H 02/06/18 23:45 02/07/18 03:21 DC 02/06/18 23:30 250 MLS/HR Enoxaparin Sodium (Lovenox 40mg Syringe) 40 mg Q24H 02/10/18 16:00 02/12/18 16:00 40 MG Ephedrine Sulfate (ePHEDrine PF IN SALINE SYRINGE) 50 mg STK-MED ONCE 02/10/18 13:51 02/10/18 13:52 DC Fentanyl Citrate (Fentanyl 2ml Vial) 100 mcg STK-MED ONCE 02/10/18 15:00 02/12/18 08:17 DC Glimepiride (Amaryl) 2 mg DAILY 02/09/18 09:45 02/11/18 08:11 2 MG Glycopyrrolate (Robinul) 1 mg STK-MED ONCE 02/10/18 14:05 02/10/18 14:06 DC Hydromorphone HCl (Dilaudid) 0.5 mg PRN Q10MIN PRN 02/10/18 15:30 02/10/18 15:41 DC Insulin Human Lispro (HumaLOG) 0-9 UNITS TIDWMEALS 02/09/18 12:00 Insulin Human Regular 150 ml @ 9.1 mls/hr 1X ONCE 02/06/18 21:45 02/07/18 14:17 DC 02/06/18 21:24 8.3 MLS/HR Insulin Human Regular 150 unit/ Sodium Chloride 151.5 ml @ 0 mls/hr CONT PRN PRN 02/06/18 21:00 02/09/18 09:34 DC Lactobacillus Rhamnosus (Culturelle) 1 cap BID 02/08/18 09:00 02/11/18 08:01 1 CAP Lidocaine HCl (Lidocaine Pf 2% Vial) 5 ml STK-MED ONCE 02/10/18 09:29 02/10/18 09:30 DC Lidocaine HCl (Xylocaine-Mpf 1% 2ml Vial) 2 ml PRN 1X PRN 02/10/18 15:30 02/11/18 15:29 DC Lidocaine HCl (Xylocaine-Mpf 2% Vial) 2 ml STK-MED ONCE 02/10/18 10:29 02/10/18 10:30 DC Magnesium Sulfate/ Dextrose 100 ml @ 25 mls/hr PRN DAILY PRN 02/08/18 05:00 Metoclopramide HCl (Reglan Vial) 5 mg PRN Q6HRS PRN 02/07/18 03:00 02/09/18 20:29 5 MG Metoprolol Tartrate (Lopressor Vial) 5 mg STK-MED ONCE 02/10/18 12:46 02/10/18 12:47 DC Morphine Sulfate (Morphine Sulfate) 0.5 mg PRN Q3HRS PRN 02/12/18 15:00 Naloxone HCl (Narcan) 0.4 mg PRN Q2MIN PRN 02/10/18 15:45 Neostigmine Methylsulfate (Neostigmine Methylsulfate) 5 mg STK-MED ONCE 02/10/18 14:05 02/10/18 14:06 DC Ondansetron HCl (Zofran) 4 mg STK-MED ONCE 02/10/18 09:29 02/10/18 09:30 DC Oxycodone/ Acetaminophen (Percocet 5/325) 1 tab PRN Q4HRS PRN 02/12/18 15:00 Pantoprazole Sodium (PROTONIX VIAL for IV PUSH) 40 mg DAILYAC 02/10/18 07:30 02/12/18 08:57 40 MG Pantoprazole Sodium (Protonix) 40 mg DAILYAC 02/09/18 11:30 02/09/18 15:51 DC Phenylephrine HCl (PHENYLEPHRINE in 0.9% NACL PF) 1 mg STK-MED ONCE 02/10/18 14:13 02/10/18 14:14 DC Piperacillin Sod/ Tazobactam Sod (Zosyn Per Pharmacy) 1 each PRN DAILY PRN 02/06/18 21:30 Piperacillin Sod/ Tazobactam Sod 2.25 gm/Sodium Chloride 50 ml @ 100 mls/hr Q8HRS 02/07/18 06:00 02/11/18 16:12 DC 02/11/18 13:49 100 MLS/HR Piperacillin Sod/ Tazobactam Sod 3.375 gm/Sodium Chloride 50 ml @ 100 mls/hr Q6HRS 02/11/18 18:00 02/13/18 05:33 100 MLS/HR Potassium Chloride 40 meq/ Sodium Chloride 520 ml @ 130 mls/hr 1X ONCE 02/07/18 02:00 02/07/18 05:59 DC 02/07/18 01:39 130 MLS/HR Potassium Chloride/Water 50 ml @ 25 mls/hr Q1H 02/06/18 21:00 02/06/18 21:16 DC Potassium Chloride (KCl Oral Soln) 40 meq 1X ONCE 02/06/18 21:30 02/06/18 21:31 DC 02/06/18 21:22 40 MEQ Prochlorperazine Edisylate (Compazine) 5 mg PACU PRN PRN 02/10/18 15:30 02/11/18 15:29 DC Propofol 20 ml @ As Directed STK-MED ONCE 02/10/18 09:29 02/10/18 09:30 DC Ringer's Solution 1,000 ml @ 100 mls/hr Q10H 02/10/18 15:33 02/12/18 21:51 100 MLS/HR Rocuronium [place] (Zemuron) 50 mg STK-MED ONCE 02/10/18 09:29 02/10/18 09:30 DC Sodium Chloride 1,000 ml @ 25 mls/hr Q24H 02/10/18 15:33 02/12/18 15:33 25 MLS/HR Sodium Chloride (Normal Saline Flush) 3 ml QSHIFT PRN 02/10/18 15:45 Sodium Phosphate 10 mmol/Dextrose 253.3333 ml @ 62.5 mls/hr 1X PRN PRN 02/06/18 22:30 Sodium Phosphate 20 mmol/Dextrose 256.6667 ml @ 62.5 mls/hr 1X PRN PRN 02/06/18 22:30 Sodium Phosphate 40 mmol/Sodium Chloride 513.3333 ml @ 83.3 mls/hr 1X PRN PRN 02/06/18 22:30 Succinylcholine Chloride (Anectine) 200 mg STK-MED ONCE 02/10/18 10:38 02/10/18 10:39 DC Vancomycin HCl (Vanco Per Pharmacy) 1 each PRN DAILY PRN 02/06/18 21:30 02/07/18 07:52 DC Vancomycin HCl 1.25 gm/Sodium Chloride 250 ml @ 166.667 mls/hr 1X ONCE 02/06/18 22:00 02/06/18 23:29 DC 02/06/18 22:30 166.667 MLS/HR Zolpidem Tartrate (Ambien) 5 mg PRN QHS PRN 02/07/18 17:00 Labs: Lab Laboratory Tests Test 02/12/18 11:13 02/13/18 04:50 Glucose (Fingerstick) 82 mg/dL (70-99) White Blood Count 11.3 x10^3/uL (4.0-11.0) Red Blood Count 3.71 x10^6/uL (4.30-5.70) Hemoglobin 11.7 g/dL (13.0-17.5) Hematocrit 33.4 % (39.0-53.0) Mean Corpuscular Volume 90 fL (79-100) Mean Corpuscular Hemoglobin 32 pg (25-35) Mean Corpuscular Hemoglobin Concent 35 g/dL (31-37) Red Cell Distribution Width 13.9 % (11.5-14.5) Platelet Count 229 x10^3/uL (140-400) Neutrophils (%) (Auto) 77 % (31-73) Lymphocytes (%) (Auto) 12 % (24-48) Monocytes (%) (Auto) 10 % (0-9) Eosinophils (%) (Auto) 1 % (0-3) Basophils (%) (Auto) 0 % (0-3) Neutrophils # (Auto) 8.7 x10^3uL (1.8-7.7) Lymphocytes # (Auto) 1.4 x10^3/uL (1.0-4.8) Monocytes # (Auto) 1.1 x10^3/uL (0.0-1.1) Eosinophils # (Auto) 0.1 x10^3/uL (0.0-0.7) Basophils # (Auto) 0.0 x10^3/uL (0.0-0.2) Sodium Level 145 mmol/L (136-145) Potassium Level 3.2 mmol/L (3.5-5.1) Chloride Level 105 mmol/L (98-107) Carbon Dioxide Level 27 mmol/L (21-32) Anion Gap 13 (6-14) Blood Urea Nitrogen 17 mg/dL (8-26) Creatinine 1.1 mg/dL (0.7-1.3) Estimated GFR (Cockcroft-Gault) 67.0 Glucose Level 94 mg/dL (70-99) Calcium Level 7.7 mg/dL (8.5-10.1) Phosphorus Level 2.6 mg/dL (2.6-4.7) Albumin 1.5 g/dL (3.4-5.0) Objective: Assessment: Gallstone and ileus -s/p lap assisted adhesiolysis and enterotomy with removal of impacted gallstone in terminal ileum on 02/10. Lactic acidosis resolved Sepsis with hypotension resolved Pulm infiltrates from atelectasis Metabolic alkalosis sec to vomiting DM with high anion gap CAR - improving Leucocytois improving Plan: Plan of Care Continue Zosyn Dose steroids 02/10 Monitor labs/cults Supportive care d/w CAMILO GUTIERREZ MD Feb 13, 2018 07:20
[2018-02-13] MEDS: INSULIN LISPRO 300 UNITS/3 ML INSULN.PEN. SQ SCH ×3 (08:00→17:00)
[2018-02-13] MEDS ORDERED: POTASSIUM CHLORIDE 20MEQ 50 ML IV SCH (08:15)
[2018-02-13] MEDS: LACTOBACILLUS RHAMNOSUS GG 1 CAPSULE. PO SCH ×2 (09:45→22:24)
[2018-02-13] MEDS: POTASSIUM CHLORIDE 10 MEQ in IV NORMAL SALINE 100ML 100 ML IV SCH ×4 (09:45→15:59)
[2018-02-13] MEDS: PANTOPRAZOLE IV PUSH 40 MG VIAL. IVP SCH (09:45)
[2018-02-13] MEDS: METOCLOPRAMIDE HCL 10 MG/2 ML VIAL. IV PRN (09:45)
[2018-02-13] MEDS: GLIMEPIRIDE 2 MG TABLET. PO SCH (09:46)
[2018-02-13] MEDS: ASPIRIN ENTERIC COATED 81 MG TABLET.DR. PO SCH (09:46)
--- NOTE | 2018-02-13 09:52 | PDOC ---
SURGICAL PROGRESS NOTE Subjective up in chair + large stool today some hiccups Vital Signs Vital Signs Date Time Temp Pulse Resp B/P (MAP) Pulse Ox O2 Delivery O2 Flow Rate FiO2 02/13/18 09:46 14 94 Room Air 02/13/18 08:00 98.8 112 118/67 (84) 98.8 02/12/18 15:00 2.0 I&O Intake and Output 02/13/18 07:00 Intake Total 716 ml Output Total 920 ml Balance -204 ml IV Total 716 ml Output Urine Total 670 ml Oral Regurgitation 250 ml General: Alert, Oriented X3, Cooperative, No acute distress Abdomen: Soft, Other (ND, dressing dry) Labs Laboratory Tests Test 02/11/18 12:07 02/11/18 17:07 02/11/18 21:15 02/12/18 05:30 Glucose (Fingerstick) 120 mg/dL (70-99) 106 mg/dL (70-99) 95 mg/dL (70-99) White Blood Count 10.6 x10^3/uL (4.0-11.0) Red Blood Count 3.98 x10^6/uL (4.30-5.70) Hemoglobin 12.4 g/dL (13.0-17.5) Hematocrit 36.2 % (39.0-53.0) Mean Corpuscular Volume 91 fL (79-100) Mean Corpuscular Hemoglobin 31 pg (25-35) Mean Corpuscular Hemoglobin Concent 34 g/dL (31-37) Red Cell Distribution Width 13.7 % (11.5-14.5) Platelet Count 208 x10^3/uL (140-400) Neutrophils (%) (Auto) 77 % (31-73) Lymphocytes (%) (Auto) 12 % (24-48) Monocytes (%) (Auto) 9 % (0-9) Eosinophils (%) (Auto) 1 % (0-3) Basophils (%) (Auto) 0 % (0-3) Neutrophils # (Auto) 8.2 x10^3uL (1.8-7.7) Lymphocytes # (Auto) 1.3 x10^3/uL (1.0-4.8) Monocytes # (Auto) 1.0 x10^3/uL (0.0-1.1) Eosinophils # (Auto) 0.2 x10^3/uL (0.0-0.7) Basophils # (Auto) 0.0 x10^3/uL (0.0-0.2) Sodium Level 145 mmol/L (136-145) Potassium Level 3.7 mmol/L (3.5-5.1) Chloride Level 105 mmol/L (98-107) Carbon Dioxide Level 32 mmol/L (21-32) Anion Gap 8 (6-14) Blood Urea Nitrogen 19 mg/dL (8-26) Creatinine 1.3 mg/dL (0.7-1.3) Estimated GFR (Cockcroft-Gault) 55.2 Glucose Level 79 mg/dL (70-99) Calcium Level 8.3 mg/dL (8.5-10.1) Phosphorus Level 2.8 mg/dL (2.6-4.7) Albumin 1.7 g/dL (3.4-5.0) Test 02/12/18 11:13 02/13/18 04:50 Glucose (Fingerstick) 82 mg/dL (70-99) White Blood Count 11.3 x10^3/uL (4.0-11.0) Red Blood Count 3.71 x10^6/uL (4.30-5.70) Hemoglobin 11.7 g/dL (13.0-17.5) Hematocrit 33.4 % (39.0-53.0) Mean Corpuscular Volume 90 fL (79-100) Mean Corpuscular Hemoglobin 32 pg (25-35) Mean Corpuscular Hemoglobin Concent 35 g/dL (31-37) Red Cell Distribution Width 13.9 % (11.5-14.5) Platelet Count 229 x10^3/uL (140-400) Neutrophils (%) (Auto) 77 % (31-73) Lymphocytes (%) (Auto) 12 % (24-48) Monocytes (%) (Auto) 10 % (0-9) Eosinophils (%) (Auto) 1 % (0-3) Basophils (%) (Auto) 0 % (0-3) Neutrophils # (Auto) 8.7 x10^3uL (1.8-7.7) Lymphocytes # (Auto) 1.4 x10^3/uL (1.0-4.8) Monocytes # (Auto) 1.1 x10^3/uL (0.0-1.1) Eosinophils # (Auto) 0.1 x10^3/uL (0.0-0.7) Basophils # (Auto) 0.0 x10^3/uL (0.0-0.2) Sodium Level 145 mmol/L (136-145) Potassium Level 3.2 mmol/L (3.5-5.1) Chloride Level 105 mmol/L (98-107) Carbon Dioxide Level 27 mmol/L (21-32) Anion Gap 13 (6-14) Blood Urea Nitrogen 17 mg/dL (8-26) Creatinine 1.1 mg/dL (0.7-1.3) Estimated GFR (Cockcroft-Gault) 67.0 Glucose Level 94 mg/dL (70-99) Calcium Level 7.7 mg/dL (8.5-10.1) Phosphorus Level 2.6 mg/dL (2.6-4.7) Albumin 1.5 g/dL (3.4-5.0) Laboratory Tests Test 02/12/18 11:13 02/13/18 04:50 Glucose (Fingerstick) 82 mg/dL (70-99) White Blood Count 11.3 x10^3/uL (4.0-11.0) Red Blood Count 3.71 x10^6/uL (4.30-5.70) Hemoglobin 11.7 g/dL (13.0-17.5) Hematocrit 33.4 % (39.0-53.0) Mean Corpuscular Volume 90 fL (79-100) Mean Corpuscular Hemoglobin 32 pg (25-35) Mean Corpuscular Hemoglobin Concent 35 g/dL (31-37) Red Cell Distribution Width 13.9 % (11.5-14.5) Platelet Count 229 x10^3/uL (140-400) Neutrophils (%) (Auto) 77 % (31-73) Lymphocytes (%) (Auto) 12 % (24-48) Monocytes (%) (Auto) 10 % (0-9) Eosinophils (%) (Auto) 1 % (0-3) Basophils (%) (Auto) 0 % (0-3) Neutrophils # (Auto) 8.7 x10^3uL (1.8-7.7) Lymphocytes # (Auto) 1.4 x10^3/uL (1.0-4.8) Monocytes # (Auto) 1.1 x10^3/uL (0.0-1.1) Eosinophils # (Auto) 0.1 x10^3/uL (0.0-0.7) Basophils # (Auto) 0.0 x10^3/uL (0.0-0.2) Sodium Level 145 mmol/L (136-145) Potassium Level 3.2 mmol/L (3.5-5.1) Chloride Level 105 mmol/L (98-107) Carbon Dioxide Level 27 mmol/L (21-32) Anion Gap 13 (6-14) Blood Urea Nitrogen 17 mg/dL (8-26) Creatinine 1.1 mg/dL (0.7-1.3) Estimated GFR (Cockcroft-Gault) 67.0 Glucose Level 94 mg/dL (70-99) Calcium Level 7.7 mg/dL (8.5-10.1) Phosphorus Level 2.6 mg/dL (2.6-4.7) Albumin 1.5 g/dL (3.4-5.0) Problem List Problems Medical Problems: (1) Acute renal failure Status: Acute (2) CHF (congestive heart failure) Status: Acute (3) DKA (diabetic ketoacidoses) Status: Acute (4) Heart murmur Status: Acute (5) NSTEMI (non-ST elevated myocardial infarction) Status: Acute Assessment/Plan s/p xlap, removal gallstone dc ng, sips of clears tachy, irregular HR--cards onboard, nurse will d/w them increase activity, PT, OT, IS NAHUM ALVAREZ APRN Feb 13, 2018 09:52
--- NOTE | 2018-02-13 11:32 | PDOC ---
PROGRESS NOTES Chief Complaint Chief Complaint Gall stone ileus s/p impacted gallstone removal and lysis of adhesions 02/10 Lactic acidosis sec to DKA and severe dehydration Known DM with high likelihood of undiagnosed gastroparesis Sepsis with hypotension - responded to IVF - t.o ICU 02/08 s/p DKA Metabolic alkalosis secondary to vomiting Elevated troponin, NSTEMI, demand ischemia Acute on chronic renal failure - creat 5 on admit Leukocytosis, reactive Hypokalemia History of Present Illness History of Present Illness Pt seen and examined in ICU Sitting in chair, calm, cooperative Discussed with RN Vitals Vitals Vital Signs Date Time Temp Pulse Resp B/P (MAP) Pulse Ox O2 Delivery O2 Flow Rate FiO2 02/13/18 10:46 18 97 Room Air 2.0 02/13/18 10:00 103 119/68 (85) 02/13/18 08:00 98.8 98.8 Physical Exam General: Alert, Oriented X3, Cooperative, No acute distress Heart: Normal S1, Normal S2, No murmurs, Other (tachycardic) Lungs: Clear, Other (on 2L NC) Abdomen: Soft, No masses, Other (ND, dressing dry) Extremities: No clubbing, No cyanosis Skin: No rashes, No breakdown Labs LABS Laboratory Tests Test 02/13/18 04:50 White Blood Count 11.3 x10^3/uL (4.0-11.0) Red Blood Count 3.71 x10^6/uL (4.30-5.70) Hemoglobin 11.7 g/dL (13.0-17.5) Hematocrit 33.4 % (39.0-53.0) Mean Corpuscular Volume 90 fL (79-100) Mean Corpuscular Hemoglobin 32 pg (25-35) Mean Corpuscular Hemoglobin Concent 35 g/dL (31-37) Red Cell Distribution Width 13.9 % (11.5-14.5) Platelet Count 229 x10^3/uL (140-400) Neutrophils (%) (Auto) 77 % (31-73) Lymphocytes (%) (Auto) 12 % (24-48) Monocytes (%) (Auto) 10 % (0-9) Eosinophils (%) (Auto) 1 % (0-3) Basophils (%) (Auto) 0 % (0-3) Neutrophils # (Auto) 8.7 x10^3uL (1.8-7.7) Lymphocytes # (Auto) 1.4 x10^3/uL (1.0-4.8) Monocytes # (Auto) 1.1 x10^3/uL (0.0-1.1) Eosinophils # (Auto) 0.1 x10^3/uL (0.0-0.7) Basophils # (Auto) 0.0 x10^3/uL (0.0-0.2) Sodium Level 145 mmol/L (136-145) Potassium Level 3.2 mmol/L (3.5-5.1) Chloride Level 105 mmol/L (98-107) Carbon Dioxide Level 27 mmol/L (21-32) Anion Gap 13 (6-14) Blood Urea Nitrogen 17 mg/dL (8-26) Creatinine 1.1 mg/dL (0.7-1.3) Estimated GFR (Cockcroft-Gault) 67.0 Glucose Level 94 mg/dL (70-99) Calcium Level 7.7 mg/dL (8.5-10.1) Phosphorus Level 2.6 mg/dL (2.6-4.7) Albumin 1.5 g/dL (3.4-5.0) Review of Systems Review of Systems Pt denies any fevers, chills, VALLEJO, CP, abd pain, or N/V. Assessment and Plan Assessmemt and Plan Problems Medical Problems: (1) Acute renal failure Status: Acute (2) CHF (congestive heart failure) Status: Acute (3) DKA (diabetic ketoacidoses) Status: Acute (4) Heart murmur Status: Acute (5) NSTEMI (non-ST elevated myocardial infarction) Status: Acute Assessment: Gall stone ileus s/p impacted gallstone removal and lysis of adhesions 02/10 Lactic acidosis sec to DKA and severe dehydration Known DM with high likelihood of undiagnosed gastroparesis Sepsis with hypotension - responded to IVF - t.o ICU 02/08 s/p DKA Metabolic alkalosis secondary to vomiting Elevated troponin, NSTEMI, demand ischemia Acute on chronic renal failure - creat 5 on admit Leukocytosis, reactive Hypokalemia Plan: ICU monitoring Labs PT/OT IV potassium replacement this morning Home meds Oxygen Diet per surgery DVT ppx Possible discharge home with home health tomorrow Comment Review of Relevant I have reviewed the following items luz (where applicable) has been applied. Labs Laboratory Tests Test 02/11/18 12:07 02/11/18 17:07 02/11/18 21:15 02/12/18 05:30 Glucose (Fingerstick) 120 mg/dL (70-99) 106 mg/dL (70-99) 95 mg/dL (70-99) White Blood Count 10.6 x10^3/uL (4.0-11.0) Red Blood Count 3.98 x10^6/uL (4.30-5.70) Hemoglobin 12.4 g/dL (13.0-17.5) Hematocrit 36.2 % (39.0-53.0) Mean Corpuscular Volume 91 fL (79-100) Mean Corpuscular Hemoglobin 31 pg (25-35) Mean Corpuscular Hemoglobin Concent 34 g/dL (31-37) Red Cell Distribution Width 13.7 % (11.5-14.5) Platelet Count 208 x10^3/uL (140-400) Neutrophils (%) (Auto) 77 % (31-73) Lymphocytes (%) (Auto) 12 % (24-48) Monocytes (%) (Auto) 9 % (0-9) Eosinophils (%) (Auto) 1 % (0-3) Basophils (%) (Auto) 0 % (0-3) Neutrophils # (Auto) 8.2 x10^3uL (1.8-7.7) Lymphocytes # (Auto) 1.3 x10^3/uL (1.0-4.8) Monocytes # (Auto) 1.0 x10^3/uL (0.0-1.1) Eosinophils # (Auto) 0.2 x10^3/uL (0.0-0.7) Basophils # (Auto) 0.0 x10^3/uL (0.0-0.2) Sodium Level 145 mmol/L (136-145) Potassium Level 3.7 mmol/L (3.5-5.1) Chloride Level 105 mmol/L (98-107) Carbon Dioxide Level 32 mmol/L (21-32) Anion Gap 8 (6-14) Blood Urea Nitrogen 19 mg/dL (8-26) Creatinine 1.3 mg/dL (0.7-1.3) Estimated GFR (Cockcroft-Gault) 55.2 Glucose Level 79 mg/dL (70-99) Calcium Level 8.3 mg/dL (8.5-10.1) Phosphorus Level 2.8 mg/dL (2.6-4.7) Albumin 1.7 g/dL (3.4-5.0) Test 02/12/18 11:13 02/13/18 04:50 Glucose (Fingerstick) 82 mg/dL (70-99) White Blood Count 11.3 x10^3/uL (4.0-11.0) Red Blood Count 3.71 x10^6/uL (4.30-5.70) Hemoglobin 11.7 g/dL (13.0-17.5) Hematocrit 33.4 % (39.0-53.0) Mean Corpuscular Volume 90 fL (79-100) Mean Corpuscular Hemoglobin 32 pg (25-35) Mean Corpuscular Hemoglobin Concent 35 g/dL (31-37) Red Cell Distribution Width 13.9 % (11.5-14.5) Platelet Count 229 x10^3/uL (140-400) Neutrophils (%) (Auto) 77 % (31-73) Lymphocytes (%) (Auto) 12 % (24-48) Monocytes (%) (Auto) 10 % (0-9) Eosinophils (%) (Auto) 1 % (0-3) Basophils (%) (Auto) 0 % (0-3) Neutrophils # (Auto) 8.7 x10^3uL (1.8-7.7) Lymphocytes # (Auto) 1.4 x10^3/uL (1.0-4.8) Monocytes # (Auto) 1.1 x10^3/uL (0.0-1.1) Eosinophils # (Auto) 0.1 x10^3/uL (0.0-0.7) Basophils # (Auto) 0.0 x10^3/uL (0.0-0.2) Sodium Level 145 mmol/L (136-145) Potassium Level 3.2 mmol/L (3.5-5.1) Chloride Level 105 mmol/L (98-107) Carbon Dioxide Level 27 mmol/L (21-32) Anion Gap 13 (6-14) Blood Urea Nitrogen 17 mg/dL (8-26) Creatinine 1.1 mg/dL (0.7-1.3) Estimated GFR (Cockcroft-Gault) 67.0 Glucose Level 94 mg/dL (70-99) Calcium Level 7.7 mg/dL (8.5-10.1) Phosphorus Level 2.6 mg/dL (2.6-4.7) Albumin 1.5 g/dL (3.4-5.0) Laboratory Tests Test 02/13/18 04:50 White Blood Count 11.3 x10^3/uL (4.0-11.0) Red Blood Count 3.71 x10^6/uL (4.30-5.70) Hemoglobin 11.7 g/dL (13.0-17.5) Hematocrit 33.4 % (39.0-53.0) Mean Corpuscular Volume 90 fL (79-100) Mean Corpuscular Hemoglobin 32 pg (25-35) Mean Corpuscular Hemoglobin Concent 35 g/dL (31-37) Red Cell Distribution Width 13.9 % (11.5-14.5) Platelet Count 229 x10^3/uL (140-400) Neutrophils (%) (Auto) 77 % (31-73) Lymphocytes (%) (Auto) 12 % (24-48) Monocytes (%) (Auto) 10 % (0-9) Eosinophils (%) (Auto) 1 % (0-3) Basophils (%) (Auto) 0 % (0-3) Neutrophils # (Auto) 8.7 x10^3uL (1.8-7.7) Lymphocytes # (Auto) 1.4 x10^3/uL (1.0-4.8) Monocytes # (Auto) 1.1 x10^3/uL (0.0-1.1) Eosinophils # (Auto) 0.1 x10^3/uL (0.0-0.7) Basophils # (Auto) 0.0 x10^3/uL (0.0-0.2) Sodium Level 145 mmol/L (136-145) Potassium Level 3.2 mmol/L (3.5-5.1) Chloride Level 105 mmol/L (98-107) Carbon Dioxide Level 27 mmol/L (21-32) Anion Gap 13 (6-14) Blood Urea Nitrogen 17 mg/dL (8-26) Creatinine 1.1 mg/dL (0.7-1.3) Estimated GFR (Cockcroft-Gault) 67.0 Glucose Level 94 mg/dL (70-99) Calcium Level 7.7 mg/dL (8.5-10.1) Phosphorus Level 2.6 mg/dL (2.6-4.7) Albumin 1.5 g/dL (3.4-5.0) Microbiology 02/06/18 Blood Culture - Final, Complete NO GROWTH AFTER 5 DAYS 02/07/18 Urine Culture - Final, Complete 02/07/18 Urine Culture Result 1 (ELIAZAR) - Final, Complete Medications Current Medications Sodium Chloride 1,000 ml @ 1,000 mls/hr 1X ONCE IV Last administered on 02/06at 19:59; Start 02/06/18 at 20:00; Stop 02/06/18 at 20:59; Status DC Insulin Human Regular 150 unit/ Sodium Chloride 151.5 ml @ 0 mls/hr CONT PRN PRN IV PER PROTOCOL; Start 02/06/18 at 21:00; Stop 02/09/18 at 09:34; Status DC Potassium Chloride (KCl Oral Soln) 40 meq 1X ONCE PO Last administered on at 21:22; Start 02/06/18 at 21:30; Stop 02/06/18 at 21:31; Status DC Potassium Chloride/Water 50 ml @ 25 mls/hr Q1H IV ; Start 02/06/18 at 21:00; Stop 02/06/18 at 21:16; Status DC Insulin Human Regular 150 ml @ 9.1 mls/hr 1X ONCE IV Last administered on at 21:24; Start 02/06/18 at 21:45; Stop 02/07/18 at 14:17; Status DC Potassium Chloride 40 meq/ Sodium Chloride 520 ml @ 130 mls/hr 1X ONCE IV Last administered on 02/06/18at 22:30; Start 02/06/18 at 22:00; Stop 02/07/18 at 02:00; Status DC Potassium Chloride 40 meq/ Sodium Chloride 520 ml @ 130 mls/hr 1X ONCE IV Last administered on 02/07/18at 01:39; Start 02/07/18 at 02:00; Stop 02/07/18 at 05:59; Status DC Ondansetron HCl (Zofran) 4 mg PRN Q8HRS PRN IV NAUSEA/VOMITING Last administered on 02/06/18at 23:49; Start 02/06/18 at 21:15; Stop 02/07/18 at 21 :14; Status DC Fentanyl Citrate (Fentanyl 2ml Vial) 50 mcg PRN Q2HR PRN IV PAIN Last administered on 02/07/18at 15:01; Start 02/06/18 at 21:15; Stop 02/07/18 at 21 :14; Status DC Acetaminophen (Tylenol) 650 mg PRN Q4HRS PRN PO FEVER; Start 02/06/18 at 21:15 ; Stop 02/07/18 at 21:14; Status DC Vancomycin HCl (Vanco Per Pharmacy) 1 each PRN DAILY PRN MC SEE COMMENTS; Start 02/06/18 at 21:30; Stop 02/07/18 at 07:52; Status DC Piperacillin Sod/ Tazobactam Sod (Zosyn Per Pharmacy) 1 each PRN DAILY PRN MC SEE COMMENTS; Start 02/06/18 at 21:30 Sodium Chloride 1,000 ml @ 1,000 mls/hr 1X ONCE IV Last administered on 02/06at 21:32; Start 02/06/18 at 21:30; Stop 02/06/18 at 22:29; Status DC Piperacillin Sod/ Tazobactam Sod 3.375 gm/Sodium Chloride 50 ml @ 100 mls/hr 1X ONCE IV Last administered on 02/06/18at 21:33; Start 02/06/18 at 22:00; Stop 02/06/18 at 22:29; Status DC Vancomycin HCl 1.25 gm/Sodium Chloride 250 ml @ 166.667 mls/hr 1X ONCE IV Last administered on 02/06/18at 22:30; Start 02/06/18 at 22:00; Stop 02/06/18 at 23:29; Status DC Piperacillin Sod/ Tazobactam Sod 2.25 gm/Sodium Chloride 50 ml @ 100 mls/hr Q8HRS IV Last administered on 02/11/18at 13:49; Start 02/07/18 at 06:00; Stop 02/11/18 at 16:12; Status DC Sodium Chloride 1,000 ml @ 250 mls/hr Q4H IV ; Start 02/06/18 at 22:30; Stop 02/07/18 at 03:21; Status DC Sodium Chloride 1,000 ml @ 250 mls/hr Q4H IV ; Start 02/06/18 at 22:30; Stop 02/07/18 at 06:10; Status DC Dextrose/Sodium Chloride 1,000 ml @ 250 mls/hr Q4H IV ; Start 02/06/18 at 22: 30; Stop 02/07/18 at 03:21; Status DC Magnesium Sulfate/ Dextrose 100 ml @ 25 mls/hr DAILY IV ; Start 02/07/18 at 09 :00; Stop 02/08/18 at 04:48; Status DC Sodium Phosphate 40 mmol/Sodium Chloride 513.3333 ml @ 83.3 mls/hr 1X PRN PRN IV SEE COMMENTS; Start 02/06/18 at 22:30 Sodium Phosphate 20 mmol/Dextrose 256.6667 ml @ 62.5 mls/hr 1X PRN PRN IV SEE COMMENTS; Start 02/06/18 at 22:30 Sodium Phosphate 10 mmol/Dextrose 253.3333 ml @ 62.5 mls/hr 1X PRN PRN IV SEE COMMENTS; Start 02/06/18 at 22:30 Dextrose/Sodium Chloride 1,000 ml @ 250 mls/hr Q4H IV Last administered on at 23:30; Start 02/06/18 at 23:45; Stop 02/07/18 at 03:21; Status DC Sodium Chloride 1,000 ml @ 200 mls/hr Q5H IV Last administered on 02/10/18at 09:01; Start 02/07/18 at 03:00; Stop 02/10/18 at 15:55; Status DC Metoclopramide HCl (Reglan Vial) 5 mg PRN Q6HRS PRN IV NAUSEA/VOMITING Last administered on 02/13/18at 09:45; Start 02/07/18 at 03:00 Insulin Human Lispro (HumaLOG) 0-7 UNITS TIDWMEALS SQ Last administered on at 18:08; Start 02/07/18 at 08:00; Stop 02/09/18 at 09:34; Status DC Dextrose (Dextrose 50%-Water Syringe) 12.5 gm PRN Q15MIN PRN IV SEE COMMENTS; Start 02/07/18 at 02:15; Stop 02/10/18 at 14:35; Status DC Insulin Human Lispro (HumaLOG) 4 units 1X ONCE SQ ; Start 02/07/18 at 02:30; Stop 02/07/18 at 02:31; Status Cancel Aspirin (Ecotrin) 81 mg DAILYWBKFT PO Last administered on 02/13/18at 09:46; Start 02/07/18 at 10:00 Pantoprazole Sodium (PROTONIX VIAL for IV PUSH) 40 mg DAILYAC IVP Last administered on 02/09/18at 09:16; Start 02/07/18 at 16:30; Stop 02/09/18 at 09 :34; Status DC Chlorpromazine HCl (Thorazine) 25 mg PRN Q6HRS PRN IV HICCUPS Last administered on 02/08/18at 02:08; Start 02/07/18 at 17:00; Stop 02/08/18 at 05 :07; Status DC Zolpidem Tartrate (Ambien) 5 mg PRN QHS PRN PO INSOMNIA, MAY REPEAT IN 1HR; Start 02/07/18 at 17:00 Magnesium Sulfate/ Dextrose 100 ml @ 25 mls/hr PRN DAILY PRN IV SEE COMMENTS; Start 02/08/18 at 05:00 Chlorpromazine HCl 25 mg/Dextrose 50 ml @ 100 mls/hr PRN Q6HRS PRN IV HICCUPS Last administered on 02/13/18at 06:15; Start 02/08/18 at 05:15 Lactobacillus Rhamnosus (Culturelle) 1 cap BID PO Last administered on at 09:45; Start 02/08/18 at 09:00 Fentanyl Citrate (Fentanyl 2ml Vial) 50 mcg PRN Q2HR PRN IV SEVERE PAIN Last administered on 02/09/18at 23:14; Start 02/08/18 at 21:00; Stop 02/10/18 at 15 :41; Status DC Pantoprazole Sodium (Protonix) 40 mg DAILYAC PO ; Start 02/09/18 at 11:30; Stop 02/09/18 at 15:51; Status DC Insulin Human Lispro (HumaLOG) 0-9 UNITS TIDWMEALS SQ ; Start 02/09/18 at 12:00 Dextrose (Dextrose 50%-Water Syringe) 12.5 gm PRN Q15MIN PRN IV SEE COMMENTS; Start 02/09/18 at 09:45 Glimepiride (Amaryl) 2 mg DAILY PO Last administered on 02/13/18at 09:46; Start 02/09/18 at 09:45 Pantoprazole Sodium (PROTONIX VIAL for IV PUSH) 40 mg DAILYAC IVP Last administered on 02/13/18at 09:45; Start 02/10/18 at 07:30 Propofol 20 ml @ As Directed STK-MED ONCE IV ; Start 02/10/18 at 09:29; Stop 02/10/18 at 09:30; Status DC Dexamethasone Sodium Phosphate (Decadron) 20 mg STK-MED ONCE .ROUTE ; Start at 09:29; Stop 02/10/18 at 09:30; Status DC Lidocaine HCl (Lidocaine Pf 2% Vial) 5 ml STK-MED ONCE .ROUTE ; Start 02/10/18 at 09:29; Stop 02/10/18 at 09:30; Status DC Ondansetron HCl (Zofran) 4 mg STK-MED ONCE .ROUTE ; Start 02/10/18 at 09:29; Stop 02/10/18 at 09:30; Status DC Rocuronium Herman (Zemuron) 50 mg STK-MED ONCE .ROUTE ; Start 02/10/18 at 09: 29; Stop 02/10/18 at 09:30; Status DC Fentanyl Citrate (Fentanyl 2ml Vial) 100 mcg STK-MED ONCE .ROUTE ; Start at 09:29; Stop 02/10/18 at 09:30; Status DC Lidocaine HCl (Xylocaine-Mpf 2% Vial) 2 ml STK-MED ONCE .ROUTE ; Start at 10:29; Stop 02/10/18 at 10:30; Status DC Succinylcholine Chloride (Anectine) 200 mg STK-MED ONCE .ROUTE ; Start at 10:38; Stop 02/10/18 at 10:39; Status DC Chlorpromazine HCl 12.5 mg/ Dextrose 50.5 ml @ 100 mls/hr 1X ONCE IV ; Start 02/10/18 at 10:45; Stop 02/10/18 at 11:15; Status DC Bupivacaine HCl/ Epinephrine Bitart (Sensorcain-Mpf Epi 0.5%-[id number]) 30 ml STK -MED ONCE .ROUTE Last administered on 02/10/18at 13:02; Start 02/10/18 at 10: 31; Stop 02/10/18 at 11:31; Status DC Cefoxitin Sodium 2 gm/Dextrose 100 ml @ 200 mls/hr 1X PREOP IV ; Start at 12:45; Status UNV Cefoxitin Sodium 100 ml @ 200 mls/hr ONCE ONCE IV Last administered on at 13:01; Start 02/10/18 at 12:45; Stop 02/10/18 at 13:14; Status DC Metoprolol Tartrate (Lopressor Vial) 5 mg STK-MED ONCE IVP ; Start 02/10/18 at 12:46; Stop 02/10/18 at 12:47; Status DC Ephedrine Sulfate (ePHEDrine PF IN SALINE SYRINGE) 50 mg STK-MED ONCE IV ; Start 02/10/18 at 13:51; Stop 02/10/18 at 13:52; Status DC Desflurane (Suprane) 60 ml STK-MED ONCE IH ; Start 02/10/18 at 14:04; Stop at 14:05; Status DC Glycopyrrolate (Robinul) 1 mg STK-MED ONCE .ROUTE ; Start 02/10/18 at 14:05; Stop 02/10/18 at 14:06; Status DC Neostigmine Methylsulfate (Neostigmine Methylsulfate) 5 mg STK-MED ONCE .ROUTE ; Start 02/10/18 at 14:05; Stop 02/10/18 at 14:06; Status DC Desflurane (Suprane) 60 ml STK-MED ONCE IH ; Start 02/10/18 at 14:12; Stop at 14:13; Status DC Phenylephrine HCl (PHENYLEPHRINE in 0.9% NACL PF) 1 mg STK-MED ONCE IV ; Start 02/10/18 at 14:13; Stop 02/10/18 at 14:14; Status DC Fentanyl Citrate (Fentanyl 2ml Vial) 100 mcg STK-MED ONCE .ROUTE ; Start at 15:03; Stop 02/10/18 at 15:04; Status DC Fentanyl Citrate (Fentanyl 2ml Vial) 25 mcg PRN Q5MIN PRN IV MILD PAIN; Start 02/10/18 at 15:30; Stop 02/10/18 at 15:40; Status DC Fentanyl Citrate (Fentanyl 2ml Vial) 50 mcg PRN Q5MIN PRN IV MODERATE TO SEVERE PAIN; Start 02/10/18 at 15:30; Stop 02/10/18 at 15:40; Status DC Morphine Sulfate (Morphine Sulfate) 1 mg PRN Q10MIN PRN IV SEVERE PAIN; Start 02/10/18 at 15:30; Stop 02/10/18 at 15:42; Status DC Ringer's Solution 1,000 ml @ 30 mls/hr Q24H IV ; Start 02/10/18 at 15:27; Stop 02/10/18 at 15:56; Status DC Lidocaine HCl (Xylocaine-Mpf 1% 2ml Vial) 2 ml PRN 1X PRN ID PRIOR TO IV START ; Start 02/10/18 at 15:30; Stop 02/11/18 at 15:29; Status DC Hydromorphone HCl (Dilaudid) 0.5 mg PRN Q10MIN PRN IV SEV PAIN, Second choice; Start 02/10/18 at 15:30; Stop 02/10/18 at 15:41; Status DC Prochlorperazine Edisylate (Compazine) 5 mg PACU PRN PRN IV NAUSEA, MRX1; Start 02/10/18 at 15:30; Stop 02/11/18 at 15:29; Status DC Enoxaparin Sodium (Lovenox 40mg Syringe) 40 mg Q24H SQ Last administered on at 16:00; Start 02/10/18 at 16:00 Sodium Chloride (Normal Saline Flush) 3 ml QSHIFT PRN IV AFTER MEDS AND BLOOD DRAWS; Start 02/10/18 at 15:45 Ringer's Solution 1,000 ml @ 100 mls/hr Q10H IV Last administered on at 21:51; Start 02/10/18 at 15:33 Naloxone HCl (Narcan) 0.4 mg PRN Q2MIN PRN IV SEE INSTRUCTIONS; Start at 15:45 Sodium Chloride 1,000 ml @ 25 mls/hr Q24H IV Last administered on 02/12/18at 15:33; Start 02/10/18 at 15:33 Morphine Sulfate 30 ml @ 0 mls/hr CONT PRN PRN IV PER PROTOCOL Last administered on 02/12/18at 02:29; Start 02/10/18 at 15:45; Stop 02/12/18 at 14 :58; Status DC Piperacillin Sod/ Tazobactam Sod 3.375 gm/Sodium Chloride 50 ml @ 100 mls/hr Q6HRS IV Last administered on 02/13/18at 05:33; Start 02/11/18 at 18:00 Fentanyl Citrate (Fentanyl 2ml Vial) 100 mcg STK-MED ONCE .ROUTE ; Start at 15:00; Stop 02/12/18 at 08:17; Status DC Oxycodone/ Acetaminophen (Percocet 5/325) 1 tab PRN Q4HRS PRN PO PAIN Last administered on 02/13/18at 09:46; Start 02/12/18 at 15:00 Morphine Sulfate (Morphine Sulfate) 0.5 mg PRN Q3HRS PRN IV PAIN; Start at 15:00 Potassium Chloride/Water 50 ml @ 50 mls/hr Q1H IV ; Start 02/13/18 at 08:15; Stop 02/13/18 at 10:14; Status UNV Potassium Chloride 10 meq/ Sodium Chloride 105 ml @ 105 mls/hr Q1H IV Last administered on 02/13/18at 10:00; Start 02/13/18 at 09:00; Stop 02/13/18 at 12 :59 Vitals/I & O Vital Sign - Last 24 Hours 02/12/18 02/12/18 02/12/18 02/12/18 12:00 12:00 13:00 14:00 Temp 98.7 98.7 Pulse 100 105 105 Resp 20 20 18 B/P (MAP) 147/70 (95) 127/70 (89) 140/70 (93) Pulse Ox 96 96 100 O2 Delivery Nasal Cannula Nasal Cannula Nasal Cannula Nasal Cannula O2 Flow Rate 2.0 2.0 2.0 2.0 02/12/18 02/12/18 02/12/18 02/13/18 15:00 20:00 20:00 00:00 Temp 100.0 100.1 100.0 100.1 Pulse 105 105 103 Resp 20 24 B/P (MAP) 133/70 (91) 133/71 (91) 127/70 (89) Pulse Ox 96 96 96 O2 Delivery Nasal Cannula Room Air Room Air Room Air O2 Flow Rate 2.0 02/13/18 02/13/18 02/13/18 02/13/18 04:00 08:00 08:00 09:00 Temp 99.4 98.8 99.4 98.8 Pulse 99 112 114 Resp 20 19 B/P (MAP) 120/68 (85) 118/67 (84) 103/64 (77) Pulse Ox 96 97 96 O2 Delivery Room Air Room Air Room Air Room Air 02/13/18 02/13/18 02/13/18 09:46 10:00 10:46 Pulse 103 Resp 14 19 18 B/P (MAP) 119/68 (85) Pulse Ox 94 97 97 O2 Delivery Room Air Nasal Cannula Room Air O2 Flow Rate 2.0 2.0 Intake and Output 02/12/18 02/12/18 02/13/18 15:00 23:00 07:00 Intake Total 666 ml 50 ml Output Total 670 ml 250 ml Balance -670 ml 416 ml 50 ml Nutrition Consultation Dietary Evaluation: Recommendations by RD: Protein supplementation Comments: added renal to diet restrictions - K 3.4, Bun 77, cr 3.5, GF 17.6 changed Glucerna supplement to Nepro bid Expected Outcomes/Goals: diet advancement - met new goal: to meet > 75% est nutr needs Malnutrition Findings: Food and Nutrition Intake (Sev: <50% est energy req 5days Weight Status: Overweight POLINA STANFORD III DO Feb 13, 2018 11:32
--- NOTE | 2018-02-13 11:40 | PDOC ---
G I PROGRESS NOTE Subjective Did not awaken with exam. Objective Per staff, up all night/no sleep. Large BM today. Physical Exam NG out. Lungs clear anteriorly. RRR w/o murmur. Abdomen soft. Bowel sounds heard. Review of Relevant I have reviewed the following items luz (where applicable) has been applied. Labs Laboratory Tests Test 02/11/18 12:07 02/11/18 17:07 02/11/18 21:15 02/12/18 05:30 Glucose (Fingerstick) 120 mg/dL (70-99) 106 mg/dL (70-99) 95 mg/dL (70-99) White Blood Count 10.6 x10^3/uL (4.0-11.0) Red Blood Count 3.98 x10^6/uL (4.30-5.70) Hemoglobin 12.4 g/dL (13.0-17.5) Hematocrit 36.2 % (39.0-53.0) Mean Corpuscular Volume 91 fL (79-100) Mean Corpuscular Hemoglobin 31 pg (25-35) Mean Corpuscular Hemoglobin Concent 34 g/dL (31-37) Red Cell Distribution Width 13.7 % (11.5-14.5) Platelet Count 208 x10^3/uL (140-400) Neutrophils (%) (Auto) 77 % (31-73) Lymphocytes (%) (Auto) 12 % (24-48) Monocytes (%) (Auto) 9 % (0-9) Eosinophils (%) (Auto) 1 % (0-3) Basophils (%) (Auto) 0 % (0-3) Neutrophils # (Auto) 8.2 x10^3uL (1.8-7.7) Lymphocytes # (Auto) 1.3 x10^3/uL (1.0-4.8) Monocytes # (Auto) 1.0 x10^3/uL (0.0-1.1) Eosinophils # (Auto) 0.2 x10^3/uL (0.0-0.7) Basophils # (Auto) 0.0 x10^3/uL (0.0-0.2) Sodium Level 145 mmol/L (136-145) Potassium Level 3.7 mmol/L (3.5-5.1) Chloride Level 105 mmol/L (98-107) Carbon Dioxide Level 32 mmol/L (21-32) Anion Gap 8 (6-14) Blood Urea Nitrogen 19 mg/dL (8-26) Creatinine 1.3 mg/dL (0.7-1.3) Estimated GFR (Cockcroft-Gault) 55.2 Glucose Level 79 mg/dL (70-99) Calcium Level 8.3 mg/dL (8.5-10.1) Phosphorus Level 2.8 mg/dL (2.6-4.7) Albumin 1.7 g/dL (3.4-5.0) Test 02/12/18 11:13 02/13/18 04:50 Glucose (Fingerstick) 82 mg/dL (70-99) White Blood Count 11.3 x10^3/uL (4.0-11.0) Red Blood Count 3.71 x10^6/uL (4.30-5.70) Hemoglobin 11.7 g/dL (13.0-17.5) Hematocrit 33.4 % (39.0-53.0) Mean Corpuscular Volume 90 fL (79-100) Mean Corpuscular Hemoglobin 32 pg (25-35) Mean Corpuscular Hemoglobin Concent 35 g/dL (31-37) Red Cell Distribution Width 13.9 % (11.5-14.5) Platelet Count 229 x10^3/uL (140-400) Neutrophils (%) (Auto) 77 % (31-73) Lymphocytes (%) (Auto) 12 % (24-48) Monocytes (%) (Auto) 10 % (0-9) Eosinophils (%) (Auto) 1 % (0-3) Basophils (%) (Auto) 0 % (0-3) Neutrophils # (Auto) 8.7 x10^3uL (1.8-7.7) Lymphocytes # (Auto) 1.4 x10^3/uL (1.0-4.8) Monocytes # (Auto) 1.1 x10^3/uL (0.0-1.1) Eosinophils # (Auto) 0.1 x10^3/uL (0.0-0.7) Basophils # (Auto) 0.0 x10^3/uL (0.0-0.2) Sodium Level 145 mmol/L (136-145) Potassium Level 3.2 mmol/L (3.5-5.1) Chloride Level 105 mmol/L (98-107) Carbon Dioxide Level 27 mmol/L (21-32) Anion Gap 13 (6-14) Blood Urea Nitrogen 17 mg/dL (8-26) Creatinine 1.1 mg/dL (0.7-1.3) Estimated GFR (Cockcroft-Gault) 67.0 Glucose Level 94 mg/dL (70-99) Calcium Level 7.7 mg/dL (8.5-10.1) Phosphorus Level 2.6 mg/dL (2.6-4.7) Albumin 1.5 g/dL (3.4-5.0) Laboratory Tests Test 02/13/18 04:50 White Blood Count 11.3 x10^3/uL (4.0-11.0) Red Blood Count 3.71 x10^6/uL (4.30-5.70) Hemoglobin 11.7 g/dL (13.0-17.5) Hematocrit 33.4 % (39.0-53.0) Mean Corpuscular Volume 90 fL (79-100) Mean Corpuscular Hemoglobin 32 pg (25-35) Mean Corpuscular Hemoglobin Concent 35 g/dL (31-37) Red Cell Distribution Width 13.9 % (11.5-14.5) Platelet Count 229 x10^3/uL (140-400) Neutrophils (%) (Auto) 77 % (31-73) Lymphocytes (%) (Auto) 12 % (24-48) Monocytes (%) (Auto) 10 % (0-9) Eosinophils (%) (Auto) 1 % (0-3) Basophils (%) (Auto) 0 % (0-3) Neutrophils # (Auto) 8.7 x10^3uL (1.8-7.7) Lymphocytes # (Auto) 1.4 x10^3/uL (1.0-4.8) Monocytes # (Auto) 1.1 x10^3/uL (0.0-1.1) Eosinophils # (Auto) 0.1 x10^3/uL (0.0-0.7) Basophils # (Auto) 0.0 x10^3/uL (0.0-0.2) Sodium Level 145 mmol/L (136-145) Potassium Level 3.2 mmol/L (3.5-5.1) Chloride Level 105 mmol/L (98-107) Carbon Dioxide Level 27 mmol/L (21-32) Anion Gap 13 (6-14) Blood Urea Nitrogen 17 mg/dL (8-26) Creatinine 1.1 mg/dL (0.7-1.3) Estimated GFR (Cockcroft-Gault) 67.0 Glucose Level 94 mg/dL (70-99) Calcium Level 7.7 mg/dL (8.5-10.1) Phosphorus Level 2.6 mg/dL (2.6-4.7) Albumin 1.5 g/dL (3.4-5.0) Microbiology 02/06/18 Blood Culture - Final, Complete NO GROWTH AFTER 5 DAYS 02/07/18 Urine Culture - Final, Complete 02/07/18 Urine Culture Result 1 (ELIAZAR) - Final, Complete Vitals/I & O Vital Sign - Last 24 Hours 02/12/18 02/12/18 02/12/18 02/12/18 12:00 12:00 13:00 14:00 Temp 98.7 98.7 Pulse 100 105 105 Resp 20 20 18 B/P (MAP) 147/70 (95) 127/70 (89) 140/70 (93) Pulse Ox 96 96 100 O2 Delivery Nasal Cannula Nasal Cannula Nasal Cannula Nasal Cannula O2 Flow Rate 2.0 2.0 2.0 2.0 02/12/18 02/12/18 02/12/18 02/13/18 15:00 20:00 20:00 00:00 Temp 100.0 100.1 100.0 100.1 Pulse 105 105 103 Resp 20 24 B/P (MAP) 133/70 (91) 133/71 (91) 127/70 (89) Pulse Ox 96 96 96 O2 Delivery Nasal Cannula Room Air Room Air Room Air O2 Flow Rate 2.0 02/13/18 02/13/18 02/13/18 02/13/18 04:00 08:00 08:00 09:00 Temp 99.4 98.8 99.4 98.8 Pulse 99 112 114 Resp 20 19 B/P (MAP) 120/68 (85) 118/67 (84) 103/64 (77) Pulse Ox 96 97 96 O2 Delivery Room Air Room Air Room Air Room Air 02/13/18 02/13/18 02/13/18 09:46 10:00 10:46 Pulse 103 Resp 14 19 18 B/P (MAP) 119/68 (85) Pulse Ox 94 97 97 O2 Delivery Room Air Nasal Cannula Room Air O2 Flow Rate 2.0 2.0 Intake and Output 02/12/18 02/12/18 02/13/18 15:00 23:00 07:00 Intake Total 666 ml 50 ml Output Total 670 ml 250 ml Balance -670 ml 416 ml 50 ml Problem List Problems Medical Problems: (1) Acute renal failure Status: Acute (2) CHF (congestive heart failure) Status: Acute (3) DKA (diabetic ketoacidoses) Status: Acute (4) Heart murmur Status: Acute (5) NSTEMI (non-ST elevated myocardial infarction) Status: Acute Assessment Gallstone ileus, s/p laparoscopic stone extraction from TI--progressing. 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 Plan of Care Note Continue post-op care. Ultimately address biliary/duodenal issue though not in condition for this currently. SANJIV DE LUNA MD Feb 13, 2018 11:40
[2018-02-13] MEDS: IV RINGERS,LACTATED 1000ML 1,000 ML IV SCH ×2 (13:33→23:33)
[2018-02-13] MEDS: IV NORMAL SALINE 1000ML BAG 1,000 ML IV SCH (15:33)
[2018-02-13] MEDS: ENOXAPARIN 40 MG/0.4 ML SYRINGE. SQ SCH (18:33)
[2018-02-14] MEDS: PIPERACILLIN/TAZOBACTAM 3.375 GM in IV NORMAL SALINE 50ML 50 ML IV SCH ×4 (00:06→17:56)
[2018-02-14] MEDS: IV RINGERS,LACTATED 1000ML 1,000 ML IV SCH ×2 (02:40→19:33)
[2018-02-14 03:10] VITALS: BP 128/73
[2018-02-14 04:59] LABS: BASO % 0 % (0-3); EOS # 0.1 x10^3/uL (0.0-0.7); EOS % 1 % (0-3); HEMATOCRIT 34.4 % (39.0-53.0); HEMOGLOBIN 11.7 g/dL (13.0-17.5); LYMPH # 1.7 x10^3/uL (1.0-4.8); LYMPH % 15 % (24-48); MEAN CORPUSCULAR HEMOGLOBIN 31 pg (25-35); MEAN CORPUSCULAR HGB CONC 34 g/dL (31-37); MEAN CORPUSCULAR VOLUME 91 fL (79-100); MONO # 0.9 x10^3/uL (0.0-1.1); MONO % 8 % (0-9); NEUT # 8.3 x10^3uL (1.8-7.7); NEUT % 75 % (31-73); PLATELET COUNT 245 x10^3/uL (140-400); RED CELL DISTRIBUTION WIDTH 13.5 % (11.5-14.5)
[2018-02-14 05:29] LABS: CALCIUM 7.2 mg/dL (8.5-10.1); CREATININE 1.1 mg/dL (0.7-1.3)
[2018-02-14 05:32] LABS: POTASSIUM 2.8 mmol/L (3.5-5.1)
[2018-02-14] MEDS: PANTOPRAZOLE IV PUSH 40 MG VIAL. IVP SCH (05:59)
[2018-02-14] MEDS ORDERED: POTASSIUM CHLORIDE 20 MEQ TABLET.ER. PO ONE ×2 (06:00→09:30)
[2018-02-14] MEDS: INSULIN LISPRO 300 UNITS/3 ML INSULN.PEN. SQ SCH ×3 (08:00→17:00)
[2018-02-14 08:23] VITALS: BP 134/66
[2018-02-14] MEDS: GLIMEPIRIDE 2 MG TABLET. PO SCH (09:48)
[2018-02-14] MEDS: ASPIRIN ENTERIC COATED 81 MG TABLET.DR. PO SCH (09:48)
[2018-02-14] MEDS: LACTOBACILLUS RHAMNOSUS GG 1 CAPSULE. PO SCH ×2 (09:48→21:10)
--- NOTE | 2018-02-14 10:04 | PDOC ---
Subjective: Subjective: Tolerating clears w/o n/v, says abd pain "not bad," and reports 6 episodes of diarrhea. "I hiccup every time I eat now." Objective: Objective: Reviewed chart - C Diff ordered. Vital Signs: Vital Signs Date Time Temp Pulse Resp B/P (MAP) Pulse Ox O2 Delivery O2 Flow Rate FiO2 02/14/18 08:23 99.7 87 16 134/66 (88) 97 Room Air 99.7 02/13/18 12:00 2.0 Labs: Laboratory Tests Test 02/13/18 12:13 02/13/18 23:58 02/14/18 04:00 02/14/18 08:19 Glucose (Fingerstick) 110 mg/dL 130 mg/dL 97 mg/dL White Blood Count 11.0 x10^3/uL Red Blood Count 3.80 x10^6/uL Hemoglobin 11.7 g/dL Hematocrit 34.4 % Mean Corpuscular Volume 91 fL Mean Corpuscular Hemoglobin 31 pg Mean Corpuscular Hemoglobin Concent 34 g/dL Red Cell Distribution Width 13.5 % Platelet Count 245 x10^3/uL Neutrophils (%) (Auto) 75 % Lymphocytes (%) (Auto) 15 % Monocytes (%) (Auto) 8 % Eosinophils (%) (Auto) 1 % Basophils (%) (Auto) 0 % Neutrophils # (Auto) 8.3 x10^3uL Lymphocytes # (Auto) 1.7 x10^3/uL Monocytes # (Auto) 0.9 x10^3/uL Eosinophils # (Auto) 0.1 x10^3/uL Basophils # (Auto) 0.0 x10^3/uL Platelet Estimate Pending Sodium Level 144 mmol/L Potassium Level 2.8 mmol/L Chloride Level 104 mmol/L Carbon Dioxide Level 31 mmol/L Anion Gap 9 Blood Urea Nitrogen 11 mg/dL Creatinine 1.1 mg/dL Estimated GFR (Cockcroft-Gault) 67.0 Glucose Level 114 mg/dL Calcium Level 7.2 mg/dL Magnesium Level 1.3 mg/dL PE: GEN: NAD LUNGS: CTAB HEART: RRR ABD: +BS, some distention, non-tender NEURO/PSYCH: A & O 3 A/P: S/p laparoscopic YUNIOR and enterotomy w/ removal of impacted gallstone in TI Diarrhea, hiccups Hypokalemia, hypomagnesemia -- Can change to PO PPI. Diet per surgery. SETH CABELLO Feb 14, 2018 10:04
[2018-02-14 10:30] LABS: % ATYL 2 % (0-0); % BANDS 2 % (0-9); % BASOS 1 % (0-3); % EOS 4 % (0-5); % LYMPHS 16 % (24-48); % MONOS 3 % (0-10); % MYELOS 1 % (0-0); % SEGS 71 % (35-66); PLT ESTIMATE ADEQUATE (ADEQUATE)
--- NOTE | 2018-02-14 11:19 | PDOC ---
Infectious Disease Note Subjective Subjective feeling much better, though has diarrhea ROS ROS no n/v/fever pain better Vital Sign Vital Signs Vital Signs Date Time Temp Pulse Resp B/P (MAP) Pulse Ox O2 Delivery O2 Flow Rate FiO2 02/14/18 08:23 99.7 87 16 134/66 (88) 97 Room Air 99.7 02/13/18 12:00 2.0 Physical Exam PHYSICAL EXAM GENERAL:axox3 male in nad HEENT: NGT. Oral cavity pink, dry LUNGS: Clear. HEART: S1, S2,tachycardia ABDOMEN: Distended, BS quiet, soft, NT to light palpation. Dressing clean dry and intact. : Melchor EXTREMITIES: No edema or cyanosis. SKIN: without rash NEUROLOGIC: Alert and responds appropriately PIV Labs Lab Laboratory Tests Test 02/13/18 12:13 02/13/18 23:58 02/14/18 04:00 02/14/18 08:19 Glucose (Fingerstick) 110 mg/dL (70-99) 130 mg/dL (70-99) 97 mg/dL (70-99) White Blood Count 11.0 x10^3/uL (4.0-11.0) Red Blood Count 3.80 x10^6/uL (4.30-5.70) Hemoglobin 11.7 g/dL (13.0-17.5) Hematocrit 34.4 % (39.0-53.0) Mean Corpuscular Volume 91 fL (79-100) Mean Corpuscular Hemoglobin 31 pg (25-35) Mean Corpuscular Hemoglobin Concent 34 g/dL (31-37) Red Cell Distribution Width 13.5 % (11.5-14.5) Platelet Count 245 x10^3/uL (140-400) Neutrophils (%) (Auto) 75 % (31-73) Lymphocytes (%) (Auto) 15 % (24-48) Monocytes (%) (Auto) 8 % (0-9) Eosinophils (%) (Auto) 1 % (0-3) Basophils (%) (Auto) 0 % (0-3) Neutrophils # (Auto) 8.3 x10^3uL (1.8-7.7) Lymphocytes # (Auto) 1.7 x10^3/uL (1.0-4.8) Monocytes # (Auto) 0.9 x10^3/uL (0.0-1.1) Eosinophils # (Auto) 0.1 x10^3/uL (0.0-0.7) Basophils # (Auto) 0.0 x10^3/uL (0.0-0.2) Segmented Neutrophils % 71 % (35-66) Band Neutrophils % 2 % (0-9) Lymphocytes % 16 % (24-48) Atypical Lymphocytes % (Manual) 2 % (0-0) Monocytes % 3 % (0-10) Eosinophils % 4 % (0-5) Basophils % 1 % (0-3) Myelocytes % 1 % (0-0) Platelet Estimate Adequate (ADEQUATE) Sodium Level 144 mmol/L (136-145) Potassium Level 2.8 mmol/L (3.5-5.1) Chloride Level 104 mmol/L (98-107) Carbon Dioxide Level 31 mmol/L (21-32) Anion Gap 9 (6-14) Blood Urea Nitrogen 11 mg/dL (8-26) Creatinine 1.1 mg/dL (0.7-1.3) Estimated GFR (Cockcroft-Gault) 67.0 Glucose Level 114 mg/dL (70-99) Calcium Level 7.2 mg/dL (8.5-10.1) Magnesium Level 1.3 mg/dL (1.8-2.4) Test 02/14/18 10:51 Glucose (Fingerstick) 124 mg/dL (70-99) Micro Microbiology 02/06/18 Blood Culture - Preliminary, Resulted NO GROWTH AFTER 1 DAY urine culture neg Objective Assessment Gallstone and ileus -s/p lap assisted adhesiolysis and enterotomy with removal of impacted gallstone in terminal ileum on 02/10. Lactic acidosis resolved Sepsis with hypotension resolved Pulm infiltrates from atelectasis Metabolic alkalosis sec to vomiting DM with high anion gap CAR - improving Leucocytois improving Plan Plan of Care Continue Zosyn ,, soon to change to po Dose steroids 02/10 Monitor labs/cults Supportive care check c diff d/w OCTAVIO GUTIERREZ MD Feb 14, 2018 11:19
[2018-02-14 11:36] VITALS: BP 125/73
--- NOTE | 2018-02-14 12:52 | PDOC ---
PROGRESS NOTES Chief Complaint Chief Complaint Gall stone ileus s/p impacted gallstone removal and lysis of adhesions 02/10 Lactic acidosis sec to DKA and severe dehydration Known DM with high likelihood of undiagnosed gastroparesis Sepsis with hypotension - responded to IVF - t.o ICU 02/08 s/p DKA Metabolic alkalosis secondary to vomiting Elevated troponin, NSTEMI, demand ischemia Acute on chronic renal failure - creat 5 on admit Leukocytosis, reactive Hypokalemia hypomagnesemia plan: fu with gi, sx advance diet to full liquid as per sx on ivf replete K, Mag checked was 1.3, 4G IV x1 wound care cont home meds on zosyn, fu with ID, change to po soon dvt, gi ppx ssi PTOT CHECK cdiff History of Present Illness History of Present Illness Pt seen and examined in ICU Sitting in chair, calm, cooperative Discussed with RN has 6 times liquid diarrhea yesterday, abd sx wound tight, no pain on clear liquid diet feels weak k 2.8, Vitals Vitals Vital Signs Date Time Temp Pulse Resp B/P (MAP) Pulse Ox O2 Delivery O2 Flow Rate FiO2 02/14/18 11:36 98.9 93 16 125/73 (90) 96 Room Air 98.9 02/13/18 12:00 2.0 Physical Exam Physical Exam GENERAL:axox3 male in nad HEENT: NGT. Oral cavity pink, dry LUNGS: Clear. HEART: S1, S2,tachycardia ABDOMEN: mild distended+ bs, soft, NT to light palpation. Dressing clean dry and intact. : Melchor EXTREMITIES: No edema or cyanosis. SKIN: without rash NEUROLOGIC: Alert and responds appropriately PIV General: Alert, Oriented X3, Cooperative, No acute distress Heart: Normal S1, Normal S2, No murmurs, Other (tachycardic) Lungs: Clear, Other (on 2L NC) Abdomen: Soft, No masses, Other (ND, dressing dry) Extremities: No clubbing, No cyanosis Skin: No rashes, No breakdown Labs LABS Laboratory Tests Test 02/13/18 23:58 02/14/18 04:00 02/14/18 08:19 02/14/18 10:51 Glucose (Fingerstick) 130 mg/dL (70-99) 97 mg/dL (70-99) 124 mg/dL (70-99) White Blood Count 11.0 x10^3/uL (4.0-11.0) Red Blood Count 3.80 x10^6/uL (4.30-5.70) Hemoglobin 11.7 g/dL (13.0-17.5) Hematocrit 34.4 % (39.0-53.0) Mean Corpuscular Volume 91 fL (79-100) Mean Corpuscular Hemoglobin 31 pg (25-35) Mean Corpuscular Hemoglobin Concent 34 g/dL (31-37) Red Cell Distribution Width 13.5 % (11.5-14.5) Platelet Count 245 x10^3/uL (140-400) Neutrophils (%) (Auto) 75 % (31-73) Lymphocytes (%) (Auto) 15 % (24-48) Monocytes (%) (Auto) 8 % (0-9) Eosinophils (%) (Auto) 1 % (0-3) Basophils (%) (Auto) 0 % (0-3) Neutrophils # (Auto) 8.3 x10^3uL (1.8-7.7) Lymphocytes # (Auto) 1.7 x10^3/uL (1.0-4.8) Monocytes # (Auto) 0.9 x10^3/uL (0.0-1.1) Eosinophils # (Auto) 0.1 x10^3/uL (0.0-0.7) Basophils # (Auto) 0.0 x10^3/uL (0.0-0.2) Segmented Neutrophils % 71 % (35-66) Band Neutrophils % 2 % (0-9) Lymphocytes % 16 % (24-48) Atypical Lymphocytes % (Manual) 2 % (0-0) Monocytes % 3 % (0-10) Eosinophils % 4 % (0-5) Basophils % 1 % (0-3) Myelocytes % 1 % (0-0) Platelet Estimate Adequate (ADEQUATE) Sodium Level 144 mmol/L (136-145) Potassium Level 2.8 mmol/L (3.5-5.1) Chloride Level 104 mmol/L (98-107) Carbon Dioxide Level 31 mmol/L (21-32) Anion Gap 9 (6-14) Blood Urea Nitrogen 11 mg/dL (8-26) Creatinine 1.1 mg/dL (0.7-1.3) Estimated GFR (Cockcroft-Gault) 67.0 Glucose Level 114 mg/dL (70-99) Calcium Level 7.2 mg/dL (8.5-10.1) Magnesium Level 1.3 mg/dL (1.8-2.4) Assessment and Plan Assessmemt and Plan Problems Medical Problems: (1) Acute renal failure Status: Acute (2) CHF (congestive heart failure) Status: Acute (3) DKA (diabetic ketoacidoses) Status: Acute (4) Heart murmur Status: Acute (5) NSTEMI (non-ST elevated myocardial infarction) Status: Acute Comment Review of Relevant I have reviewed the following items luz (where applicable) has been applied. Labs Laboratory Tests Test 02/13/18 04:50 02/13/18 12:13 02/13/18 23:58 02/14/18 04:00 White Blood Count 11.3 x10^3/uL (4.0-11.0) 11.0 x10^3/uL (4.0-11.0) Red Blood Count 3.71 x10^6/uL (4.30-5.70) 3.80 x10^6/uL (4.30-5.70) Hemoglobin 11.7 g/dL (13.0-17.5) 11.7 g/dL (13.0-17.5) Hematocrit 33.4 % (39.0-53.0) 34.4 % (39.0-53.0) Mean Corpuscular Volume 90 fL (79-100) 91 fL (79-100) Mean Corpuscular Hemoglobin 32 pg (25-35) 31 pg (25-35) Mean Corpuscular Hemoglobin Concent 35 g/dL (31-37) 34 g/dL (31-37) Red Cell Distribution Width 13.9 % (11.5-14.5) 13.5 % (11.5-14.5) Platelet Count 229 x10^3/uL (140-400) 245 x10^3/uL (140-400) Neutrophils (%) (Auto) 77 % (31-73) 75 % (31-73) Lymphocytes (%) (Auto) 12 % (24-48) 15 % (24-48) Monocytes (%) (Auto) 10 % (0-9) 8 % (0-9) Eosinophils (%) (Auto) 1 % (0-3) 1 % (0-3) Basophils (%) (Auto) 0 % (0-3) 0 % (0-3) Neutrophils # (Auto) 8.7 x10^3uL (1.8-7.7) 8.3 x10^3uL (1.8-7.7) Lymphocytes # (Auto) 1.4 x10^3/uL (1.0-4.8) 1.7 x10^3/uL (1.0-4.8) Monocytes # (Auto) 1.1 x10^3/uL (0.0-1.1) 0.9 x10^3/uL (0.0-1.1) Eosinophils # (Auto) 0.1 x10^3/uL (0.0-0.7) 0.1 x10^3/uL (0.0-0.7) Basophils # (Auto) 0.0 x10^3/uL (0.0-0.2) 0.0 x10^3/uL (0.0-0.2) Sodium Level 145 mmol/L (136-145) 144 mmol/L (136-145) Potassium Level 3.2 mmol/L (3.5-5.1) 2.8 mmol/L (3.5-5.1) Chloride Level 105 mmol/L (98-107) 104 mmol/L (98-107) Carbon Dioxide Level 27 mmol/L (21-32) 31 mmol/L (21-32) Anion Gap 13 (6-14) 9 (6-14) Blood Urea Nitrogen 17 mg/dL (8-26) 11 mg/dL (8-26) Creatinine 1.1 mg/dL (0.7-1.3) 1.1 mg/dL (0.7-1.3) Estimated GFR (Cockcroft-Gault) 67.0 67.0 Glucose Level 94 mg/dL (70-99) 114 mg/dL (70-99) Calcium Level 7.7 mg/dL (8.5-10.1) 7.2 mg/dL (8.5-10.1) Phosphorus Level 2.6 mg/dL (2.6-4.7) Albumin 1.5 g/dL (3.4-5.0) Glucose (Fingerstick) 110 mg/dL (70-99) 130 mg/dL (70-99) Segmented Neutrophils % 71 % (35-66) Band Neutrophils % 2 % (0-9) Lymphocytes % 16 % (24-48) Atypical Lymphocytes % (Manual) 2 % (0-0) Monocytes % 3 % (0-10) Eosinophils % 4 % (0-5) Basophils % 1 % (0-3) Myelocytes % 1 % (0-0) Platelet Estimate Adequate (ADEQUATE) Magnesium Level 1.3 mg/dL (1.8-2.4) Test 02/14/18 08:19 02/14/18 10:51 Glucose (Fingerstick) 97 mg/dL (70-99) 124 mg/dL (70-99) Laboratory Tests Test 02/13/18 23:58 02/14/18 04:00 02/14/18 08:19 02/14/18 10:51 Glucose (Fingerstick) 130 mg/dL (70-99) 97 mg/dL (70-99) 124 mg/dL (70-99) White Blood Count 11.0 x10^3/uL (4.0-11.0) Red Blood Count 3.80 x10^6/uL (4.30-5.70) Hemoglobin 11.7 g/dL (13.0-17.5) Hematocrit 34.4 % (39.0-53.0) Mean Corpuscular Volume 91 fL (79-100) Mean Corpuscular Hemoglobin 31 pg (25-35) Mean Corpuscular Hemoglobin Concent 34 g/dL (31-37) Red Cell Distribution Width 13.5 % (11.5-14.5) Platelet Count 245 x10^3/uL (140-400) Neutrophils (%) (Auto) 75 % (31-73) Lymphocytes (%) (Auto) 15 % (24-48) Monocytes (%) (Auto) 8 % (0-9) Eosinophils (%) (Auto) 1 % (0-3) Basophils (%) (Auto) 0 % (0-3) Neutrophils # (Auto) 8.3 x10^3uL (1.8-7.7) Lymphocytes # (Auto) 1.7 x10^3/uL (1.0-4.8) Monocytes # (Auto) 0.9 x10^3/uL (0.0-1.1) Eosinophils # (Auto) 0.1 x10^3/uL (0.0-0.7) Basophils # (Auto) 0.0 x10^3/uL (0.0-0.2) Segmented Neutrophils % 71 % (35-66) Band Neutrophils % 2 % (0-9) Lymphocytes % 16 % (24-48) Atypical Lymphocytes % (Manual) 2 % (0-0) Monocytes % 3 % (0-10) Eosinophils % 4 % (0-5) Basophils % 1 % (0-3) Myelocytes % 1 % (0-0) Platelet Estimate Adequate (ADEQUATE) Sodium Level 144 mmol/L (136-145) Potassium Level 2.8 mmol/L (3.5-5.1) Chloride Level 104 mmol/L (98-107) Carbon Dioxide Level 31 mmol/L (21-32) Anion Gap 9 (6-14) Blood Urea Nitrogen 11 mg/dL (8-26) Creatinine 1.1 mg/dL (0.7-1.3) Estimated GFR (Cockcroft-Gault) 67.0 Glucose Level 114 mg/dL (70-99) Calcium Level 7.2 mg/dL (8.5-10.1) Magnesium Level 1.3 mg/dL (1.8-2.4) Microbiology 02/06/18 Blood Culture - Final, Complete NO GROWTH AFTER 5 DAYS 02/07/18 Urine Culture - Final, Complete 02/07/18 Urine Culture Result 1 (ELIAZAR) - Final, Complete Medications Current Medications Sodium Chloride 1,000 ml @ 1,000 mls/hr 1X ONCE IV Last administered on 02/06at 19:59; Start 02/06/18 at 20:00; Stop 02/06/18 at 20:59; Status DC Insulin Human Regular 150 unit/ Sodium Chloride 151.5 ml @ 0 mls/hr CONT PRN PRN IV PER PROTOCOL; Start 02/06/18 at 21:00; Stop 02/09/18 at 09:34; Status DC Potassium Chloride (KCl Oral Soln) 40 meq 1X ONCE PO Last administered on at 21:22; Start 02/06/18 at 21:30; Stop 02/06/18 at 21:31; Status DC Potassium Chloride/Water 50 ml @ 25 mls/hr Q1H IV ; Start 02/06/18 at 21:00; Stop 02/06/18 at 21:16; Status DC Insulin Human Regular 150 ml @ 9.1 mls/hr 1X ONCE IV Last administered on at 21:24; Start 02/06/18 at 21:45; Stop 02/07/18 at 14:17; Status DC Potassium Chloride 40 meq/ Sodium Chloride 520 ml @ 130 mls/hr 1X ONCE IV Last administered on 02/06/18at 22:30; Start 02/06/18 at 22:00; Stop 02/07/18 at 02:00; Status DC Potassium Chloride 40 meq/ Sodium Chloride 520 ml @ 130 mls/hr 1X ONCE IV Last administered on 02/07/18at 01:39; Start 02/07/18 at 02:00; Stop 02/07/18 at 05:59; Status DC Ondansetron HCl (Zofran) 4 mg PRN Q8HRS PRN IV NAUSEA/VOMITING Last administered on 02/06/18at 23:49; Start 02/06/18 at 21:15; Stop 02/07/18 at 21 :14; Status DC Fentanyl Citrate (Fentanyl 2ml Vial) 50 mcg PRN Q2HR PRN IV PAIN Last administered on 02/07/18at 15:01; Start 02/06/18 at 21:15; Stop 02/07/18 at 21 :14; Status DC Acetaminophen (Tylenol) 650 mg PRN Q4HRS PRN PO FEVER; Start 02/06/18 at 21:15 ; Stop 02/07/18 at 21:14; Status DC Vancomycin HCl (Vanco Per Pharmacy) 1 each PRN DAILY PRN MC SEE COMMENTS; Start 02/06/18 at 21:30; Stop 02/07/18 at 07:52; Status DC Piperacillin Sod/ Tazobactam Sod (Zosyn Per Pharmacy) 1 each PRN DAILY PRN MC SEE COMMENTS; Start 02/06/18 at 21:30 Sodium Chloride 1,000 ml @ 1,000 mls/hr 1X ONCE IV Last administered on 02/06at 21:32; Start 02/06/18 at 21:30; Stop 02/06/18 at 22:29; Status DC Piperacillin Sod/ Tazobactam Sod 3.375 gm/Sodium Chloride 50 ml @ 100 mls/hr 1X ONCE IV Last administered on 02/06/18at 21:33; Start 02/06/18 at 22:00; Stop 02/06/18 at 22:29; Status DC Vancomycin HCl 1.25 gm/Sodium Chloride 250 ml @ 166.667 mls/hr 1X ONCE IV Last administered on 02/06/18at 22:30; Start 02/06/18 at 22:00; Stop 02/06/18 at 23:29; Status DC Piperacillin Sod/ Tazobactam Sod 2.25 gm/Sodium Chloride 50 ml @ 100 mls/hr Q8HRS IV Last administered on 02/11/18at 13:49; Start 02/07/18 at 06:00; Stop 02/11/18 at 16:12; Status DC Sodium Chloride 1,000 ml @ 250 mls/hr Q4H IV ; Start 02/06/18 at 22:30; Stop 02/07/18 at 03:21; Status DC Sodium Chloride 1,000 ml @ 250 mls/hr Q4H IV ; Start 02/06/18 at 22:30; Stop 02/07/18 at 06:10; Status DC Dextrose/Sodium Chloride 1,000 ml @ 250 mls/hr Q4H IV ; Start 02/06/18 at 22: 30; Stop 02/07/18 at 03:21; Status DC Magnesium Sulfate/ Dextrose 100 ml @ 25 mls/hr DAILY IV ; Start 02/07/18 at 09 :00; Stop 02/08/18 at 04:48; Status DC Sodium Phosphate 40 mmol/Sodium Chloride 513.3333 ml @ 83.3 mls/hr 1X PRN PRN IV SEE COMMENTS; Start 02/06/18 at 22:30 Sodium Phosphate 20 mmol/Dextrose 256.6667 ml @ 62.5 mls/hr 1X PRN PRN IV SEE COMMENTS; Start 02/06/18 at 22:30 Sodium Phosphate 10 mmol/Dextrose 253.3333 ml @ 62.5 mls/hr 1X PRN PRN IV SEE COMMENTS; Start 02/06/18 at 22:30 Dextrose/Sodium Chloride 1,000 ml @ 250 mls/hr Q4H IV Last administered on at 23:30; Start 02/06/18 at 23:45; Stop 02/07/18 at 03:21; Status DC Sodium Chloride 1,000 ml @ 200 mls/hr Q5H IV Last administered on 02/10/18at 09:01; Start 02/07/18 at 03:00; Stop 02/10/18 at 15:55; Status DC Metoclopramide HCl (Reglan Vial) 5 mg PRN Q6HRS PRN IV NAUSEA/VOMITING Last administered on 02/13/18at 09:45; Start 02/07/18 at 03:00 Insulin Human Lispro (HumaLOG) 0-7 UNITS TIDWMEALS SQ Last administered on at 18:08; Start 02/07/18 at 08:00; Stop 02/09/18 at 09:34; Status DC Dextrose (Dextrose 50%-Water Syringe) 12.5 gm PRN Q15MIN PRN IV SEE COMMENTS; Start 02/07/18 at 02:15; Stop 02/10/18 at 14:35; Status DC Insulin Human Lispro (HumaLOG) 4 units 1X ONCE SQ ; Start 02/07/18 at 02:30; Stop 02/07/18 at 02:31; Status Cancel Aspirin (Ecotrin) 81 mg DAILYWBKFT PO Last administered on 02/14/18at 09:48; Start 02/07/18 at 10:00 Pantoprazole Sodium (PROTONIX VIAL for IV PUSH) 40 mg DAILYAC IVP Last administered on 02/09/18at 09:16; Start 02/07/18 at 16:30; Stop 02/09/18 at 09 :34; Status DC Chlorpromazine HCl (Thorazine) 25 mg PRN Q6HRS PRN IV HICCUPS Last administered on 02/08/18at 02:08; Start 02/07/18 at 17:00; Stop 02/08/18 at 05 :07; Status DC Zolpidem Tartrate (Ambien) 5 mg PRN QHS PRN PO INSOMNIA, MAY REPEAT IN 1HR Last administered on 02/14/18at 02:39; Start 02/07/18 at 17:00 Magnesium Sulfate/ Dextrose 100 ml @ 25 mls/hr PRN DAILY PRN IV SEE COMMENTS; Start 02/08/18 at 05:00 Chlorpromazine HCl 25 mg/Dextrose 50 ml @ 100 mls/hr PRN Q6HRS PRN IV HICCUPS Last administered on 02/13/18at 06:15; Start 02/08/18 at 05:15 Lactobacillus Rhamnosus (Culturelle) 1 cap BID PO Last administered on at 09:48; Start 02/08/18 at 09:00 Fentanyl Citrate (Fentanyl 2ml Vial) 50 mcg PRN Q2HR PRN IV SEVERE PAIN Last administered on 02/09/18at 23:14; Start 02/08/18 at 21:00; Stop 02/10/18 at 15 :41; Status DC Pantoprazole Sodium (Protonix) 40 mg DAILYAC PO ; Start 02/09/18 at 11:30; Stop 02/09/18 at 15:51; Status DC Insulin Human Lispro (HumaLOG) 0-9 UNITS TIDWMEALS SQ ; Start 02/09/18 at 12:00 Dextrose (Dextrose 50%-Water Syringe) 12.5 gm PRN Q15MIN PRN IV SEE COMMENTS; Start 02/09/18 at 09:45 Glimepiride (Amaryl) 2 mg DAILY PO Last administered on 02/14/18at 09:48; Start 02/09/18 at 09:45 Pantoprazole Sodium (PROTONIX VIAL for IV PUSH) 40 mg DAILYAC IVP Last administered on 02/14/18at 05:59; Start 02/10/18 at 07:30; Stop 02/14/18 at 10 :02; Status DC Propofol 20 ml @ As Directed STK-MED ONCE IV ; Start 02/10/18 at 09:29; Stop 02/10/18 at 09:30; Status DC Dexamethasone Sodium Phosphate (Decadron) 20 mg STK-MED ONCE .ROUTE ; Start at 09:29; Stop 02/10/18 at 09:30; Status DC Lidocaine HCl (Lidocaine Pf 2% Vial) 5 ml STK-MED ONCE .ROUTE ; Start 02/10/18 at 09:29; Stop 02/10/18 at 09:30; Status DC Ondansetron HCl (Zofran) 4 mg STK-MED ONCE .ROUTE ; Start 02/10/18 at 09:29; Stop 02/10/18 at 09:30; Status DC Rocuronium [place] (Zemuron) 50 mg STK-MED ONCE .ROUTE ; Start 02/10/18 at 09: 29; Stop 02/10/18 at 09:30; Status DC Fentanyl Citrate (Fentanyl 2ml Vial) 100 mcg STK-MED ONCE .ROUTE ; Start at 09:29; Stop 02/10/18 at 09:30; Status DC Lidocaine HCl (Xylocaine-Mpf 2% Vial) 2 ml STK-MED ONCE .ROUTE ; Start at 10:29; Stop 02/10/18 at 10:30; Status DC Succinylcholine Chloride (Anectine) 200 mg STK-MED ONCE .ROUTE ; Start at 10:38; Stop 02/10/18 at 10:39; Status DC Chlorpromazine HCl 12.5 mg/ Dextrose 50.5 ml @ 100 mls/hr 1X ONCE IV ; Start 02/10/18 at 10:45; Stop 02/10/18 at 11:15; Status DC Bupivacaine HCl/ Epinephrine Bitart (Sensorcain-Mpf Epi 0.5%-[id number]) 30 ml STK -MED ONCE .ROUTE Last administered on 02/10/18at 13:02; Start 02/10/18 at 10: 31; Stop 02/10/18 at 11:31; Status DC Cefoxitin Sodium 2 gm/Dextrose 100 ml @ 200 mls/hr 1X PREOP IV ; Start at 12:45; Status UNV Cefoxitin Sodium 100 ml @ 200 mls/hr ONCE ONCE IV Last administered on at 13:01; Start 02/10/18 at 12:45; Stop 02/10/18 at 13:14; Status DC Metoprolol Tartrate (Lopressor Vial) 5 mg STK-MED ONCE IVP ; Start 02/10/18 at 12:46; Stop 02/10/18 at 12:47; Status DC Ephedrine Sulfate (ePHEDrine PF IN SALINE SYRINGE) 50 mg STK-MED ONCE IV ; Start 02/10/18 at 13:51; Stop 02/10/18 at 13:52; Status DC Desflurane (Suprane) 60 ml STK-MED ONCE IH ; Start 02/10/18 at 14:04; Stop at 14:05; Status DC Glycopyrrolate (Robinul) 1 mg STK-MED ONCE .ROUTE ; Start 02/10/18 at 14:05; Stop 02/10/18 at 14:06; Status DC Neostigmine Methylsulfate (Neostigmine Methylsulfate) 5 mg STK-MED ONCE .ROUTE ; Start 02/10/18 at 14:05; Stop 02/10/18 at 14:06; Status DC Desflurane (Suprane) 60 ml STK-MED ONCE IH ; Start 02/10/18 at 14:12; Stop at 14:13; Status DC Phenylephrine HCl (PHENYLEPHRINE in 0.9% NACL PF) 1 mg STK-MED ONCE IV ; Start 02/10/18 at 14:13; Stop 02/10/18 at 14:14; Status DC Fentanyl Citrate (Fentanyl 2ml Vial) 100 mcg STK-MED ONCE .ROUTE ; Start at 15:03; Stop 02/10/18 at 15:04; Status DC Fentanyl Citrate (Fentanyl 2ml Vial) 25 mcg PRN Q5MIN PRN IV MILD PAIN; Start 02/10/18 at 15:30; Stop 02/10/18 at 15:40; Status DC Fentanyl Citrate (Fentanyl 2ml Vial) 50 mcg PRN Q5MIN PRN IV MODERATE TO SEVERE PAIN; Start 02/10/18 at 15:30; Stop 02/10/18 at 15:40; Status DC Morphine Sulfate (Morphine Sulfate) 1 mg PRN Q10MIN PRN IV SEVERE PAIN; Start 02/10/18 at 15:30; Stop 02/10/18 at 15:42; Status DC Ringer's Solution 1,000 ml @ 30 mls/hr Q24H IV ; Start 02/10/18 at 15:27; Stop 02/10/18 at 15:56; Status DC Lidocaine HCl (Xylocaine-Mpf 1% 2ml Vial) 2 ml PRN 1X PRN ID PRIOR TO IV START ; Start 02/10/18 at 15:30; Stop 02/11/18 at 15:29; Status DC Hydromorphone HCl (Dilaudid) 0.5 mg PRN Q10MIN PRN IV SEV PAIN, Second choice; Start 02/10/18 at 15:30; Stop 02/10/18 at 15:41; Status DC Prochlorperazine Edisylate (Compazine) 5 mg PACU PRN PRN IV NAUSEA, MRX1; Start 02/10/18 at 15:30; Stop 02/11/18 at 15:29; Status DC Enoxaparin Sodium (Lovenox 40mg Syringe) 40 mg Q24H SQ Last administered on at 18:33; Start 02/10/18 at 16:00 Sodium Chloride (Normal Saline Flush) 3 ml QSHIFT PRN IV AFTER MEDS AND BLOOD DRAWS; Start 02/10/18 at 15:45 Ringer's Solution 1,000 ml @ 100 mls/hr Q10H IV Last administered on at 02:40; Start 02/10/18 at 15:33 Naloxone HCl (Narcan) 0.4 mg PRN Q2MIN PRN IV SEE INSTRUCTIONS; Start at 15:45 Sodium Chloride 1,000 ml @ 25 mls/hr Q24H IV Last administered on 02/12/18at 15:33; Start 02/10/18 at 15:33 Morphine Sulfate 30 ml @ 0 mls/hr CONT PRN PRN IV PER PROTOCOL Last administered on 02/12/18at 02:29; Start 02/10/18 at 15:45; Stop 02/12/18 at 14 :58; Status DC Piperacillin Sod/ Tazobactam Sod 3.375 gm/Sodium Chloride 50 ml @ 100 mls/hr Q6HRS IV Last administered on 02/14/18at 09:53; Start 02/11/18 at 18:00 Fentanyl Citrate (Fentanyl 2ml Vial) 100 mcg STK-MED ONCE .ROUTE ; Start at 15:00; Stop 02/12/18 at 08:17; Status DC Oxycodone/ Acetaminophen (Percocet 5/325) 1 tab PRN Q4HRS PRN PO PAIN Last administered on 02/13/18at 09:46; Start 02/12/18 at 15:00 Morphine Sulfate (Morphine Sulfate) 0.5 mg PRN Q3HRS PRN IV PAIN; Start at 15:00 Potassium Chloride/Water 50 ml @ 50 mls/hr Q1H IV ; Start 02/13/18 at 08:15; Stop 02/13/18 at 10:14; Status UNV Potassium Chloride 10 meq/ Sodium Chloride 105 ml @ 105 mls/hr Q1H IV Last administered on 02/13/18at 15:59; Start 02/13/18 at 09:00; Stop 02/13/18 at 12 :59; Status DC Potassium Chloride (Klor-Con) 40 meq 1X ONCE PO Last administered on at 05:59; Start 02/14/18 at 06:00; Stop 02/14/18 at 06:01; Status DC Potassium Chloride (Klor-Con) 40 meq 1X ONCE PO Last administered on at 09:52; Start 02/14/18 at 09:30; Stop 02/14/18 at 09:31; Status DC Pantoprazole Sodium (Protonix) 40 mg DAILYAC PO ; Start 02/15/18 at 07:30 Vitals/I & O Vital Sign - Last 24 Hours 02/13/18 02/13/18 02/13/18 02/13/18 16:00 19:15 20:00 23:11 Temp 98.8 97.8 99.8 98.8 97.8 99.8 Pulse 94 100 90 Resp 20 18 18 B/P (MAP) 121/70 (87) 112/79 (90) 133/73 (93) Pulse Ox 93 93 94 O2 Delivery Room Air Room Air Room Air Room Air 02/14/18 02/14/18 02/14/18 03:10 08:23 11:36 Temp 99.7 99.7 98.9 99.7 99.7 98.9 Pulse 95 87 93 Resp 18 16 16 B/P (MAP) 128/73 (91) 134/66 (88) 125/73 (90) Pulse Ox 95 97 96 O2 Delivery Room Air Room Air Room Air Intake and Output 02/13/18 02/13/18 02/14/18 15:00 23:00 07:00 Intake Total 350 ml 1100 ml 1100 ml Output Total 890 ml 900 ml 1200 ml Balance -540 ml 200 ml -100 ml Nutrition Consultation Dietary Evaluation: Recommendations by RD: Protein supplementation Comments: Diet advancement per GI, REC PPN if extended NPO (>7 days) Expected Outcomes/Goals: new goal: to meet > 75% est nutr needs - not met, new goal established New goal 02/13: diet advancement Malnutrition Findings: Food and Nutrition Intake (Sev: <50% est energy req 5days Weight Status: Overweight SHANNAN LIMA MD Feb 14, 2018 12:52
[2018-02-14] MEDS ORDERED: MAGNESIUM SULFATE 4GM 100 ML IV ONE (13:00)
--- NOTE | 2018-02-14 14:09 | PDOC ---
SURGICAL PROGRESS NOTE Subjective Pt without c/o except diarrhea, juan clears, no N/V Vital Signs Vital Signs Date Time Temp Pulse Resp B/P (MAP) Pulse Ox O2 Delivery O2 Flow Rate FiO2 02/14/18 11:36 98.9 93 16 125/73 (90) 96 Room Air 98.9 02/13/18 12:00 2.0 I&O Intake and Output 02/14/18 07:00 Intake Total 2550 ml Output Total 2990 ml Balance -440 ml Intake Oral 2550 ml Output Urine Total 2990 ml # Bowel Movements 3 General: Alert, Oriented X3, Cooperative, No acute distress Abdomen: Soft, No tenderness Labs Laboratory Tests Test 02/13/18 04:50 02/13/18 12:13 02/13/18 23:58 02/14/18 04:00 White Blood Count 11.3 x10^3/uL (4.0-11.0) 11.0 x10^3/uL (4.0-11.0) Red Blood Count 3.71 x10^6/uL (4.30-5.70) 3.80 x10^6/uL (4.30-5.70) Hemoglobin 11.7 g/dL (13.0-17.5) 11.7 g/dL (13.0-17.5) Hematocrit 33.4 % (39.0-53.0) 34.4 % (39.0-53.0) Mean Corpuscular Volume 90 fL (79-100) 91 fL (79-100) Mean Corpuscular Hemoglobin 32 pg (25-35) 31 pg (25-35) Mean Corpuscular Hemoglobin Concent 35 g/dL (31-37) 34 g/dL (31-37) Red Cell Distribution Width 13.9 % (11.5-14.5) 13.5 % (11.5-14.5) Platelet Count 229 x10^3/uL (140-400) 245 x10^3/uL (140-400) Neutrophils (%) (Auto) 77 % (31-73) 75 % (31-73) Lymphocytes (%) (Auto) 12 % (24-48) 15 % (24-48) Monocytes (%) (Auto) 10 % (0-9) 8 % (0-9) Eosinophils (%) (Auto) 1 % (0-3) 1 % (0-3) Basophils (%) (Auto) 0 % (0-3) 0 % (0-3) Neutrophils # (Auto) 8.7 x10^3uL (1.8-7.7) 8.3 x10^3uL (1.8-7.7) Lymphocytes # (Auto) 1.4 x10^3/uL (1.0-4.8) 1.7 x10^3/uL (1.0-4.8) Monocytes # (Auto) 1.1 x10^3/uL (0.0-1.1) 0.9 x10^3/uL (0.0-1.1) Eosinophils # (Auto) 0.1 x10^3/uL (0.0-0.7) 0.1 x10^3/uL (0.0-0.7) Basophils # (Auto) 0.0 x10^3/uL (0.0-0.2) 0.0 x10^3/uL (0.0-0.2) Sodium Level 145 mmol/L (136-145) 144 mmol/L (136-145) Potassium Level 3.2 mmol/L (3.5-5.1) 2.8 mmol/L (3.5-5.1) Chloride Level 105 mmol/L (98-107) 104 mmol/L (98-107) Carbon Dioxide Level 27 mmol/L (21-32) 31 mmol/L (21-32) Anion Gap 13 (6-14) 9 (6-14) Blood Urea Nitrogen 17 mg/dL (8-26) 11 mg/dL (8-26) Creatinine 1.1 mg/dL (0.7-1.3) 1.1 mg/dL (0.7-1.3) Estimated GFR (Cockcroft-Gault) 67.0 67.0 Glucose Level 94 mg/dL (70-99) 114 mg/dL (70-99) Calcium Level 7.7 mg/dL (8.5-10.1) 7.2 mg/dL (8.5-10.1) Phosphorus Level 2.6 mg/dL (2.6-4.7) Albumin 1.5 g/dL (3.4-5.0) Glucose (Fingerstick) 110 mg/dL (70-99) 130 mg/dL (70-99) Segmented Neutrophils % 71 % (35-66) Band Neutrophils % 2 % (0-9) Lymphocytes % 16 % (24-48) Atypical Lymphocytes % (Manual) 2 % (0-0) Monocytes % 3 % (0-10) Eosinophils % 4 % (0-5) Basophils % 1 % (0-3) Myelocytes % 1 % (0-0) Platelet Estimate Adequate (ADEQUATE) Magnesium Level 1.3 mg/dL (1.8-2.4) Test 02/14/18 08:19 02/14/18 10:51 Glucose (Fingerstick) 97 mg/dL (70-99) 124 mg/dL (70-99) Laboratory Tests Test 02/13/18 23:58 02/14/18 04:00 02/14/18 08:19 02/14/18 10:51 Glucose (Fingerstick) 130 mg/dL (70-99) 97 mg/dL (70-99) 124 mg/dL (70-99) White Blood Count 11.0 x10^3/uL (4.0-11.0) Red Blood Count 3.80 x10^6/uL (4.30-5.70) Hemoglobin 11.7 g/dL (13.0-17.5) Hematocrit 34.4 % (39.0-53.0) Mean Corpuscular Volume 91 fL (79-100) Mean Corpuscular Hemoglobin 31 pg (25-35) Mean Corpuscular Hemoglobin Concent 34 g/dL (31-37) Red Cell Distribution Width 13.5 % (11.5-14.5) Platelet Count 245 x10^3/uL (140-400) Neutrophils (%) (Auto) 75 % (31-73) Lymphocytes (%) (Auto) 15 % (24-48) Monocytes (%) (Auto) 8 % (0-9) Eosinophils (%) (Auto) 1 % (0-3) Basophils (%) (Auto) 0 % (0-3) Neutrophils # (Auto) 8.3 x10^3uL (1.8-7.7) Lymphocytes # (Auto) 1.7 x10^3/uL (1.0-4.8) Monocytes # (Auto) 0.9 x10^3/uL (0.0-1.1) Eosinophils # (Auto) 0.1 x10^3/uL (0.0-0.7) Basophils # (Auto) 0.0 x10^3/uL (0.0-0.2) Segmented Neutrophils % 71 % (35-66) Band Neutrophils % 2 % (0-9) Lymphocytes % 16 % (24-48) Atypical Lymphocytes % (Manual) 2 % (0-0) Monocytes % 3 % (0-10) Eosinophils % 4 % (0-5) Basophils % 1 % (0-3) Myelocytes % 1 % (0-0) Platelet Estimate Adequate (ADEQUATE) Sodium Level 144 mmol/L (136-145) Potassium Level 2.8 mmol/L (3.5-5.1) Chloride Level 104 mmol/L (98-107) Carbon Dioxide Level 31 mmol/L (21-32) Anion Gap 9 (6-14) Blood Urea Nitrogen 11 mg/dL (8-26) Creatinine 1.1 mg/dL (0.7-1.3) Estimated GFR (Cockcroft-Gault) 67.0 Glucose Level 114 mg/dL (70-99) Calcium Level 7.2 mg/dL (8.5-10.1) Magnesium Level 1.3 mg/dL (1.8-2.4) Problem List Problems Medical Problems: (1) Acute renal failure Status: Acute (2) CHF (congestive heart failure) Status: Acute (3) DKA (diabetic ketoacidoses) Status: Acute (4) Heart murmur Status: Acute (5) NSTEMI (non-ST elevated myocardial infarction) Status: Acute Assessment/Plan s/p xlap ADAT cont supportive care JAYDEN ROWLEY MD Feb 14, 2018 14:09
[2018-02-14] MEDS: IV NORMAL SALINE 1000ML BAG 1,000 ML IV SCH (14:36)
[2018-02-14] MEDS: ENOXAPARIN 40 MG/0.4 ML SYRINGE. SQ SCH (15:47)
[2018-02-14 16:00] VITALS: BP 117/64
[2018-02-14 19:00] VITALS: BP 124/73
[2018-02-14 23:24] VITALS: BP 128/79
[2018-02-15] MEDS: PIPERACILLIN/TAZOBACTAM 3.375 GM in IV NORMAL SALINE 50ML 50 ML IV SCH ×3 (00:08→12:39)
[2018-02-15 04:00] VITALS: BP 118/77
[2018-02-15] MEDS: IV RINGERS,LACTATED 1000ML 1,000 ML IV SCH ×2 (05:33→15:33)
--- NOTE | 2018-02-15 07:46 | PDOC ---
PROGRESS NOTES Chief Complaint Chief Complaint Gall stone ileus s/p impacted gallstone removal and lysis of adhesions 02/10 Lactic acidosis sec to DKA and severe dehydration Known DM with high likelihood of undiagnosed gastroparesis Sepsis with hypotension - responded to IVF - t.o ICU 02/08 s/p DKA Metabolic alkalosis secondary to vomiting Elevated troponin, NSTEMI, demand ischemia Acute on chronic renal failure - creat 5 on admit Leukocytosis, reactive Hypokalemia hypomagnesemia History of Present Illness History of Present Illness Admitted with DKA, dehydration, ileus with impacted gallstone to ICU. has 6 times liquid diarrhea yesterday, abd sx wound tight, no pain on clear liquid diet feels weak k 2.8, Mag 1.3, replaced Assessment: Gall stone ileus s/p impacted gallstone removal and lysis of adhesions 02/10 Lactic acidosis sec to DKA and severe dehydration Known DM with high likelihood of undiagnosed gastroparesis Sepsis with hypotension - responded to IVF - t.o ICU 02/08 s/p DKA Metabolic alkalosis secondary to vomiting Elevated troponin, NSTEMI, demand ischemia Acute on chronic renal failure - creat 5 on admit Leukocytosis, reactive Hypokalemia hypomagnesemia plan: fu with gi, sx advance diet to full liquid as per sx on ivf replete K, Mag checked was 1.3, 4G IV x1 wound care cont home meds on zosyn, fu with ID, change to po soon dvt, gi ppx ssi PTOT CHECK cdiff Vitals Vitals Vital Signs Date Time Temp Pulse Resp B/P (MAP) Pulse Ox O2 Delivery O2 Flow Rate FiO2 02/15/18 04:00 98.8 95 18 118/77 (91) 98 Room Air 98.8 Physical Exam Physical Exam GENERAL:axox3 male in nad HEENT: NGT. Oral cavity pink, dry LUNGS: Clear. HEART: S1, S2,tachycardia ABDOMEN: mild distended+ bs, soft, NT to light palpation. Dressing clean dry and intact. : Melchor EXTREMITIES: No edema or cyanosis. SKIN: without rash NEUROLOGIC: Alert and responds appropriately PIV General: Alert, Oriented X3, Cooperative, No acute distress Heart: Normal S1, Normal S2, No murmurs, Other (tachycardic) Lungs: Clear, Other (on 2L NC) Abdomen: Soft, No tenderness Extremities: No clubbing, No cyanosis Skin: No rashes, No breakdown Labs LABS Laboratory Tests Test 02/14/18 08:19 02/14/18 10:51 02/14/18 13:15 02/14/18 17:10 Glucose (Fingerstick) 97 mg/dL (70-99) 124 mg/dL (70-99) 134 mg/dL (70-99) Clostridium difficile Toxin (PCR) Negative (Negative) Test 02/14/18 20:45 Glucose (Fingerstick) 127 mg/dL (70-99) Assessment and Plan Assessmemt and Plan Problems Medical Problems: (1) Acute renal failure Status: Acute (2) CHF (congestive heart failure) Status: Acute (3) DKA (diabetic ketoacidoses) Status: Acute (4) Heart murmur Status: Acute (5) NSTEMI (non-ST elevated myocardial infarction) Status: Acute Comment Review of Relevant I have reviewed the following items luz (where applicable) has been applied. Labs Laboratory Tests Test 02/13/18 12:13 02/13/18 23:58 02/14/18 04:00 02/14/18 08:19 Glucose (Fingerstick) 110 mg/dL (70-99) 130 mg/dL (70-99) 97 mg/dL (70-99) White Blood Count 11.0 x10^3/uL (4.0-11.0) Red Blood Count 3.80 x10^6/uL (4.30-5.70) Hemoglobin 11.7 g/dL (13.0-17.5) Hematocrit 34.4 % (39.0-53.0) Mean Corpuscular Volume 91 fL (79-100) Mean Corpuscular Hemoglobin 31 pg (25-35) Mean Corpuscular Hemoglobin Concent 34 g/dL (31-37) Red Cell Distribution Width 13.5 % (11.5-14.5) Platelet Count 245 x10^3/uL (140-400) Neutrophils (%) (Auto) 75 % (31-73) Lymphocytes (%) (Auto) 15 % (24-48) Monocytes (%) (Auto) 8 % (0-9) Eosinophils (%) (Auto) 1 % (0-3) Basophils (%) (Auto) 0 % (0-3) Neutrophils # (Auto) 8.3 x10^3uL (1.8-7.7) Lymphocytes # (Auto) 1.7 x10^3/uL (1.0-4.8) Monocytes # (Auto) 0.9 x10^3/uL (0.0-1.1) Eosinophils # (Auto) 0.1 x10^3/uL (0.0-0.7) Basophils # (Auto) 0.0 x10^3/uL (0.0-0.2) Segmented Neutrophils % 71 % (35-66) Band Neutrophils % 2 % (0-9) Lymphocytes % 16 % (24-48) Atypical Lymphocytes % (Manual) 2 % (0-0) Monocytes % 3 % (0-10) Eosinophils % 4 % (0-5) Basophils % 1 % (0-3) Myelocytes % 1 % (0-0) Platelet Estimate Adequate (ADEQUATE) Sodium Level 144 mmol/L (136-145) Potassium Level 2.8 mmol/L (3.5-5.1) Chloride Level 104 mmol/L (98-107) Carbon Dioxide Level 31 mmol/L (21-32) Anion Gap 9 (6-14) Blood Urea Nitrogen 11 mg/dL (8-26) Creatinine 1.1 mg/dL (0.7-1.3) Estimated GFR (Cockcroft-Gault) 67.0 Glucose Level 114 mg/dL (70-99) Calcium Level 7.2 mg/dL (8.5-10.1) Magnesium Level 1.3 mg/dL (1.8-2.4) Test 02/14/18 10:51 02/14/18 13:15 02/14/18 17:10 02/14/18 20:45 Glucose (Fingerstick) 124 mg/dL (70-99) 134 mg/dL (70-99) 127 mg/dL (70-99) Clostridium difficile Toxin (PCR) Negative (Negative) Laboratory Tests Test 02/14/18 08:19 02/14/18 10:51 02/14/18 13:15 02/14/18 17:10 Glucose (Fingerstick) 97 mg/dL (70-99) 124 mg/dL (70-99) 134 mg/dL (70-99) Clostridium difficile Toxin (PCR) Negative (Negative) Test 02/14/18 20:45 Glucose (Fingerstick) 127 mg/dL (70-99) Microbiology 02/06/18 Blood Culture - Final, Complete NO GROWTH AFTER 5 DAYS 02/07/18 Urine Culture - Final, Complete 02/07/18 Urine Culture Result 1 (ELIAZAR) - Final, Complete Medications Current Medications Sodium Chloride 1,000 ml @ 1,000 mls/hr 1X ONCE IV Last administered on 02/06at 19:59; Start 02/06/18 at 20:00; Stop 02/06/18 at 20:59; Status DC Insulin Human Regular 150 unit/ Sodium Chloride 151.5 ml @ 0 mls/hr CONT PRN PRN IV PER PROTOCOL; Start 02/06/18 at 21:00; Stop 02/09/18 at 09:34; Status DC Potassium Chloride (KCl Oral Soln) 40 meq 1X ONCE PO Last administered on at 21:22; Start 02/06/18 at 21:30; Stop 02/06/18 at 21:31; Status DC Potassium Chloride/Water 50 ml @ 25 mls/hr Q1H IV ; Start 02/06/18 at 21:00; Stop 02/06/18 at 21:16; Status DC Insulin Human Regular 150 ml @ 9.1 mls/hr 1X ONCE IV Last administered on at 21:24; Start 02/06/18 at 21:45; Stop 02/07/18 at 14:17; Status DC Potassium Chloride 40 meq/ Sodium Chloride 520 ml @ 130 mls/hr 1X ONCE IV Last administered on 02/06/18at 22:30; Start 02/06/18 at 22:00; Stop 02/07/18 at 02:00; Status DC Potassium Chloride 40 meq/ Sodium Chloride 520 ml @ 130 mls/hr 1X ONCE IV Last administered on 02/07/18at 01:39; Start 02/07/18 at 02:00; Stop 02/07/18 at 05:59; Status DC Ondansetron HCl (Zofran) 4 mg PRN Q8HRS PRN IV NAUSEA/VOMITING Last administered on 02/06/18at 23:49; Start 02/06/18 at 21:15; Stop 02/07/18 at 21 :14; Status DC Fentanyl Citrate (Fentanyl 2ml Vial) 50 mcg PRN Q2HR PRN IV PAIN Last administered on 02/07/18at 15:01; Start 02/06/18 at 21:15; Stop 02/07/18 at 21 :14; Status DC Acetaminophen (Tylenol) 650 mg PRN Q4HRS PRN PO FEVER; Start 02/06/18 at 21:15 ; Stop 02/07/18 at 21:14; Status DC Vancomycin HCl (Vanco Per Pharmacy) 1 each PRN DAILY PRN MC SEE COMMENTS; Start 02/06/18 at 21:30; Stop 02/07/18 at 07:52; Status DC Piperacillin Sod/ Tazobactam Sod (Zosyn Per Pharmacy) 1 each PRN DAILY PRN MC SEE COMMENTS; Start 02/06/18 at 21:30 Sodium Chloride 1,000 ml @ 1,000 mls/hr 1X ONCE IV Last administered on 02/06at 21:32; Start 02/06/18 at 21:30; Stop 02/06/18 at 22:29; Status DC Piperacillin Sod/ Tazobactam Sod 3.375 gm/Sodium Chloride 50 ml @ 100 mls/hr 1X ONCE IV Last administered on 02/06/18at 21:33; Start 02/06/18 at 22:00; Stop 02/06/18 at 22:29; Status DC Vancomycin HCl 1.25 gm/Sodium Chloride 250 ml @ 166.667 mls/hr 1X ONCE IV Last administered on 02/06/18at 22:30; Start 02/06/18 at 22:00; Stop 02/06/18 at 23:29; Status DC Piperacillin Sod/ Tazobactam Sod 2.25 gm/Sodium Chloride 50 ml @ 100 mls/hr Q8HRS IV Last administered on 02/11/18at 13:49; Start 02/07/18 at 06:00; Stop 02/11/18 at 16:12; Status DC Sodium Chloride 1,000 ml @ 250 mls/hr Q4H IV ; Start 02/06/18 at 22:30; Stop 02/07/18 at 03:21; Status DC Sodium Chloride 1,000 ml @ 250 mls/hr Q4H IV ; Start 02/06/18 at 22:30; Stop 02/07/18 at 06:10; Status DC Dextrose/Sodium Chloride 1,000 ml @ 250 mls/hr Q4H IV ; Start 02/06/18 at 22: 30; Stop 02/07/18 at 03:21; Status DC Magnesium Sulfate/ Dextrose 100 ml @ 25 mls/hr DAILY IV ; Start 02/07/18 at 09 :00; Stop 02/08/18 at 04:48; Status DC Sodium Phosphate 40 mmol/Sodium Chloride 513.3333 ml @ 83.3 mls/hr 1X PRN PRN IV SEE COMMENTS; Start 02/06/18 at 22:30 Sodium Phosphate 20 mmol/Dextrose 256.6667 ml @ 62.5 mls/hr 1X PRN PRN IV SEE COMMENTS; Start 02/06/18 at 22:30 Sodium Phosphate 10 mmol/Dextrose 253.3333 ml @ 62.5 mls/hr 1X PRN PRN IV SEE COMMENTS; Start 02/06/18 at 22:30 Dextrose/Sodium Chloride 1,000 ml @ 250 mls/hr Q4H IV Last administered on at 23:30; Start 02/06/18 at 23:45; Stop 02/07/18 at 03:21; Status DC Sodium Chloride 1,000 ml @ 200 mls/hr Q5H IV Last administered on 02/10/18at 09:01; Start 02/07/18 at 03:00; Stop 02/10/18 at 15:55; Status DC Metoclopramide HCl (Reglan Vial) 5 mg PRN Q6HRS PRN IV NAUSEA/VOMITING Last administered on 02/13/18at 09:45; Start 02/07/18 at 03:00 Insulin Human Lispro (HumaLOG) 0-7 UNITS TIDWMEALS SQ Last administered on at 18:08; Start 02/07/18 at 08:00; Stop 02/09/18 at 09:34; Status DC Dextrose (Dextrose 50%-Water Syringe) 12.5 gm PRN Q15MIN PRN IV SEE COMMENTS; Start 02/07/18 at 02:15; Stop 02/10/18 at 14:35; Status DC Insulin Human Lispro (HumaLOG) 4 units 1X ONCE SQ ; Start 02/07/18 at 02:30; Stop 02/07/18 at 02:31; Status Cancel Aspirin (Ecotrin) 81 mg DAILYWBKFT PO Last administered on 02/14/18at 09:48; Start 02/07/18 at 10:00 Pantoprazole Sodium (PROTONIX VIAL for IV PUSH) 40 mg DAILYAC IVP Last administered on 02/09/18at 09:16; Start 02/07/18 at 16:30; Stop 02/09/18 at 09 :34; Status DC Chlorpromazine HCl (Thorazine) 25 mg PRN Q6HRS PRN IV HICCUPS Last administered on 02/08/18at 02:08; Start 02/07/18 at 17:00; Stop 02/08/18 at 05 :07; Status DC Zolpidem Tartrate (Ambien) 5 mg PRN QHS PRN PO INSOMNIA, MAY REPEAT IN 1HR Last administered on 02/14/18at 02:39; Start 02/07/18 at 17:00 Magnesium Sulfate/ Dextrose 100 ml @ 25 mls/hr PRN DAILY PRN IV SEE COMMENTS; Start 02/08/18 at 05:00 Chlorpromazine HCl 25 mg/Dextrose 50 ml @ 100 mls/hr PRN Q6HRS PRN IV HICCUPS Last administered on 02/13/18at 06:15; Start 02/08/18 at 05:15 Lactobacillus Rhamnosus (Culturelle) 1 cap BID PO Last administered on at 21:10; Start 02/08/18 at 09:00 Fentanyl Citrate (Fentanyl 2ml Vial) 50 mcg PRN Q2HR PRN IV SEVERE PAIN Last administered on 02/09/18at 23:14; Start 02/08/18 at 21:00; Stop 02/10/18 at 15 :41; Status DC Pantoprazole Sodium (Protonix) 40 mg DAILYAC PO ; Start 02/09/18 at 11:30; Stop 02/09/18 at 15:51; Status DC Insulin Human Lispro (HumaLOG) 0-9 UNITS TIDWMEALS SQ ; Start 02/09/18 at 12:00 Dextrose (Dextrose 50%-Water Syringe) 12.5 gm PRN Q15MIN PRN IV SEE COMMENTS; Start 02/09/18 at 09:45 Glimepiride (Amaryl) 2 mg DAILY PO Last administered on 02/14/18at 09:48; Start 02/09/18 at 09:45 Pantoprazole Sodium (PROTONIX VIAL for IV PUSH) 40 mg DAILYAC IVP Last administered on 02/14/18at 05:59; Start 02/10/18 at 07:30; Stop 02/14/18 at 10 :02; Status DC Propofol 20 ml @ As Directed STK-MED ONCE IV ; Start 02/10/18 at 09:29; Stop 02/10/18 at 09:30; Status DC Dexamethasone Sodium Phosphate (Decadron) 20 mg STK-MED ONCE .ROUTE ; Start at 09:29; Stop 02/10/18 at 09:30; Status DC Lidocaine HCl (Lidocaine Pf 2% Vial) 5 ml STK-MED ONCE .ROUTE ; Start 02/10/18 at 09:29; Stop 02/10/18 at 09:30; Status DC Ondansetron HCl (Zofran) 4 mg STK-MED ONCE .ROUTE ; Start 02/10/18 at 09:29; Stop 02/10/18 at 09:30; Status DC Rocuronium [place] (Zemuron) 50 mg STK-MED ONCE .ROUTE ; Start 02/10/18 at 09: 29; Stop 02/10/18 at 09:30; Status DC Fentanyl Citrate (Fentanyl 2ml Vial) 100 mcg STK-MED ONCE .ROUTE ; Start at 09:29; Stop 02/10/18 at 09:30; Status DC Lidocaine HCl (Xylocaine-Mpf 2% Vial) 2 ml STK-MED ONCE .ROUTE ; Start at 10:29; Stop 02/10/18 at 10:30; Status DC Succinylcholine Chloride (Anectine) 200 mg STK-MED ONCE .ROUTE ; Start at 10:38; Stop 02/10/18 at 10:39; Status DC Chlorpromazine HCl 12.5 mg/ Dextrose 50.5 ml @ 100 mls/hr 1X ONCE IV ; Start 02/10/18 at 10:45; Stop 02/10/18 at 11:15; Status DC Bupivacaine HCl/ Epinephrine Bitart (Sensorcain-Mpf Epi 0.5%-[id number]) 30 ml STK -MED ONCE .ROUTE Last administered on 02/10/18at 13:02; Start 02/10/18 at 10: 31; Stop 02/10/18 at 11:31; Status DC Cefoxitin Sodium 2 gm/Dextrose 100 ml @ 200 mls/hr 1X PREOP IV ; Start at 12:45; Status UNV Cefoxitin Sodium 100 ml @ 200 mls/hr ONCE ONCE IV Last administered on at 13:01; Start 02/10/18 at 12:45; Stop 02/10/18 at 13:14; Status DC Metoprolol Tartrate (Lopressor Vial) 5 mg STK-MED ONCE IVP ; Start 02/10/18 at 12:46; Stop 02/10/18 at 12:47; Status DC Ephedrine Sulfate (ePHEDrine PF IN SALINE SYRINGE) 50 mg STK-MED ONCE IV ; Start 02/10/18 at 13:51; Stop 02/10/18 at 13:52; Status DC Desflurane (Suprane) 60 ml STK-MED ONCE IH ; Start 02/10/18 at 14:04; Stop at 14:05; Status DC Glycopyrrolate (Robinul) 1 mg STK-MED ONCE .ROUTE ; Start 02/10/18 at 14:05; Stop 02/10/18 at 14:06; Status DC Neostigmine Methylsulfate (Neostigmine Methylsulfate) 5 mg STK-MED ONCE .ROUTE ; Start 02/10/18 at 14:05; Stop 02/10/18 at 14:06; Status DC Desflurane (Suprane) 60 ml STK-MED ONCE IH ; Start 02/10/18 at 14:12; Stop at 14:13; Status DC Phenylephrine HCl (PHENYLEPHRINE in 0.9% NACL PF) 1 mg STK-MED ONCE IV ; Start 02/10/18 at 14:13; Stop 02/10/18 at 14:14; Status DC Fentanyl Citrate (Fentanyl 2ml Vial) 100 mcg STK-MED ONCE .ROUTE ; Start at 15:03; Stop 02/10/18 at 15:04; Status DC Fentanyl Citrate (Fentanyl 2ml Vial) 25 mcg PRN Q5MIN PRN IV MILD PAIN; Start 02/10/18 at 15:30; Stop 02/10/18 at 15:40; Status DC Fentanyl Citrate (Fentanyl 2ml Vial) 50 mcg PRN Q5MIN PRN IV MODERATE TO SEVERE PAIN; Start 02/10/18 at 15:30; Stop 02/10/18 at 15:40; Status DC Morphine Sulfate (Morphine Sulfate) 1 mg PRN Q10MIN PRN IV SEVERE PAIN; Start 02/10/18 at 15:30; Stop 02/10/18 at 15:42; Status DC Ringer's Solution 1,000 ml @ 30 mls/hr Q24H IV ; Start 02/10/18 at 15:27; Stop 02/10/18 at 15:56; Status DC Lidocaine HCl (Xylocaine-Mpf 1% 2ml Vial) 2 ml PRN 1X PRN ID PRIOR TO IV START ; Start 02/10/18 at 15:30; Stop 02/11/18 at 15:29; Status DC Hydromorphone HCl (Dilaudid) 0.5 mg PRN Q10MIN PRN IV SEV PAIN, Second choice; Start 02/10/18 at 15:30; Stop 02/10/18 at 15:41; Status DC Prochlorperazine Edisylate (Compazine) 5 mg PACU PRN PRN IV NAUSEA, MRX1; Start 02/10/18 at 15:30; Stop 02/11/18 at 15:29; Status DC Enoxaparin Sodium (Lovenox 40mg Syringe) 40 mg Q24H SQ Last administered on at 15:47; Start 02/10/18 at 16:00 Sodium Chloride (Normal Saline Flush) 3 ml QSHIFT PRN IV AFTER MEDS AND BLOOD DRAWS; Start 02/10/18 at 15:45 Ringer's Solution 1,000 ml @ 100 mls/hr Q10H IV Last administered on at 02:40; Start 02/10/18 at 15:33 Naloxone HCl (Narcan) 0.4 mg PRN Q2MIN PRN IV SEE INSTRUCTIONS; Start at 15:45 Sodium Chloride 1,000 ml @ 25 mls/hr Q24H IV Last administered on 02/12/18at 15:33; Start 02/10/18 at 15:33 Morphine Sulfate 30 ml @ 0 mls/hr CONT PRN PRN IV PER PROTOCOL Last administered on 02/12/18at 02:29; Start 02/10/18 at 15:45; Stop 02/12/18 at 14 :58; Status DC Piperacillin Sod/ Tazobactam Sod 3.375 gm/Sodium Chloride 50 ml @ 100 mls/hr Q6HRS IV Last administered on 02/15/18at 05:41; Start 02/11/18 at 18:00 Fentanyl Citrate (Fentanyl 2ml Vial) 100 mcg STK-MED ONCE .ROUTE ; Start at 15:00; Stop 02/12/18 at 08:17; Status DC Oxycodone/ Acetaminophen (Percocet 5/325) 1 tab PRN Q4HRS PRN PO PAIN Last administered on 02/13/18at 09:46; Start 02/12/18 at 15:00 Morphine Sulfate (Morphine Sulfate) 0.5 mg PRN Q3HRS PRN IV PAIN; Start at 15:00 Potassium Chloride/Water 50 ml @ 50 mls/hr Q1H IV ; Start 02/13/18 at 08:15; Stop 02/13/18 at 10:14; Status UNV Potassium Chloride 10 meq/ Sodium Chloride 105 ml @ 105 mls/hr Q1H IV Last administered on 02/13/18at 15:59; Start 02/13/18 at 09:00; Stop 02/13/18 at 12 :59; Status DC Potassium Chloride (Klor-Con) 40 meq 1X ONCE PO Last administered on at 05:59; Start 02/14/18 at 06:00; Stop 02/14/18 at 06:01; Status DC Potassium Chloride (Klor-Con) 40 meq 1X ONCE PO Last administered on at 09:52; Start 02/14/18 at 09:30; Stop 02/14/18 at 09:31; Status DC Pantoprazole Sodium (Protonix) 40 mg DAILYAC PO ; Start 02/15/18 at 07:30 Magnesium Sulfate/ Dextrose 100 ml @ 25 mls/hr 1X ONCE IV Last administered on 02/14/18at 15:28; Start 02/14/18 at 13:00; Stop 02/14/18 at 16:59; Status DC Vitals/I & O Vital Sign - Last 24 Hours 02/14/18 02/14/18 02/14/18 02/14/18 08:23 11:36 16:00 19:00 Temp 99.7 98.9 98.7 97.9 99.7 98.9 98.7 97.9 Pulse 87 93 67 107 Resp 16 18 B/P (MAP) 134/66 (88) 125/73 (90) 117/64 (81) 124/73 (90) Pulse Ox 97 96 98 98 O2 Delivery Room Air Room Air Room Air Room Air 02/14/18 02/14/18 02/15/18 20:00 23:24 04:00 Temp 98.1 98.8 98.1 98.8 Pulse 100 95 Resp 18 18 B/P (MAP) 128/79 (95) 118/77 (91) Pulse Ox 98 98 O2 Delivery Room Air Room Air Room Air Intake and Output 02/14/18 02/14/18 02/15/18 15:00 23:00 07:00 Intake Total 120 ml Output Total 300 ml 120 ml Balance -300 ml 0 ml Nutrition Consultation Dietary Evaluation: Recommendations by RD: Protein supplementation Comments: Diet advancement per MD ALLAN REC PPN if extended NPO (>7 days) Expected Outcomes/Goals: new goal: to meet > 75% est nutr needs - not met, new goal established New goal 02/13: diet advancement Malnutrition Findings: Food and Nutrition Intake (Sev: <50% est energy req 5days Weight Status: Overweight PARISH LIMON MD Feb 15, 2018 07:46
[2018-02-15] MEDS: PANTOPRAZOLE 40 MG TABLET.DR. PO SCH (07:50)
[2018-02-15] MEDS: ASPIRIN ENTERIC COATED 81 MG TABLET.DR. PO SCH (07:50)
[2018-02-15 08:00] VITALS: BP 131/71
[2018-02-15] MEDS: INSULIN LISPRO 300 UNITS/3 ML INSULN.PEN. SQ SCH ×3 (08:00→17:00)
[2018-02-15 08:02] LABS: BASO % 0 % (0-3); EOS # 0.1 x10^3/uL (0.0-0.7); EOS % 1 % (0-3); HEMATOCRIT 35.3 % (39.0-53.0); HEMOGLOBIN 12.1 g/dL (13.0-17.5); LYMPH # 2.1 x10^3/uL (1.0-4.8); LYMPH % 16 % (24-48); MEAN CORPUSCULAR HEMOGLOBIN 31 pg (25-35); MEAN CORPUSCULAR HGB CONC 34 g/dL (31-37); MEAN CORPUSCULAR VOLUME 90 fL (79-100); MONO # 0.9 x10^3/uL (0.0-1.1); MONO % 7 % (0-9); NEUT # 9.9 x10^3uL (1.8-7.7); NEUT % 76 % (31-73); PLATELET COUNT 260 x10^3/uL (140-400); RED BLOOD COUNT 3.93 x10^6/uL (4.30-5.70); WHITE BLOOD COUNT 13.1 x10^3/uL (4.0-11.0)
[2018-02-15 08:14] LABS: CALCIUM 7.6 mg/dL (8.5-10.1); GFR 74.8
[2018-02-15 08:20] LABS: POTASSIUM 2.9 mmol/L (3.5-5.1)
[2018-02-15] MEDS ORDERED: POTASSIUM CHLORIDE 20 MEQ TABLET.ER. PO ONE (08:45)
[2018-02-15] MEDS ORDERED: POTASSIUM CHLORIDE 10MEQ 100 ML IV SCH (09:00)
[2018-02-15] MEDS ORDERED: POTASSIUM CHLORIDE 20MEQ 50 ML IV ONE (09:00)
[2018-02-15] MEDS: POTASSIUM CL 20MEQ D5-0.45NACL 1,000 ML IV SCH ×2 (09:00→23:01)
[2018-02-15] MEDS: GLIMEPIRIDE 2 MG TABLET. PO SCH (09:14)
[2018-02-15] MEDS: LACTOBACILLUS RHAMNOSUS GG 1 CAPSULE. PO SCH ×2 (09:14→20:16)
--- NOTE | 2018-02-15 10:04 | PDOC ---
SURGICAL PROGRESS NOTE Subjective Tolerating diet + flatus some belching Vital Signs Vital Signs Date Time Temp Pulse Resp B/P (MAP) Pulse Ox O2 Delivery O2 Flow Rate FiO2 02/15/18 08:00 99.3 90 18 131/71 (91) 94 Room Air 99.3 I&O Intake and Output 02/15/18 07:00 Intake Total 120 ml Output Total 420 ml Balance -300 ml Intake Oral 120 ml Output Urine Total 420 ml # Voids 5 General: Alert, Oriented X3, Cooperative, No acute distress Abdomen: Soft, Other (incision c/d/i, no erythema) Labs Laboratory Tests Test 02/13/18 12:13 02/13/18 23:58 02/14/18 04:00 02/14/18 08:19 Glucose (Fingerstick) 110 mg/dL (70-99) 130 mg/dL (70-99) 97 mg/dL (70-99) White Blood Count 11.0 x10^3/uL (4.0-11.0) Red Blood Count 3.80 x10^6/uL (4.30-5.70) Hemoglobin 11.7 g/dL (13.0-17.5) Hematocrit 34.4 % (39.0-53.0) Mean Corpuscular Volume 91 fL (79-100) Mean Corpuscular Hemoglobin 31 pg (25-35) Mean Corpuscular Hemoglobin Concent 34 g/dL (31-37) Red Cell Distribution Width 13.5 % (11.5-14.5) Platelet Count 245 x10^3/uL (140-400) Neutrophils (%) (Auto) 75 % (31-73) Lymphocytes (%) (Auto) 15 % (24-48) Monocytes (%) (Auto) 8 % (0-9) Eosinophils (%) (Auto) 1 % (0-3) Basophils (%) (Auto) 0 % (0-3) Neutrophils # (Auto) 8.3 x10^3uL (1.8-7.7) Lymphocytes # (Auto) 1.7 x10^3/uL (1.0-4.8) Monocytes # (Auto) 0.9 x10^3/uL (0.0-1.1) Eosinophils # (Auto) 0.1 x10^3/uL (0.0-0.7) Basophils # (Auto) 0.0 x10^3/uL (0.0-0.2) Segmented Neutrophils % 71 % (35-66) Band Neutrophils % 2 % (0-9) Lymphocytes % 16 % (24-48) Atypical Lymphocytes % (Manual) 2 % (0-0) Monocytes % 3 % (0-10) Eosinophils % 4 % (0-5) Basophils % 1 % (0-3) Myelocytes % 1 % (0-0) Platelet Estimate Adequate (ADEQUATE) Sodium Level 144 mmol/L (136-145) Potassium Level 2.8 mmol/L (3.5-5.1) Chloride Level 104 mmol/L (98-107) Carbon Dioxide Level 31 mmol/L (21-32) Anion Gap 9 (6-14) Blood Urea Nitrogen 11 mg/dL (8-26) Creatinine 1.1 mg/dL (0.7-1.3) Estimated GFR (Cockcroft-Gault) 67.0 Glucose Level 114 mg/dL (70-99) Calcium Level 7.2 mg/dL (8.5-10.1) Magnesium Level 1.3 mg/dL (1.8-2.4) Test 02/14/18 10:51 02/14/18 13:15 02/14/18 17:10 02/14/18 20:45 Glucose (Fingerstick) 124 mg/dL (70-99) 134 mg/dL (70-99) 127 mg/dL (70-99) Clostridium difficile Toxin (PCR) Negative (Negative) Test 02/15/18 07:05 02/15/18 07:47 White Blood Count 13.1 x10^3/uL (4.0-11.0) Red Blood Count 3.93 x10^6/uL (4.30-5.70) Hemoglobin 12.1 g/dL (13.0-17.5) Hematocrit 35.3 % (39.0-53.0) Mean Corpuscular Volume 90 fL (79-100) Mean Corpuscular Hemoglobin 31 pg (25-35) Mean Corpuscular Hemoglobin Concent 34 g/dL (31-37) Red Cell Distribution Width 14.0 % (11.5-14.5) Platelet Count 260 x10^3/uL (140-400) Neutrophils (%) (Auto) 76 % (31-73) Lymphocytes (%) (Auto) 16 % (24-48) Monocytes (%) (Auto) 7 % (0-9) Eosinophils (%) (Auto) 1 % (0-3) Basophils (%) (Auto) 0 % (0-3) Neutrophils # (Auto) 9.9 x10^3uL (1.8-7.7) Lymphocytes # (Auto) 2.1 x10^3/uL (1.0-4.8) Monocytes # (Auto) 0.9 x10^3/uL (0.0-1.1) Eosinophils # (Auto) 0.1 x10^3/uL (0.0-0.7) Basophils # (Auto) 0.0 x10^3/uL (0.0-0.2) Sodium Level 144 mmol/L (136-145) Potassium Level 2.9 mmol/L (3.5-5.1) Chloride Level 105 mmol/L (98-107) Carbon Dioxide Level 29 mmol/L (21-32) Anion Gap 10 (6-14) Blood Urea Nitrogen 7 mg/dL (8-26) Creatinine 1.0 mg/dL (0.7-1.3) Estimated GFR (Cockcroft-Gault) 74.8 Glucose Level 117 mg/dL (70-99) Calcium Level 7.6 mg/dL (8.5-10.1) Glucose (Fingerstick) 125 mg/dL (70-99) Laboratory Tests Test 02/14/18 10:51 02/14/18 13:15 02/14/18 17:10 02/14/18 20:45 Glucose (Fingerstick) 124 mg/dL (70-99) 134 mg/dL (70-99) 127 mg/dL (70-99) Clostridium difficile Toxin (PCR) Negative (Negative) Test 02/15/18 07:05 02/15/18 07:47 White Blood Count 13.1 x10^3/uL (4.0-11.0) Red Blood Count 3.93 x10^6/uL (4.30-5.70) Hemoglobin 12.1 g/dL (13.0-17.5) Hematocrit 35.3 % (39.0-53.0) Mean Corpuscular Volume 90 fL (79-100) Mean Corpuscular Hemoglobin 31 pg (25-35) Mean Corpuscular Hemoglobin Concent 34 g/dL (31-37) Red Cell Distribution Width 14.0 % (11.5-14.5) Platelet Count 260 x10^3/uL (140-400) Neutrophils (%) (Auto) 76 % (31-73) Lymphocytes (%) (Auto) 16 % (24-48) Monocytes (%) (Auto) 7 % (0-9) Eosinophils (%) (Auto) 1 % (0-3) Basophils (%) (Auto) 0 % (0-3) Neutrophils # (Auto) 9.9 x10^3uL (1.8-7.7) Lymphocytes # (Auto) 2.1 x10^3/uL (1.0-4.8) Monocytes # (Auto) 0.9 x10^3/uL (0.0-1.1) Eosinophils # (Auto) 0.1 x10^3/uL (0.0-0.7) Basophils # (Auto) 0.0 x10^3/uL (0.0-0.2) Sodium Level 144 mmol/L (136-145) Potassium Level 2.9 mmol/L (3.5-5.1) Chloride Level 105 mmol/L (98-107) Carbon Dioxide Level 29 mmol/L (21-32) Anion Gap 10 (6-14) Blood Urea Nitrogen 7 mg/dL (8-26) Creatinine 1.0 mg/dL (0.7-1.3) Estimated GFR (Cockcroft-Gault) 74.8 Glucose Level 117 mg/dL (70-99) Calcium Level 7.6 mg/dL (8.5-10.1) Glucose (Fingerstick) 125 mg/dL (70-99) Problem List Problems Medical Problems: (1) Acute renal failure Status: Acute (2) CHF (congestive heart failure) Status: Acute (3) DKA (diabetic ketoacidoses) Status: Acute (4) Heart murmur Status: Acute (5) NSTEMI (non-ST elevated myocardial infarction) Status: Acute Assessment/Plan s/p xlap diet as tolerated PT/OT dc planning NAHUM ALVAREZ APRN Feb 15, 2018 10:04
[2018-02-15 11:00] VITALS: BP 120/78
--- NOTE | 2018-02-15 11:15 | PDOC ---
Subjective: Subjective: Feeling much better - tolerating PO, diarrhea stopped. Objective: Vital Signs: Vital Signs Date Time Temp Pulse Resp B/P (MAP) Pulse Ox O2 Delivery O2 Flow Rate FiO2 02/15/18 08:00 99.3 90 18 131/71 (91) 94 Room Air 99.3 Labs: Laboratory Tests Test 02/14/18 13:15 02/14/18 17:10 02/14/18 20:45 02/15/18 07:05 Clostridium difficile Toxin (PCR) Negative Glucose (Fingerstick) 134 mg/dL 127 mg/dL White Blood Count 13.1 x10^3/uL Red Blood Count 3.93 x10^6/uL Hemoglobin 12.1 g/dL Hematocrit 35.3 % Mean Corpuscular Volume 90 fL Mean Corpuscular Hemoglobin 31 pg Mean Corpuscular Hemoglobin Concent 34 g/dL Red Cell Distribution Width 14.0 % Platelet Count 260 x10^3/uL Neutrophils (%) (Auto) 76 % Lymphocytes (%) (Auto) 16 % Monocytes (%) (Auto) 7 % Eosinophils (%) (Auto) 1 % Basophils (%) (Auto) 0 % Neutrophils # (Auto) 9.9 x10^3uL Lymphocytes # (Auto) 2.1 x10^3/uL Monocytes # (Auto) 0.9 x10^3/uL Eosinophils # (Auto) 0.1 x10^3/uL Basophils # (Auto) 0.0 x10^3/uL Sodium Level 144 mmol/L Potassium Level 2.9 mmol/L Chloride Level 105 mmol/L Carbon Dioxide Level 29 mmol/L Anion Gap 10 Blood Urea Nitrogen 7 mg/dL Creatinine 1.0 mg/dL Estimated GFR (Cockcroft-Gault) 74.8 Glucose Level 117 mg/dL Calcium Level 7.6 mg/dL Test 02/15/18 07:47 Glucose (Fingerstick) 125 mg/dL PE: GEN: NAD - has hiccups LUNGS: CTAB HEART: RRR ABD: non-tender NEURO/PSYCH: A & O 3 A/P: S/p enterotomy w/ removal of impacted gallstone in TI Diarrhea - resolved, C Diff neg Leukocytosis, hypokalemia -- Has orders to [facility]. Continue PPI for h/o GERD. SETH CABELLO Feb 15, 2018 11:15
--- NOTE | 2018-02-15 11:15 | PDOC ---
Infectious Disease Note Subjective Subjective Feeling better No further diarrhea No fevers last 24 hours Pain controlled Tolerating full liquids Denies N/V ROS ROS per HPI otherwise neg Vital Sign Vital Signs Vital Signs Date Time Temp Pulse Resp B/P (MAP) Pulse Ox O2 Delivery O2 Flow Rate FiO2 02/15/18 08:00 99.3 90 18 131/71 (91) 94 Room Air 99.3 Physical Exam PHYSICAL EXAM GENERAL: Propped up in bed, alert, smiling HEENT: Oral cavity clear, edentulous LUNGS: Clear. HEART: S1, S2 ABDOMEN: Distended, BS active, soft, NT to plight palpation. Incision well- approx, no redness, drainage EXTREMITIES: No edema or cyanosis. SKIN: without rash NEUROLOGIC: Alert and and oriented PIV Labs Lab Laboratory Tests Test 02/14/18 13:15 02/14/18 17:10 02/14/18 20:45 02/15/18 07:05 Clostridium difficile Toxin (PCR) Negative (Negative) Glucose (Fingerstick) 134 mg/dL (70-99) 127 mg/dL (70-99) White Blood Count 13.1 x10^3/uL (4.0-11.0) Red Blood Count 3.93 x10^6/uL (4.30-5.70) Hemoglobin 12.1 g/dL (13.0-17.5) Hematocrit 35.3 % (39.0-53.0) Mean Corpuscular Volume 90 fL (79-100) Mean Corpuscular Hemoglobin 31 pg (25-35) Mean Corpuscular Hemoglobin Concent 34 g/dL (31-37) Red Cell Distribution Width 14.0 % (11.5-14.5) Platelet Count 260 x10^3/uL (140-400) Neutrophils (%) (Auto) 76 % (31-73) Lymphocytes (%) (Auto) 16 % (24-48) Monocytes (%) (Auto) 7 % (0-9) Eosinophils (%) (Auto) 1 % (0-3) Basophils (%) (Auto) 0 % (0-3) Neutrophils # (Auto) 9.9 x10^3uL (1.8-7.7) Lymphocytes # (Auto) 2.1 x10^3/uL (1.0-4.8) Monocytes # (Auto) 0.9 x10^3/uL (0.0-1.1) Eosinophils # (Auto) 0.1 x10^3/uL (0.0-0.7) Basophils # (Auto) 0.0 x10^3/uL (0.0-0.2) Sodium Level 144 mmol/L (136-145) Potassium Level 2.9 mmol/L (3.5-5.1) Chloride Level 105 mmol/L (98-107) Carbon Dioxide Level 29 mmol/L (21-32) Anion Gap 10 (6-14) Blood Urea Nitrogen 7 mg/dL (8-26) Creatinine 1.0 mg/dL (0.7-1.3) Estimated GFR (Cockcroft-Gault) 74.8 Glucose Level 117 mg/dL (70-99) Calcium Level 7.6 mg/dL (8.5-10.1) Test 02/15/18 07:47 Glucose (Fingerstick) 125 mg/dL (70-99) Micro 02/06/18 Blood Culture - Preliminary, Resulted NO GROWTH AFTER 4 DAYS URINE CULTURE RES 1 Final No growth Objective Assessment Gallstone ileus s/p lap assisted adhesiolysis and enterotomy with removal of impacted gallstone in terminal ileum on 02/10. Lactic acidosis Sepsis with hypotension Metabolic alkalosis sec to vomiting DM with high anion gap CAR - improving Severe dehydration Leukocytosis - trending up today but all parameters are up Diarrhea - better, c. diff neg 02/14. Plan Plan of Care Disc Zosyn - begin Augmentin for now Dose steroids 02/10 Probiotics Monitor labs Supportive care d/w RN Attending Co-Sign Attending Co-Sign The patient was seen and interviewed as well as examined at the bedside. The chart was reviewed. The case was discussed. Agree with the plan of care. HELEN HEATH APRN Feb 15, 2018 11:15 KINGSTON GRACE MD Feb 15, 2018 14:49
[2018-02-15] MEDS: IV NORMAL SALINE 1000ML BAG 1,000 ML IV SCH (15:33)
[2018-02-15 16:00] VITALS: BP 126/54
[2018-02-15] MEDS: ENOXAPARIN 40 MG/0.4 ML SYRINGE. SQ SCH (17:03)
[2018-02-15 19:30] VITALS: BP 108/55
[2018-02-15] MEDS: AMOXICILLIN/K CLAV 875/125MG TABLET. PO SCH (20:16)
[2018-02-15 23:28] VITALS: BP 135/74
[2018-02-16 03:18] VITALS: BP 134/77
[2018-02-16 05:59] LABS: CALCIUM 7.5 mg/dL (8.5-10.1); GFR 74.8; POTASSIUM 3.3 mmol/L (3.5-5.1)
[2018-02-16] MEDS: PANTOPRAZOLE 40 MG TABLET.DR. PO SCH (06:16)
[2018-02-16 06:28] LABS: BASO # 0.1 x10^3/uL (0.0-0.2); BASO % 0 % (0-3); EOS # 0.1 x10^3/uL (0.0-0.7); EOS % 1 % (0-3); HEMATOCRIT 33.4 % (39.0-53.0); HEMOGLOBIN 11.4 g/dL (13.0-17.5); LYMPH # 2.5 x10^3/uL (1.0-4.8); LYMPH % 20 % (24-48); MEAN CORPUSCULAR HEMOGLOBIN 31 pg (25-35); MEAN CORPUSCULAR HGB CONC 34 g/dL (31-37); MEAN CORPUSCULAR VOLUME 90 fL (79-100); MONO # 0.9 x10^3/uL (0.0-1.1); MONO % 7 % (0-9); NEUT # 9.1 x10^3uL (1.8-7.7); NEUT % 72 % (31-73); PLATELET COUNT 266 x10^3/uL (140-400); RED BLOOD COUNT 3.71 x10^6/uL (4.30-5.70); RED CELL DISTRIBUTION WIDTH 13.7 % (11.5-14.5); WHITE BLOOD COUNT 12.7 x10^3/uL (4.0-11.0)
[2018-02-16] MEDS ORDERED: MAGNESIUM SULFATE 4GM 100 ML IV ONE (06:45)
--- NOTE | 2018-02-16 07:34 | PDOC ---
PROGRESS NOTES Chief Complaint Chief Complaint Gall stone ileus s/p impacted gallstone enterotomy removal and lysis of adhesions 02/10 Lactic acidosis sec to DKA and severe dehydration Known DM with high likelihood of undiagnosed gastroparesis Sepsis with hypotension - responded to IVF - t.o ICU 02/08 s/p DKA Metabolic alkalosis secondary to vomiting Elevated troponin, NSTEMI, demand ischemia Acute on chronic renal failure - creat 5 on admit Leukocytosis, reactive Hypokalemia hypomagnesemia History of Present Illness History of Present Illness Admitted with DKA, dehydration, ileus with impacted gallstone to ICU. Feeling much better today abd sx wound tight, no pain on general diet feels much stronger today potassium and magnesium replaced Assessment: Gall stone ileus s/p impacted gallstone removal and lysis of adhesions 02/10 Lactic acidosis sec to DKA and severe dehydration Known DM with high likelihood of undiagnosed gastroparesis Sepsis with hypotension - responded to IVF - t.o ICU 02/08 s/p DKA Metabolic alkalosis secondary to vomiting Elevated troponin, NSTEMI, demand ischemia Acute on chronic renal failure - creat 5 on admit Leukocytosis, reactive Hypokalemia hypomagnesemia plan: fu with gi, sx F/u with surgery wound care cont home meds Changed to PO augment for 4 days on d/c home PTOT - ok for home with self care Vitals Vitals Vital Signs Date Time Temp Pulse Resp B/P (MAP) Pulse Ox O2 Delivery O2 Flow Rate FiO2 02/16/18 03:18 98.9 98 24 134/77 (96) 95 Room Air 98.9 Physical Exam Physical Exam GENERAL: Propped up in bed, alert, smiling HEENT: Oral cavity clear, edentulous LUNGS: Clear. HEART: S1, S2 ABDOMEN: Distended, BS active, soft, NT to plight palpation. Incision well- approx, no redness, drainage EXTREMITIES: No edema or cyanosis. SKIN: without rash NEUROLOGIC: Alert and and oriented PIV General: Alert, Oriented X3, Cooperative, No acute distress Heart: Normal S1, Normal S2, No murmurs, Other (tachycardic) Lungs: Clear, Other (on 2L NC) Abdomen: Soft, Other (incision c/d/i, no erythema) Extremities: No clubbing, No cyanosis Skin: No rashes, No breakdown Labs LABS Laboratory Tests Test 02/15/18 07:47 02/15/18 11:54 02/15/18 17:12 02/15/18 20:50 Glucose (Fingerstick) 125 mg/dL (70-99) 188 mg/dL (70-99) 173 mg/dL (70-99) 144 mg/dL (70-99) Test 02/16/18 03:09 02/16/18 05:00 Glucose (Fingerstick) 127 mg/dL (70-99) White Blood Count 12.7 x10^3/uL (4.0-11.0) Red Blood Count 3.71 x10^6/uL (4.30-5.70) Hemoglobin 11.4 g/dL (13.0-17.5) Hematocrit 33.4 % (39.0-53.0) Mean Corpuscular Volume 90 fL (79-100) Mean Corpuscular Hemoglobin 31 pg (25-35) Mean Corpuscular Hemoglobin Concent 34 g/dL (31-37) Red Cell Distribution Width 13.7 % (11.5-14.5) Platelet Count 266 x10^3/uL (140-400) Neutrophils (%) (Auto) 72 % (31-73) Lymphocytes (%) (Auto) 20 % (24-48) Monocytes (%) (Auto) 7 % (0-9) Eosinophils (%) (Auto) 1 % (0-3) Basophils (%) (Auto) 0 % (0-3) Neutrophils # (Auto) 9.1 x10^3uL (1.8-7.7) Lymphocytes # (Auto) 2.5 x10^3/uL (1.0-4.8) Monocytes # (Auto) 0.9 x10^3/uL (0.0-1.1) Eosinophils # (Auto) 0.1 x10^3/uL (0.0-0.7) Basophils # (Auto) 0.1 x10^3/uL (0.0-0.2) Sodium Level 141 mmol/L (136-145) Potassium Level 3.3 mmol/L (3.5-5.1) Chloride Level 104 mmol/L (98-107) Carbon Dioxide Level 31 mmol/L (21-32) Anion Gap 6 (6-14) Blood Urea Nitrogen 7 mg/dL (8-26) Creatinine 1.0 mg/dL (0.7-1.3) Estimated GFR (Cockcroft-Gault) 74.8 Glucose Level 129 mg/dL (70-99) Calcium Level 7.5 mg/dL (8.5-10.1) Magnesium Level 1.6 mg/dL (1.8-2.4) Assessment and Plan Assessmemt and Plan Problems Medical Problems: (1) Acute renal failure Status: Acute (2) CHF (congestive heart failure) Status: Acute (3) DKA (diabetic ketoacidoses) Status: Acute (4) Heart murmur Status: Acute (5) NSTEMI (non-ST elevated myocardial infarction) Status: Acute Comment Review of Relevant I have reviewed the following items luz (where applicable) has been applied. Labs Laboratory Tests Test 02/14/18 08:19 02/14/18 10:51 02/14/18 13:15 02/14/18 17:10 Glucose (Fingerstick) 97 mg/dL (70-99) 124 mg/dL (70-99) 134 mg/dL (70-99) Clostridium difficile Toxin (PCR) Negative (Negative) Test 02/14/18 20:45 02/15/18 07:05 02/15/18 07:47 02/15/18 11:54 Glucose (Fingerstick) 127 mg/dL (70-99) 125 mg/dL (70-99) 188 mg/dL (70-99) White Blood Count 13.1 x10^3/uL (4.0-11.0) Red Blood Count 3.93 x10^6/uL (4.30-5.70) Hemoglobin 12.1 g/dL (13.0-17.5) Hematocrit 35.3 % (39.0-53.0) Mean Corpuscular Volume 90 fL (79-100) Mean Corpuscular Hemoglobin 31 pg (25-35) Mean Corpuscular Hemoglobin Concent 34 g/dL (31-37) Red Cell Distribution Width 14.0 % (11.5-14.5) Platelet Count 260 x10^3/uL (140-400) Neutrophils (%) (Auto) 76 % (31-73) Lymphocytes (%) (Auto) 16 % (24-48) Monocytes (%) (Auto) 7 % (0-9) Eosinophils (%) (Auto) 1 % (0-3) Basophils (%) (Auto) 0 % (0-3) Neutrophils # (Auto) 9.9 x10^3uL (1.8-7.7) Lymphocytes # (Auto) 2.1 x10^3/uL (1.0-4.8) Monocytes # (Auto) 0.9 x10^3/uL (0.0-1.1) Eosinophils # (Auto) 0.1 x10^3/uL (0.0-0.7) Basophils # (Auto) 0.0 x10^3/uL (0.0-0.2) Sodium Level 144 mmol/L (136-145) Potassium Level 2.9 mmol/L (3.5-5.1) Chloride Level 105 mmol/L (98-107) Carbon Dioxide Level 29 mmol/L (21-32) Anion Gap 10 (6-14) Blood Urea Nitrogen 7 mg/dL (8-26) Creatinine 1.0 mg/dL (0.7-1.3) Estimated GFR (Cockcroft-Gault) 74.8 Glucose Level 117 mg/dL (70-99) Calcium Level 7.6 mg/dL (8.5-10.1) Test 02/15/18 17:12 02/15/18 20:50 02/16/18 03:09 02/16/18 05:00 Glucose (Fingerstick) 173 mg/dL (70-99) 144 mg/dL (70-99) 127 mg/dL (70-99) White Blood Count 12.7 x10^3/uL (4.0-11.0) Red Blood Count 3.71 x10^6/uL (4.30-5.70) Hemoglobin 11.4 g/dL (13.0-17.5) Hematocrit 33.4 % (39.0-53.0) Mean Corpuscular Volume 90 fL (79-100) Mean Corpuscular Hemoglobin 31 pg (25-35) Mean Corpuscular Hemoglobin Concent 34 g/dL (31-37) Red Cell Distribution Width 13.7 % (11.5-14.5) Platelet Count 266 x10^3/uL (140-400) Neutrophils (%) (Auto) 72 % (31-73) Lymphocytes (%) (Auto) 20 % (24-48) Monocytes (%) (Auto) 7 % (0-9) Eosinophils (%) (Auto) 1 % (0-3) Basophils (%) (Auto) 0 % (0-3) Neutrophils # (Auto) 9.1 x10^3uL (1.8-7.7) Lymphocytes # (Auto) 2.5 x10^3/uL (1.0-4.8) Monocytes # (Auto) 0.9 x10^3/uL (0.0-1.1) Eosinophils # (Auto) 0.1 x10^3/uL (0.0-0.7) Basophils # (Auto) 0.1 x10^3/uL (0.0-0.2) Sodium Level 141 mmol/L (136-145) Potassium Level 3.3 mmol/L (3.5-5.1) Chloride Level 104 mmol/L (98-107) Carbon Dioxide Level 31 mmol/L (21-32) Anion Gap 6 (6-14) Blood Urea Nitrogen 7 mg/dL (8-26) Creatinine 1.0 mg/dL (0.7-1.3) Estimated GFR (Cockcroft-Gault) 74.8 Glucose Level 129 mg/dL (70-99) Calcium Level 7.5 mg/dL (8.5-10.1) Magnesium Level 1.6 mg/dL (1.8-2.4) Laboratory Tests Test 02/15/18 07:47 02/15/18 11:54 02/15/18 17:12 02/15/18 20:50 Glucose (Fingerstick) 125 mg/dL (70-99) 188 mg/dL (70-99) 173 mg/dL (70-99) 144 mg/dL (70-99) Test 02/16/18 03:09 02/16/18 05:00 Glucose (Fingerstick) 127 mg/dL (70-99) White Blood Count 12.7 x10^3/uL (4.0-11.0) Red Blood Count 3.71 x10^6/uL (4.30-5.70) Hemoglobin 11.4 g/dL (13.0-17.5) Hematocrit 33.4 % (39.0-53.0) Mean Corpuscular Volume 90 fL (79-100) Mean Corpuscular Hemoglobin 31 pg (25-35) Mean Corpuscular Hemoglobin Concent 34 g/dL (31-37) Red Cell Distribution Width 13.7 % (11.5-14.5) Platelet Count 266 x10^3/uL (140-400) Neutrophils (%) (Auto) 72 % (31-73) Lymphocytes (%) (Auto) 20 % (24-48) Monocytes (%) (Auto) 7 % (0-9) Eosinophils (%) (Auto) 1 % (0-3) Basophils (%) (Auto) 0 % (0-3) Neutrophils # (Auto) 9.1 x10^3uL (1.8-7.7) Lymphocytes # (Auto) 2.5 x10^3/uL (1.0-4.8) Monocytes # (Auto) 0.9 x10^3/uL (0.0-1.1) Eosinophils # (Auto) 0.1 x10^3/uL (0.0-0.7) Basophils # (Auto) 0.1 x10^3/uL (0.0-0.2) Sodium Level 141 mmol/L (136-145) Potassium Level 3.3 mmol/L (3.5-5.1) Chloride Level 104 mmol/L (98-107) Carbon Dioxide Level 31 mmol/L (21-32) Anion Gap 6 (6-14) Blood Urea Nitrogen 7 mg/dL (8-26) Creatinine 1.0 mg/dL (0.7-1.3) Estimated GFR (Cockcroft-Gault) 74.8 Glucose Level 129 mg/dL (70-99) Calcium Level 7.5 mg/dL (8.5-10.1) Magnesium Level 1.6 mg/dL (1.8-2.4) Microbiology 02/06/18 Blood Culture - Final, Complete NO GROWTH AFTER 5 DAYS 02/07/18 Urine Culture - Final, Complete 02/07/18 Urine Culture Result 1 (ELIAZAR) - Final, Complete Medications Current Medications Sodium Chloride 1,000 ml @ 1,000 mls/hr 1X ONCE IV Last administered on 02/06at 19:59; Start 02/06/18 at 20:00; Stop 02/06/18 at 20:59; Status DC Insulin Human Regular 150 unit/ Sodium Chloride 151.5 ml @ 0 mls/hr CONT PRN PRN IV PER PROTOCOL; Start 02/06/18 at 21:00; Stop 02/09/18 at 09:34; Status DC Potassium Chloride (KCl Oral Soln) 40 meq 1X ONCE PO Last administered on at 21:22; Start 02/06/18 at 21:30; Stop 02/06/18 at 21:31; Status DC Potassium Chloride/Water 50 ml @ 25 mls/hr Q1H IV ; Start 02/06/18 at 21:00; Stop 02/06/18 at 21:16; Status DC Insulin Human Regular 150 ml @ 9.1 mls/hr 1X ONCE IV Last administered on at 21:24; Start 02/06/18 at 21:45; Stop 02/07/18 at 14:17; Status DC Potassium Chloride 40 meq/ Sodium Chloride 520 ml @ 130 mls/hr 1X ONCE IV Last administered on 02/06/18at 22:30; Start 02/06/18 at 22:00; Stop 02/07/18 at 02:00; Status DC Potassium Chloride 40 meq/ Sodium Chloride 520 ml @ 130 mls/hr 1X ONCE IV Last administered on 02/07/18at 01:39; Start 02/07/18 at 02:00; Stop 02/07/18 at 05:59; Status DC Ondansetron HCl (Zofran) 4 mg PRN Q8HRS PRN IV NAUSEA/VOMITING Last administered on 02/06/18at 23:49; Start 02/06/18 at 21:15; Stop 02/07/18 at 21 :14; Status DC Fentanyl Citrate (Fentanyl 2ml Vial) 50 mcg PRN Q2HR PRN IV PAIN Last administered on 02/07/18at 15:01; Start 02/06/18 at 21:15; Stop 02/07/18 at 21 :14; Status DC Acetaminophen (Tylenol) 650 mg PRN Q4HRS PRN PO FEVER; Start 02/06/18 at 21:15 ; Stop 02/07/18 at 21:14; Status DC Vancomycin HCl (Vanco Per Pharmacy) 1 each PRN DAILY PRN MC SEE COMMENTS; Start 02/06/18 at 21:30; Stop 02/07/18 at 07:52; Status DC Piperacillin Sod/ Tazobactam Sod (Zosyn Per Pharmacy) 1 each PRN DAILY PRN MC SEE COMMENTS; Start 02/06/18 at 21:30; Stop 02/15/18 at 14:50; Status DC Sodium Chloride 1,000 ml @ 1,000 mls/hr 1X ONCE IV Last administered on 02/06at 21:32; Start 02/06/18 at 21:30; Stop 02/06/18 at 22:29; Status DC Piperacillin Sod/ Tazobactam Sod 3.375 gm/Sodium Chloride 50 ml @ 100 mls/hr 1X ONCE IV Last administered on 02/06/18at 21:33; Start 02/06/18 at 22:00; Stop 02/06/18 at 22:29; Status DC Vancomycin HCl 1.25 gm/Sodium Chloride 250 ml @ 166.667 mls/hr 1X ONCE IV Last administered on 02/06/18at 22:30; Start 02/06/18 at 22:00; Stop 02/06/18 at 23:29; Status DC Piperacillin Sod/ Tazobactam Sod 2.25 gm/Sodium Chloride 50 ml @ 100 mls/hr Q8HRS IV Last administered on 02/11/18at 13:49; Start 02/07/18 at 06:00; Stop 02/11/18 at 16:12; Status DC Sodium Chloride 1,000 ml @ 250 mls/hr Q4H IV ; Start 02/06/18 at 22:30; Stop 02/07/18 at 03:21; Status DC Sodium Chloride 1,000 ml @ 250 mls/hr Q4H IV ; Start 02/06/18 at 22:30; Stop 02/07/18 at 06:10; Status DC Dextrose/Sodium Chloride 1,000 ml @ 250 mls/hr Q4H IV ; Start 02/06/18 at 22: 30; Stop 02/07/18 at 03:21; Status DC Magnesium Sulfate/ Dextrose 100 ml @ 25 mls/hr DAILY IV ; Start 02/07/18 at 09 :00; Stop 02/08/18 at 04:48; Status DC Sodium Phosphate 40 mmol/Sodium Chloride 513.3333 ml @ 83.3 mls/hr 1X PRN PRN IV SEE COMMENTS; Start 02/06/18 at 22:30 Sodium Phosphate 20 mmol/Dextrose 256.6667 ml @ 62.5 mls/hr 1X PRN PRN IV SEE COMMENTS; Start 02/06/18 at 22:30 Sodium Phosphate 10 mmol/Dextrose 253.3333 ml @ 62.5 mls/hr 1X PRN PRN IV SEE COMMENTS; Start 02/06/18 at 22:30 Dextrose/Sodium Chloride 1,000 ml @ 250 mls/hr Q4H IV Last administered on at 23:30; Start 02/06/18 at 23:45; Stop 02/07/18 at 03:21; Status DC Sodium Chloride 1,000 ml @ 200 mls/hr Q5H IV Last administered on 02/10/18at 09:01; Start 02/07/18 at 03:00; Stop 02/10/18 at 15:55; Status DC Metoclopramide HCl (Reglan Vial) 5 mg PRN Q6HRS PRN IV NAUSEA/VOMITING Last administered on 02/13/18at 09:45; Start 02/07/18 at 03:00 Insulin Human Lispro (HumaLOG) 0-7 UNITS TIDWMEALS SQ Last administered on at 18:08; Start 02/07/18 at 08:00; Stop 02/09/18 at 09:34; Status DC Dextrose (Dextrose 50%-Water Syringe) 12.5 gm PRN Q15MIN PRN IV SEE COMMENTS; Start 02/07/18 at 02:15; Stop 02/10/18 at 14:35; Status DC Insulin Human Lispro (HumaLOG) 4 units 1X ONCE SQ ; Start 02/07/18 at 02:30; Stop 02/07/18 at 02:31; Status Cancel Aspirin (Ecotrin) 81 mg [id number] PO Last administered on 02/15/18at 07:50; Start 02/07/18 at 10:00 Pantoprazole Sodium (PROTONIX VIAL for IV PUSH) 40 mg DAILYAC IVP Last administered on 02/09/18at 09:16; Start 02/07/18 at 16:30; Stop 02/09/18 at 09 :34; Status DC Chlorpromazine HCl (Thorazine) 25 mg PRN Q6HRS PRN IV HICCUPS Last administered on 02/08/18at 02:08; Start 02/07/18 at 17:00; Stop 02/08/18 at 05 :07; Status DC Zolpidem Tartrate (Ambien) 5 mg PRN QHS PRN PO INSOMNIA, MAY REPEAT IN 1HR Last administered on 02/14/18at 02:39; Start 02/07/18 at 17:00 Magnesium Sulfate/ Dextrose 100 ml @ 25 mls/hr PRN DAILY PRN IV SEE COMMENTS; Start 02/08/18 at 05:00 Chlorpromazine HCl 25 mg/Dextrose 50 ml @ 100 mls/hr PRN Q6HRS PRN IV HICCUPS Last administered on 02/13/18at 06:15; Start 02/08/18 at 05:15 Lactobacillus Rhamnosus (Culturelle) 1 cap BID PO Last administered on at 20:16; Start 02/08/18 at 09:00 Fentanyl Citrate (Fentanyl 2ml Vial) 50 mcg PRN Q2HR PRN IV SEVERE PAIN Last administered on 02/09/18at 23:14; Start 02/08/18 at 21:00; Stop 02/10/18 at 15 :41; Status DC Pantoprazole Sodium (Protonix) 40 mg DAILYAC PO ; Start 02/09/18 at 11:30; Stop 02/09/18 at 15:51; Status DC Insulin Human Lispro (HumaLOG) 0-9 UNITS TIDWMEALS SQ ; Start 02/09/18 at 12:00 Dextrose (Dextrose 50%-Water Syringe) 12.5 gm PRN Q15MIN PRN IV SEE COMMENTS; Start 02/09/18 at 09:45 Glimepiride (Amaryl) 2 mg DAILY PO Last administered on 02/15/18at 09:14; Start 02/09/18 at 09:45 Pantoprazole Sodium (PROTONIX VIAL for IV PUSH) 40 mg DAILYAC IVP Last administered on 02/14/18at 05:59; Start 02/10/18 at 07:30; Stop 02/14/18 at 10 :02; Status DC Propofol 20 ml @ As Directed STK-MED ONCE IV ; Start 02/10/18 at 09:29; Stop 02/10/18 at 09:30; Status DC Dexamethasone Sodium Phosphate (Decadron) 20 mg STK-MED ONCE .ROUTE ; Start at 09:29; Stop 02/10/18 at 09:30; Status DC Lidocaine HCl (Lidocaine Pf 2% Vial) 5 ml STK-MED ONCE .ROUTE ; Start 02/10/18 at 09:29; Stop 02/10/18 at 09:30; Status DC Ondansetron HCl (Zofran) 4 mg STK-MED ONCE .ROUTE ; Start 02/10/18 at 09:29; Stop 02/10/18 at 09:30; Status DC Rocuronium [place] (Zemuron) 50 mg STK-MED ONCE .ROUTE ; Start 02/10/18 at 09: 29; Stop 02/10/18 at 09:30; Status DC Fentanyl Citrate (Fentanyl 2ml Vial) 100 mcg STK-MED ONCE .ROUTE ; Start at 09:29; Stop 02/10/18 at 09:30; Status DC Lidocaine HCl (Xylocaine-Mpf 2% Vial) 2 ml STK-MED ONCE .ROUTE ; Start at 10:29; Stop 02/10/18 at 10:30; Status DC Succinylcholine Chloride (Anectine) 200 mg STK-MED ONCE .ROUTE ; Start at 10:38; Stop 02/10/18 at 10:39; Status DC Chlorpromazine HCl 12.5 mg/ Dextrose 50.5 ml @ 100 mls/hr 1X ONCE IV ; Start 02/10/18 at 10:45; Stop 02/10/18 at 11:15; Status DC Bupivacaine HCl/ Epinephrine Bitart (Sensorcain-Mpf Epi 0.5%-[id number]) 30 ml STK -MED ONCE .ROUTE Last administered on 02/10/18at 13:02; Start 02/10/18 at 10: 31; Stop 02/10/18 at 11:31; Status DC Cefoxitin Sodium 2 gm/Dextrose 100 ml @ 200 mls/hr 1X PREOP IV ; Start at 12:45; Status UNV Cefoxitin Sodium 100 ml @ 200 mls/hr ONCE ONCE IV Last administered on at 13:01; Start 02/10/18 at 12:45; Stop 02/10/18 at 13:14; Status DC Metoprolol Tartrate (Lopressor Vial) 5 mg STK-MED ONCE IVP ; Start 02/10/18 at 12:46; Stop 02/10/18 at 12:47; Status DC Ephedrine Sulfate (ePHEDrine PF IN SALINE SYRINGE) 50 mg STK-MED ONCE IV ; Start 02/10/18 at 13:51; Stop 02/10/18 at 13:52; Status DC Desflurane (Suprane) 60 ml STK-MED ONCE IH ; Start 02/10/18 at 14:04; Stop at 14:05; Status DC Glycopyrrolate (Robinul) 1 mg STK-MED ONCE .ROUTE ; Start 02/10/18 at 14:05; Stop 02/10/18 at 14:06; Status DC Neostigmine Methylsulfate (Neostigmine Methylsulfate) 5 mg STK-MED ONCE .ROUTE ; Start 02/10/18 at 14:05; Stop 02/10/18 at 14:06; Status DC Desflurane (Suprane) 60 ml STK-MED ONCE IH ; Start 02/10/18 at 14:12; Stop at 14:13; Status DC Phenylephrine HCl (PHENYLEPHRINE in 0.9% NACL PF) 1 mg STK-MED ONCE IV ; Start 02/10/18 at 14:13; Stop 02/10/18 at 14:14; Status DC Fentanyl Citrate (Fentanyl 2ml Vial) 100 mcg STK-MED ONCE .ROUTE ; Start at 15:03; Stop 02/10/18 at 15:04; Status DC Fentanyl Citrate (Fentanyl 2ml Vial) 25 mcg PRN Q5MIN PRN IV MILD PAIN; Start 02/10/18 at 15:30; Stop 02/10/18 at 15:40; Status DC Fentanyl Citrate (Fentanyl 2ml Vial) 50 mcg PRN Q5MIN PRN IV MODERATE TO SEVERE PAIN; Start 02/10/18 at 15:30; Stop 02/10/18 at 15:40; Status DC Morphine Sulfate (Morphine Sulfate) 1 mg PRN Q10MIN PRN IV SEVERE PAIN; Start 02/10/18 at 15:30; Stop 02/10/18 at 15:42; Status DC Ringer's Solution 1,000 ml @ 30 mls/hr Q24H IV ; Start 02/10/18 at 15:27; Stop 02/10/18 at 15:56; Status DC Lidocaine HCl (Xylocaine-Mpf 1% 2ml Vial) 2 ml PRN 1X PRN ID PRIOR TO IV START ; Start 02/10/18 at 15:30; Stop 02/11/18 at 15:29; Status DC Hydromorphone HCl (Dilaudid) 0.5 mg PRN Q10MIN PRN IV SEV PAIN, Second choice; Start 02/10/18 at 15:30; Stop 02/10/18 at 15:41; Status DC Prochlorperazine Edisylate (Compazine) 5 mg PACU PRN PRN IV NAUSEA, MRX1; Start 02/10/18 at 15:30; Stop 02/11/18 at 15:29; Status DC Enoxaparin Sodium (Lovenox 40mg Syringe) 40 mg Q24H SQ Last administered on 02/15/18at 17:03; Start 02/10/18 at 16:00 Sodium Chloride (Normal Saline Flush) 3 ml QSHIFT PRN IV AFTER MEDS AND BLOOD DRAWS; Start 02/10/18 at 15:45 Ringer's Solution 1,000 ml @ 100 mls/hr Q10H IV Last administered on at 02:40; Start 02/10/18 at 15:33; Stop 02/16/18 at 01:51; Status DC Naloxone HCl (Narcan) 0.4 mg PRN Q2MIN PRN IV SEE INSTRUCTIONS; Start at 15:45 Sodium Chloride 1,000 ml @ 25 mls/hr Q24H IV Last administered on 02/12/18at 15:33; Start 02/10/18 at 15:33; Stop 02/16/18 at 01:51; Status DC Morphine Sulfate 30 ml @ 0 mls/hr CONT PRN PRN IV PER PROTOCOL Last administered on 02/12/18at 02:29; Start 02/10/18 at 15:45; Stop 02/12/18 at 14 :58; Status DC Piperacillin Sod/ Tazobactam Sod 3.375 gm/Sodium Chloride 50 ml @ 100 mls/hr Q6HRS IV Last administered on 02/15/18at 12:39; Start 02/11/18 at 18:00; Stop 02/15/18 at 14:49; Status DC Fentanyl Citrate (Fentanyl 2ml Vial) 100 mcg STK-MED ONCE .ROUTE ; Start at 15:00; Stop 02/12/18 at 08:17; Status DC Oxycodone/ Acetaminophen (Percocet 5/325) 1 tab PRN Q4HRS PRN PO PAIN Last administered on 02/13/18at 09:46; Start 02/12/18 at 15:00 Morphine Sulfate (Morphine Sulfate) 0.5 mg PRN Q3HRS PRN IV PAIN; Start at 15:00 Potassium Chloride/Water 50 ml @ 50 mls/hr Q1H IV ; Start 02/13/18 at 08:15; Stop 02/13/18 at 10:14; Status UNV Potassium Chloride 10 meq/ Sodium Chloride 105 ml @ 105 mls/hr Q1H IV Last administered on 02/13/18at 15:59; Start 02/13/18 at 09:00; Stop 02/13/18 at 12 :59; Status DC Potassium Chloride (Klor-Con) 40 meq 1X ONCE PO Last administered on at 05:59; Start 02/14/18 at 06:00; Stop 02/14/18 at 06:01; Status DC Potassium Chloride (Klor-Con) 40 meq 1X ONCE PO Last administered on at 09:52; Start 02/14/18 at 09:30; Stop 02/14/18 at 09:31; Status DC Pantoprazole Sodium (Protonix) 40 mg DAILYAC PO Last administered on 02/16/18at 06:16; Start 02/15/18 at 07:30 Magnesium Sulfate/ Dextrose 100 ml @ 25 mls/hr 1X ONCE IV Last administered on 02/14/18at 15:28; Start 02/14/18 at 13:00; Stop 02/14/18 at 16:59; Status DC Potassium Chloride/Water 100 ml @ 100 mls/hr Q1H IV ; Start 02/15/18 at 09:00; Stop 02/15/18 at 09:00; Status Cancel Potassium Chloride (Klor-Con) 40 meq 1X ONCE PO Last administered on at 09:14; Start 02/15/18 at 08:45; Stop 02/15/18 at 08:46; Status DC Potassium Chloride/Dextrose/ Sod Cl 1,000 ml @ 75 mls/hr [id number] IV Last administered on 02/15/18at 23:01; Start 02/15/18 at 09:00 Potassium Chloride/Water 50 ml @ 50 mls/hr 1X ONCE IV Last administered on 02/15/18at 10:12; Start 02/15/18 at 09:00; Stop 02/15/18 at 09:59; Status DC Amoxicillin/ Clavulanate Potassium (Augmentin 875/ 125mg) 1 tab BID PO Last administered on 02/15/18at 20:16; Start 02/15/18 at 21:00 Magnesium Sulfate/ Dextrose 100 ml @ 25 mls/hr ONCE ONCE IV Last administered on 02/16/18at 07:11; Start 02/16/18 at 06:45; Stop 02/16/18 at 10:44 Vitals/I & O Vital Sign - Last 24 Hours 02/15/18 02/15/18 02/15/18 02/15/18 07:45 08:00 11:00 16:00 Temp 99.3 97.9 99.4 99.3 97.9 99.4 Pulse 90 94 72 Resp 18 18 18 B/P (MAP) 131/71 (91) 120/78 (92) 126/54 (78) Pulse Ox 94 94 95 O2 Delivery Room Air Room Air Room Air Room Air 02/15/18 02/15/18 02/15/18 02/16/18 19:30 20:00 23:28 03:18 Temp 99.1 99.1 98.9 99.1 99.1 98.9 Pulse 76 88 98 Resp 18 22 24 B/P (MAP) 108/55 (72) 135/74 (94) 134/77 (96) Pulse Ox 95 94 95 O2 Delivery Room Air Room Air Room Air Room Air Intake and Output 02/15/18 02/15/18 02/16/18 15:00 23:00 07:00 Intake Total 300 ml 640 ml Output Total 900 ml 500 ml 800 ml Balance -900 ml -200 ml -160 ml Nutrition Consultation Dietary Evaluation: Recommendations by RD: Protein supplementation Comments: Diet advancement per GI, REC PPN if extended NPO (>7 days) Expected Outcomes/Goals: new goal: to meet > 75% est nutr needs - not met, new goal established New goal 02/13: diet advancement Malnutrition Findings: Food and Nutrition Intake (Sev: <50% est energy req 5days Weight Status: Overweight PARISH LIMON MD Feb 16, 2018 07:34
[2018-02-16] MEDS ORDERED: POTASSIUM CHLORIDE 20 MEQ TABLET.ER. PO ONE (07:45)
[2018-02-16] MEDS ORDERED: POTASSIUM CHLORIDE 20MEQ 50 ML IV ONE (07:45)
[2018-02-16] MEDS: INSULIN LISPRO 300 UNITS/3 ML INSULN.PEN. SQ SCH ×2 (08:00→12:00)
[2018-02-16] MEDS ORDERED: MAGNESIUM SULFATE 2GM 50 ML IV ONE (08:00)
[2018-02-16 08:02] VITALS: BP 114/70
[2018-02-16] MEDS: AMOXICILLIN/K CLAV 875/125MG TABLET. PO SCH (08:50)
[2018-02-16] MEDS: LACTOBACILLUS RHAMNOSUS GG 1 CAPSULE. PO SCH (08:50)
[2018-02-16] MEDS: GLIMEPIRIDE 2 MG TABLET. PO SCH (08:50)
[2018-02-16] MEDS: ASPIRIN ENTERIC COATED 81 MG TABLET.DR. PO SCH (08:52)
[2018-02-16] MEDS: POTASSIUM CHLORIDE 10 MEQ in IV NORMAL SALINE 100ML 100 ML IV SCH ×2 (10:18→11:59)
[2018-02-16 11:03] VITALS: BP 124/77
--- NOTE | 2018-02-16 11:23 | PDOC ---
SURGICAL PROGRESS NOTE Subjective tolerating diet no stool yesterday or today, continued hiccups Vital Signs Vital Signs Date Time Temp Pulse Resp B/P (MAP) Pulse Ox O2 Delivery O2 Flow Rate FiO2 02/16/18 11:03 98.3 91 16 124/77 (93) 96 Room Air 98.3 I&O Intake and Output 02/16/18 07:00 Intake Total 940 ml Output Total 2200 ml Balance -1260 ml Intake Oral 940 ml Output Urine Total 2200 ml # Voids 3 General: Alert, Oriented X3, Cooperative, No acute distress Abdomen: Soft, Other (incision c/d/i, no erythema) Labs Laboratory Tests Test 02/14/18 13:15 02/14/18 17:10 02/14/18 20:45 02/15/18 07:05 Clostridium difficile Toxin (PCR) Negative (Negative) Glucose (Fingerstick) 134 mg/dL (70-99) 127 mg/dL (70-99) White Blood Count 13.1 x10^3/uL (4.0-11.0) Red Blood Count 3.93 x10^6/uL (4.30-5.70) Hemoglobin 12.1 g/dL (13.0-17.5) Hematocrit 35.3 % (39.0-53.0) Mean Corpuscular Volume 90 fL (79-100) Mean Corpuscular Hemoglobin 31 pg (25-35) Mean Corpuscular Hemoglobin Concent 34 g/dL (31-37) Red Cell Distribution Width 14.0 % (11.5-14.5) Platelet Count 260 x10^3/uL (140-400) Neutrophils (%) (Auto) 76 % (31-73) Lymphocytes (%) (Auto) 16 % (24-48) Monocytes (%) (Auto) 7 % (0-9) Eosinophils (%) (Auto) 1 % (0-3) Basophils (%) (Auto) 0 % (0-3) Neutrophils # (Auto) 9.9 x10^3uL (1.8-7.7) Lymphocytes # (Auto) 2.1 x10^3/uL (1.0-4.8) Monocytes # (Auto) 0.9 x10^3/uL (0.0-1.1) Eosinophils # (Auto) 0.1 x10^3/uL (0.0-0.7) Basophils # (Auto) 0.0 x10^3/uL (0.0-0.2) Sodium Level 144 mmol/L (136-145) Potassium Level 2.9 mmol/L (3.5-5.1) Chloride Level 105 mmol/L (98-107) Carbon Dioxide Level 29 mmol/L (21-32) Anion Gap 10 (6-14) Blood Urea Nitrogen 7 mg/dL (8-26) Creatinine 1.0 mg/dL (0.7-1.3) Estimated GFR (Cockcroft-Gault) 74.8 Glucose Level 117 mg/dL (70-99) Calcium Level 7.6 mg/dL (8.5-10.1) Test 02/15/18 07:47 02/15/18 11:54 02/15/18 17:12 02/15/18 20:50 Glucose (Fingerstick) 125 mg/dL (70-99) 188 mg/dL (70-99) 173 mg/dL (70-99) 144 mg/dL (70-99) Test 02/16/18 03:09 02/16/18 05:00 02/16/18 07:36 Glucose (Fingerstick) 127 mg/dL (70-99) 133 mg/dL (70-99) White Blood Count 12.7 x10^3/uL (4.0-11.0) Red Blood Count 3.71 x10^6/uL (4.30-5.70) Hemoglobin 11.4 g/dL (13.0-17.5) Hematocrit 33.4 % (39.0-53.0) Mean Corpuscular Volume 90 fL (79-100) Mean Corpuscular Hemoglobin 31 pg (25-35) Mean Corpuscular Hemoglobin Concent 34 g/dL (31-37) Red Cell Distribution Width 13.7 % (11.5-14.5) Platelet Count 266 x10^3/uL (140-400) Neutrophils (%) (Auto) 72 % (31-73) Lymphocytes (%) (Auto) 20 % (24-48) Monocytes (%) (Auto) 7 % (0-9) Eosinophils (%) (Auto) 1 % (0-3) Basophils (%) (Auto) 0 % (0-3) Neutrophils # (Auto) 9.1 x10^3uL (1.8-7.7) Lymphocytes # (Auto) 2.5 x10^3/uL (1.0-4.8) Monocytes # (Auto) 0.9 x10^3/uL (0.0-1.1) Eosinophils # (Auto) 0.1 x10^3/uL (0.0-0.7) Basophils # (Auto) 0.1 x10^3/uL (0.0-0.2) Sodium Level 141 mmol/L (136-145) Potassium Level 3.3 mmol/L (3.5-5.1) Chloride Level 104 mmol/L (98-107) Carbon Dioxide Level 31 mmol/L (21-32) Anion Gap 6 (6-14) Blood Urea Nitrogen 7 mg/dL (8-26) Creatinine 1.0 mg/dL (0.7-1.3) Estimated GFR (Cockcroft-Gault) 74.8 Glucose Level 129 mg/dL (70-99) Calcium Level 7.5 mg/dL (8.5-10.1) Magnesium Level 1.6 mg/dL (1.8-2.4) Laboratory Tests Test 02/15/18 11:54 02/15/18 17:12 02/15/18 20:50 02/16/18 03:09 Glucose (Fingerstick) 188 mg/dL (70-99) 173 mg/dL (70-99) 144 mg/dL (70-99) 127 mg/dL (70-99) Test 02/16/18 05:00 02/16/18 07:36 White Blood Count 12.7 x10^3/uL (4.0-11.0) Red Blood Count 3.71 x10^6/uL (4.30-5.70) Hemoglobin 11.4 g/dL (13.0-17.5) Hematocrit 33.4 % (39.0-53.0) Mean Corpuscular Volume 90 fL (79-100) Mean Corpuscular Hemoglobin 31 pg (25-35) Mean Corpuscular Hemoglobin Concent 34 g/dL (31-37) Red Cell Distribution Width 13.7 % (11.5-14.5) Platelet Count 266 x10^3/uL (140-400) Neutrophils (%) (Auto) 72 % (31-73) Lymphocytes (%) (Auto) 20 % (24-48) Monocytes (%) (Auto) 7 % (0-9) Eosinophils (%) (Auto) 1 % (0-3) Basophils (%) (Auto) 0 % (0-3) Neutrophils # (Auto) 9.1 x10^3uL (1.8-7.7) Lymphocytes # (Auto) 2.5 x10^3/uL (1.0-4.8) Monocytes # (Auto) 0.9 x10^3/uL (0.0-1.1) Eosinophils # (Auto) 0.1 x10^3/uL (0.0-0.7) Basophils # (Auto) 0.1 x10^3/uL (0.0-0.2) Sodium Level 141 mmol/L (136-145) Potassium Level 3.3 mmol/L (3.5-5.1) Chloride Level 104 mmol/L (98-107) Carbon Dioxide Level 31 mmol/L (21-32) Anion Gap 6 (6-14) Blood Urea Nitrogen 7 mg/dL (8-26) Creatinine 1.0 mg/dL (0.7-1.3) Estimated GFR (Cockcroft-Gault) 74.8 Glucose Level 129 mg/dL (70-99) Calcium Level 7.5 mg/dL (8.5-10.1) Magnesium Level 1.6 mg/dL (1.8-2.4) Glucose (Fingerstick) 133 mg/dL (70-99) Problem List Problems Medical Problems: (1) Acute renal failure Status: Acute (2) CHF (congestive heart failure) Status: Acute (3) DKA (diabetic ketoacidoses) Status: Acute (4) Heart murmur Status: Acute (5) NSTEMI (non-ST elevated myocardial infarction) Status: Acute Assessment/Plan supportive care NAHUM ALVAREZ APRN Feb 16, 2018 11:23
--- NOTE | 2018-02-16 11:39 | PDOC ---
Objective: Objective: Reviewed w/ RN - no GI concerns - tolerating PO, no c/o pain. Stools charted 02/14. Vital Signs: Vital Signs Date Time Temp Pulse Resp B/P (MAP) Pulse Ox O2 Delivery O2 Flow Rate FiO2 02/16/18 11:03 98.3 91 16 124/77 (93) 96 Room Air 98.3 Labs: Laboratory Tests Test 02/15/18 11:54 02/15/18 17:12 02/15/18 20:50 02/16/18 03:09 Glucose (Fingerstick) 188 mg/dL 173 mg/dL 144 mg/dL 127 mg/dL Test 02/16/18 05:00 02/16/18 07:36 White Blood Count 12.7 x10^3/uL Red Blood Count 3.71 x10^6/uL Hemoglobin 11.4 g/dL Hematocrit 33.4 % Mean Corpuscular Volume 90 fL Mean Corpuscular Hemoglobin 31 pg Mean Corpuscular Hemoglobin Concent 34 g/dL Red Cell Distribution Width 13.7 % Platelet Count 266 x10^3/uL Neutrophils (%) (Auto) 72 % Lymphocytes (%) (Auto) 20 % Monocytes (%) (Auto) 7 % Eosinophils (%) (Auto) 1 % Basophils (%) (Auto) 0 % Neutrophils # (Auto) 9.1 x10^3uL Lymphocytes # (Auto) 2.5 x10^3/uL Monocytes # (Auto) 0.9 x10^3/uL Eosinophils # (Auto) 0.1 x10^3/uL Basophils # (Auto) 0.1 x10^3/uL Sodium Level 141 mmol/L Potassium Level 3.3 mmol/L Chloride Level 104 mmol/L Carbon Dioxide Level 31 mmol/L Anion Gap 6 Blood Urea Nitrogen 7 mg/dL Creatinine 1.0 mg/dL Estimated GFR (Cockcroft-Gault) 74.8 Glucose Level 129 mg/dL Calcium Level 7.5 mg/dL Magnesium Level 1.6 mg/dL Glucose (Fingerstick) 133 mg/dL PE: GEN: NAD LUNGS: room air ABD: stable distention NEURO/PSYCH: sleeping, not awakened A/P: S/p enterotomy w/ removal of impacted gallstone in TI -- Stable GI-mcbride. SETH CABELLO Feb 16, 2018 11:39
--- NOTE | 2018-02-16 13:19 | PDOC ---
Infectious Disease Note Subjective Subjective Feeling alright Ambulating in the halls Tolerating po well + flatus. No BM No F/C/S/N/V/pain ROS ROS per HPI otherwise neg Vital Sign Vital Signs Vital Signs Date Time Temp Pulse Resp B/P (MAP) Pulse Ox O2 Delivery O2 Flow Rate FiO2 02/16/18 11:03 98.3 91 16 124/77 (93) 96 Room Air 98.3 Physical Exam PHYSICAL EXAM GENERAL: Propped up in bed, alert, smiling HEENT: Oral cavity clear, edentulous LUNGS: Clear. HEART: S1, S2 ABDOMEN: Distended, BS active/hypo, soft, NT to plight palpation. Incision well -approx, no redness, drainage EXTREMITIES: No edema or cyanosis. SKIN: without rash NEUROLOGIC: Alert and and oriented PIV Labs Lab Laboratory Tests Test 02/15/18 17:12 02/15/18 20:50 02/16/18 03:09 02/16/18 05:00 Glucose (Fingerstick) 173 mg/dL (70-99) 144 mg/dL (70-99) 127 mg/dL (70-99) White Blood Count 12.7 x10^3/uL (4.0-11.0) Red Blood Count 3.71 x10^6/uL (4.30-5.70) Hemoglobin 11.4 g/dL (13.0-17.5) Hematocrit 33.4 % (39.0-53.0) Mean Corpuscular Volume 90 fL (79-100) Mean Corpuscular Hemoglobin 31 pg (25-35) Mean Corpuscular Hemoglobin Concent 34 g/dL (31-37) Red Cell Distribution Width 13.7 % (11.5-14.5) Platelet Count 266 x10^3/uL (140-400) Neutrophils (%) (Auto) 72 % (31-73) Lymphocytes (%) (Auto) 20 % (24-48) Monocytes (%) (Auto) 7 % (0-9) Eosinophils (%) (Auto) 1 % (0-3) Basophils (%) (Auto) 0 % (0-3) Neutrophils # (Auto) 9.1 x10^3uL (1.8-7.7) Lymphocytes # (Auto) 2.5 x10^3/uL (1.0-4.8) Monocytes # (Auto) 0.9 x10^3/uL (0.0-1.1) Eosinophils # (Auto) 0.1 x10^3/uL (0.0-0.7) Basophils # (Auto) 0.1 x10^3/uL (0.0-0.2) Sodium Level 141 mmol/L (136-145) Potassium Level 3.3 mmol/L (3.5-5.1) Chloride Level 104 mmol/L (98-107) Carbon Dioxide Level 31 mmol/L (21-32) Anion Gap 6 (6-14) Blood Urea Nitrogen 7 mg/dL (8-26) Creatinine 1.0 mg/dL (0.7-1.3) Estimated GFR (Cockcroft-Gault) 74.8 Glucose Level 129 mg/dL (70-99) Calcium Level 7.5 mg/dL (8.5-10.1) Magnesium Level 1.6 mg/dL (1.8-2.4) Test 02/16/18 07:36 02/16/18 11:41 Glucose (Fingerstick) 133 mg/dL (70-99) 171 mg/dL (70-99) Micro 02/06/18 Blood Culture - Preliminary, Resulted NO GROWTH AFTER 4 DAYS URINE CULTURE RES 1 Final No growth Objective Assessment Gallstone ileus s/p lap assisted adhesiolysis and enterotomy with removal of impacted gallstone in terminal ileum on 02/10. Lactic acidosis Sepsis with hypotension - improved Metabolic alkalosis sec to vomiting DM with high anion gap CAR - improving Severe dehydration Leukocytosis - trending down Diarrhea - better, c. diff neg 02/14. Plan Plan of Care Cont Augmentin for 4 more days Previously on Zosyn (02/11) Dose steroids 02/10 Probiotics ID to sign off Attending Co-Sign Attending Co-Sign The patient was seen and interviewed as well as examined at the bedside. The chart was reviewed. The case was discussed. Agree with the plan of care. HELEN HEATH APRN Feb 16, 2018 13:19 KINGSTON GRACE MD Feb 16, 2018 14:00
[2018-02-16] MEDS ORDERED: GLIM2TAB PO (14:13)
[2018-02-16] MEDS ORDERED: Pantoprazole PO (14:13)
[2018-02-16] MEDS ORDERED: ASPI-612 PO (14:13)
[2018-02-16] MEDS ORDERED: LACT1CAP19 PO (14:13)
[2018-02-16] MEDS ORDERED: AMOX1TAB11 PO (14:13)
--- NOTE | 2018-02-16 14:18 | PDOC3 ---
Discharge Summary Visit Information Date of Admission: Feb 06, 2018 Date of Discharge: Feb 16, 2018 Admitting Diagnosis: ARF, NSTEMI, Impacted gallstone Final Diagnosis Problems Medical Problems: (1) Acute renal failure Status: Acute (2) CHF (congestive heart failure) Status: Acute (3) DKA (diabetic ketoacidoses) Status: Acute (4) Heart murmur Status: Acute (5) NSTEMI (non-ST elevated myocardial infarction) Status: Acute Brief Hospital Course Allergies Allergies Coded Allergies Type Severity Reaction Last Updated Verified No Known Drug Allergies 02/06/18 No Vital Signs Vital Signs Date Time Temp Pulse Resp B/P (MAP) Pulse Ox O2 Delivery O2 Flow Rate FiO2 02/16/18 11:03 98.3 91 16 124/77 (93) 96 Room Air 98.3 Lab Results Laboratory Tests Test 02/14/18 17:10 02/14/18 20:45 02/15/18 07:05 02/15/18 07:47 Glucose (Fingerstick) 134 mg/dL (70-99) 127 mg/dL (70-99) 125 mg/dL (70-99) White Blood Count 13.1 x10^3/uL (4.0-11.0) Red Blood Count 3.93 x10^6/uL (4.30-5.70) Hemoglobin 12.1 g/dL (13.0-17.5) Hematocrit 35.3 % (39.0-53.0) Mean Corpuscular Volume 90 fL (79-100) Mean Corpuscular Hemoglobin 31 pg (25-35) Mean Corpuscular Hemoglobin Concent 34 g/dL (31-37) Red Cell Distribution Width 14.0 % (11.5-14.5) Platelet Count 260 x10^3/uL (140-400) Neutrophils (%) (Auto) 76 % (31-73) Lymphocytes (%) (Auto) 16 % (24-48) Monocytes (%) (Auto) 7 % (0-9) Eosinophils (%) (Auto) 1 % (0-3) Basophils (%) (Auto) 0 % (0-3) Neutrophils # (Auto) 9.9 x10^3uL (1.8-7.7) Lymphocytes # (Auto) 2.1 x10^3/uL (1.0-4.8) Monocytes # (Auto) 0.9 x10^3/uL (0.0-1.1) Eosinophils # (Auto) 0.1 x10^3/uL (0.0-0.7) Basophils # (Auto) 0.0 x10^3/uL (0.0-0.2) Sodium Level 144 mmol/L (136-145) Potassium Level 2.9 mmol/L (3.5-5.1) Chloride Level 105 mmol/L (98-107) Carbon Dioxide Level 29 mmol/L (21-32) Anion Gap 10 (6-14) Blood Urea Nitrogen 7 mg/dL (8-26) Creatinine 1.0 mg/dL (0.7-1.3) Estimated GFR (Cockcroft-Gault) 74.8 Glucose Level 117 mg/dL (70-99) Calcium Level 7.6 mg/dL (8.5-10.1) Test 02/15/18 11:54 02/15/18 17:12 02/15/18 20:50 02/16/18 03:09 Glucose (Fingerstick) 188 mg/dL (70-99) 173 mg/dL (70-99) 144 mg/dL (70-99) 127 mg/dL (70-99) Test 02/16/18 05:00 02/16/18 07:36 02/16/18 11:41 White Blood Count 12.7 x10^3/uL (4.0-11.0) Red Blood Count 3.71 x10^6/uL (4.30-5.70) Hemoglobin 11.4 g/dL (13.0-17.5) Hematocrit 33.4 % (39.0-53.0) Mean Corpuscular Volume 90 fL (79-100) Mean Corpuscular Hemoglobin 31 pg (25-35) Mean Corpuscular Hemoglobin Concent 34 g/dL (31-37) Red Cell Distribution Width 13.7 % (11.5-14.5) Platelet Count 266 x10^3/uL (140-400) Neutrophils (%) (Auto) 72 % (31-73) Lymphocytes (%) (Auto) 20 % (24-48) Monocytes (%) (Auto) 7 % (0-9) Eosinophils (%) (Auto) 1 % (0-3) Basophils (%) (Auto) 0 % (0-3) Neutrophils # (Auto) 9.1 x10^3uL (1.8-7.7) Lymphocytes # (Auto) 2.5 x10^3/uL (1.0-4.8) Monocytes # (Auto) 0.9 x10^3/uL (0.0-1.1) Eosinophils # (Auto) 0.1 x10^3/uL (0.0-0.7) Basophils # (Auto) 0.1 x10^3/uL (0.0-0.2) Sodium Level 141 mmol/L (136-145) Potassium Level 3.3 mmol/L (3.5-5.1) Chloride Level 104 mmol/L (98-107) Carbon Dioxide Level 31 mmol/L (21-32) Anion Gap 6 (6-14) Blood Urea Nitrogen 7 mg/dL (8-26) Creatinine 1.0 mg/dL (0.7-1.3) Estimated GFR (Cockcroft-Gault) 74.8 Glucose Level 129 mg/dL (70-99) Calcium Level 7.5 mg/dL (8.5-10.1) Magnesium Level 1.6 mg/dL (1.8-2.4) Glucose (Fingerstick) 133 mg/dL (70-99) 171 mg/dL (70-99) Laboratory Tests Test 02/15/18 17:12 02/15/18 20:50 02/16/18 03:09 02/16/18 05:00 Glucose (Fingerstick) 173 mg/dL (70-99) 144 mg/dL (70-99) 127 mg/dL (70-99) White Blood Count 12.7 x10^3/uL (4.0-11.0) Red Blood Count 3.71 x10^6/uL (4.30-5.70) Hemoglobin 11.4 g/dL (13.0-17.5) Hematocrit 33.4 % (39.0-53.0) Mean Corpuscular Volume 90 fL (79-100) Mean Corpuscular Hemoglobin 31 pg (25-35) Mean Corpuscular Hemoglobin Concent 34 g/dL (31-37) Red Cell Distribution Width 13.7 % (11.5-14.5) Platelet Count 266 x10^3/uL (140-400) Neutrophils (%) (Auto) 72 % (31-73) Lymphocytes (%) (Auto) 20 % (24-48) Monocytes (%) (Auto) 7 % (0-9) Eosinophils (%) (Auto) 1 % (0-3) Basophils (%) (Auto) 0 % (0-3) Neutrophils # (Auto) 9.1 x10^3uL (1.8-7.7) Lymphocytes # (Auto) 2.5 x10^3/uL (1.0-4.8) Monocytes # (Auto) 0.9 x10^3/uL (0.0-1.1) Eosinophils # (Auto) 0.1 x10^3/uL (0.0-0.7) Basophils # (Auto) 0.1 x10^3/uL (0.0-0.2) Sodium Level 141 mmol/L (136-145) Potassium Level 3.3 mmol/L (3.5-5.1) Chloride Level 104 mmol/L (98-107) Carbon Dioxide Level 31 mmol/L (21-32) Anion Gap 6 (6-14) Blood Urea Nitrogen 7 mg/dL (8-26) Creatinine 1.0 mg/dL (0.7-1.3) Estimated GFR (Cockcroft-Gault) 74.8 Glucose Level 129 mg/dL (70-99) Calcium Level 7.5 mg/dL (8.5-10.1) Magnesium Level 1.6 mg/dL (1.8-2.4) Test 02/16/18 07:36 02/16/18 11:41 Glucose (Fingerstick) 133 mg/dL (70-99) 171 mg/dL (70-99) Brief Hospital Course Admitted with DKA, dehydration, ileus with impacted gallstone to ICU. Gall stone ileus s/p impacted gallstone enterotomy removal and lysis of adhesions 02/10 Lactic acidosis sec to DKA and severe dehydration, improved with fluids Known DM with high likelihood of undiagnosed gastroparesis, improved with gallstone removal Sepsis with hypotension - responded to IVF - t.o ICU 02/08 s/p DKA Metabolic alkalosis secondary to vomiting, improved Elevated troponin, NSTEMI, demand ischemia Acute on chronic renal failure - creat 5 on admit, improved to 1 on d/c, but had Hypokalemia and hypomagnesemia, home on K replacement F/u with surgery in 1-2 weeks, wound care cont home meds Changed to PO augmentin for 4 days on d/c home PTOT - ok for home with self care Discharge Information Condition at Discharge: Improved Follow Up: Weeks (1-2) Disposition/Orders: D/C to Home, Instructions/Orders (Abdominal binder per surgery recs. 4 days augmentin. F/u with Dr. Dumont) Scheduled Amoxicillin/Potassium Clav (Amox Tr-K Clv 875-125 Mg Tab) 1 Each Tablet, 1 TAB PO BID for cholecystitis for 4 Days, #8 Prescribed by: PARISH LIMON MD on 02/16/18 1413 Aspirin (Aspirin Ec) 81 Mg Tablet.dr, 81 MG PO DAILYWBKFT for Thromboppx for 30 Days, #30 Prescribed by: PARISH LIMON MD on 02/16/18 1413 Glimepiride (Amaryl) 2 Mg Tablet, 2 MG PO DAILY for DM for 30 Days, #30 Prescribed by: PARISH LIMON MD on 02/16/18 1413 Lactobacillus Rhamnosus Gg (Culturelle) 1 Each Cap.sprink, 1 CAP PO BID for GI for 7 Days, #14 Prescribed by: PARISH LIMON MD on 02/16/18 1413 [Pantoprazole] 40 MG TABLET.DR, 40 MG PO DAILYAC for 30 Days, #30 Prescribed by: PARISH LIMON MD on 02/16/18 1413 PARISH LIMON MD Feb 16, 2018 14:18
[2018-02-16 15:00] VITALS: BP 121/77
== END 2018-02-16 16:30 | disposition home or self-care (01) | DRG 853 ==
LOC: ER 19:15 → 1 WEST ICU 21:00 → 6 SOUTH 02-08 15:12 → 1 WEST ICU 02-10 14:32 → 4 NORTH 02-13 12:34
PROVIDERS: ADMIT Family Medicine; ATTEND Family Medicine
PROC: 0DC Gastrointestinal System, Extirpation (ICD-10-PCS; 2018-02-10)
PROC: 0DNB4ZZ Release Ileum, Percutaneous Endoscopic Approach (ICD-10-PCS; principal; 2018-02-10 11:00)
DX: A41.9 Sepsis, unspecified organism (principal); J18.9 Pneumonia, unspecified organism; N17.0 Acute kidney failure with tubular necrosis; E11.10 Type 2 diabetes mellitus with ketoacidosis without coma; I21.A1 Myocardial infarction type 2; E87.3 Alkalosis; I13.0 Hypertensive heart and chronic kidney disease with heart failure and stage 1 through stage 4 chronic kidney disease, or unspecified chronic kidney disease; K56.3 Gallstone ileus; J98.11 Atelectasis; E87.0 Hyperosmolality and hypernatremia; I95.9 Hypotension, unspecified; I50.9 Heart failure, unspecified; E11.22 Type 2 diabetes mellitus with diabetic chronic kidney disease; K31.84 Gastroparesis; E83.42 Hypomagnesemia; K21.9 Gastro-esophageal reflux disease without esophagitis; F12.90 Cannabis use, unspecified, uncomplicated; E87.6 Hypokalemia; N18.9 Chronic kidney disease, unspecified; E86.0 Dehydration; Z90.49 Acquired absence of other specified parts of digestive tract; Z91.19 Patient's noncompliance with other medical treatment and regimen; Z83.3 Family history of diabetes mellitus; Z87.891 Personal history of nicotine dependence
CPT/HCPCS: 36415; 36600; 71045; 74018; 74176; 76770; 80048; 80053; 80061; 80069; 80076; 81001; 82010; 82550; 82805; 82962; 83036; 83605; 83690; 83735; 83880; 84100; 84443; 84484; 85007; 85025; 87040; 87086; 87493; 87641; 93005; 93306; 96361; 96365; C9113; J0330; J0694; J1100; J1650; J1815; J2001; J2270; J2370; J2405; J2543; J2704; J2710; J2765; J3010; J3230; J3370; J3475; J3480; J3490; J7030; J7042; J7050; J7120; 97116; 97530; 97535; 99285-25